=== PATIENT | female | born 1945 | race Caucasian/White ===

== ENCOUNTER → 2016-04-26 | Outpatient (CLI) | payer OTHER, BC ==
[~2016-04-26] MED LIST: ASCA500 PO; ASCO500T16 PO; ATOR-22 PO; ATOR10TA88 PO; CALC-354 PO; CHOL100010 PO; CLTP PO; EVER10TA PO; EVER5TAB PO; EXM/25 PO; FRCT/ PO; LEVO150T9 PO; LEVO1TAB PO; METO-217 PO; MULT-506 PO; NYSS5 PO; OPTIRAY 320 IV PRN; PANT40TA PO; POTA10CA28 PO; PRT/40 PO; QSTP PO; ULT50X PO; VALA500T60 PO; VLT500 PO; ZOLP10TA PO
--- NOTE | 2016-04-26 15:44 | DIAGNOSTIC IMAGING REPORT ---
CT ABD/PELVIS IV AND ORAL CONT CLINICAL HISTORY: Breast carcinoma COMPARISON STUDY: 02/01/2016 TECHNIQUE: Following the IV administration of 120 mL of Optiray-320, CT scan of the abdomen and pelvis was performed from the lung bases to the proximal femurs. Images are reviewed in the axial, sagittal, and coronal planes. IV contrast was administered without complication. CT DOSE: 431.38 mGy.cm FINDINGS: Lower chest: There is hyperdense lobular right-sided pleural thickening. There are right basilar atelectatic changes. The findings may be secondary to a prior pleurodesis. Liver: There is mild hepatic steatosis. There is a stable 5 mm right lobe hepatic cyst. Gallbladder: Unremarkable. Spleen: Normal in size and attenuation. Pancreas: Unremarkable. Adrenal glands: There is a stable 12 mm right adrenal gland nodule Kidneys: There is symmetric renal cortical enhancement. The kidneys are normal in size without hydronephrosis. Bowel: There are no transition zones to indicate bowel obstruction. No acute inflammatory changes are visualized. Peritoneum: There is no intraperitoneal free air or abdominal ascites. Vasculature: The abdominal aorta is normal in course and caliber. Adenopathy: None. Pelvic viscera: The bladder, and pelvic viscera are unremarkable. Skeletal structures: There are postsurgical changes are prior right hip pinning. There is a stable T10 sclerotic lesion, suspicious for a blastic metastasis. IMPRESSION: 1. Stable hyperdense lobular right-sided pleural thickening and right basilar atelectasis/consolidation 2. Stable 5 mm right lobe hepatic cyst 3. No evidence of pathologic adenopathy 4. Stable 12 mm right adrenal gland nodule 5. No evidence of bowel obstruction. No evidence of free air 6. Stable T10 blastic lesion Electronically signed by: David Brizuela M.D. 04/26/2016 3:42 PM Dictated Date/Time: 04/26/2016 3:35 PM
--- NOTE | 2016-04-26 15:53 | DIAGNOSTIC IMAGING REPORT ---
CT SCAN OF THE CHEST WITH IV CONTRAST CLINICAL HISTORY: Breast cancer. COMPARISON STUDY: Chest CT dated 02/01/2016 and PET/CT dated 10/02/2015 and 07/11/2014. TECHNIQUE: Following the IV administration of 120 cc of Optiray 320, CT scan of the thorax was performed from the thoracic inlet to the upper abdomen. Images are reviewed in the axial, sagittal, and coronal planes. IV contrast was administered without complication. FINDINGS: Thyroid: Atrophic versus surgically absent. Thoracic aorta: There is atherosclerotic calcification of the thoracic aorta. There is mild ectasia of the ascending thoracic aorta which measures up to 3.5 cm in diameter. The remainder of the thoracic aorta is normal in caliber. The arch demonstrates standard 3-vessel anatomy. No dissection is seen. Pulmonary vasculature: The pulmonary trunk is dilated suggesting pulmonary artery hypertension. There are no filling defects identified in the central pulmonary vessels to indicate pulmonary embolus. Note that this examination was not protocoled for evaluation of the pulmonary arteries. Heart: The heart is mildly enlarged and without pericardial effusion. Lungs and pleural spaces: There is a small loculated pleural collection seen at the right lung base. There is significant pleural thickening and nodularity with hyperdense material the right lung base suggesting previous pleurodesis. Nodular thickening is seen along the right major fissure. This may also be related to previous pleurodesis. Consolidative change at the right lung base is unchanged. There is right apical scarring. A 4 mm right upper lobe pulmonary nodule on image #110 is unchanged. A 3 mm pleural-based nodule at the left lung base seen on image #221 was not seen previously. No additional pulmonary nodules are identified. The trachea and central airways are patent. Mediastinum: A mildly enlarged AP window lymph node on image #100 is unchanged, measuring 1.5 x 1.1 cm. No additional pathologically enlarged mediastinum lymph nodes are identified. Saivta: Clear. Axillae: There is no axillary lymphadenopathy. Upper abdomen: A 1.5 cm right at adrenal adenoma is unchanged. Partially visualized upper abdominal viscera is otherwise within normal limits. Skeletal structures: The skeletal structures are osteopenic. A large sclerotic metastasis in the body of T9 is similar appearance to prior examinations. A lesion within the body of the sternum is also unchanged. There is no evidence of progressive osseous metastatic disease. Soft tissues: Both breasts are surgically absent. IMPRESSION: 1. There is a small residual pleural collection again seen at the right lung base with evidence of previous pleurodesis and right basilar consolidation. This has not significantly changed from 02/01/2016. 2. No significant change in osteoblastic lesions within the bodies of T9 and the body of the sternum as compared to 02/01/2016. There is no evidence of progressive osseous metastatic disease. 3. A 4 mm right upper lobe pulmonary nodule is unchanged an indeterminant. There is a new 3 mm pleural-based nodule at the left lung base. This is of indeterminant significance and continued attention at follow-up is recommended. 4. There is no airspace consolidation typical for pneumonia. 5. An enlarged AP window lymph node is unchanged from 02/01/2016. 6. Additional findings as above. Electronically signed by: Rickie King M.D. 04/26/2016 3:52 PM Dictated Date/Time: 04/26/2016 3:37 PM
--- NOTE | 2016-04-26 16:14 | DIAGNOSTIC IMAGING REPORT ---
BONE SCAN WHOLE BODY CLINICAL HISTORY: Breast cancer. COMPARISON STUDY: CT of the chest abdomen and pelvis April 26, 2016 and bone scan February 01, 2016. TECHNIQUE: 26.2 mCi of technetium 99m MDP was injected IV at 12:30 PM on April 26, 2016. 3 hours following injection, imaging of the body was performed in the anterior and posterior projections. FINDINGS: Expected soft tissue and renal uptake is present. Moderate to marked radiotracer uptake within the T10 vertebral body is unchanged. Moderate uptake within the sternum and mild to moderate uptake within the posterior right 10th rib is unchanged since exam of February 01, 2016. Mild uptake within the greater trochanter of the right femur is unchanged and likely postsurgical. Uptake within the feet, ankles and knees is degenerative. Uptake within the left aspect of the mid cervical spine is unchanged and likely degenerative. No new sites of metastatic disease are identified. IMPRESSION: No significant change in radiotracer uptake within the T10 vertebral body, posterior right 10th rib and sternum consistent with skeletal metastases. Electronically signed by: Xu Andrade M.D. 04/26/2016 4:12 PM Dictated Date/Time: 04/26/2016 4:07 PM
== END | disposition home or self-care (01) ==
LOC: C.CTS 12:09
PROVIDERS: ATTEND Internal Medicine Hematology & Oncology
DX: C50.911 Malignant neoplasm of unspecified site of right female breast (principal); K76.89 Other specified diseases of liver; R91.1 Solitary pulmonary nodule

== ENCOUNTER → 2016-07-29 | Outpatient (CLI) | payer OTHER, BC ==
[~2016-07-29] MED LIST changes: +ATOR10TA82 PO; -ATOR10TA88 PO; -OPTIRAY 320 IV PRN; +PANT40TA2 PO; -PRT/40 PO
[2016-07-29 13:59] LABS: THYROID STIMULATING HORMONE 4.2 uIu/ml (0.300-4.500)
== END | disposition home or self-care (01) ==
LOC: C.LAB 13:06
PROVIDERS: ATTEND Internal Medicine Endocrinology, Diabetes & Metabolism
DX: C73 Malignant neoplasm of thyroid gland (principal); E89.0 Postprocedural hypothyroidism; E78.5 Hyperlipidemia, unspecified; C50.919 Malignant neoplasm of unspecified site of unspecified female breast; R53.81 Other malaise; R59.9 Enlarged lymph nodes, unspecified; R53.83 Other fatigue

== ENCOUNTER 2016-08-16 12:43 | Inpatient (IN) | payer OTHER, BC ==
[~2016-08-16] VITALS: Ht 152.4 cm; Wt 44.2 kg
[~2016-08-16 12:43] MED LIST changes: -ASCO500T16 PO; -ATOR-22 PO; -CALC-354 PO; -EVER5TAB PO; -LEVO150T9 PO; -METO-217 PO; -NYSS5 PO; -PANT40TA2 PO; -POTA10CA28 PO; -QSTP PO; -ULT50X PO; -VLT500 PO
[2016-08-16] MEDS ORDERED: HYDROmorphone INJ 0.5 MG/0.5 ML SYR IV STA (13:07)
[2016-08-16] MEDS ORDERED: SODIUM CHLORIDE 0.9% 500ML 500 ML IV STA (13:07)
[2016-08-16] MEDS ORDERED: ONDANSETRON INJ 2 MG/ML 2 ML VIAL IV STA (13:07)
[2016-08-16] MEDS ORDERED: OPTIRAY 320 IV PRN (13:15)
[2016-08-16 13:30] LABS: COMPLETE YES; EOS % 0.1 %; HEMATOCRIT 37.7 % (37-47); IG% 0.3 %; LYMPH % 2.9 %; LYMPH ABS # 0.23 K/uL (1.2-3.4); MEAN CELL VOLUME 78.7 fL (80-100); MEAN CORPUSCULAR HEMOGLOBIN 26.3 pg (25-34); MEAN CORPUSCULAR HGB CONC 33.4 g/dl (32-36); MEAN PLATELET VOLUME 8.7 fL (7.4-10.4); MONO % 3.3 %; NEUT % 93.4 %; PLATELET COUNT 226 K/uL (130-400); RED BLOOD COUNT 4.79 M/uL (4.2-5.4); WHITE BLOOD COUNT 7.95 K/uL (4.8-10.8)
[2016-08-16] MEDS ORDERED: PIPERACILLIN/TAZOBACTAM 4.5 GM/100ML D5W IV STA (13:31)
[2016-08-16 13:40] LABS: INR 1.1 (0.9-1.1)
[2016-08-16 13:44] LABS: ISTAT CREATININE 0.4 mg/dl (0.6-1.3); ISTAT HEMOGLOBIN 14.3 g/dl (12.0-16.0); ISTAT IONIZED CALCIUM 1.1 mmol/l (1.12-1.32)
[2016-08-16 13:56] LABS: ALT/SGPT 787 U/L (12-78); AST/SGOT 563 U/L (15-37); BLOOD UREA NITROGEN 8 mg/dl (7-18); BUN/CREATININE RATIO 17.3 (10-20); CALCIUM 8.8 mg/dl (8.5-10.1); CARBON DIOXIDE 24 mmol/L (21-32); CHLORIDE 96 mmol/L (98-107); CREATININE 0.47 mg/dl (0.60-1.20); GLUCOSE 108 mg/dl (70-99); MAGNESIUM 2.1 mg/dl (1.8-2.4); POTASSIUM 3.3 mmol/L (3.5-5.1); SODIUM 130 mmol/L (136-145)
[2016-08-16 14:01] LABS: ALKALINE PHOSPHATASE 188 U/L (45-117)
[2016-08-16] MEDS ORDERED: ACETAMINOPHEN 500 MG TAB PO STA (14:09)
--- NOTE | 2016-08-16 14:19 | DIAGNOSTIC IMAGING REPORT ---
CHEST ONE VIEW PORTABLE CLINICAL HISTORY: fever ABDOMINAL PAIN COMPARISON STUDY: 11/14/2015 FINDINGS: The heart is mildly enlarged. There is no evidence of overt failure.. There is chronic right pleural fluid/thickening unchanged the prior study. Minor right basilar airspace opacities are likely atelectatic. No free air is visualized. IMPRESSION: 1. Chronic right pleural thickening/effusion 2. Mild cardiomegaly, no evidence of overt failure. Electronically signed by: David Brizuela M.D. 08/16/2016 2:17 PM Dictated Date/Time: 08/16/2016 2:16 PM
[2016-08-16 14:24] LABS: URINE APPEARANCE CLEAR (CLEAR); URINE BILIRUBIN NEG (NEG); URINE COLOR YELLOW; URINE EPITHELIAL CELL AUTO 0-5 /lpf (0-5); URINE NITRITE NEG (NEG); URINE PH 7.5 (4.5-7.5); URINE SPECIFIC GRAVITY 1.006 (1.000-1.030); UROBILINOGEN NEG (NEG); ZZUR CULT IF INDIC CLEAN CATCH NO
[2016-08-16 14:26] LABS: MANUAL MICROSCOPIC REQUIRED? NO; REVIEW REQ? NO
[2016-08-16] MEDS ORDERED: LEVO150T9 PO (14:33)
[2016-08-16] MEDS ORDERED: FRCT/ PO (14:33)
[2016-08-16] MEDS ORDERED: ASCO500T16 PO (14:33)
[2016-08-16] MEDS ORDERED: VLT500 PO (14:33)
[2016-08-16] MEDS ORDERED: ATOR-22 PO (14:33)
[2016-08-16] MEDS ORDERED: CALC-354 PO (14:33)
[2016-08-16] MEDS ORDERED: METO-217 PO (14:33)
[2016-08-16] MEDS ORDERED: CHOL100010 PO (14:33)
[2016-08-16] MEDS ORDERED: MULT-506 PO (14:33)
[2016-08-16] MEDS ORDERED: EVER5TAB PO (14:33)
[2016-08-16] MEDS ORDERED: EXM/25 PO (14:33)
[2016-08-16] MEDS ORDERED: ZOLP10TA PO (14:33)
[2016-08-16] MEDS ORDERED: PANT40TA2 PO (14:33)
--- NOTE | 2016-08-16 14:49 | DIAGNOSTIC IMAGING REPORT ---
CT ABD/PELVIS IV CONTRAST ONLY CLINICAL HISTORY: diffuse epigastric abd pain COMPARISON STUDY: 04/26/2016 TECHNIQUE: Following the IV administration of 92 mL of Optiray-320, CT scan of the abdomen and pelvis was performed from the lung bases to the proximal femurs. Images are reviewed in the axial, sagittal, and coronal planes. IV contrast was administered without complication. CT DOSE: 243.17 mGycm FINDINGS: Lower chest: There is persistent enhancing/hyperdense right lower lobe pleural thickening, possibly secondary to a prior pleurodesis. There is a small chronic right pleural fluid collection. Liver: There is a stable 6 mm hypodensity within the right lobe of the liver inferiorly likely representing a cyst. Portal vein is patent. Gallbladder: There is mild gallbladder distention. There is trace pericholecystic fluid. No gallstones are visualized. Spleen: Normal in size and attenuation. Pancreas: Unremarkable. Adrenal glands: Unremarkable. Kidneys: There is symmetric renal cortical enhancement. The kidneys are normal in size without hydronephrosis. Bowel: There are no transition zones to indicate bowel obstruction. There is no evidence of acute diverticulitis. The appendix appears normal as visualized. Peritoneum: There is no intraperitoneal free air or abdominal ascites. Vasculature: The abdominal aorta is normal in course and caliber. Adenopathy: None. Pelvic viscera: The bladder, and pelvic viscera are unremarkable. Skeletal structures: There are postsurgical changes of prior right hip pinning. No destructive lesions are visualized. There is a persistent sclerotic T9 lesion. IMPRESSION: 1. No evidence of bowel obstruction. No evidence of free air 2. No evidence of acute appendicitis. No evidence of acute diverticulitis. 3. Stable T9 sclerotic lesion suspicious for a blastic metastasis 4. Stable right-sided lobular pleural thickening. There is associated small chronic pleural fluid collection. There is a suggestion of prior pleurodesis. 5. Mild gallbladder distention. No calculi are visualized on CT scanning. Electronically signed by: David Brizuela M.D. 08/16/2016 2:47 PM Dictated Date/Time: 08/16/2016 2:41 PM
--- NOTE | 2016-08-16 15:34 | EMERGENCY ROOM VISIT NOTE ---
History Report prepared by Monica: Marcelino Mackenzie Under the Supervision of: Dr. Thor Kramer D.O. First contact with patient: 12:54 Stated Complaint: ABD PAIN History of Present Illness The patient is a 71 year old female who presents to the Emergency Room with complaints of intermittent epigastric abdominal pain beginning yesterday. She is currently on Afinitor and Exemestane for metastatic, hormone positive breast cancer. She has a history of a double mastectomy. The patient states that her pain began following eating breakfast. Her pain radiates into her back. The patient also complains of nausea and vomiting. She notes that she has a history of stomach ulcers. She states that bending over makes her pain worse. The patient noticed that she was having fevers yesterday. Pt denies headache, change in vision, chest pain, shortness of breath, diarrhea, pain with urination , and melena. Her last normal bowel movement was two days ago. Source of History: patient Onset: Yesterday Position: abdomen (epigastric) Timing: intermittent Modifying Factors (Worsening): other (bending over) Associated Symptoms: + fevers, + nausea, + vomiting, + back pain, No headache, No chest pain, No SOB, No diarrhea, No urinary symptoms Review of Systems See HPI for pertinent positives & negatives. A total of 10 systems reviewed and were otherwise negative. Past Medical & Surgical Medical Problems: (1) Allergic rhinitis (2) Cancer of thyroid (3) GERD (gastroesophageal reflux disease) (4) Peptic ulcer disease with hemorrhage Family History Cancer Diabetes mellitus FH: heart disease Hypertension Social History Smoking Status: Former Smoker Alcohol Use: occasionally Housing Status: lives alone Occupation Status: retired Current/Historical Medications Scheduled Ascorbic Acid (Ascorbic Acid), 1 TAB PO BID Atorvastatin (Lipitor), 1 TAB PO DAILY Calcium Carbonate-Cholecalcife (Caltrate 600+D), 2 TAB PO AMPM Cholecalciferol (Vitamin D), 1 TAB PO DAILY Everolimus (Afinitor), 5 MG PO DAILY Exemestane (Aromasin), 1 TAB PO DAILY Levothyroxine Sodium (Levothyroxine Sodium), 150 MCG PO DAILY Metoprolol Succinate (Toprol Xl), 50 MG PO DAILY Multivitamin (Multivitamin), 1 TAB PO DAILY Pantoprazole (Pantoprazole Sodium), 40 MG PO DAILY Valacyclovir HCl (Valacyclovir HCl), 500 MG PO DAILY Zolpidem Tartrate (Ambien), 10 MG PO HS Scheduled PRN Acetamin/Butalbital/Caffeine (Fioricet), 1 TAB PO UD PRN for Pain Allergies Coded Allergies: Oxycodone (Verified Adverse Reaction, Severe, HALLUCINATIONS, 06/01/15) HALLUCINATIONS Isosorbide Nitrate (Unverified Adverse Reaction, Intermediate, IMDUR/ MIGRAINE, 08/16/16) Aspirin (Verified Adverse Reaction, Mild, HISTORY OF BLEEDING ULCERS, 05/31) Buprenorphine (Verified Adverse Reaction, Mild, GI SYMPTOMS, 06/01/15) Diphenhydramine (Verified Adverse Reaction, Mild, RESTLESS LEGS, 06/01/15) RESTLESS LEGS Morphine (Verified Adverse Reaction, Mild, SEVERE VOMITING, 06/01/15) NSAIDs (Verified Adverse Reaction, Mild, BLEEDING ULCER DISEASE-CAN NOT HAVE NSAIDS, 06/01/15) Tapentadol (Verified Adverse Reaction, Mild, headache, 06/01/15) Physical Exam Vital Signs Date Time Temp Pulse Resp B/P (MAP) Pulse Ox O2 Delivery O2 Flow Rate FiO2 08/16/16 14:51 105 20 164/91 96 Room Air 08/16/16 13:41 104 08/16/16 13:15 38.2 104 22 179/109 97 Room Air Physical Exam GENERAL: Sitting up in bed, chronically ill appearing EYE EXAM: normal conjunctiva OROPHARYNX: no exudate, no erythema, lips, buccal mucosa, and tongue normal and mucous membranes are moist NECK: supple, no nuchal rigidity, no adenopathy, non-tender LUNGS: Clear to auscultation. Normal chest wall mechanics HEART: no murmurs, S1 normal and S2 normal ABDOMEN: abdomen firm, tenderness to palpation in the RUQ. normo-active bowel sounds, no masses, no rebound or guarding. BACK: Back is symmetrical on inspection and there is no deformity, no midline tenderness, no CVA tenderness. SKIN: no rashes and no bruising UPPER EXTREMITIES: upper extremities are grossly normal. LOWER EXTREMITIES: No pitting edema. NEURO EXAM: Normal sensorium, cranial nerves II-XII grossly intact, normal speech, no gross weakness of arms, no gross weakness of legs. Medical Decision & Procedures ER Provider Diagnostic Interpretation: Radiology results as stated below per my review and the radiologist's interpretation: CT ABD/PELVIS IV CONTRAST ONLY FINDINGS: Lower chest: There is persistent enhancing/hyperdense right lower lobe pleural thickening, possibly secondary to a prior pleurodesis. There is a small chronic right pleural fluid collection. Liver: There is a stable 6 mm hypodensity within the right lobe of the liver inferiorly likely representing a cyst. Portal vein is patent. Gallbladder: There is mild gallbladder distention. There is trace pericholecystic fluid. No gallstones are visualized. Spleen: Normal in size and attenuation. Pancreas: Unremarkable. Adrenal glands: Unremarkable. Kidneys: There is symmetric renal cortical enhancement. The kidneys are normal in size without hydronephrosis. Bowel: There are no transition zones to indicate bowel obstruction. There is no evidence of acute diverticulitis. The appendix appears normal as visualized. Peritoneum: There is no intraperitoneal free air or abdominal ascites. Vasculature: The abdominal aorta is normal in course and caliber. Adenopathy: None. Pelvic viscera: The bladder, and pelvic viscera are unremarkable. Skeletal structures: There are postsurgical changes of prior right hip pinning. No destructive lesions are visualized. There is a persistent sclerotic T9 lesion. IMPRESSION: 1. No evidence of bowel obstruction. No evidence of free air 2. No evidence of acute appendicitis. No evidence of acute diverticulitis. 3. Stable T9 sclerotic lesion suspicious for a blastic metastasis 4. Stable right-sided lobular pleural thickening. There is associated small chronic pleural fluid collection. There is a suggestion of prior pleurodesis. 5. Mild gallbladder distention. No calculi are visualized on CT scanning. Electronically signed by: David Brizuela M.D. CHEST ONE VIEW PORTABLE FINDINGS: The heart is mildly enlarged. There is no evidence of overt failure.. There is chronic right pleural fluid/thickening unchanged the prior study. Minor right basilar airspace opacities are likely atelectatic. No free air is visualized. IMPRESSION: 1. Chronic right pleural thickening/effusion 2. Mild cardiomegaly, no evidence of overt failure. Electronically signed by: David Brizuela M.D. Laboratory Results 08/16/16 12:30 Red Blood Count 4.79, Mean Corpuscular Volume 78.7, Mean Corpuscular Hemoglobin 26.3, Mean Corpuscular Hemoglobin Concent 33.4, Mean Platelet Volume 8.7, Neutrophils (%) (Auto) 93.4, Lymphocytes (%) (Auto) 2.9, Monocytes (%) (Auto) 3.3, Eosinophils (%) (Auto) 0.1, Basophils (%) (Auto) 0.0, Neutrophils # (Auto) 7.43, Lymphocytes # (Auto) 0.23, Monocytes # (Auto) 0.26, Eosinophils # (Auto) 0.01, Basophils # (Auto) 0.00 08/16/16 12:30 Test 08/16/16 12:30 08/16/16 13:00 08/16/16 13:15 08/16/16 13:33 White Blood Count 7.95 K/uL (4.8-10.8) Red Blood Count 4.79 M/uL (4.2-5.4) Hemoglobin 12.6 g/dL (12.0-16.0) Hematocrit 37.7 % (37-47) Mean Corpuscular Volume 78.7 fL (80-100) Mean Corpuscular Hemoglobin 26.3 pg (25-34) Mean Corpuscular Hemoglobin Concent 33.4 g/dl (32-36) Platelet Count 226 K/uL (130-400) Mean Platelet Volume 8.7 fL (7.4-10.4) Neutrophils (%) (Auto) 93.4 % Lymphocytes (%) (Auto) 2.9 % Monocytes (%) (Auto) 3.3 % Eosinophils (%) (Auto) 0.1 % Basophils (%) (Auto) 0.0 % Neutrophils # (Auto) 7.43 K/uL (1.4-6.5) Lymphocytes # (Auto) 0.23 K/uL (1.2-3.4) Monocytes # (Auto) 0.26 K/uL (0.11-0.59) Eosinophils # (Auto) 0.01 K/uL (0-0.5) Basophils # (Auto) 0.00 K/uL (0-0.2) RDW Standard Deviation 40.4 fL (36.4-46.3) RDW Coefficient of Variation 14.2 % (11.5-14.5) Immature Granulocyte % (Auto) 0.3 % Immature Granulocyte # (Auto) 0.02 K/uL (0.00-0.02) Prothrombin Time 12.0 SECONDS (9.0-12.0) Prothromb Time International Ratio 1.1 (0.9-1.1) Est Creatinine Clear Calc Drug Dose 70.9 ml/min Estimated GFR () 115.2 Estimated GFR (Non- 99.4 BUN/Creatinine Ratio 17.3 (10-20) Calcium Level 8.8 mg/dl (8.5-10.1) Magnesium Level 2.1 mg/dl (1.8-2.4) Total Bilirubin 2.1 mg/dl (0.2-1) Direct Bilirubin 1.4 mg/dl (0-0.2) Aspartate Amino Transf (AST/SGOT) 563 U/L (15-37) Alanine Aminotransferase (ALT/SGPT) 787 U/L (12-78) Alkaline Phosphatase 188 U/L (45-117) Total Creatine Kinase 83 U/L (26-192) Creatine Kinase MB < 0.5 ng/ml (0.5-3.6) Creatine Kinase MB Ratio (0-3.0) Troponin I < 0.015 ng/ml (0-0.045) Total Protein 7.6 gm/dl (6.4-8.2) Albumin 3.7 gm/dl (3.4-5.0) Urine Color YELLOW Urine Appearance CLEAR (CLEAR) Urine pH 7.5 (4.5-7.5) Urine Specific [place] 1.006 (1.000-1.030) Urine Protein NEG (NEG) Urine Glucose (UA) NEG (NEG) Urine Ketones TRACE (NEG) Urine Occult Blood 2+ (NEG) Urine Nitrite NEG (NEG) Urine Bilirubin NEG (NEG) Urine Urobilinogen NEG (NEG) Urine Leukocyte Esterase NEG (NEG) Urine WBC (Auto) 0 /hpf (0-5) Urine RBC (Auto) 5-10 /hpf (0-4) Urine Hyaline Casts (Auto) 0 /lpf (0-5) Urine Epithelial Cells (Auto) 0-5 /lpf (0-5) Urine Bacteria (Auto) NEG (NEG) Bedside Hemoglobin 14.3 g/dl (12.0-16.0) Bedside Hematocrit 42 % (37-47) Bedside Sodium 129 mEq/L (135-144) Bedside Potassium 3.2 mEq/L (3.3-5.0) Bedside Chloride 94 mEq/L (101-112) Bedside Total CO2 23 mEq/l (24-31) Anion Gap 17.0 mmol/L (16-25) Bedside Blood Urea Nitrogen 7 mg/dl (7-18) Bedside Creatinine 0.4 mg/dl (0.6-1.3) Bedside Glucose (other) 118 mg/dl (70-99) Bedside Ionized Calcium (Teresita) 1.10 mmol/l (1.12-1.32) Bedside Lactic Acid Venous 1.63 mmol/L (0.90-1.70) Laboratory results per my review. Medications Administered Medications (Trade) Dose Ordered Sig/[place] Route Start Time Stop Time Status Last Admin Dose Admin Sodium Chloride 500 ml @ 999 mls/hr Q31M STAT IV 08/16/16 13:07 08/16/16 13:37 DC 08/16/16 13:25 999 MLS/HR Ondansetron HCl (Zofran Inj) 4 mg NOW STAT IV 08/16/16 13:07 08/16/16 13:09 DC 08/16/16 13:25 4 MG Hydromorphone HCl (Dilaudid Inj) 0.5 mg NOW STAT IV 08/16/16 13:07 08/16/16 13:09 DC 08/16/16 13:25 0.5 MG Piperacillin Sod/ Tazobactam Sod (Zosyn Iv) 4.5 gm NOW STAT IV 08/16/16 13:31 08/16/16 13:33 DC 08/16/16 14:50 4.5 GM Acetaminophen (Tylenol Tab) 1,000 mg NOW STAT PO 08/16/16 14:09 08/16/16 14:11 DC 08/16/16 14:50 1,000 MG ECG Indication: abdominal pain Rate (beats per minute): 100 Rhythm: sinus tachycardia Findings: Q waves (Septal), left axis deviation Comparison ECG Date: June 01, 2015 Change: no significant change ED Course ED COURSE: Vital signs were reviewed and showed tachycardia and hypertension The patients medical record was reviewed The above diagnostic studies were performed and reviewed. ED treatments and interventions as stated above. 1256: The patient was evaluated in room C5. A complete history and physical examination was performed. 1307: Ordered Dilaudid Inj 0.5 mg IV, Zofran Inj 4 mg IV, Sodium Chloride 500 ml @ 999 mls/hr IV. 1331: Ordered Zosyn 4.5 gm IV. 1409: Ordered Tylenol Tab 1000 mg PO. 1510: Upon reevaluation, the patient is resting comfortably. I discussed my findings with the patient and she understands and agrees with the treatment plan. Based on the patients age, coexisting illnesses, exam and lab findings the decision to treat as an inpatient was made. The patient remained stable while under my care. The patient will be evaluated for further management. Medical Decision Differential diagnoses includes but is not limited to gastritis, peptic ulcer disease, GERD, gallbladder disease, pancreatitis, small bowel obstruction, acute coronary syndrome, pericarditis, ischemic bowel, irritable bowel disease, irritable bowel syndrome, appendicitis, diverticulitis, malignancy, hernia, urinary tract infection, torsion, perforation, trauma, infectious. Patient is a 71-year-old female who is immune compromised presents the ER with epigastric/right upper quadrant abdominal pain. She was referred in by primary care doctor as she was febrile and tachycardic. On exam she is acutely tender to palpation right upper quadrant. She has a large transaminitis along with an elevation in her bilirubin. CT shows a distended gallbladder. I do favor she likely has acute cholecystitis I question whether she has a retained stone that we missed on CT causing the transaminitis and elevated bilirubin. I did consult GI and internal medicine. Attempted to contact surgery but was unsuccessful. Patient was given IV antibiotics and IV fluids. She was admitted to internal medicine for a further workup of her likely cholecystitis. Consults Time Called: 1505 Consulting Physician: Dr. Hansen -[facility] [place] Returned Call: [id number] I reviewed the patient's case with Dr. Hansen. The patient will be evaluated for further management. Additional Consults: Time Called: 1500 Consulted Physician: Sonja Additional Comments: She will eval in the ER Impression Primary Impression: Sepsis Additional Impressions: Cholecystitis Transaminitis Scribe Attestation The scribe's documentation has been prepared under my direction and personally reviewed by me in its entirety. I confirm that the note above accurately reflects all work, treatment, procedures, and medical decision making performed by me. Departure Information Dispostion Being Evaluated By Hospitalist Referrals Isaac Way M.D. (PCP) Problem Qualifiers Primary Impression: Sepsis Sepsis type: sepsis due to unspecified organism Qualified Codes: A41.9 - Sepsis, unspecified organism
[2016-08-16 15:39] VITALS: O2SAT 96; Ht 152.4 cm; Wt 44.2 kg
[2016-08-16] MEDS ORDERED: POTASSIUM CHLR 20 MEQ / WTR 40 MEQ in PREMIXED WATER 100 ML IV STA (15:39)
[2016-08-16] MEDS ORDERED: MAGNESIUM HYDROXIDE SUSP 30 ML UDC PO PRN (15:45)
--- NOTE | 2016-08-16 16:03 | History and Physical ---
History & Physical Date & Time of Service: Aug 16, 2016 at 15:45 Chief Complaint: Abd Pain Primary Care Physician: Isaac Way M.D. History of Present Illness Source: patient Pt is a pleasant 71 yo female who presents to the ER with complaints of intermittent epigastric abdominal pain beginning yesterday. Pt reports pain started after eating breakfast yesterday which consisted of bread and cheese. States pain was centrally located and radiated into the back. Pt also reports nausea, vomiting x 1 episode in the evening, as well as fevers which she states was 100.8 Pt does reports a hx of stomach ulcers stating this pain was similar to when she was diagnosed with stomach ulcer many yrs ago. Pt also has hx of breast cancer in which she was treated for 12 yrs ago, but then relapsed several yrs ago and is currently taking PO chemo meds under the care of Dr Charles Butler. Pt denies any headache, change in vision, chest pain, shortness of breath, diarrhea, pain with urination, and melena. Her last normal bowel movement was two days ago. Past Medical/Surgical History Medical Problems: (1) Allergic rhinitis Status: Chronic (2) Cancer of thyroid Status: Resolved (3) GERD (gastroesophageal reflux disease) Status: Chronic (4) Peptic ulcer disease with hemorrhage Status: Resolved Family History Cancer Diabetes mellitus FH: heart disease Hypertension Social History Smoking Status: Former Smoker (quit 40 yrs ago but smoked 1/2 ppd for 10 yrs) Smokeless Tobacco Use: No Alcohol Use: socially (1 glass wine daily) Drug Use: none Occupational Status: retired Immunizations History of Influenza Vaccine: Unknown History of Tetanus Vaccine?: Unknown History of Pneumococcal: Unknown History of Hepatitis B Vaccine: Unknown Multi-Drug Resistant Organisms History of MDRO: No Allergies Coded Allergies: Oxycodone (Verified Adverse Reaction, Severe, HALLUCINATIONS, 06/01/15) HALLUCINATIONS Isosorbide Nitrate (Unverified Adverse Reaction, Intermediate, IMDUR/ MIGRAINE, 08/16/16) Aspirin (Verified Adverse Reaction, Mild, HISTORY OF BLEEDING ULCERS, 05/31) Buprenorphine (Verified Adverse Reaction, Mild, GI SYMPTOMS, 06/01/15) Diphenhydramine (Verified Adverse Reaction, Mild, RESTLESS LEGS, 06/01/15) RESTLESS LEGS Morphine (Verified Adverse Reaction, Mild, SEVERE VOMITING, 06/01/15) NSAIDs (Verified Adverse Reaction, Mild, BLEEDING ULCER DISEASE-CAN NOT HAVE NSAIDS, 06/01/15) Tapentadol (Verified Adverse Reaction, Mild, headache, 06/01/15) Home Medications Scheduled Ascorbic Acid (Ascorbic Acid), 1 TAB PO BID Atorvastatin (Lipitor), 1 TAB PO DAILY Calcium Carbonate-Cholecalcife (Caltrate 600+D), 2 TAB PO AMPM Cholecalciferol (Vitamin D), 1 TAB PO DAILY Everolimus (Afinitor), 5 MG PO DAILY Exemestane (Aromasin), 1 TAB PO DAILY Levothyroxine Sodium (Levothyroxine Sodium), 150 MCG PO DAILY Metoprolol Succinate (Toprol Xl), 50 MG PO DAILY Multivitamin (Multivitamin), 1 TAB PO DAILY Pantoprazole (Pantoprazole Sodium), 40 MG PO DAILY Valacyclovir HCl (Valacyclovir HCl), 500 MG PO DAILY Zolpidem Tartrate (Ambien), 10 MG PO HS Scheduled PRN Acetamin/Butalbital/Caffeine (Fioricet), 1 TAB PO UD PRN for Pain Review of Systems Constitutional: + fever, + chills, No weakness, No fatigue Eyes: No worsening of vision, No eye pain, No redness, No discharge ENT: No hearing loss, No unusual epistaxis, No nasal symptoms, No sore throat Respiratory: No cough, No sputum, No wheezing, No shortness of breath Cardiovascular: No chest pain, No orthopnea, No PND, No edema Abdomen: + pain, + nausea, + vomiting, + constipation, No diarrhea Musculoskeletal: + joint pain, + muscle pain, No swelling, No calf pain Genitourinary - Female: No dysuria, No urinary frequency, No urinary urgency, No urinary incontinence Neurologic: No paralysis, No weakness, No numbness/tingling, No vertigo Psychiatric: No depression symptoms, No anhedonism, No anxiety Endocrine: No fatigue, No excessive thirst Integumentary: No rash, No itch Physical Exam Vital Signs Date Time Temp Pulse Resp B/P (MAP) Pulse Ox O2 Delivery O2 Flow Rate FiO2 08/16/16 14:51 105 20 164/91 96 Room Air 08/16/16 13:41 104 08/16/16 13:15 38.2 104 22 179/109 97 Room Air General Appearance: WD/WN, no apparent distress Head: normocephalic, atraumatic Eyes: normal inspection, PERRL, EOMI, sclerae normal Neck: supple, no adenopathy, thyroid normal, no JVD Respiratory/Chest: chest non-tender, lungs clear, normal breath sounds, no respiratory distress Cardiovascular: regular rate, rhythm, no edema, no gallop, no JVD Abdomen/GI: normal bowel sounds, soft, no organomegaly, + tenderness ( epigastric ) Extremities/Musculoskelatal: normal inspection, no calf tenderness, normal capillary refill, no pedal edema Neurologic/Psych: alert, normal mood/affect, normal reflexes, oriented x 3 Diagnostics Laboratory Results Results Past 24 Hours Test 08/16/16 12:20 08/16/16 12:30 08/16/16 13:00 08/16/16 13:15 Range/Units White Blood Count 7.95 4.8-10.8 K/uL Red Blood Count 4.79 4.2-5.4 M/uL Hemoglobin 12.6 12.0-16.0 g/dL Hematocrit 37.7 37-47 % Mean Corpuscular Volume 78.7 80-100 fL Mean Corpuscular Hemoglobin 26.3 25-34 pg Mean Corpuscular Hemoglobin Concent 33.4 32-36 g/dl Platelet Count 226 130-400 K/uL Mean Platelet Volume 8.7 7.4-10.4 fL Neutrophils (%) (Auto) 93.4 % Lymphocytes (%) (Auto) 2.9 % Monocytes (%) (Auto) 3.3 % Eosinophils (%) (Auto) 0.1 % Basophils (%) (Auto) 0.0 % Neutrophils # (Auto) 7.43 1.4-6.5 K/uL Lymphocytes # (Auto) 0.23 1.2-3.4 K/uL Monocytes # (Auto) 0.26 0.11-0.59 K/uL Eosinophils # (Auto) 0.01 0-0.5 K/uL Basophils # (Auto) 0.00 0-0.2 K/uL RDW Standard Deviation 40.4 36.4-46.3 fL RDW Coefficient of Variation 14.2 11.5-14.5 % Immature Granulocyte % (Auto) 0.3 % Immature Granulocyte # (Auto) 0.02 0.00-0.02 K/uL Prothrombin Time 12.0 9.0-12.0 SECONDS Prothromb Time International Ratio 1.1 0.9-1.1 Sodium Level 130 136-145 mmol/L Potassium Level 3.3 3.5-5.1 mmol/L Chloride Level 96 98-107 mmol/L Carbon Dioxide Level 24 21-32 mmol/L Anion Gap 10.0 17.0 16-25 mmol/L Blood Urea Nitrogen 8 7-18 mg/dl Creatinine 0.47 0.60-1.20 mg/dl Est Creatinine Clear Calc Drug Dose 70.9 ml/min Estimated GFR () 115.2 Estimated GFR (Non- 99.4 BUN/Creatinine Ratio 17.3 10-20 Random Glucose 108 70-99 mg/dl Calcium Level 8.8 8.5-10.1 mg/dl Magnesium Level 2.1 1.8-2.4 mg/dl Total Bilirubin 2.1 0.2-1 mg/dl Direct Bilirubin 1.4 0-0.2 mg/dl Aspartate Amino Transf (AST/SGOT) 563 15-37 U/L Alanine Aminotransferase (ALT/SGPT) 787 12-78 U/L Alkaline Phosphatase 188 45-117 U/L Total Creatine Kinase 83 26-192 U/L Creatine Kinase MB < 0.5 0.5-3.6 ng/ml Creatine Kinase MB Ratio 0-3.0 Troponin I < 0.015 0-0.045 ng/ml Total Protein 7.6 6.4-8.2 gm/dl Albumin 3.7 3.4-5.0 gm/dl Lipase 508 73-393 U/L Urine Color YELLOW Urine Appearance CLEAR CLEAR Urine pH 7.5 4.5-7.5 Urine Specific [place] 1.006 1.000-1.030 Urine Protein NEG NEG Urine Glucose (UA) NEG NEG Urine Ketones TRACE NEG Urine Occult Blood 2+ NEG Urine Nitrite NEG NEG Urine Bilirubin NEG NEG Urine Urobilinogen NEG NEG Urine Leukocyte Esterase NEG NEG Urine WBC (Auto) 0 0-5 /hpf Urine RBC (Auto) 5-10 0-4 /hpf Urine Hyaline Casts (Auto) 0 0-5 /lpf Urine Epithelial Cells (Auto) 0-5 0-5 /lpf Urine Bacteria (Auto) NEG NEG Bedside Hemoglobin 14.3 12.0-16.0 g/dl Bedside Hematocrit 42 37-47 % Bedside Sodium 129 135-144 mEq/L Bedside Potassium 3.2 3.3-5.0 mEq/L Bedside Chloride 94 101-112 mEq/L Bedside Total CO2 23 24-31 mEq/l Bedside Blood Urea Nitrogen 7 7-18 mg/dl Bedside Creatinine 0.4 0.6-1.3 mg/dl Bedside Glucose (other) 118 70-99 mg/dl Bedside Ionized Calcium (Teresita) 1.10 1.12-1.32 mmol/l Test 08/16/16 13:33 Range/Units Bedside Lactic Acid Venous 1.63 0.90-1.70 mmol/L Microbiology Results 08/16/16 Blood Culture, Received Pending 08/16/16 Blood Culture, Received Pending Impression Assessment and Plan Pt is a pleasant 71 yo female with hx of breast CA (currently undergoing PO chemo), PUD, HTN, dyslipidemia, thyroid CA who presents with epigastric pain x 1 day with associated N/V Epigastric pain/nausea and vomiting likely secondary to biliary colic vs peptic ulcer disease. Pt reports pain with after eating breakfast yesterday AM. Noted transaminitis with AST 563 and ALT 787 Tbili 2.1 and Dbili [address] abd/pelvis noted gallbladder wall thickening and trace fluid. Will get HIDA as well. lipase pending at this time. Will admit to tele, keep pt NPO and utilize IVF and broad spectrum antibx of levaquin and flagyl for potential GB source. Will consult Dr Watkins due to pt preference. Pt will likely need MRCP/ERCP. Sepsis as evidenced by tachycardia, fever with likely source being the gallbladder. See above. Will utilize levaquin and flagyl and obtain blood cultures Breast cancer, will hold PO chemo regimen of afinitor and aromasin while NPO Hx of PUD, start on IV protonix Hx of thyroid cancer, with removal of gland, converted PO synthroid to IV synthroid HTN stable, DC PO meds DVT ppx with heparin Pt is FULL CODE VTE Prophylaxis VTE Risk Assessment Done? Y/N: Yes Risk Level: Moderate
--- NOTE | 2016-08-16 16:20 | Gastrointestinal Consultation ---
Gastrointestinal Consultation Date of Consultation: Aug 16, 2016 Attending Physician: Avi Hansen Consulting Physician: Yasmine Michele Reason for Consultation: Elevated LFTs, increased Tbili History of Present Illness Patient is a 71 year old female w PMHx of GERD, PUD w hemorrhage, thyroid, breast ca w mets, allergic rhinitis who presented to ED w c/o abd pain, n/v x 1 day. She had breakfast yesterday and started to have epigastric, sharp pain radiating to her back. She has associated n/v. Denies any hematemesis. She also has low grade fevers over 100 degrees. No jaundice, changes in BM habits though this weekend had diarrhea which resolved w Imodium. She went to her PCP's office (Dr. Way) and sent to ED via ambulance. She could only have a spoonful of Jello and some surinamese ice this AM around 11 o'clock. Upon evaluation, she was noted to be febrile, CBC and coags unremarkable. CMP showed low K 3.4, Na 129, notably elevated LFTs: Tbili 2.1, AST/ALT 500s/700s, AP 188. Her LFTs were normal last month. Lipase pending. She had CT abd/pelvis w IV contrast only which showed cyst in liver, mild gallbladder wall thickening but no gallstones noted. Biliary duct not visualized well. Of note, pt had hx of bilateral mastectomy, finished chemo & radiation, but now on oral chemo Afinitor and Everlimus for 7 yrs w/o recent dose changes. Past Medical/Surgical History Medical Problems: (1) Cholecystitis Status: Acute (2) Sepsis Status: Acute (3) Transaminitis Status: Acute Past Medical History: See HPI Past Surgical History: See HPI, also R femor fracture repair secondary to bone mets. Family History Cancer Diabetes mellitus FH: heart disease Hypertension Unrelated to current admission Social History Smoking Status: Former Smoker (quit 40 yrs ago but smoked 1/2 ppd for 10 yrs) Alcohol Use: occasionally Drug Use: none Housing Status: lives alone Occupation Status: retired Allergies Coded Allergies: Oxycodone (Verified Adverse Reaction, Severe, HALLUCINATIONS, 06/01/15) HALLUCINATIONS Isosorbide Nitrate (Unverified Adverse Reaction, Intermediate, IMDUR/ MIGRAINE, 08/16/16) Aspirin (Verified Adverse Reaction, Mild, HISTORY OF BLEEDING ULCERS, 05/31) Buprenorphine (Verified Adverse Reaction, Mild, GI SYMPTOMS, 06/01/15) Diphenhydramine (Verified Adverse Reaction, Mild, RESTLESS LEGS, 06/01/15) RESTLESS LEGS Morphine (Verified Adverse Reaction, Mild, SEVERE VOMITING, 06/01/15) NSAIDs (Verified Adverse Reaction, Mild, BLEEDING ULCER DISEASE-CAN NOT HAVE NSAIDS, 06/01/15) Tapentadol (Verified Adverse Reaction, Mild, headache, 06/01/15) Current Medications Home Meds and Scripts Medications Dose Route/Sig Max Daily Dose Days Date Category Valacyclovir HCl 500 Mg Tab 500 Mg PO DAILY 08/16/16 Reported Levothyroxine Sodium 150 Mcg Tab 150 Mcg PO DAILY 08/16/16 Reported Pantoprazole Sodium (Pantoprazole) 40 Mg Tab 40 Mg PO DAILY 08/16/16 Reported Multivitamin (Multivitamins) Tab 1 Tab PO DAILY 08/16/16 Reported Toprol Xl (Metoprolol Succinate) 50 Mg Tabcr 50 Mg PO DAILY 08/16/16 Reported Lipitor (Atorvastatin Calcium) 20 Mg Tab 1 Tab PO DAILY 08/16/16 Reported Fioricet (Acetaminophen/Butalbital/Caffeine) 1 Ea Tab 1 Tab PO UD PRN 08/16/16 Reported Vitamin D (Cholecalciferol) Unknown Strength Tab 1 Tab PO DAILY 08/16/16 Reported Caltrate 600+D (Calcium Carbonate-Cholecalcife) 1 Tab Tab 2 Tab PO AMPM 08/16/16 Reported Ascorbic Acid Unknown Strength Tab 1 Tab PO BID 08/16/16 Reported Ambien (Zolpidem Tartrate) 10 Mg Tab 10 Mg PO HS 08/16/16 Reported Aromasin (Exemestane) Unknown Strength Tab 1 Tab PO DAILY 08/16/16 Reported Afinitor (Everolimus) 5 Mg Tab 5 Mg PO DAILY 08/16/16 Reported Review of Systems Constitutional: + fever, No chills Respiratory: No cough, No shortness of breath Cardiac: No chest pain Abdomen: + pain, + nausea, + vomiting, No diarrhea, No constipation, No GI bleeding Skin: No rash, No itch, No jaundice Physical Exam Date Time Temp Pulse Resp B/P (MAP) Pulse Ox O2 Delivery O2 Flow Rate FiO2 08/16/16 15:39 96 Room Air 08/16/16 14:51 105 20 164/91 96 Room Air 08/16/16 13:41 104 08/16/16 13:15 38.2 104 22 179/109 97 Room Air General Appearance: WD/WN, no apparent distress Eyes: normal inspection, PERRL, EOMI Neck: supple, no JVD, trachea midline Respiratory/Chest: normal breath sounds, no respiratory distress, no accessory muscle use Cardiovascular: regular rate, rhythm, no gallop, no murmur Abdomen: soft, + abnormal bowel sounds (hypoactive ), + tenderness (epigastric ) Neurologic/Psych: alert, normal mood/affect, oriented x 3 Skin: normal color, no jaundice, no rash Laboratory Results Last 24 Hours Test 08/16/16 12:20 08/16/16 12:30 08/16/16 13:00 08/16/16 13:15 White Blood Count 7.95 K/uL Red Blood Count 4.79 M/uL Hemoglobin 12.6 g/dL Hematocrit 37.7 % Mean Corpuscular Volume 78.7 fL Mean Corpuscular Hemoglobin 26.3 pg Mean Corpuscular Hemoglobin Concent 33.4 g/dl Platelet Count 226 K/uL Mean Platelet Volume 8.7 fL Neutrophils (%) (Auto) 93.4 % Lymphocytes (%) (Auto) 2.9 % Monocytes (%) (Auto) 3.3 % Eosinophils (%) (Auto) 0.1 % Basophils (%) (Auto) 0.0 % Neutrophils # (Auto) 7.43 K/uL Lymphocytes # (Auto) 0.23 K/uL Monocytes # (Auto) 0.26 K/uL Eosinophils # (Auto) 0.01 K/uL Basophils # (Auto) 0.00 K/uL RDW Standard Deviation 40.4 fL RDW Coefficient of Variation 14.2 % Immature Granulocyte % (Auto) 0.3 % Immature Granulocyte # (Auto) 0.02 K/uL Prothrombin Time 12.0 SECONDS Prothromb Time International Ratio 1.1 Sodium Level 130 mmol/L Potassium Level 3.3 mmol/L Chloride Level 96 mmol/L Carbon Dioxide Level 24 mmol/L Anion Gap 10.0 mmol/L 17.0 mmol/L Blood Urea Nitrogen 8 mg/dl Creatinine 0.47 mg/dl Est Creatinine Clear Calc Drug Dose 70.9 ml/min Estimated GFR () 115.2 Estimated GFR (Non- 99.4 BUN/Creatinine Ratio 17.3 Random Glucose 108 mg/dl Calcium Level 8.8 mg/dl Magnesium Level 2.1 mg/dl Total Bilirubin 2.1 mg/dl Direct Bilirubin 1.4 mg/dl Aspartate Amino Transf (AST/SGOT) 563 U/L Alanine Aminotransferase (ALT/SGPT) 787 U/L Alkaline Phosphatase 188 U/L Total Creatine Kinase 83 U/L Creatine Kinase MB < 0.5 ng/ml Creatine Kinase MB Ratio Troponin I < 0.015 ng/ml Total Protein 7.6 gm/dl Albumin 3.7 gm/dl Lipase 508 U/L Urine Color YELLOW Urine Appearance CLEAR Urine pH 7.5 Urine Specific [place] 1.006 Urine Protein NEG Urine Glucose (UA) NEG Urine Ketones TRACE Urine Occult Blood 2+ Urine Nitrite NEG Urine Bilirubin NEG Urine Urobilinogen NEG Urine Leukocyte Esterase NEG Urine WBC (Auto) 0 /hpf Urine RBC (Auto) 5-10 /hpf Urine Hyaline Casts (Auto) 0 /lpf Urine Epithelial Cells (Auto) 0-5 /lpf Urine Bacteria (Auto) NEG Bedside Hemoglobin 14.3 g/dl Bedside Hematocrit 42 % Bedside Sodium 129 mEq/L Bedside Potassium 3.2 mEq/L Bedside Chloride 94 mEq/L Bedside Total CO2 23 mEq/l Bedside Blood Urea Nitrogen 7 mg/dl Bedside Creatinine 0.4 mg/dl Bedside Glucose (other) 118 mg/dl Bedside Ionized Calcium (Teresita) 1.10 mmol/l Test 08/16/16 13:33 Bedside Lactic Acid Venous 1.63 mmol/L Impression Patient is a 71 year old female w epigastric abd pain radiating to back, n/v, fever x 1 day. Her LFTs are elevated, CT showed mildly thickening gallbladder w/ o signs of gallstones, biliary duct not well seen on CT. Plan - Keep NPO - Obtain stat RUQ u/s to r/o biliary duct dilation, choledocholithiasis. Depending on results if CBD dilation, stone seen will need ERCP. If none likely has cholecystitis causing her symptoms and lab abnormality - Surgery consulted. - F/U blood cx; She had received a dose of Zosyn Addendum: RUQ u/s showed gallbladder wall thickening w sludge equivocal for cholecystitis, no gallstones, CBD 5mm. No indication for ERCP at this time. Surgery consult placed to eval for possible cholecystectomy
--- NOTE | 2016-08-16 16:40 | DIAGNOSTIC IMAGING REPORT ---
ULTRASOUND RIGHT UPPER QUADRANT ABDOMEN CLINICAL HISTORY: Right upper quadrant abdominal pain. COMPARISON STUDY: Abdominal CT dated 08/16/2016. TECHNIQUE: Real-time, grayscale, and color flow sonography of the right upper quadrant of the abdomen was performed. Images are reviewed in the transverse and longitudinal planes. FINDINGS: Liver: The liver is normal in size and echotexture. There is no intrahepatic biliary ductal dilatation. The main portal vein is patent. Gallbladder: The gallbladder is distended and there is intraluminal sludge. No shadowing gallstones are identified. The gallbladder wall is top normal in thickness measuring up to 3 mm. Trace prior cholecystectomy is seen. A sonographic Starkey's sign is reportedly absent. The common bile duct measures up to 0.5 cm in diameter. Pancreas: Visualized portions of the pancreatic head and body are normal in appearance. The distal pancreas is not well visualized. Right kidney: Survey images of the right kidney demonstrate mild cortical atrophy. There is no hydronephrosis. Ascites: None. IMPRESSION: The gallbladder is distended and there is biliary sludge. The gallbladder wall is top normal in thickness and trace pericholecystic fluid is seen. A sonographic Starkey's sign is reportedly absent. Findings are equivocal for acute cholecystitis which is not excluded. If there is strong clinical concern for acute cholecystitis consider nuclear hepatobiliary scan for further assessment. Electronically signed by: Rickie King M.D. 08/16/2016 4:38 PM Dictated Date/Time: 08/16/2016 4:34 PM
[2016-08-16 17:00] VITALS: BP 113/68; PULSE 84; TEMP 37.1; O2SAT 93
[2016-08-16] MEDS ORDERED: LEVOFLOXACIN / D5W 750 MG in PREMIXED IN D5W 150 ML IV SCH (18:00)
[2016-08-16] MEDS ORDERED: NURSING VERBAL MED ORDER ONE ×2 (18:30→20:30)
[2016-08-16] MEDS ORDERED: HYDROmorphone INJ 1 MG/ML SYR IV PRN (18:30)
[2016-08-16 20:00] VITALS: O2SAT 93
--- NOTE | 2016-08-16 20:06 | DIAGNOSTIC IMAGING REPORT ---
NUCLEAR HEPATOBILIARY SCAN CLINICAL HISTORY: Right upper quadrant abdominal pain. COMPARISON STUDY: Abdominal ultrasound dated 08/16/2016. TECHNIQUE: Dynamic images of the liver and anterior abdomen were obtained every 5 minutes for a total of 60 minutes following the IV administration of 5mCi of technetium 99m Choletec. 0.5 mg of Dilaudid was then administered with additional imaging performed every 5 minutes from 85 minutes to 110 minutes. FINDINGS: The hepatobiliary scan shows prompt and homogeneous hepatic uptake. There is visualized activity within the intra and extrahepatic biliary tree at 10 minutes. There is normal biliary to bowel transit, with small bowel visualized by 35 minutes. The gallbladder was not visualized by 60 minutes and Dilaudid was administered. The gallbladder was still not visualized at 110 minutes post Dilaudid. IMPRESSION: Scintigraphic findings are consistent with acute cholecystitis. Surgical consultation is advised. Electronically signed by: Rickie King M.D. 08/16/2016 8:04 PM Dictated Date/Time: 08/16/2016 8:00 PM
[2016-08-16] MEDS: POTASSIUM CHLR 10MEQ / WTR IV SCH ×3 (20:15→23:21)
[2016-08-16] MEDS: SODIUM CHLORIDE 0.9% 1000ML 1,000 ML IV SCH (20:16)
[2016-08-16 20:20] VITALS: BP 153/82; PULSE 110; TEMP 39.3; O2SAT 91
[2016-08-16] MEDS ORDERED: ACETAMINOPHEN IV PRN (20:45)
[2016-08-16] MEDS: METRONIDAZOLE / NSS 500 MG in PREMIXED NSS 100 ML IV SCH (21:01)
--- NOTE | 2016-08-16 21:53 | Surgery Consultation ---
Consultation Date of Consultation: Aug 16, 2016. Attending Physician: Carlos Hansen D.O. History of Present Illness The patient is a 71 year old female who presents to the Emergency Room with complaints of intermittent epigastric abdominal pain beginning yesterday. She is currently on Afinitor and Exemestane for metastatic, hormone positive breast cancer. She has a history of a double mastectomy. The patient states that her pain began following eating breakfast. Her pain radiates into her back. The patient also complains of nausea and vomiting. She notes that she has a history of stomach ulcers. She states that bending over makes her pain worse. The patient noticed that she was having fevers yesterday. Pt denies headache, change in vision, chest pain, shortness of breath, diarrhea, pain with urination , and melena. Her last normal bowel movement was two days ago. I saw the pt, and did H/P on this pt, pt feels better, the pain located at epigastric area, with nausea, and vomiting, pt had T 39.3. Past Medical/Surgical History Medical Problems: (1) Cholecystitis Status: Acute (2) Sepsis Status: Acute (3) Transaminitis Status: Acute Family History Cancer Diabetes mellitus FH: heart disease Hypertension Social History Smoking Status: Former Smoker (quit 40 yrs ago but smoked 1/2 ppd for 10 yrs) Smokeless Tobacco Use: No Alcohol Use: socially (1 glass wine daily) Drug Use: none Housing Status: lives alone Occupation Status: retired Allergies Coded Allergies: Oxycodone (Verified Adverse Reaction, Severe, HALLUCINATIONS, 06/01/15) HALLUCINATIONS Isosorbide Nitrate (Unverified Adverse Reaction, Intermediate, IMDUR/ MIGRAINE, 08/16/16) Aspirin (Verified Adverse Reaction, Mild, HISTORY OF BLEEDING ULCERS, 05/31) Buprenorphine (Verified Adverse Reaction, Mild, GI SYMPTOMS, 06/01/15) Diphenhydramine (Verified Adverse Reaction, Mild, RESTLESS LEGS, 06/01/15) RESTLESS LEGS Morphine (Verified Adverse Reaction, Mild, SEVERE VOMITING, 06/01/15) NSAIDs (Verified Adverse Reaction, Mild, BLEEDING ULCER DISEASE-CAN NOT HAVE NSAIDS, 06/01/15) Tapentadol (Verified Adverse Reaction, Mild, headache, 06/01/15) Home Medications Scheduled Ascorbic Acid (Ascorbic Acid), 1 TAB PO BID Atorvastatin (Lipitor), 1 TAB PO DAILY Calcium Carbonate-Cholecalcife (Caltrate 600+D), 2 TAB PO AMPM Cholecalciferol (Vitamin D), 1 TAB PO DAILY Everolimus (Afinitor), 5 MG PO DAILY Exemestane (Aromasin), 1 TAB PO DAILY Levothyroxine Sodium (Levothyroxine Sodium), 150 MCG PO DAILY Metoprolol Succinate (Toprol Xl), 50 MG PO DAILY Multivitamin (Multivitamin), 1 TAB PO DAILY Pantoprazole (Pantoprazole Sodium), 40 MG PO DAILY Valacyclovir HCl (Valacyclovir HCl), 500 MG PO DAILY Zolpidem Tartrate (Ambien), 10 MG PO HS Scheduled PRN Acetamin/Butalbital/Caffeine (Fioricet), 1 TAB PO UD PRN for Pain Current Inpatient Medications Current Inpatient Medications Medications (Trade) Dose Ordered Sig/[place] Route Start Time Stop Time Status Last Admin Dose Admin Ioversol (Optiray 320) 125 ml UD PRN IV 08/16/16 13:15 08/20/16 13:14 Heparin Sodium (Porcine) (Heparin Sq 5000 Unit/0.5ml) 5,000 unit Q8 SQ 08/16/16 22:00 09/15/16 21:59 Sodium Chloride 1,000 ml @ 100 mls/hr Q10H IV 08/16/16 15:36 09/15/16 15:35 08/16/16 20:16 100 MLS/HR Magnesium Hydroxide (Milk Of Magnesia Susp) 30 ml Q12H PRN PO 08/16/16 15:45 09/15/16 15:44 Ondansetron HCl (Zofran Inj) 4 mg Q6H PRN IV 08/16/16 15:45 09/15/16 15:44 Pantoprazole Sodium 40 mg/ Syringe 10 ml @ 5 mls/min DAILY@11 IV 08/17/16 11:00 09/16/16 10:59 Levothyroxine Sodium 75 mcg/ Syringe 3.75 ml @ 2 mls/min DAILY@09 IV 08/17/16 09:00 09/16/16 08:59 Levofloxacin 750 mg/Prmx 150 ml @ 100 mls/hr Q24H IV 08/16/16 18:00 08/26/16 17:59 08/16/16 20:49 100 MLS/HR Metronidazole 500 mg/Prmx 100 ml @ 100 mls/hr Q8H IV 08/16/16 18:00 08/26/16 15:44 08/16/16 21:01 100 MLS/HR Potassium Chloride 10 meq/ Prmx 100 ml @ 100 mls/hr 1700,1800,1900,2000 IV 08/16/16 17:00 08/16/16 23:00 08/16/16 20:15 100 MLS/HR Hydromorphone HCl (Dilaudid Inj) 0.5 mg TODAY@1830 PRN IV 08/16/16 18:30 08/16/16 23:59 08/16/16 18:56 0.5 MG Acetaminophen 615 mg/Empty Bag 61.5 ml @ 246 mls/hr Q6H PRN IV 08/16/16 20:45 09/15/16 20:44 08/16/16 21:18 246 MLS/HR Review of Systems Constitutional: + fever, + chills Eyes: No worsening of vision, No eye pain, No redness, No discharge, No diplopia, No problem reported ENT: No hearing loss, No unusual epistaxis, No nasal symptoms, No sore throat, No tinnitus, No dental problems, No trouble swallowing, No problem reported Respiratory: No cough, No sputum, No wheezing, No shortness of breath, No dyspnea on exertion, No dyspnea at rest, No hemoptysis, No problem reported Cardiovascular: No chest pain, No orthopnea, No PND, No edema, No claudication , No palpitations, No problem reported Abdomen: + pain, + nausea, + vomiting Genitourinary - Female: No dysuria, No urinary frequency, No urinary urgency, No urinary incontinence, No urinary retention, No hematuria, No dysmenorrhea, No menorrhagia, No metrorrhagia, No rash, No vaginal bleeding, No vaginal discharge, No vaginal itching, No vulvodynia, No , No problem reported Neurologic: No memory loss, No paralysis, No weakness, No numbness/tingling, No vertigo, No balance problems, No problem reported Psychiatric: No depression symptoms, No anhedonism, No anxiety, No insomnia, No substance abuse, No problem reported Endocrine: No fatigue, No excessive thirst, No excessive urination, No problem reported Hematologic / Lymphatic: No abnormal bleeding/bruising, No clotting problems, No swollen lymph nodes, No night sweats, No problem reported Physical Exam Date Time Temp Pulse Resp B/P (MAP) Pulse Ox O2 Delivery O2 Flow Rate FiO2 08/16/16 20:20 39.3 110 18 153/82 (105) 91 Room Air 08/16/16 20:00 93 Room Air 08/16/16 17:00 37.1 84 18 113/68 (83) 93 Room Air 08/16/16 15:39 96 Room Air 08/16/16 14:51 105 20 164/91 96 Room Air 08/16/16 13:41 104 08/16/16 13:15 38.2 104 22 179/109 97 Room Air General Appearance: WD/WN Head: normocephalic Eyes: EOMI ENT: normal ENT inspection Neck: supple, no JVD Respiratory/Chest: chest non-tender, lungs clear Cardiovascular: regular rate, rhythm, no edema, no gallop, no JVD Abdomen/GI: normal bowel sounds, soft, no organomegaly, + tenderness Extremities/Musculoskelatal: normal inspection, no calf tenderness, normal capillary refill Neurologic/Psych: no motor/sensory deficits, alert, normal mood/affect Skin: normal color, warm/dry, no rash Laboratory Results Last 24 Hours Test 08/16/16 12:20 08/16/16 12:30 08/16/16 13:00 08/16/16 13:15 Hepatitis C Antibody Screen NEG White Blood Count 7.95 K/uL Red Blood Count 4.79 M/uL Hemoglobin 12.6 g/dL Hematocrit 37.7 % Mean Corpuscular Volume 78.7 fL Mean Corpuscular Hemoglobin 26.3 pg Mean Corpuscular Hemoglobin Concent 33.4 g/dl Platelet Count 226 K/uL Mean Platelet Volume 8.7 fL Neutrophils (%) (Auto) 93.4 % Lymphocytes (%) (Auto) 2.9 % Monocytes (%) (Auto) 3.3 % Eosinophils (%) (Auto) 0.1 % Basophils (%) (Auto) 0.0 % Neutrophils # (Auto) 7.43 K/uL Lymphocytes # (Auto) 0.23 K/uL Monocytes # (Auto) 0.26 K/uL Eosinophils # (Auto) 0.01 K/uL Basophils # (Auto) 0.00 K/uL RDW Standard Deviation 40.4 fL RDW Coefficient of Variation 14.2 % Immature Granulocyte % (Auto) 0.3 % Immature Granulocyte # (Auto) 0.02 K/uL Prothrombin Time 12.0 SECONDS Prothromb Time International Ratio 1.1 Sodium Level 130 mmol/L Potassium Level 3.3 mmol/L Chloride Level 96 mmol/L Carbon Dioxide Level 24 mmol/L Anion Gap 10.0 mmol/L 17.0 mmol/L Blood Urea Nitrogen 8 mg/dl Creatinine 0.47 mg/dl Est Creatinine Clear Calc Drug Dose 70.9 ml/min Estimated GFR () 115.2 Estimated GFR (Non- 99.4 BUN/Creatinine Ratio 17.3 Random Glucose 108 mg/dl Calcium Level 8.8 mg/dl Magnesium Level 2.1 mg/dl Total Bilirubin 2.1 mg/dl Direct Bilirubin 1.4 mg/dl Aspartate Amino Transf (AST/SGOT) 563 U/L Alanine Aminotransferase (ALT/SGPT) 787 U/L Alkaline Phosphatase 188 U/L Total Creatine Kinase 83 U/L Creatine Kinase MB < 0.5 ng/ml Creatine Kinase MB Ratio Troponin I < 0.015 ng/ml Total Protein 7.6 gm/dl Albumin 3.7 gm/dl Lipase 508 U/L Urine Color YELLOW Urine Appearance CLEAR Urine pH 7.5 Urine Specific Neal 1.006 Urine Protein NEG Urine Glucose (UA) NEG Urine Ketones TRACE Urine Occult Blood 2+ Urine Nitrite NEG Urine Bilirubin NEG Urine Urobilinogen NEG Urine Leukocyte Esterase NEG Urine WBC (Auto) 0 /hpf Urine RBC (Auto) 5-10 /hpf Urine Hyaline Casts (Auto) 0 /lpf Urine Epithelial Cells (Auto) 0-5 /lpf Urine Bacteria (Auto) NEG Bedside Hemoglobin 14.3 g/dl Bedside Hematocrit 42 % Bedside Sodium 129 mEq/L Bedside Potassium 3.2 mEq/L Bedside Chloride 94 mEq/L Bedside Total CO2 23 mEq/l Bedside Blood Urea Nitrogen 7 mg/dl Bedside Creatinine 0.4 mg/dl Bedside Glucose (other) 118 mg/dl Bedside Ionized Calcium (Teresita) 1.10 mmol/l Test 08/16/16 13:33 Bedside Lactic Acid Venous 1.63 mmol/L ULTRASOUND RIGHT UPPER QUADRANT ABDOMEN CLINICAL HISTORY: Right upper quadrant abdominal pain. COMPARISON STUDY: Abdominal CT dated 08/16/2016. TECHNIQUE: Real-time, grayscale, and color flow sonography of the right upper quadrant of the abdomen was performed. Images are reviewed in the transverse and longitudinal planes. FINDINGS: Liver: The liver is normal in size and echotexture. There is no intrahepatic biliary ductal dilatation. The main portal vein is patent. Gallbladder: The gallbladder is distended and there is intraluminal sludge. No shadowing gallstones are identified. The gallbladder wall is top normal in thickness measuring up to 3 mm. Trace prior cholecystectomy is seen. A sonographic Starkey's sign is reportedly absent. The common bile duct measures up to 0.5 cm in diameter. Pancreas: Visualized portions of the pancreatic head and body are normal in appearance. The distal pancreas is not well visualized. Right kidney: Survey images of the right kidney demonstrate mild cortical atrophy. There is no hydronephrosis. Ascites: None. IMPRESSION: The gallbladder is distended and there is biliary sludge. The gallbladder wall is top normal in thickness and trace pericholecystic fluid is seen. A sonographic Starkey's sign is reportedly absent. Findings are equivocal for acute cholecystitis which is not excluded. If there is strong clinical concern for acute cholecystitis consider nuclear hepatobiliary scan for further assessment. HIDA scan-IMPRESSION: Scintigraphic findings are consistent with acute cholecystitis. Surgical consultation is advised. Assessment & Plan IMP, acute abdominal pain, possible cholecystitis Iv antibiotic, repeat LFT in am possible do cholecystectomy in Friday I will D/W pt about the plan, Will F/U
[2016-08-16] MEDS: HEPARIN SOD 5000 UNIT/0.5 ML CARP SQ SCH (22:07)
[2016-08-17] VITALS (26 sets, daily range): BP systolic 96–175; BP diastolic 68–108; PULSE 76–107; TEMP 36.6–37.7; O2SAT 91–97
[2016-08-17] MEDS: POTASSIUM CHLR 10MEQ / WTR IV SCH (00:48)
[2016-08-17] MEDS: SODIUM CHLORIDE 0.9% 1000ML 1,000 ML IV SCH (00:49)
[2016-08-17] MEDS: METRONIDAZOLE / NSS 500 MG in PREMIXED NSS 100 ML IV SCH ×2 (01:53→10:12)
[2016-08-17] MEDS ORDERED: NURSING VERBAL MED ORDER ONE ×2 (02:30→05:15)
[2016-08-17] MEDS ORDERED: ZOLPIDEM TARTRATE 10 MG TAB ONE (02:40)
[2016-08-17] MEDS ORDERED: KETOROLAC TROMETHAMINE 15 MG/ML VIAL ONE (02:41)
[2016-08-17] MEDS: ONDANSETRON INJ 2 MG/ML 2 ML VIAL IV PRN ×2 (02:50→23:43)
[2016-08-17] MEDS ORDERED: KETOROLAC TROMETHAMINE 15 MG/ML VIAL IV. PRN (03:00)
[2016-08-17] MEDS ORDERED: ZOLPIDEM TARTRATE 10 MG TAB PO PRN (03:00)
[2016-08-17] MEDS ORDERED: METOPROLOL TARTRATE 1 MG/ML VIAL ONE (05:00)
[2016-08-17] MEDS ORDERED: METOPROLOL TARTRATE 1 MG/ML VIAL IV STA (05:14)
--- NOTE | 2016-08-17 05:21 | Progress Note ---
Progress Note Date of Service Aug 17, 2016. Progress Note DOC NOTE: Called to see the patient regarding a rapid heart rate. Monitor showed SVT at sustained rate in the 190's, with SBP in the mid 80's. Patient denied chest pain, sob, palpitations, lightheadedness, dizzyness, focal weakness, numbness or tingling in arms or legs. HEENT - MM and oropharynx dry, Neck - no JVD or bruits Heart- tachy and regular Lungs - clear bilaterally but diminished Abdomen - normal bowel sounds and soft, NT and ND Extremities - no edema Neuro - nonfocal SVT - no response to direct carotid massage. - started 500cc bolus of NS - given lopressor 5mg IV. - patient broke to NSR at a rate in the mid 90's., and SBP increase to 114 - transfer to the ICU. - ordered, CBCD, CMP ,Mag, Trop 2D ECHO - change IVF to NSS with KCl 20 MQ at 150 ml's/ hour. total critical care time: 40 minutes
[2016-08-17] MEDS: HEPARIN SOD 5000 UNIT/0.5 ML CARP SQ SCH (05:42)
[2016-08-17 06:08] LABS: BASO % 0.1 %; BASO ABS # 0.01 K/uL (0-0.2); EOS % 0.5 %; HEMATOCRIT 34.7 % (37-47); IG% 0.3 %; LYMPH % 3.3 %; LYMPH ABS # 0.24 K/uL (1.2-3.4); MEAN CELL VOLUME 80.9 fL (80-100); MEAN CORPUSCULAR HEMOGLOBIN 26.1 pg (25-34); MEAN PLATELET VOLUME 8.7 fL (7.4-10.4); MONO % 4.1 %; NEUT % 91.7 %; PLATELET COUNT 167 K/uL (130-400); RED BLOOD COUNT 4.29 M/uL (4.2-5.4); WHITE BLOOD COUNT 7.28 K/uL (4.8-10.8)
[2016-08-17 06:14] LABS: COMPLETE YES; MEAN CORPUSCULAR HGB CONC 32.3 g/dl (32-36)
[2016-08-17] MEDS: NSS + 20MEQ KCL 1000ML 1,000 ML IV SCH ×3 (06:28→18:30)
[2016-08-17 06:35] LABS: ALB/GLOB RATIO 0.8 (0.9-2); BUN/CREATININE RATIO 15.8 (10-20); CALCIUM 7.4 mg/dl (8.5-10.1); CREATININE 0.41 mg/dl (0.60-1.20); MAGNESIUM 2.1 mg/dl (1.8-2.4); POTASSIUM 3.5 mmol/L (3.5-5.1)
[2016-08-17] MEDS ORDERED: LEVOTHYROXINE SODIUM INJ 75 MCG in SYRINGE 0 ML IV SCH (09:00)
[2016-08-17] MEDS ORDERED: PANTOprazole INJ 40 MG in SYRINGE 0 ML IV SCH (11:00)
[2016-08-17] MEDS ORDERED: CALCIUM GLUCONATE 10% 1,000 MG in SODIUM CHLORIDE 0.9% 50ML 50 ML IV ONE (11:00)
[2016-08-17] MEDS: POTASSIUM CHLR 10 MEQ / WTR 10 MEQ in PREMIXED WATER 100 ML IV SCH ×4 (11:07→16:03)
--- NOTE | 2016-08-17 11:28 | Surgery Progress Note ---
Surgery Progress Note Date of Service Aug 17, 2016. Subjective + feeling well F/U acute cholecystitis, pt was transfered to ICU becaused SVT, now pt is doing better, good control HR, some RUQ pain, pt denies nausea, no vomiting, Objective Vital Signs: Date Time Temp Pulse Resp B/P (MAP) Pulse Ox O2 Delivery O2 Flow Rate FiO2 08/17/16 10:00 89 24 137/85 (102) 97 Room Air 08/17/16 08:01 37.6 89 24 137/85 (102) 97 Room Air 08/17/16 08:00 Room Air 08/17/16 07:01 94 20 135/84 (101) 96 08/17/16 05:26 182 93/68 08/17/16 05:25 182 93/68 08/17/16 04:59 92 108/69 (82) 08/17/16 04:57 96/68 (77) 08/17/16 04:11 36.6 107 19 133/82 (99) 93 Room Air 08/17/16 04:00 Room Air 08/17/16 02:15 37.7 08/17/16 00:41 37.6 90 18 107/68 (81) 93 Room Air 08/17/16 00:00 Room Air 08/16/16 20:20 39.3 110 18 153/82 (105) 91 Room Air 08/16/16 20:00 93 Room Air 08/16/16 17:00 37.1 84 18 113/68 (83) 93 Room Air 08/16/16 15:39 96 Room Air 08/16/16 14:51 105 20 164/91 96 Room Air 08/16/16 13:41 104 08/16/16 13:15 38.2 104 22 179/109 97 Room Air General Appearance: WD/WN, no apparent distress Head: normocephalic Neck: supple, no JVD Respiratory/Chest: chest non-tender, lungs clear, normal breath sounds Cardiovascular: regular rate, rhythm, no edema, no gallop, no JVD Abdomen: normal bowel sounds (some tenderness at RUQ , no rebound pain, ), non distended, soft Extremities: normal range of motion, non-tender, normal inspection Laboratory Results: Results Past 24 Hours Test 08/16/16 12:20 08/16/16 12:30 08/16/16 13:00 08/16/16 13:15 Range/Units Hepatitis C Antibody Screen NEG NEG White Blood Count 7.95 4.8-10.8 K/uL Red Blood Count 4.79 4.2-5.4 M/uL Hemoglobin 12.6 12.0-16.0 g/dL Hematocrit 37.7 37-47 % Mean Corpuscular Volume 78.7 80-100 fL Mean Corpuscular Hemoglobin 26.3 25-34 pg Mean Corpuscular Hemoglobin Concent 33.4 32-36 g/dl Platelet Count 226 130-400 K/uL Mean Platelet Volume 8.7 7.4-10.4 fL Neutrophils (%) (Auto) 93.4 % Lymphocytes (%) (Auto) 2.9 % Monocytes (%) (Auto) 3.3 % Eosinophils (%) (Auto) 0.1 % Basophils (%) (Auto) 0.0 % Neutrophils # (Auto) 7.43 1.4-6.5 K/uL Lymphocytes # (Auto) 0.23 1.2-3.4 K/uL Monocytes # (Auto) 0.26 0.11-0.59 K/uL Eosinophils # (Auto) 0.01 0-0.5 K/uL Basophils # (Auto) 0.00 0-0.2 K/uL RDW Standard Deviation 40.4 36.4-46.3 fL RDW Coefficient of Variation 14.2 11.5-14.5 % Immature Granulocyte % (Auto) 0.3 % Immature Granulocyte # (Auto) 0.02 0.00-0.02 K/uL Prothrombin Time 12.0 9.0-12.0 SECONDS Prothromb Time International Ratio 1.1 0.9-1.1 Sodium Level 130 136-145 mmol/L Potassium Level 3.3 3.5-5.1 mmol/L Chloride Level 96 98-107 mmol/L Carbon Dioxide Level 24 21-32 mmol/L Anion Gap 10.0 17.0 16-25 mmol/L Blood Urea Nitrogen 8 7-18 mg/dl Creatinine 0.47 0.60-1.20 mg/dl Est Creatinine Clear Calc Drug Dose 70.9 ml/min Estimated GFR () 115.2 Estimated GFR (Non- 99.4 BUN/Creatinine Ratio 17.3 10-20 Random Glucose 108 70-99 mg/dl Calcium Level 8.8 8.5-10.1 mg/dl Magnesium Level 2.1 1.8-2.4 mg/dl Total Bilirubin 2.1 0.2-1 mg/dl Direct Bilirubin 1.4 0-0.2 mg/dl Aspartate Amino Transf (AST/SGOT) 563 15-37 U/L Alanine Aminotransferase (ALT/SGPT) 787 12-78 U/L Alkaline Phosphatase 188 45-117 U/L Total Creatine Kinase 83 26-192 U/L Creatine Kinase MB < 0.5 0.5-3.6 ng/ml Creatine Kinase MB Ratio 0-3.0 Troponin I < 0.015 0-0.045 ng/ml Total Protein 7.6 6.4-8.2 gm/dl Albumin 3.7 3.4-5.0 gm/dl Lipase 508 73-393 U/L Urine Color YELLOW Urine Appearance CLEAR CLEAR Urine pH 7.5 4.5-7.5 Urine Specific Alvarado 1.006 1.000-1.030 Urine Protein NEG NEG Urine Glucose (UA) NEG NEG Urine Ketones TRACE NEG Urine Occult Blood 2+ NEG Urine Nitrite NEG NEG Urine Bilirubin NEG NEG Urine Urobilinogen NEG NEG Urine Leukocyte Esterase NEG NEG Urine WBC (Auto) 0 0-5 /hpf Urine RBC (Auto) 5-10 0-4 /hpf Urine Hyaline Casts (Auto) 0 0-5 /lpf Urine Epithelial Cells (Auto) 0-5 0-5 /lpf Urine Bacteria (Auto) NEG NEG Bedside Hemoglobin 14.3 12.0-16.0 g/dl Bedside Hematocrit 42 37-47 % Bedside Sodium 129 135-144 mEq/L Bedside Potassium 3.2 3.3-5.0 mEq/L Bedside Chloride 94 101-112 mEq/L Bedside Total CO2 23 24-31 mEq/l Bedside Blood Urea Nitrogen 7 7-18 mg/dl Bedside Creatinine 0.4 0.6-1.3 mg/dl Bedside Glucose (other) 118 70-99 mg/dl Bedside Ionized Calcium (Teresita) 1.10 1.12-1.32 mmol/l Test 08/16/16 13:33 08/16/16 22:00 08/17/16 06:01 08/17/16 10:41 Range/Units Bedside Lactic Acid Venous 1.63 0.90-1.70 mmol/L Troponin I 0.028 0.023 0-0.045 ng/ml White Blood Count 7.28 4.8-10.8 K/uL Red Blood Count 4.29 4.2-5.4 M/uL Hemoglobin 11.2 12.0-16.0 g/dL Hematocrit 34.7 37-47 % Mean Corpuscular Volume 80.9 80-100 fL Mean Corpuscular Hemoglobin 26.1 25-34 pg Mean Corpuscular Hemoglobin Concent 32.3 32-36 g/dl Platelet Count 167 130-400 K/uL Mean Platelet Volume 8.7 7.4-10.4 fL Neutrophils (%) (Auto) 91.7 % Lymphocytes (%) (Auto) 3.3 % Monocytes (%) (Auto) 4.1 % Eosinophils (%) (Auto) 0.5 % Basophils (%) (Auto) 0.1 % Neutrophils # (Auto) 6.67 1.4-6.5 K/uL Lymphocytes # (Auto) 0.24 1.2-3.4 K/uL Monocytes # (Auto) 0.30 0.11-0.59 K/uL Eosinophils # (Auto) 0.04 0-0.5 K/uL Basophils # (Auto) 0.01 0-0.2 K/uL RDW Standard Deviation 44.1 36.4-46.3 fL RDW Coefficient of Variation 15.0 11.5-14.5 % Immature Granulocyte % (Auto) 0.3 % Immature Granulocyte # (Auto) 0.02 0.00-0.02 K/uL Sodium Level 141 136-145 mmol/L Potassium Level 3.5 3.5-5.1 mmol/L Chloride Level 110 98-107 mmol/L Carbon Dioxide Level 16 21-32 mmol/L Anion Gap 15.0 3-11 mmol/L Blood Urea Nitrogen 6 7-18 mg/dl Creatinine 0.41 0.60-1.20 mg/dl Est Creatinine Clear Calc Drug Dose 81.3 ml/min Estimated GFR () 120.5 Estimated GFR (Non- 103.9 BUN/Creatinine Ratio 15.8 10-20 Random Glucose 73 70-99 mg/dl Calcium Level 7.4 8.5-10.1 mg/dl Magnesium Level 2.1 1.8-2.4 mg/dl Total Bilirubin 1.1 0.2-1 mg/dl Aspartate Amino Transf (AST/SGOT) 313 15-37 U/L Alanine Aminotransferase (ALT/SGPT) 518 12-78 U/L Alkaline Phosphatase 169 45-117 U/L Total Protein 6.3 6.4-8.2 gm/dl Albumin 2.7 3.4-5.0 gm/dl Globulin 3.6 2.5-4.0 gm/dl Albumin/Globulin Ratio 0.8 0.9-2 Microbiology Results 08/16/16 Blood Culture, Received Pending 08/16/16 Blood Culture, Received Pending Diagnostic Interpretation: NUCLEAR HEPATOBILIARY SCAN CLINICAL HISTORY: Right upper quadrant abdominal pain. COMPARISON STUDY: Abdominal ultrasound dated 08/16/2016. TECHNIQUE: Dynamic images of the liver and anterior abdomen were obtained every 5 minutes for a total of 60 minutes following the IV administration of 5mCi of technetium 99m Choletec. 0.5 mg of Dilaudid was then administered with additional imaging performed every 5 minutes from 85 minutes to 110 minutes. FINDINGS: The hepatobiliary scan shows prompt and homogeneous hepatic uptake. There is visualized activity within the intra and extrahepatic biliary tree at 10 minutes. There is normal biliary to bowel transit, with small bowel visualized by 35 minutes. The gallbladder was not visualized by 60 minutes and Dilaudid was administered. The gallbladder was still not visualized at 110 minutes post Dilaudid. IMPRESSION: Scintigraphic findings are consistent with acute cholecystitis. Surgical consultation is advised. Assessment & Plan IMP: acute cholecystitis Plan, pt requests to do laparoscopic cholecystectomy, possible open or cholangiogram, D/W benefits, risks and alternatives of kenny procedure, the risks - infection, bleeding, injury CBD, Bowel, CO, DVT, stroke, may need ERCP, , pt understood, she agrees with the plan, I answered all questions,
--- NOTE | 2016-08-17 12:15 | Critical Care Consultation ---
Critical Care Consultation Date of Consultation: Aug 17, 2016. Attending Physician: Thor Denson D.O. 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 She was in her usual state of health when yesterday morning after breakfast she had sharp epigastric pain radiatin to the back and felt sick all day long. Her breakfast was pineapple and cheese. In the evening she had potatoes with margerin and the pain recurred this time with 4 episodes of nasuea vomiting of clear fluid. She presented to ED and was found to be febrile with abdominal pain. CT abdomen suggested cholecystitis with thickened wall but no CBD dilatation noted. Subsequently she was evaluated by GI and surgery. She had an ultrasound showing sludge and no dilataion of the CBD (0.5 cm) but thickened wall with some fluid around the gall bladder. Since the test was equivocal she underwent HIDA scan which showed normal contrast in the liver and ducts but no uptake in the gall bladder x 110 min. SHe was then given zosyn and changed to levaquin and flagyl and admitted for observation. The patient is NPO. She missed her metoprolol and apparently developed SVT to the 190s which responded to metoprolol. The patient was transferred to MICU subsequently. This am the pain is 1-2/10 and she describes it as soreness. There is tenderness in the epigastric area to my touch. GI reported that ERCP is of no clinical benefit given absence of stones on imaging. Surgery would perform cholecystectomy tomorrow am. Patient was allowed PO intake. Past Medical/Surgical History (1) Allergic rhinitis (2) Cancer of thyroid s/p resection 11 years ago (3) GERD (gastroesophageal reflux disease) (4) Peptic ulcer disease with hemorrhage (5) right breast cancer with s/p mastectomy, about 2 months after the thyroid cancer (11 years ago). The patient elected to have left mastectomy due to the histology of the tumor. She was maintained on tamoxifen x 5 years. 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.) Allergies Coded Allergies: Oxycodone (Verified Adverse Reaction, Severe, HALLUCINATIONS, 06/01/15) HALLUCINATIONS Isosorbide Nitrate (Unverified Adverse Reaction, Intermediate, IMDUR/ MIGRAINE, 08/16/16) Aspirin (Verified Adverse Reaction, Mild, HISTORY OF BLEEDING ULCERS, 05/31) Buprenorphine (Verified Adverse Reaction, Mild, GI SYMPTOMS, 06/01/15) Diphenhydramine (Verified Adverse Reaction, Mild, RESTLESS LEGS, 06/01/15) RESTLESS LEGS Morphine (Verified Adverse Reaction, Mild, SEVERE VOMITING, 06/01/15) NSAIDs (Verified Adverse Reaction, Mild, BLEEDING ULCER DISEASE-CAN NOT HAVE NSAIDS, 06/01/15) Tapentadol (Verified Adverse Reaction, Mild, headache, 06/01/15) Home Medications Scheduled Ascorbic Acid (Ascorbic Acid), 1 TAB PO BID Atorvastatin (Lipitor), 1 TAB PO DAILY Calcium Carbonate-Cholecalcife (Caltrate 600+D), 2 TAB PO AMPM Cholecalciferol (Vitamin D), 1 TAB PO DAILY Everolimus (Afinitor), 5 MG PO DAILY Exemestane (Aromasin), 1 TAB PO DAILY Levothyroxine Sodium (Levothyroxine Sodium), 150 MCG PO DAILY Metoprolol Succinate (Toprol Xl), 50 MG PO DAILY Multivitamin (Multivitamin), 1 TAB PO DAILY Pantoprazole (Pantoprazole Sodium), 40 MG PO DAILY Valacyclovir HCl (Valacyclovir HCl), 500 MG PO DAILY Zolpidem Tartrate (Ambien), 10 MG PO HS Scheduled PRN Acetamin/Butalbital/Caffeine (Fioricet), 1 TAB PO UD PRN for Pain Current Inpatient Medications Current Inpatient Medications Medications (Trade) Dose Ordered Sig/[place] Route Start Time Stop Time Status Last Admin Dose Admin Ioversol (Optiray 320) 125 ml UD PRN IV 08/16/16 13:15 08/20/16 13:14 Heparin Sodium (Porcine) (Heparin Sq 5000 Unit/0.5ml) 5,000 unit Q8 SQ 08/16/16 22:00 09/15/16 21:59 08/16/16 22:07 5,000 UNIT Magnesium Hydroxide (Milk Of Magnesia Susp) 30 ml Q12H PRN PO 08/16/16 15:45 09/15/16 15:44 Ondansetron HCl (Zofran Inj) 4 mg Q6H PRN IV 08/16/16 15:45 09/15/16 15:44 08/17/16 02:50 4 MG Pantoprazole Sodium 40 mg/ Syringe 10 ml @ 5 mls/min DAILY@11 IV 08/17/16 11:00 09/16/16 10:59 08/17/16 10:12 5 MLS/MIN Levothyroxine Sodium 75 mcg/ Syringe 3.75 ml @ 2 mls/min DAILY@09 IV 08/17/16 09:00 09/16/16 08:59 08/17/16 10:11 2 MLS/MIN Levofloxacin 750 mg/Prmx 150 ml @ 100 mls/hr Q24H IV 08/16/16 18:00 08/26/16 17:59 08/16/16 20:49 100 MLS/HR Metronidazole 500 mg/Prmx 100 ml @ 100 mls/hr Q8H IV 08/16/16 18:00 08/26/16 15:44 08/17/16 10:12 100 MLS/HR Acetaminophen 615 mg/Empty Bag 61.5 ml @ 246 mls/hr Q6H PRN IV 08/16/16 20:45 09/15/16 20:44 08/16/16 21:18 246 MLS/HR Zolpidem Tartrate (Ambien Tab) 10 mg HSZ PO 08/17/16 22:00 09/16/16 21:59 Potassium Chloride/Sodium Chloride 1,000 ml @ 150 mls/hr Q6H40M IV 08/17/16 05:08 09/16/16 05:07 08/17/16 06:28 150 MLS/HR Potassium Chloride 10 meq/ Prmx 100 ml @ 100 mls/hr Q1H IV 08/17/16 10:45 08/17/16 14:00 08/17/16 11:07 100 MLS/HR Review of Systems She has the abdomina pain. is hungry denies headaches or neurologic symptoms denies dysuria denies polydipsia denies diarrhea constipation tremors cold or heat intolerance denies dry skin or eczema she has sniffling around this season due to allergy no bone pain no CP no SOB Otherwise 10 point ROS is negative Physical Exam Date Time Temp Pulse Resp B/P (MAP) Pulse Ox O2 Delivery O2 Flow Rate FiO2 08/17/16 10:00 89 24 137/85 (102) 97 Room Air 08/17/16 08:01 37.6 89 24 137/85 (102) 97 Room Air 08/17/16 08:00 Room Air 08/17/16 07:01 94 20 135/84 (101) 96 08/17/16 05:26 182 93/68 08/17/16 05:25 182 93/68 08/17/16 04:59 92 108/69 (82) 08/17/16 04:57 96/68 (77) 08/17/16 04:11 36.6 107 19 133/82 (99) 93 Room Air 08/17/16 04:00 Room Air 08/17/16 02:15 37.7 08/17/16 00:41 37.6 90 18 107/68 (81) 93 Room Air 08/17/16 00:00 Room Air 08/16/16 20:20 39.3 110 18 153/82 (105) 91 Room Air 08/16/16 20:00 93 Room Air 08/16/16 17:00 37.1 84 18 113/68 (83) 93 Room Air 08/16/16 15:39 96 Room Air 08/16/16 14:51 105 20 164/91 96 Room Air 08/16/16 13:41 104 08/16/16 13:15 38.2 104 22 179/109 97 Room Air General Appearance: mild distress Head: normocephalic, atraumatic Eyes: PERRLA, sclerae normal ENT: other (no jvd NO LN in the cervical or supraclavicular area) Neck: normal range of motion, supple Respiratory: breath sounds normal, clear to auscultation Cardiovasular: regular rate/rhythm, normal S1S2 (but tachycardiac to the 90s/ min) Abdomen: normal bowel sounds, no masses, other (direct tenderness in the epigastric and RUQ areas.) Genitourinary - Female: external genitalia normal Back: normal inspection Upper Extremities: no edema, no deformity Lower Extremities: no edema, no deformity, other (scar of R hip surgery) Pulses: radial (R) (2+), radial (L), dorsalis pedis (R) (2+), dorsalis pedis (L ) (2+) Neuro: alert, oriented x 3, normal motor exam Psychiatric: normal affect Laboratory Results Last 24 Hours Test 08/16/16 12:20 08/16/16 12:30 08/16/16 13:00 08/16/16 13:15 Hepatitis C Antibody Screen NEG White Blood Count 7.95 K/uL Red Blood Count 4.79 M/uL Hemoglobin 12.6 g/dL Hematocrit 37.7 % Mean Corpuscular Volume 78.7 fL Mean Corpuscular Hemoglobin 26.3 pg Mean Corpuscular Hemoglobin Concent 33.4 g/dl Platelet Count 226 K/uL Mean Platelet Volume 8.7 fL Neutrophils (%) (Auto) 93.4 % Lymphocytes (%) (Auto) 2.9 % Monocytes (%) (Auto) 3.3 % Eosinophils (%) (Auto) 0.1 % Basophils (%) (Auto) 0.0 % Neutrophils # (Auto) 7.43 K/uL Lymphocytes # (Auto) 0.23 K/uL Monocytes # (Auto) 0.26 K/uL Eosinophils # (Auto) 0.01 K/uL Basophils # (Auto) 0.00 K/uL RDW Standard Deviation 40.4 fL RDW Coefficient of Variation 14.2 % Immature Granulocyte % (Auto) 0.3 % Immature Granulocyte # (Auto) 0.02 K/uL Prothrombin Time 12.0 SECONDS Prothromb Time International Ratio 1.1 Sodium Level 130 mmol/L Potassium Level 3.3 mmol/L Chloride Level 96 mmol/L Carbon Dioxide Level 24 mmol/L Anion Gap 10.0 mmol/L 17.0 mmol/L Blood Urea Nitrogen 8 mg/dl Creatinine 0.47 mg/dl Est Creatinine Clear Calc Drug Dose 70.9 ml/min Estimated GFR () 115.2 Estimated GFR (Non- 99.4 BUN/Creatinine Ratio 17.3 Random Glucose 108 mg/dl Calcium Level 8.8 mg/dl Magnesium Level 2.1 mg/dl Total Bilirubin 2.1 mg/dl Direct Bilirubin 1.4 mg/dl Aspartate Amino Transf (AST/SGOT) 563 U/L Alanine Aminotransferase (ALT/SGPT) 787 U/L Alkaline Phosphatase 188 U/L Total Creatine Kinase 83 U/L Creatine Kinase MB < 0.5 ng/ml Creatine Kinase MB Ratio Troponin I < 0.015 ng/ml Total Protein 7.6 gm/dl Albumin 3.7 gm/dl Lipase 508 U/L Urine Color YELLOW Urine Appearance CLEAR Urine pH 7.5 Urine Specific [place] 1.006 Urine Protein NEG Urine Glucose (UA) NEG Urine Ketones TRACE Urine Occult Blood 2+ Urine Nitrite NEG Urine Bilirubin NEG Urine Urobilinogen NEG Urine Leukocyte Esterase NEG Urine WBC (Auto) 0 /hpf Urine RBC (Auto) 5-10 /hpf Urine Hyaline Casts (Auto) 0 /lpf Urine Epithelial Cells (Auto) 0-5 /lpf Urine Bacteria (Auto) NEG Bedside Hemoglobin 14.3 g/dl Bedside Hematocrit 42 % Bedside Sodium 129 mEq/L Bedside Potassium 3.2 mEq/L Bedside Chloride 94 mEq/L Bedside Total CO2 23 mEq/l Bedside Blood Urea Nitrogen 7 mg/dl Bedside Creatinine 0.4 mg/dl Bedside Glucose (other) 118 mg/dl Bedside Ionized Calcium (Teresita) 1.10 mmol/l Test 08/16/16 13:33 08/16/16 22:00 08/17/16 06:01 08/17/16 10:41 Bedside Lactic Acid Venous 1.63 mmol/L Troponin I 0.028 ng/ml 0.023 ng/ml White Blood Count 7.28 K/uL Red Blood Count 4.29 M/uL Hemoglobin 11.2 g/dL Hematocrit 34.7 % Mean Corpuscular Volume 80.9 fL Mean Corpuscular Hemoglobin 26.1 pg Mean Corpuscular Hemoglobin Concent 32.3 g/dl Platelet Count 167 K/uL Mean Platelet Volume 8.7 fL Neutrophils (%) (Auto) 91.7 % Lymphocytes (%) (Auto) 3.3 % Monocytes (%) (Auto) 4.1 % Eosinophils (%) (Auto) 0.5 % Basophils (%) (Auto) 0.1 % Neutrophils # (Auto) 6.67 K/uL Lymphocytes # (Auto) 0.24 K/uL Monocytes # (Auto) 0.30 K/uL Eosinophils # (Auto) 0.04 K/uL Basophils # (Auto) 0.01 K/uL RDW Standard Deviation 44.1 fL RDW Coefficient of Variation 15.0 % Immature Granulocyte % (Auto) 0.3 % Immature Granulocyte # (Auto) 0.02 K/uL Sodium Level 141 mmol/L Potassium Level 3.5 mmol/L Chloride Level 110 mmol/L Carbon Dioxide Level 16 mmol/L Anion Gap 15.0 mmol/L Blood Urea Nitrogen 6 mg/dl Creatinine 0.41 mg/dl Est Creatinine Clear Calc Drug Dose 81.3 ml/min Estimated GFR () 120.5 Estimated GFR (Non- 103.9 BUN/Creatinine Ratio 15.8 Random Glucose 73 mg/dl Calcium Level 7.4 mg/dl Magnesium Level 2.1 mg/dl Total Bilirubin 1.1 mg/dl Aspartate Amino Transf (AST/SGOT) 313 U/L Alanine Aminotransferase (ALT/SGPT) 518 U/L Alkaline Phosphatase 169 U/L Total Protein 6.3 gm/dl Albumin 2.7 gm/dl Globulin 3.6 gm/dl Albumin/Globulin Ratio 0.[address] abdomen US RUQ HIDA scan as above SCG normal sinus rhythm with tachycardia CXR and abdominal CT show thickening of the pleura on the right Assessment & Plan 71 yo female with notable history of thyroid cancer s/p thyroidectomy with hypothyroidism on levothyroxin, breast cancer sp/ bilaterla mastectomy with mets to bone and a history of malignant pleural effusion s/p r pleurodesis on everlimus and aromasin admitted with (1) cholecystits acute without stones identified (2) mild chemical pancreatitis likely due to passing cholelithiasis (3) sepsis due to problem #1 (4) SVT likely multifactorial, sepsis pain and withdrawal from her B blockers. 1- neurologic no complaints except te pain. Will use fentanyl 50 mcg Q3 PRN to control pain. 2- respiratory no complaints, incentive spirometry perioperatively 3- cardiovascular resume her metoprolol 25 mg PO BID (short acting) serial troponin to ascertain no ischemia atorvastatin 20 mg PO daily 4- GI clear liquid diet. pantoprazole on board NPO post midnight FU lipase again today 5- renal FU and replete lytes repleted both K and Ca today UO 0,59 ml/Kg BW-hr + balalnce of 900 ml 6- ID will resume zosyn coverage. She is not allergic to PCN levaquin is more a respiratory than abdominal med. alternative would be cipro and flagyl 7- DVT prophylaxis with SC heparin it is shorter acting than lovnox and we will hold morning dose. then post op resume lovenox as she has mets breast CA and is high risk US LE the left leg seems a little larger than the right 8- line she has peripheral lines 9- endocrine sugar is within normal will continue levothyroxin 75 mcg PO daily post op will restart everlimus and aromasin as well as acyclovir CCT 65 min. she is critically ill and needs observation/management in MICU
[2016-08-17] MEDS ORDERED: PIPERACILL/TAZOBAC IV 3.375 GM in DEXTROSE 5% 100ML 100 ML IV ONE (13:00)
[2016-08-17] MEDS ORDERED: PIPERACILL/TAZOBAC CONSULT ACTIVE PRN (13:00)
[2016-08-17] MEDS ORDERED: HEPARIN SOD 5000 UNIT/0.5 ML CARP SQ SCH ×2 (14:00→21:00)
--- NOTE | 2016-08-17 14:21 | Progress Note ---
Subjective Date of Service: Aug 17, 2016. Subjective Pt evaluation today including: conversation w/ patient, physical exam, chart review, lab review, review of studies, conversation w/ clinical consultant (critical care and surgery), review of inpatient medication list feeling better heart rate better just felt a fluttering when it was racing belly feeling better really wants to eat d/w critical care and can use clear liquids for now d/w surgery and for choley tomorrow relates has had palpitations a few times in the past, maybe 3-4 times in the last year - all spontaneous onset and resolution Problem List Medical Problems: (1) Cholecystitis Status: Acute (2) Sepsis Status: Acute (3) Transaminitis Status: Acute Review of Systems ROS otherwise negative except for as above Objective Vital Signs Date Time Temp Pulse Resp B/P (MAP) Pulse Ox O2 Delivery O2 Flow Rate FiO2 08/17/16 12:01 36.8 93 22 142/90 (107) 95 Room Air 08/17/16 12:00 Room Air 08/17/16 10:00 89 24 137/85 (102) 97 Room Air 08/17/16 08:01 37.6 89 24 137/85 (102) 97 Room Air 08/17/16 08:00 Room Air 08/17/16 07:01 94 20 135/84 (101) 96 08/17/16 05:26 182 93/68 08/17/16 05:25 182 93/68 08/17/16 04:59 92 108/69 (82) 08/17/16 04:57 96/68 (77) 08/17/16 04:11 36.6 107 19 133/82 (99) 93 Room Air 08/17/16 04:00 Room Air 08/17/16 02:15 37.7 08/17/16 00:41 37.6 90 18 107/68 (81) 93 Room Air 08/17/16 00:00 Room Air 08/16/16 20:20 39.3 110 18 153/82 (105) 91 Room Air 08/16/16 20:00 93 Room Air 08/16/16 17:00 37.1 84 18 113/68 (83) 93 Room Air 08/16/16 15:39 96 Room Air 08/16/16 14:51 105 20 164/91 96 Room Air Physical Exam General Appearance: no apparent distress Eyes: EOMI ENT: hearing grossly normal Neck: trachea midline Respiratory/Chest: no respiratory distress, no accessory muscle use Extremities: normal range of motion Neurologic/Psychiatric: salvager II-XII nml as tested, alert, normal mood/affect Skin: normal color, warm/dry Laboratory Results Last 24 Hours Test 08/16/16 22:00 08/17/16 06:01 08/17/16 11:35 08/17/16 12:08 Troponin I 0.028 ng/ml 0.023 ng/ml White Blood Count 7.28 K/uL Red Blood Count 4.29 M/uL Hemoglobin 11.2 g/dL Hematocrit 34.7 % Mean Corpuscular Volume 80.9 fL Mean Corpuscular Hemoglobin 26.1 pg Mean Corpuscular Hemoglobin Concent 32.3 g/dl Platelet Count 167 K/uL Mean Platelet Volume 8.7 fL Neutrophils (%) (Auto) 91.7 % Lymphocytes (%) (Auto) 3.3 % Monocytes (%) (Auto) 4.1 % Eosinophils (%) (Auto) 0.5 % Basophils (%) (Auto) 0.1 % Neutrophils # (Auto) 6.67 K/uL Lymphocytes # (Auto) 0.24 K/uL Monocytes # (Auto) 0.30 K/uL Eosinophils # (Auto) 0.04 K/uL Basophils # (Auto) 0.01 K/uL RDW Standard Deviation 44.1 fL RDW Coefficient of Variation 15.0 % Immature Granulocyte % (Auto) 0.3 % Immature Granulocyte # (Auto) 0.02 K/uL Sodium Level 141 mmol/L Potassium Level 3.5 mmol/L Chloride Level 110 mmol/L Carbon Dioxide Level 16 mmol/L Anion Gap 15.0 mmol/L Blood Urea Nitrogen 6 mg/dl Creatinine 0.41 mg/dl Est Creatinine Clear Calc Drug Dose 81.3 ml/min Estimated GFR () 120.5 Estimated GFR (Non- 103.9 BUN/Creatinine Ratio 15.8 Random Glucose 73 mg/dl Calcium Level 7.4 mg/dl Magnesium Level 2.1 mg/dl Total Bilirubin 1.1 mg/dl Aspartate Amino Transf (AST/SGOT) 313 U/L Alanine Aminotransferase (ALT/SGPT) 518 U/L Alkaline Phosphatase 169 U/L Total Protein 6.3 gm/dl Albumin 2.7 gm/dl Globulin 3.6 gm/dl Albumin/Globulin Ratio 0.8 Bedside Glucose 62 mg/dl Lipase 123 U/L Test 08/17/16 14:00 Assessment and Plan biliary sepsis from cholecystitis (SIRS being temp, HR, and RR) -fortunately well stabilized w abx and supportive care. for cholecystectomy tomorrow (unless she were to show any worsening) -zosyn -supportive care -doing well SVT -now NSR again. is on metoprolol as outpt. has episodes of palpitations at times as outpt - suspect has SVT episodes periodically at home. continue beta winnie. taught vagal maneuvers for if it happens again, and discussed pathophys of SVTs. ongoing f/u at this time, outpt f/u after discharge Breast cancer - resume home meds Hx of PUD - home med regimen Hx of thyroid cancer, with removal of gland and subsequent hypothyroidism - home meds HTN - follow BPs on metoprolol DVT ppx with heparin Pt is FULL CODE
--- NOTE | 2016-08-17 14:36 | Progress Note ---
Progress Note Date of Service Aug 17, 2016. Progress Note Events o/n noted. Pt without new complaints - she still has same abd pain, tolerating clears. Denies dark urine, pruritus. Looks comfortable, sitting upright. Abd is tender in upper abdomen. Labs show transaminitis, lipase WNL. A/P: Cholecystitis transaminitis - I am not sure the etiology of her transaminitis - ischemic hepatitis may be possible, given tachycardia last night, although her creat did not rise. Would recheck LFT's in am, and plan to f/u cholangiogram done during hank tomorrow.
--- NOTE | 2016-08-17 14:37 | DIAGNOSTIC IMAGING REPORT ---
BILATERAL LOWER EXTREMITY VENOUS DOPPLER HISTORY: Leg swelling. LEft > right leg has breast CA COMPARISON STUDY: None. FINDINGS: There is normal compressibility, flow, and augmentation within the bilateral lower extremity deep venous systems. IMPRESSION: No DVT within the right or left lower extremity. Electronically signed by: Wesley Castillo M.D. 08/17/2016 2:35 PM Dictated Date/Time: 08/17/2016 2:35 PM
[2016-08-17] MEDS: FENTANYL CITRATE INJ 50 MCG/1 ML 2 ML VIAL IV PRN (16:03)
[2016-08-17] MEDS: PIPERACILL/TAZOBAC IV 4.5 GM in DEXTROSE 5% 100ML IV SCH (17:49)
[2016-08-17] MEDS ORDERED: PIPERACILL/TAZOBAC IV 3.375 GM in DEXTROSE 5% 100ML 100 ML IV SCH (18:00)
[2016-08-17] MEDS ORDERED: LABETALOL HCL IV 5 MG/ML 20ML IV ONE (18:15)
[2016-08-17] MEDS: CALCIUM 600MG + VIT D 400 IU TAB PO SCH (19:27)
[2016-08-17] MEDS: METOPROLOL TARTRATE 25 MG TAB PO SCH (19:29)
[2016-08-17] MEDS: ZOLPIDEM TARTRATE 10 MG TAB PO SCH (21:04)
[2016-08-18] VITALS (31 sets, daily range): BP systolic 119–170; BP diastolic 74–116; PULSE 71–92; TEMP 36.8–37.4; O2SAT 90–98
[2016-08-18] MEDS: PIPERACILL/TAZOBAC IV 4.5 GM in DEXTROSE 5% 100ML IV SCH ×3 (02:01→18:17)
[2016-08-18] MEDS: LEVOTHYROXINE 150 MCG TAB PO SCH (05:34)
[2016-08-18 05:38] LABS: BASO % 0.2 %; BASO ABS # 0.01 K/uL (0-0.2); COMPLETE YES; EOS % 4.1 %; HEMATOCRIT 34.4 % (37-47); LYMPH % 4.7 %; LYMPH ABS # 0.31 K/uL (1.2-3.4); MEAN CELL VOLUME 80.6 fL (80-100); MEAN CORPUSCULAR HEMOGLOBIN 26.7 pg (25-34); MEAN CORPUSCULAR HGB CONC 33.1 g/dl (32-36); MEAN PLATELET VOLUME 8.7 fL (7.4-10.4); MONO % 4.7 %; NEUT % 86.3 %; PLATELET COUNT 177 K/uL (130-400); RED BLOOD COUNT 4.27 M/uL (4.2-5.4); WHITE BLOOD COUNT 6.65 K/uL (4.8-10.8)
[2016-08-18 05:57] LABS: BUN/CREATININE RATIO 7.8 (10-20); CALCIUM 7.8 mg/dl (8.5-10.1); CREATININE 0.4 mg/dl (0.60-1.20); POTASSIUM 3.5 mmol/L (3.5-5.1)
[2016-08-18 06:02] LABS: ALB/GLOB RATIO 0.7 (0.9-2)
[2016-08-18] MEDS ORDERED: ACETAMINOPHEN 1000 MG/100 ML IV IV ONE (06:57)
[2016-08-18] MEDS: CALCIUM 600MG + VIT D 400 IU TAB PO SCH ×2 (07:42→19:44)
[2016-08-18] MEDS: ATORVASTATIN 20 MG TAB PO SCH (07:42)
[2016-08-18] MEDS: MULTIVITAMIN TAB PO SCH (07:43)
[2016-08-18] MEDS: PANTOprazole SOD 40 MG TAB PO SCH (07:43)
[2016-08-18] MEDS: CHOLECALCIFEROL 1000 INTER.UNIT TAB PO SCH (07:44)
[2016-08-18] MEDS: NSS + 20MEQ KCL 1000ML 1,000 ML IV SCH ×3 (08:00→21:23)
[2016-08-18] MEDS: METOPROLOL TARTRATE 25 MG TAB PO SCH ×2 (08:00→19:47)
[2016-08-18] MEDS: FENTANYL CITRATE INJ 50 MCG/1 ML 2 ML VIAL IV PRN ×7 (08:21→21:53)
[2016-08-18] MEDS ORDERED: FENTANYL CITRATE INJ 50 MCG/1 ML 2 ML VIAL ONE ×4 (08:52→12:07)
[2016-08-18] MEDS ORDERED: ATORVASTATIN 20 MG TAB PO SCH (09:00)
[2016-08-18] MEDS ORDERED: METOPROLOL SUCC 50MG EXT REL TAB PO SCH (09:00)
[2016-08-18] MEDS ORDERED: EpHEDrine SULFATE INJ 50 MG/ML AMP IV PRN (09:30)
[2016-08-18] MEDS ORDERED: ATROPINE SULFATE 0.1 MG/ML 5ML SYR IV PRN (09:30)
[2016-08-18] MEDS ORDERED: ONDANSETRON INJ 2 MG/ML 2 ML VIAL IV PRN (09:30)
[2016-08-18] MEDS ORDERED: CEFAZOLIN SOD 1000MG/55 ML D5W IV STA (10:13)
--- NOTE | 2016-08-18 10:13 | History & Physical Bridge Note ---
H&P Re-Evaluation Bridge Note: I have examined the patient, reviewed the History & Physical and in the interval since the performance of the History & Physical I have noted the following changes of clinical significance: No changes noted
[2016-08-18] MEDS ORDERED: LIDOCAINE HCL 1% 20 ML VIAL ONE (10:30)
[2016-08-18] MEDS ORDERED: BUPIVACAINE 0.5 % 5 MG/1 ML MPF 30ML VIAL ONE (10:30)
[2016-08-18] MEDS ORDERED: CEFAZOLIN IV 1,000 MG in DEXTROSE 5% 50ML 50 ML IV SCH (10:30)
[2016-08-18] MEDS ORDERED: BACITRACIN OINT 15 GM TUBE ONE (10:30)
[2016-08-18] MEDS ORDERED: CONRAY 60% 50 ML VIAL ONE (10:46)
[2016-08-18] MEDS ORDERED: METOPROLOL TARTRATE 1 MG/ML VIAL ONE (11:24)
[2016-08-18] MEDS ORDERED: ROCURONIUM BROMIDE 10 MG/ML 5 ML VIAL ONE (11:24)
[2016-08-18] MEDS ORDERED: NEOSTIGMINE METHYLSULFATE 5 MG/5 ML SYR ONE (11:24)
[2016-08-18] MEDS ORDERED: PROPOFOL IV EMULSION 10 MG/ML 20 ML VIAL IV ONE (11:24)
[2016-08-18] MEDS ORDERED: ONDANSETRON INJ 2 MG/ML 2 ML VIAL ONE (11:24)
[2016-08-18] MEDS ORDERED: LIDOCAINE HCL 2% 2 ML VIAL (20MG/ML) ONE (11:24)
[2016-08-18] MEDS ORDERED: DEXAMETHASONE SOD INJ 4 MG/ML VIAL ONE (11:24)
[2016-08-18] MEDS ORDERED: GLYCOPYRROLATE INJ 0.2 MG/ML VIAL ONE (11:24)
[2016-08-18] MEDS ORDERED: PHENYLEPHRINE 100MCG/ML 5ML SYR ONE (11:59)
[2016-08-18] MEDS ORDERED: SURGICEL ABSORB HEMOSTAT 2IN X 14IN TOP ONE (12:12)
[2016-08-18] MEDS ORDERED: ESMOLOL HCL 10 MG/ML 10 ML VIAL ONE (12:24)
--- NOTE | 2016-08-18 12:40 | [facility] Post Operative Brief Note ---
Immediate Operative Summary Operative Date Aug 18, 2016. Pre-Operative Diagnosis Acute cholecystitis Post-Operative Diagnosis Acute cholecystitis Procedure(s) Performed Laparoscopic Cholecystectomy with cholangiogram Surgeon Dr. Dillard Frame Nailer Surgeon(s) surgical aide Estimated Blood Loss 30cc Findings acute cholecystitis, intra-op cholangiogram, patent CBD Fluids (cc crystalloids) 700ml Specimens A. Gallbladder Drains none Anesthesia general Complication(s) None Disposition Surgical ICU
--- NOTE | 2016-08-18 13:40 | Anesthesiology Progress Note ---
Anesthesia Post Op Note Date & Time Aug 18, 2016 at 13:38 Vital Signs Vital Signs Past 12 Hours Date Time Temp Pulse Resp B/P (MAP) Pulse Ox O2 Delivery O2 Flow Rate FiO2 08/18/16 13:15 36.8 74 20 150/87 97 Mask 6 08/18/16 13:05 36.8 73 20 154/85 99 Mask 6 08/18/16 12:55 37.0 77 20 172/90 100 Mask 6 08/18/16 12:45 37.0 92 20 173/108 100 Mask 6 08/18/16 10:00 89 19 166/100 (122) 91 Room Air 08/18/16 08:00 37.3 85 14 165/92 (116) 96 Room Air 08/18/16 08:00 Room Air 08/18/16 05:37 37.4 08/18/16 04:12 95 Room Air 08/18/16 04:04 92 22 167/97 (120) 08/18/16 03:00 85 19 96 08/18/16 02:01 85 19 154/88 (110) 96 08/18/16 02:00 80 19 96 Notes Mental Status: alert / awake / arousable, participated in evaluation Pt Amnestic to Procedure: Yes Nausea / Vomiting: adequately controlled Pain: adequately controlled Airway Patency, RR, SpO2: stable & adequate BP & HR: stable & adequate Hydration State: stable & adequate Anesthetic Complications: no major complications apparent Pt was transported back to ICU with O2 and monitors. VSS stable throughout transport. Report was given to deposit refund clerk. He was made aware of the pt's 3 second bout of SVT intra-operatively. Cardiac consultation was recommended. Care was returned to the ICU team.
--- NOTE | 2016-08-18 13:41 | ECHOCARDIOGRAM REPORT ---
*NOTICE TO RECEIVING CONSTITUTION PARTY AGENCY This information is strictly Confidential and protected under [place] law. [place] law prohibits you from making any further disclosure of this information unless further disclosure is expressly permitted by the written consent of the person to whom it pertains or is authorized by law. A general authorization for the release of medical or other information is not sufficient for this purpose. Hospital accepts no responsibility if the information is made available to any other person, INCLUDING THE PATIENT. Interpretation Summary * Conclusions -- * Left ventricular systolic function is normal. * No regional wall motion abnormalities noted. * Ejection Fraction = 55-60%. * There is mild tricuspid regurgitation. Procedure Details * A complete two-dimensional transthoracic echocardiogram was performed (2D, M-mode, Doppler and color flow Doppler). * The study was technically adequate. Left Ventricle * The left ventricle is normal in size. * There is normal left ventricular wall thickness. * Left ventricular systolic function is normal. * Ejection Fraction = 55-60%. * No regional wall motion abnormalities noted. Right Ventricle * The right ventricle is normal size. * The right ventricular systolic function is normal as assessed by tricuspid annular plane systolic excursion (TAPSE) (normal >1.5 cm). Atria * The left atrial size is normal. * Right atrial size is normal. * There is no evidence of atrial septal defect, but resolution does not allow assessment for a patent foramen ovale. Mitral Valve * The mitral valve is grossly normal. * There is no mitral valve stenosis. * There is trace mitral regurgitation. Tricuspid Valve * The tricuspid valve is not well visualized, but is grossly normal. * There is mild tricuspid regurgitation. Aortic Valve * The aortic valve is normal in structure and function. * No hemodynamically significant valvular aortic stenosis. * No aortic regurgitation is present. Pulmonic Valve * The pulmonary valve is not well seen, but the Doppler examination is normal without significant regurgitation or stenosis. Great Vessels * The aortic root is normal size. * The pulmonary is not well visualized. Pericardium/Pleural * There is no pericardial effusion. Great Vessels * The inferior vena cava is mildly dilated. Left Ventricular Diastolic Function * Grade I diastolic dysfunction, (abnormal relaxation pattern). MMode 2D Measurements and Calculations IVSd 0.81 cm IVSs 1.4 cm LVIDd 4.0 cm LVIDs 2.4 cm LVPWd 0.81 cm LVPWs 1.4 cm IVS/LVPW 1.0 FS 41.1 % EDV(Teich) 72.0 ml ESV(Teich) 19.9 ml EF(Teich) 72.4 % EDV(cubed) 66.4 ml ESV(cubed) 13.6 ml EF(cubed) 79.5 % % IVS thick 68.7 % % LVPW thick 78.4 % LV mass(C)d 96.9 grams LV mass(C)dI 72.9 grams/m\S\2 LV mass(C)s 106.0 grams LV mass(C)sI 79.7 grams/m\S\2 SV(Teich) 52.2 ml SI(Teich) 39.3 ml/m\S\2 SV(cubed) 52.8 ml SI(cubed) 39.7 ml/m\S\2 Ao root diam 3.1 cm Ao root area 7.7 cm\S\2 ACS 1.8 cm LA dimension 2.7 cm asc Aorta Diam 2.8 cm LA/Ao 0.85 LVOT diam 1.9 cm LVOT area 3.0 cm\S\2 LVAd ap4 17.9 cm\S\2 LVLd ap4 7.2 cm EDV(MOD-sp4) 37.0 ml LVAs ap4 10.3 cm\S\2 LVLs ap4 6.1 cm ESV(MOD-sp4) 15.0 ml EF(MOD-sp4) 59.5 % LVAd ap2 18.9 cm\S\2 LVLd ap2 7.4 cm EDV(MOD-sp2) 42.0 ml LVAs ap2 11.3 cm\S\2 LVLs ap2 6.1 cm ESV(MOD-sp2) 17.0 ml EF(MOD-sp2) 59.5 % SV(MOD-sp4) 22.0 ml SI(MOD-sp4) 16.5 ml/m\S\2 SV(MOD-sp2) 25.0 ml SI(MOD-sp2) 18.8 ml/m\S\2 Doppler Measurements and Calculations MV E max dominic 110.4 cm/sec MV A max dominic 124.8 cm/sec MV E/A 0.88 MV dec time 0.16 sec Ao V2 max 155.3 cm/sec Ao max PG 9.6 mmHg Ao max PG (full) 5.1 mmHg NANCI(V,A) 2.0 cm\S\2 NANCI(V,D) 2.0 cm\S\2 LV V1 max PG 4.6 mmHg LV V1 max 107.0 cm/sec PA V2 max 93.0 cm/sec PA max PG 3.5 mmHg TR max dominic 234.6 cm/sec
--- NOTE | 2016-08-18 13:44 | DIAGNOSTIC IMAGING REPORT ---
INTRAOPERATIVE RADIOGRAPH CLINICAL HISTORY: Intraoperative cholangiogram. Fluoroscopy time: 2 seconds. FINDINGS: A single spot fluoroscopic view of the right upper quadrant from an intraoperative cholangiogram is correlated with right upper quadrant ultrasound dated 08/16/2016. There is opacification of the common bile duct which appears mild dilated. No filling defects are clearly seen to suggest choledocholithiasis. Contrast passes into the duodenum. IMPRESSION: Single image from an intraoperative cholangiogram as above. See operative report for detailed findings. Electronically signed by: Rickie King M.D. 08/18/2016 1:43 PM Dictated Date/Time: 08/18/2016 1:41 PM
[2016-08-18] MEDS ORDERED: POTASSIUM ACETATE INJ 10 MEQ in SODIUM CHLORIDE 0.9% 100ML 100 ML IV SCH ×2 (14:15→16:15)
--- NOTE | 2016-08-18 14:40 | Surgery Progress Note ---
Surgery Progress Note Date of Service Aug 18, 2016. Subjective F/U S/P lap hank, intra-op cholangiogram, pt is doing fine, good control incision pain, no nausea, no vomiting, Objective Vital Signs: Date Time Temp Pulse Resp B/P (MAP) Pulse Ox O2 Delivery O2 Flow Rate FiO2 08/18/16 13:30 36.8 78 20 149/85 97 Nasal Cannula 4 08/18/16 13:25 36.7 68 20 137/78 96 Nasal Cannula 4 08/18/16 13:15 36.8 74 20 150/87 97 Mask 6 08/18/16 13:05 36.8 73 20 154/85 99 Mask 6 08/18/16 12:55 37.0 77 20 172/90 100 Mask 6 08/18/16 12:45 37.0 92 20 173/108 100 Mask 6 08/18/16 10:00 89 19 166/100 (122) 91 Room Air 08/18/16 08:00 37.3 85 14 165/92 (116) 96 Room Air 08/18/16 08:00 Room Air 08/18/16 05:37 37.4 08/18/16 04:12 95 Room Air 08/18/16 04:04 92 22 167/97 (120) 08/18/16 03:00 85 19 96 08/18/16 02:01 85 19 154/88 (110) 96 08/18/16 02:00 80 19 96 08/18/16 01:02 82 23 157/88 (111) 97 08/18/16 01:02 82 23 157/88 (111) 97 08/18/16 01:00 80 17 98 08/18/16 01:00 80 17 98 08/18/16 00:54 95 Room Air 08/18/16 00:43 36.8 88 14 170/98 (122) 95 08/18/16 00:43 88 14 170/98 (122) 95 08/18/16 00:43 88 14 170/98 (122) 95 08/18/16 00:02 87 23 169/116 (133) 97 08/18/16 00:02 87 23 () 97 08/18/16 00:02 87 23 () 97 08/18/16 00:00 79 20 97 08/18/16 00:00 79 20 97 08/18/16 00:00 79 20 97 08/17/16 23:02 83 18 146/91 (109) 93 08/17/16 23:00 82 17 92 08/17/16 22:02 80 25 163/91 (115) 94 08/17/16 22:00 80 19 94 08/17/16 21:02 84 21 163/91 (115) 94 08/17/16 21:00 76 19 94 08/17/16 20:02 36.6 83 21 164/92 (116) 95 08/17/16 20:00 82 20 91 08/17/16 20:00 95 Room Air 08/17/16 19:23 84 20 168/87 (114) 92 08/17/16 19:01 84 25 169/94 (119) 08/17/16 19:00 85 26 08/17/16 18:07 88 30 175/101 (125) 95 Room Air 08/17/16 17:02 89 12 162/95 (117) 96 08/17/16 16:11 37.3 84 17 163/92 (115) 92 Room Air 08/17/16 16:02 97 20 173/108 (129) 95 08/17/16 16:00 Room Air General Appearance: WD/WN Head: normocephalic Neck: supple, no JVD Respiratory/Chest: chest non-tender, lungs clear Cardiovascular: regular rate, rhythm, no edema, no gallop Abdomen: normal bowel sounds, non distended, soft, + tenderness Incision(s): clean, dry, intact Extremities: normal range of motion, non-tender, normal inspection Laboratory Results: Results Past 24 Hours Test 08/17/16 14:50 08/18/16 05:12 Range/Units Troponin I 0.047 0.028 0-0.045 ng/ml White Blood Count 6.65 4.8-10.8 K/uL Red Blood Count 4.27 4.2-5.4 M/uL Hemoglobin 11.4 12.0-16.0 g/dL Hematocrit 34.4 37-47 % Mean Corpuscular Volume 80.6 80-100 fL Mean Corpuscular Hemoglobin 26.7 25-34 pg Mean Corpuscular Hemoglobin Concent 33.1 32-36 g/dl Platelet Count 177 130-400 K/uL Mean Platelet Volume 8.7 7.4-10.4 fL Neutrophils (%) (Auto) 86.3 % Lymphocytes (%) (Auto) 4.7 % Monocytes (%) (Auto) 4.7 % Eosinophils (%) (Auto) 4.1 % Basophils (%) (Auto) 0.2 % Neutrophils # (Auto) 5.75 1.4-6.5 K/uL Lymphocytes # (Auto) 0.31 1.2-3.4 K/uL Monocytes # (Auto) 0.31 0.11-0.59 K/uL Eosinophils # (Auto) 0.27 0-0.5 K/uL Basophils # (Auto) 0.01 0-0.2 K/uL RDW Standard Deviation 44.5 36.4-46.3 fL RDW Coefficient of Variation 15.1 11.5-14.5 % Immature Granulocyte % (Auto) 0.0 % Immature Granulocyte # (Auto) 0.00 0.00-0.02 K/uL Sodium Level 140 136-145 mmol/L Potassium Level 3.5 3.5-5.1 mmol/L Chloride Level 108 98-107 mmol/L Carbon Dioxide Level 20 21-32 mmol/L Anion Gap 12.0 3-11 mmol/L Blood Urea Nitrogen 3 7-18 mg/dl Creatinine 0.40 0.60-1.20 mg/dl Est Creatinine Clear Calc Drug Dose 83.3 ml/min Estimated GFR () 121.5 Estimated GFR (Non- 104.8 BUN/Creatinine Ratio 7.8 10-20 Random Glucose 97 70-99 mg/dl Calcium Level 7.8 8.5-10.1 mg/dl Total Bilirubin 0.9 0.2-1 mg/dl Aspartate Amino Transf (AST/SGOT) 371 15-37 U/L Alanine Aminotransferase (ALT/SGPT) 539 12-78 U/L Alkaline Phosphatase 216 45-117 U/L Total Protein 6.2 6.4-8.2 gm/dl Albumin 2.6 3.4-5.0 gm/dl Globulin 3.6 2.5-4.0 gm/dl Albumin/Globulin Ratio 0.7 0.9-2 Assessment & Plan IMP: acute cholecystitis Plan, pt requests to do laparoscopic cholecystectomy, possible open or cholangiogram, D/W benefits, risks and alternatives of kenny procedure, the risks - infection, bleeding, injury CBD, Bowel, NV, DVT, stroke, may need ERCP, , pt understood, she agrees with the plan, I answered all questions, 08/18/2016 I update pt and her family members about OR finding and the procedure she had, they understood, I answered all questions, will F/U full liquid diet repeat labs in am IMP: acute cholecystitis Plan, pt requests to do laparoscopic cholecystectomy, possible open or cholangiogram, D/W benefits, risks and alternatives of kenny procedure, the risks - infection, bleeding, injury CBD, Bowel, NV, DVT, stroke, may need ERCP, , pt understood, she agrees with the plan, I answered all questions,
--- NOTE | 2016-08-18 15:22 | Progress Note ---
Progress Note Date of Service Aug 18, 2016. Progress Note Events noted. Pt without change in pain this morning, s/p hank with neg cholangiogram this morning. Her LFT's remain elevated, but stable. Unclear etiology of abnl LFT's- sympathetic inflammation, related to GB infection? Mirizzi's syndrome? Follow for now, further w/u if do not improve post hank.
[2016-08-18] MEDS ORDERED: NURSING VERBAL MED ORDER ONE ×2 (17:00)
[2016-08-18] MEDS: TRAMADOL HCL 50 MG TAB PO PRN (17:10)
--- NOTE | 2016-08-18 17:30 | Progress Note ---
Subjective Date of Service: Aug 18, 2016. Subjective Pt evaluation today including: conversation w/ patient, physical exam, chart review, lab review, review of inpatient medication list seen post op - upper abdominal pain gas bloating, otherwise feeling OK. notes that she was told gallbladder was pretty bad. had run of SVT during surgery - hence back to ICU after, then had about a 30 second run spontaneous onset spontaneous resolution essentially asymptomatic witnessed by nursing earlier extensive discussions Problem List Medical Problems: (1) Cholecystitis Status: Acute (2) Sepsis Status: Acute (3) Transaminitis Status: Acute Review of Systems ROS otherwise negative except for as above Objective Vital Signs Date Time Temp Pulse Resp B/P (MAP) Pulse Ox O2 Delivery O2 Flow Rate FiO2 08/18/16 16:00 Room Air 08/18/16 14:30 Nasal Cannula 4.0 08/18/16 13:30 36.8 78 20 149/85 97 Nasal Cannula 4 08/18/16 13:25 36.7 68 20 137/78 96 Nasal Cannula 4 08/18/16 13:15 36.8 74 20 150/87 97 Mask 6 08/18/16 13:05 36.8 73 20 154/85 99 Mask 6 08/18/16 12:55 37.0 77 20 172/90 100 Mask 6 08/18/16 12:45 37.0 92 20 173/108 100 Mask 6 08/18/16 10:00 89 19 166/100 (122) 91 Room Air 08/18/16 08:00 37.3 85 14 165/92 (116) 96 Room Air 08/18/16 08:00 Room Air 08/18/16 05:37 37.4 08/18/16 04:12 95 Room Air 08/18/16 04:04 92 22 167/97 (120) 08/18/16 03:00 85 19 96 08/18/16 02:01 85 19 154/88 (110) 96 08/18/16 02:00 80 19 96 08/18/16 01:02 82 23 157/88 (111) 97 08/18/16 01:02 82 23 157/88 (111) 97 08/18/16 01:00 80 17 98 08/18/16 01:00 80 17 98 08/18/16 00:54 95 Room Air 08/18/16 00:43 36.8 88 14 170/98 (122) 95 08/18/16 00:43 88 14 170/98 (122) 95 08/18/16 00:43 88 14 170/98 (122) 95 08/18/16 00:02 87 23 169/116 (133) 97 08/18/16 00:02 87 23 () 97 08/18/16 00:02 87 23 () 97 08/18/16 00:00 79 20 97 08/18/16 00:00 79 20 97 08/18/16 00:00 79 20 97 08/17/16 23:02 83 18 146/91 (109) 93 08/17/16 23:00 82 17 92 08/17/16 22:02 80 25 163/91 (115) 94 08/17/16 22:00 80 19 94 08/17/16 21:02 84 21 163/91 (115) 94 08/17/16 21:00 76 19 94 08/17/16 20:02 36.6 83 21 164/92 (116) 95 08/17/16 20:00 82 20 91 08/17/16 20:00 95 Room Air 08/17/16 19:23 84 20 168/87 (114) 92 08/17/16 19:01 84 25 169/94 (119) 08/17/16 19:00 85 26 08/17/16 18:07 88 30 175/101 (125) 95 Room Air Physical Exam General Appearance: no apparent distress Eyes: EOMI ENT: hearing grossly normal Neck: trachea midline Respiratory/Chest: no respiratory distress, no accessory muscle use Extremities: normal range of motion Neurologic/Psychiatric: videogame tester II-XII nml as tested, alert, normal mood/affect Skin: normal color, warm/dry Laboratory Results Last 24 Hours Test 08/18/16 05:12 White Blood Count 6.65 K/uL Red Blood Count 4.27 M/uL Hemoglobin 11.4 g/dL Hematocrit 34.4 % Mean Corpuscular Volume 80.6 fL Mean Corpuscular Hemoglobin 26.7 pg Mean Corpuscular Hemoglobin Concent 33.1 g/dl Platelet Count 177 K/uL Mean Platelet Volume 8.7 fL Neutrophils (%) (Auto) 86.3 % Lymphocytes (%) (Auto) 4.7 % Monocytes (%) (Auto) 4.7 % Eosinophils (%) (Auto) 4.1 % Basophils (%) (Auto) 0.2 % Neutrophils # (Auto) 5.75 K/uL Lymphocytes # (Auto) 0.31 K/uL Monocytes # (Auto) 0.31 K/uL Eosinophils # (Auto) 0.27 K/uL Basophils # (Auto) 0.01 K/uL RDW Standard Deviation 44.5 fL RDW Coefficient of Variation 15.1 % Immature Granulocyte % (Auto) 0.0 % Immature Granulocyte # (Auto) 0.00 K/uL Sodium Level 140 mmol/L Potassium Level 3.5 mmol/L Chloride Level 108 mmol/L Carbon Dioxide Level 20 mmol/L Anion Gap 12.0 mmol/L Blood Urea Nitrogen 3 mg/dl Creatinine 0.40 mg/dl Est Creatinine Clear Calc Drug Dose 83.3 ml/min Estimated GFR () 121.5 Estimated GFR (Non- 104.8 BUN/Creatinine Ratio 7.8 Random Glucose 97 mg/dl Calcium Level 7.8 mg/dl Total Bilirubin 0.9 mg/dl Aspartate Amino Transf (AST/SGOT) 371 U/L Alanine Aminotransferase (ALT/SGPT) 539 U/L Alkaline Phosphatase 216 U/L Troponin I 0.028 ng/ml Total Protein 6.2 gm/dl Albumin 2.6 gm/dl Globulin 3.6 gm/dl Albumin/Globulin Ratio 0.7 Assessment and Plan biliary sepsis from cholecystitis (SIRS being temp, HR, and RR) -fortunately well stabilized w abx and supportive care. now s/p cholecystectomy - and anticipate improvement -zosyn -supportive care -trial of tramadol prn pain - risks/benefits outlined SVT -occassional short runs. is on metoprolol as outpt. has episodes of palpitations at times as outpt - suspect has SVT episodes periodically at home. continue beta winnie. taught vagal maneuvers for if it happens again, and discussed pathophys of SVTs. ongoing f/u at this time, outpt f/u after discharge. for now have ongoing monitoring. transaminitis - almost certainly relates to cholecystitis - anticipate improvement. if doesn't start to improve, then will need secondary w/u Breast cancer - resume home meds (appear to have been ordered but not on current med rec likely due to being in than out of OR - will want to double check 6/5 med list to ensure things have been resumed) Hx of PUD - home med regimen Hx of thyroid cancer, with removal of gland and subsequent hypothyroidism - home meds HTN - follow BPs on metoprolol DVT ppx with heparin Pt is FULL CODE
[2016-08-18] MEDS: POTASSIUM CHLR 10 MEQ / WTR 10 MEQ in PREMIXED WATER 100 ML IV SCH ×2 (18:17→19:43)
--- NOTE | 2016-08-18 18:23 | Critical Care Progress Note ---
Critical Care Progress Note Date of Service Aug 18, 2016. ICU Day ICU Day Number: [address] Juan Subjective 71 yo female with notable history of thyroid cancer s/p thyroidectomy with hypothyroidism on levothyroxin, breast cancer sp/ bilateral mastectomy with mets to bone and a history of malignant pleural effusion s/p r pleurodesis on everlimus and aromasin admitted with acute cholecystitis but then transferred to the unit because of SVT. She was stable and underwent laparoscopic cholecystectomy today. The procedure was uneventful except for a "3 second SVT" she was brought back to the ICU and received KCL supplementation. She was in pain and required 50 mcg of fentanyl Q2 hours Otherwise she had no complaints. Cardiology consulted Dr Schaefer Her troponins which peaked at 0.047 after the SVT are 0.028. Echo shows no regional wall motion abnormality and ECG unchanged Current SOFA Score SOFA Score Response (Comments) Value Platelets (x10) > 150 0 Bilirubin (mg/dL) < 1.2 0 Carola Coma Score 15 0 Level of Hypotension No Hypotension 0 Creatinine (mg/dL) < 1.2 0 Total 0 Previous SOFA Scores 0 Assessment & Plan 71 yo female with notable history of thyroid cancer s/p thyroidectomy with hypothyroidism on levothyroxin, breast cancer sp/ bilaterla mastectomy with mets to bone and a history of malignant pleural effusion s/p r pleurodesis on everlimus and aromasin admitted with (1) cholecystits acute without stones identified (2) mild chemical pancreatitis likely due to passing cholelithiasis (3) sepsis due to problem #1 (4) SVT likely multifactorial, sepsis pain and withdrawal from her B blockers. 1- neurologic no complaints except to pain. Will use fentanyl 50 mcg Q2 PRN to control pain. 2- respiratory no complaints, incentive spirometry 3- cardiovascular resume her metoprolol 25 mg PO BID (short acting) serial troponin do not speak for ongoing ischemia atorvastatin 20 mg PO daily once allowed meds by cardiology consulted cardiology Echo normal 4- GI NPO until surgery comfortable with clear liquids. pantoprazole on board lipase normalized. She has elevated LFT likely related to cholecystitis. Will repeat labs in am 5- renal FU and replete lytes repleted both K UO 0,91 ml/Kg BW-hr today 6- ID will continue zosyn coverage. She is not allergic to PCN 7- DVT prophylaxis with SC heparin it is shorter acting than lovnox and we will hold morning dose. then post op resume lovenox as she has mets breast CA and is high risk US LE the left leg seems a little larger than the right 8- line she has peripheral lines 9- endocrine sugar is within normal will continue levothyroxin 75 mcg PO daily In am will restart everlimus and aromasin as well as acyclovir CCT 40 min. she is critically ill and needs observation/management in MICU Consults & Procedures Consultants: surgery Procedures: laparoscopic cholecystectomy Data Medications: Current Inpatient Medications Medications (Trade) Dose Ordered Sig/[place] Route Start Time Stop Time Status Last Admin Dose Admin Ioversol (Optiray 320) 125 ml UD PRN IV 08/16/16 13:15 08/20/16 13:14 Magnesium Hydroxide (Milk Of Magnesia Susp) 30 ml Q12H PRN PO 08/16/16 15:45 09/15/16 15:44 Ondansetron HCl (Zofran Inj) 4 mg Q6H PRN IV 08/16/16 15:45 09/15/16 15:44 08/17/16 23:43 4 MG Zolpidem Tartrate (Ambien Tab) 10 mg HSZ PO 08/17/16 22:00 09/16/16 21:59 08/17/16 21:04 10 MG Potassium Chloride/Sodium Chloride 1,000 ml @ 75 mls/hr [id number] IV 08/17/16 05:08 09/16/16 05:07 08/18/16 08:21 75 MLS/HR Atorvastatin Calcium (Lipitor Tab) 20 mg QAM PO 08/18/16 09:00 09/17/16 08:59 Metoprolol Tartrate (Lopressor Tab) 25 mg BID PO 08/17/16 21:00 09/16/16 20:59 08/17/16 19:29 25 MG Heparin Sodium (Porcine) (Heparin Sq 5000 Unit/0.5ml) 5,000 unit Q12 SQ 08/17/16 21:00 09/16/16 20:59 Future Hold 08/17/16 19:30 5,000 UNIT Piperacillin Sod/ Tazobactam Sod (Consult) 1 ea UD PRN N/A 08/17/16 13:00 09/16/16 12:59 Levothyroxine Sodium (Synthroid Tab) 150 mcg DAILYBB PO 08/18/16 06:00 09/17/16 05:59 08/18/16 05:34 150 MCG Multivitamins (Multivitamin Tab) 1 tab DAILY PO 08/18/16 09:00 09/17/16 08:59 Pantoprazole Sodium (Protonix Tab) 40 mg DAILY PO 08/18/16 09:00 09/17/16 08:59 Valacyclovir HCl (Valtrex Tab) 500 mg DAILY PO 08/18/16 09:00 09/17/16 08:59 Calcium/Vitamin D (Caltrate Plus Tab) 2 tab BID PO 08/17/16 21:00 09/16/16 20:59 08/17/16 19:27 2 TAB Cholecalciferol (Vitamin D Tab) 1,000 inter.unit DAILY PO 08/18/16 09:00 09/17/16 08:59 Miscellaneous Information (Order Awaiting Action) 1 ea QS N/A 08/17/16 16:00 09/16/16 15:59 Miscellaneous Information (Order Awaiting Action) 1 ea QS N/A 08/17/16 16:00 09/16/16 15:59 Piperacillin Sod/ Tazobactam Sod 4.5 gm/Dextrose 120 ml @ 30 mls/hr Q8H IV 08/17/16 18:00 08/27/16 17:59 08/18/16 14:27 30 MLS/HR Fentanyl Citrate (Fentanyl Inj) 50 mcg Q2H PRN IV 08/18/16 16:15 08/31/16 12:14 Tramadol HCl (Ultram Tab) 50 mg Q4H PRN PO 08/18/16 16:30 09/17/16 16:29 08/18/16 17:10 50 MG Potassium Chloride 10 meq/ Prmx 100 ml @ 100 mls/hr Q1H IV 08/18/16 17:30 08/18/16 19:29 I & O: 24-Hour Column 08/19/16 08:00 Intake Total 705 ml Output Total 400 ml Balance 305 ml Vital Signs: Date Time Temp Pulse Resp B/P (MAP) Pulse Ox O2 Delivery O2 Flow Rate FiO2 08/18/16 16:00 37.4 91 20 145/85 (105) 91 Room Air 08/18/16 16:00 Room Air 08/18/16 14:37 81 21 149/87 (107) 94 08/18/16 14:30 Nasal Cannula 4.0 08/18/16 14:30 75 22 157/90 (112) 96 08/18/16 13:30 36.8 78 20 149/85 97 Nasal Cannula 4 08/18/16 13:25 36.7 68 20 137/78 96 Nasal Cannula 4 08/18/16 13:15 36.8 74 20 150/87 97 Mask 6 08/18/16 13:05 36.8 73 20 154/85 99 Mask 6 08/18/16 12:55 37.0 77 20 172/90 100 Mask 6 08/18/16 12:45 37.0 92 20 173/108 100 Mask 6 08/18/16 10:00 89 19 166/100 (122) 91 Room Air 08/18/16 08:00 37.3 85 14 165/92 (116) 96 Room Air 08/18/16 08:00 Room Air 08/18/16 05:37 37.4 08/18/16 04:12 95 Room Air 08/18/16 04:04 92 22 167/97 (120) 08/18/16 03:00 85 19 96 08/18/16 02:01 85 19 154/88 (110) 96 08/18/16 02:00 80 19 96 08/18/16 01:02 82 23 157/88 (111) 97 08/18/16 01:02 82 23 157/88 (111) 97 08/18/16 01:00 80 17 98 08/18/16 01:00 80 17 98 08/18/16 00:54 95 Room Air 08/18/16 00:43 36.8 88 14 170/98 (122) 95 08/18/16 00:43 88 14 170/98 (122) 95 08/18/16 00:43 88 14 170/98 (122) 95 08/18/16 00:02 87 23 169/116 (133) 97 08/18/16 00:02 87 23 () 97 08/18/16 00:02 87 23 () 97 08/18/16 00:00 79 20 97 08/18/16 00:00 79 20 97 08/18/16 00:00 79 20 97 08/17/16 23:02 83 18 146/91 (109) 93 08/17/16 23:00 82 17 92 08/17/16 22:02 80 25 163/91 (115) 94 08/17/16 22:00 80 19 94 08/17/16 21:02 84 21 163/91 (115) 94 08/17/16 21:00 76 19 94 08/17/16 20:02 36.6 83 21 164/92 (116) 95 08/17/16 20:00 82 20 91 08/17/16 20:00 95 Room Air 08/17/16 19:23 84 20 168/87 (114) 92 08/17/16 19:01 84 25 169/94 (119) 08/17/16 19:00 85 26 Laboratory Results: Last 24 Hours Test 08/18/16 05:12 White Blood Count 6.65 K/uL Red Blood Count 4.27 M/uL Hemoglobin 11.4 g/dL Hematocrit 34.4 % Mean Corpuscular Volume 80.6 fL Mean Corpuscular Hemoglobin 26.7 pg Mean Corpuscular Hemoglobin Concent 33.1 g/dl Platelet Count 177 K/uL Mean Platelet Volume 8.7 fL Neutrophils (%) (Auto) 86.3 % Lymphocytes (%) (Auto) 4.7 % Monocytes (%) (Auto) 4.7 % Eosinophils (%) (Auto) 4.1 % Basophils (%) (Auto) 0.2 % Neutrophils # (Auto) 5.75 K/uL Lymphocytes # (Auto) 0.31 K/uL Monocytes # (Auto) 0.31 K/uL Eosinophils # (Auto) 0.27 K/uL Basophils # (Auto) 0.01 K/uL RDW Standard Deviation 44.5 fL RDW Coefficient of Variation 15.1 % Immature Granulocyte % (Auto) 0.0 % Immature Granulocyte # (Auto) 0.00 K/uL Sodium Level 140 mmol/L Potassium Level 3.5 mmol/L Chloride Level 108 mmol/L Carbon Dioxide Level 20 mmol/L Anion Gap 12.0 mmol/L Blood Urea Nitrogen 3 mg/dl Creatinine 0.40 mg/dl Est Creatinine Clear Calc Drug Dose 83.3 ml/min Estimated GFR () 121.5 Estimated GFR (Non- 104.8 BUN/Creatinine Ratio 7.8 Random Glucose 97 mg/dl Calcium Level 7.8 mg/dl Total Bilirubin 0.9 mg/dl Aspartate Amino Transf (AST/SGOT) 371 U/L Alanine Aminotransferase (ALT/SGPT) 539 U/L Alkaline Phosphatase 216 U/L Troponin I 0.028 ng/ml Total Protein 6.2 gm/dl Albumin 2.6 gm/dl Globulin 3.6 gm/dl Albumin/Globulin Ratio 0.7
--- NOTE | 2016-08-18 19:43 | OPERATIVE REPORT ---
DATE OF OPERATION: 08/18/2016 PREOPERATIVE DIAGNOSIS: Acute cholecystitis. POSTOPERATIVE DIAGNOSIS: Same. OPERATION: Laparoscopic cholecystectomy, intraoperative cholangiogram. SURGEON: Dr. Ina Dillard MD. 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 ANESTHESIA: General. ESTIMATED BLOOD LOSS: About 30 mL. INTRAVENOUS FLUIDS: 700 mL. FINDINGS: Significant inflammation of gallbladder wall with the gallbladder wall thickening, edema, so it is acute cholecystitis. COMPLICATIONS: None. INDICATIONS FOR THE PROCEDURE: This is a [id number] lady, who was admitted to hospital for acute cholecystitis with SVT in the ICU and the patient required to do laparoscopic cholecystectomy, possible cholangiogram, possible open. I did talk to the patient about the benefit and risk, alternate procedure. I indicated the risks may include but not limited such as bleeding, infection, injury to common bile duct, bile leak, myocardial infarction, stroke, DVT, may need ERCP, even . The patient understands. She signed informed consent and I answered all questions. DETAILS OF PROCEDURE: We brought the patient to the OR, put the patient in the supine position. The patient received SCD on bilateral legs to prevent DVT. Also, the patient received 1 gram Ancef IV for prophylactic antibiotic. The patient received general anesthesia without difficulty. The abdomen was prepped and draped in routine sterile fashion. After a timeout, I injected the local anesthesia by using 1% lidocaine mixed with 0.25% Marcaine just above umbilical and made a small incision just above umbilicus, opened fascia and opened peritoneum under direct vision. I put a Nirmal trocar in, connected to CO2 to create pneumoperitoneum. Flow rate at 6 liters per minute, pressure not more than 14 mmHg. Once we get a nice pneumoperitoneum, we put a 10 mm camera in to look around the abdomen to make sure there is no more findings on the stomach, small bowel, large bowel and liver. However, the gallbladder showed significant acute cholecystitis with gallbladder wall thickening and inflammation, edema. Then, we put another 3 5 mm trocar on the right upper quadrant. Once all the trocars were in, I put a grasper in to hold the base of the gallbladder, put direction to the diaphragm and put another grasper to hold the pouch of the gallbladder, put latter to expose the triangle of Calot and at this moment, we decided to do the cholangiogram. I used Arevalo technique and put the needle connected to the gallbladder cavity and easily applied ortiz back injection, the contrast study through the gallbladder. Then we used the C-arm and showed a patent common bile duct and once the cholangiogram down, the cystic duct was identified and mobilized. I put two 5 mm metal clips on the proximal cystic duct, one on the distal cystic duct. Then I used scissor to transection the cystic duct. Then the cystic artery was identified and mobilized. I put two 5 mm metal clips on the proximal cystic artery, one on the distal cystic artery. Then, I used the scissor to transection the cystic artery. Then I used a Bovie to take down the gallbladder from the liver bed without difficulty; however, after we removed the gallbladder through the catch bag, we reinserted Nirmal trocar, connected to CO2 to create pneumoperitoneum again and the liver bed was elevated, oozing and no active bleeding, so we decided to use the surgical field, put one surgical cell on liver bed and rechecked, no active bleeding, no bile leak. Then we removed all trocars under direct vision. No active bleeding from trocar sites. Pneumoperitoneum was released. Closed umbilical incision and fascial layer by using #1 Vicryl [id number] x2, closed subcutaneous layer by using 2-0 Vicryl, closed skin by using 4-0 Vicryl, closed another 3.5 mm trocar site skin only by using 4-0 Vicryl. All the instrument, needle and sponge count correct x2 at the end of the case. Specimen sent to pathology and the patient was transferred back to the ICU in stable condition. Per anesthesiology, during the procedure, the patient had a very short time developed SVT and only 1 or 2 minute, now the patient back to normal sinus. I attest to the content of the Intraoperative Record and any orders documented therein. Any exceptions are noted below. JARRODD
[2016-08-18] MEDS: ZOLPIDEM TARTRATE 10 MG TAB PO SCH (20:58)
[2016-08-19] VITALS (20 sets, daily range): BP systolic 139–166; BP diastolic 82–99; PULSE 71–93; TEMP 36.9–37.2; O2SAT 85–99
[2016-08-19] MEDS: FENTANYL CITRATE INJ 50 MCG/1 ML 2 ML VIAL IV PRN (00:37)
[2016-08-19] MEDS: PIPERACILL/TAZOBAC IV 4.5 GM in DEXTROSE 5% 100ML IV SCH ×3 (01:30→17:22)
[2016-08-19] MEDS: TRAMADOL HCL 50 MG TAB PO PRN ×3 (04:31→16:12)
[2016-08-19] MEDS: LEVOTHYROXINE 150 MCG TAB PO SCH (04:32)
[2016-08-19] MEDS: ONDANSETRON INJ 2 MG/ML 2 ML VIAL IV PRN ×2 (04:32→16:11)
[2016-08-19 05:12] LABS: BASO % 0.4 %; BASO ABS # 0.02 K/uL (0-0.2); COMPLETE YES; EOS % 4.6 %; HEMATOCRIT 35.7 % (37-47); IG% 0.4 %; LYMPH % 8.6 %; LYMPH ABS # 0.45 K/uL (1.2-3.4); MEAN CORPUSCULAR HEMOGLOBIN 25.2 pg (25-34); MEAN CORPUSCULAR HGB CONC 31.9 g/dl (32-36); MEAN PLATELET VOLUME 8.6 fL (7.4-10.4); MONO % 6.5 %; NEUT % 79.5 %; PLATELET COUNT 210 K/uL (130-400); RED BLOOD COUNT 4.52 M/uL (4.2-5.4); WHITE BLOOD COUNT 5.26 K/uL (4.8-10.8)
[2016-08-19 05:38] LABS: BUN/CREATININE RATIO 8.9 (10-20); CALCIUM 7.8 mg/dl (8.5-10.1); CREATININE 0.4 mg/dl (0.60-1.20); POTASSIUM 3.4 mmol/L (3.5-5.1)
[2016-08-19 05:41] LABS: ALB/GLOB RATIO 0.6 (0.9-2)
[2016-08-19] MEDS ORDERED: POTASSIUM CHLORIDE 20 MEQ/15 ML UDC PO ONE (07:00)
[2016-08-19] MEDS: MULTIVITAMIN TAB PO SCH (09:02)
[2016-08-19] MEDS: ATORVASTATIN 20 MG TAB PO SCH (09:02)
[2016-08-19] MEDS: PANTOprazole SOD 40 MG TAB PO SCH (09:02)
[2016-08-19] MEDS: CALCIUM 600MG + VIT D 400 IU TAB PO SCH ×2 (09:02→20:44)
[2016-08-19] MEDS: METOPROLOL TARTRATE 25 MG TAB PO SCH ×2 (09:02→20:45)
[2016-08-19] MEDS: CHOLECALCIFEROL 1000 INTER.UNIT TAB PO SCH (09:02)
--- NOTE | 2016-08-19 09:48 | Gastroenterology Progress Note ---
Progress Note Date of Service: Aug 19, 2016 Subjective Pt evaluation today including: conversation w/ patient, physical exam, chart review Pt was seen and evaluated this AM. She is to be transferred to the floor. Tells me her nausea and abdominal pain are improved since cholecystectomy. Tolerating current diet. Moving bowels - bout of loose stool. NO abdominal cramping. No BRB or melena. LFTs mildly improved but still significantly elevated. Bilirubin is normal. Review of Systems Constitutional: No fever, No chills Respiratory: No cough, No shortness of breath Cardiac: No chest pain, No edema Abdomen: + pain, + diarrhea, No nausea, No vomiting, No constipation, No GI bleeding Medications Current Inpatient Medications Medications (Trade) Dose Ordered Sig/[place] Route Start Time Stop Time Status Last Admin Dose Admin Ioversol (Optiray 320) 125 ml UD PRN IV 08/16/16 13:15 08/20/16 13:14 Magnesium Hydroxide (Milk Of Magnesia Susp) 30 ml Q12H PRN PO 08/16/16 15:45 09/15/16 15:44 Ondansetron HCl (Zofran Inj) 4 mg Q6H PRN IV 08/16/16 15:45 09/15/16 15:44 08/19/16 04:32 4 MG Zolpidem Tartrate (Ambien Tab) 10 mg HSZ PO 08/17/16 22:00 09/16/16 21:59 08/18/16 20:58 10 MG Potassium Chloride/Sodium Chloride 1,000 ml @ 75 mls/hr [id number] IV 08/17/16 05:08 09/16/16 05:07 08/18/16 08:21 75 MLS/HR Atorvastatin Calcium (Lipitor Tab) 20 mg QAM PO 08/18/16 09:00 09/17/16 08:59 08/19/16 09:02 20 MG Metoprolol Tartrate (Lopressor Tab) 25 mg BID PO 08/17/16 21:00 09/16/16 20:59 08/19/16 09:02 25 MG Piperacillin Sod/ Tazobactam Sod (Consult) 1 ea UD PRN N/A 08/17/16 13:00 09/16/16 12:59 Levothyroxine Sodium (Synthroid Tab) 150 mcg DAILYBB PO 08/18/16 06:00 09/17/16 05:59 08/19/16 04:32 150 MCG Multivitamins (Multivitamin Tab) 1 tab DAILY PO 08/18/16 09:00 09/17/16 08:59 08/19/16 09:02 1 TAB Pantoprazole Sodium (Protonix Tab) 40 mg DAILY PO 08/18/16 09:00 09/17/16 08:59 08/19/16 09:02 40 MG Valacyclovir HCl (Valtrex Tab) 500 mg DAILY PO 08/18/16 09:00 09/17/16 08:59 08/19/16 09:02 500 MG Calcium/Vitamin D (Caltrate Plus Tab) 2 tab BID PO 08/17/16 21:00 09/16/16 20:59 08/19/16 09:02 2 TAB Cholecalciferol (Vitamin D Tab) 1,000 inter.unit DAILY PO 08/18/16 09:00 09/17/16 08:59 08/19/16 09:02 1,000 INTER.UNIT Miscellaneous Information (Order Awaiting Action) 1 ea QS N/A 08/17/16 16:00 09/16/16 15:59 Miscellaneous Information (Order Awaiting Action) 1 ea QS N/A 08/17/16 16:00 09/16/16 15:59 Piperacillin Sod/ Tazobactam Sod 4.5 gm/Dextrose 120 ml @ 30 mls/hr Q8H IV 08/17/16 18:00 08/27/16 17:59 08/19/16 01:30 30 MLS/HR Fentanyl Citrate (Fentanyl Inj) 50 mcg Q2H PRN IV 08/18/16 16:15 08/31/16 12:14 08/19/16 00:37 50 MCG Tramadol HCl (Ultram Tab) 50 mg Q4H PRN PO 08/18/16 16:30 09/17/16 16:29 08/19/16 04:31 50 MG Enoxaparin Sodium (Lovenox Inj) 30 mg QAM SQ 08/19/16 09:00 09/18/16 08:59 Objective Vital Signs Date Time Temp Pulse Resp B/P (MAP) Pulse Ox O2 Delivery O2 Flow Rate FiO2 08/19/16 08:00 Room Air 08/19/16 08:00 37.0 84 21 166/92 (116) 94 Room Air 08/19/16 06:01 91 14 164/99 (120) 94 08/19/16 06:00 81 28 94 08/19/16 05:02 86 14 163/97 (119) 99 08/19/16 05:00 77 16 98 08/19/16 04:25 37.0 160/89 (112) 08/19/16 04:06 95 Room Air 08/19/16 03:01 86 19 139/99 (112) 95 08/19/16 03:00 93 22 95 08/19/16 02:01 75 20 140/84 (102) 97 08/19/16 02:00 80 24 97 08/19/16 01:02 76 22 146/86 (106) 96 08/19/16 01:00 71 23 96 08/19/16 00:10 95 Room Air 08/19/16 00:02 74 20 157/90 (112) 99 08/19/16 00:00 36.9 73 13 97 08/18/16 23:31 71 14 135/78 (97) 97 08/18/16 23:01 76 14 120/74 (89) 97 08/18/16 23:00 78 14 97 08/18/16 22:32 80 14 119/76 (90) 96 08/18/16 22:02 77 18 149/83 (105) 96 08/18/16 22:00 79 27 95 08/18/16 21:01 85 23 160/92 (114) 94 08/18/16 21:00 37.0 86 24 96 08/18/16 20:01 81 27 159/95 (116) 97 08/18/16 20:00 37.0 83 30 96 08/18/16 20:00 95 Room Air 08/18/16 19:32 81 21 149/87 (107) 97 08/18/16 19:02 87 22 168/99 (122) 90 08/18/16 19:00 84 33 90 08/18/16 18:00 84 26 164/87 (112) 94 Room Air 08/18/16 16:00 37.4 91 20 145/85 (105) 91 Room Air 08/18/16 16:00 Room Air 08/18/16 14:37 81 21 149/87 (107) 94 08/18/16 14:30 Nasal Cannula 4.0 08/18/16 14:30 75 22 157/90 (112) 96 08/18/16 13:30 36.8 78 20 149/85 97 Nasal Cannula 4 08/18/16 13:25 36.7 68 20 137/78 96 Nasal Cannula 4 08/18/16 13:15 36.8 74 20 150/87 97 Mask 6 08/18/16 13:05 36.8 73 20 154/85 99 Mask 6 08/18/16 12:55 37.0 77 20 172/90 100 Mask 6 08/18/16 12:45 37.0 92 20 173/108 100 Mask 6 08/18/16 10:00 89 19 166/100 (122) 91 Room Air Physical Exam General Appearance: no apparent distress Eyes: PERRL ENT: hearing grossly normal Neck: supple Respiratory/Chest: lungs clear, normal breath sounds Cardiovascular: regular rate, rhythm, no JVD Abdomen: normal bowel sounds, soft, no organomegaly Neurologic/Psych: alert, normal mood/affect, oriented x 3 Skin: normal color Laboratory Results Last 24 Hours Test 08/19/16 04:55 White Blood Count 5.26 K/uL Red Blood Count 4.52 M/uL Hemoglobin 11.4 g/dL Hematocrit 35.7 % Mean Corpuscular Volume 79.0 fL Mean Corpuscular Hemoglobin 25.2 pg Mean Corpuscular Hemoglobin Concent 31.9 g/dl Platelet Count 210 K/uL Mean Platelet Volume 8.6 fL Neutrophils (%) (Auto) 79.5 % Lymphocytes (%) (Auto) 8.6 % Monocytes (%) (Auto) 6.5 % Eosinophils (%) (Auto) 4.6 % Basophils (%) (Auto) 0.4 % Neutrophils # (Auto) 4.19 K/uL Lymphocytes # (Auto) 0.45 K/uL Monocytes # (Auto) 0.34 K/uL Eosinophils # (Auto) 0.24 K/uL Basophils # (Auto) 0.02 K/uL RDW Standard Deviation 43.3 fL RDW Coefficient of Variation 15.0 % Immature Granulocyte % (Auto) 0.4 % Immature Granulocyte # (Auto) 0.02 K/uL Sodium Level 139 mmol/L Potassium Level 3.4 mmol/L Chloride Level 104 mmol/L Carbon Dioxide Level 26 mmol/L Anion Gap 9.0 mmol/L Blood Urea Nitrogen 4 mg/dl Creatinine 0.40 mg/dl Est Creatinine Clear Calc Drug Dose 83.7 ml/min Estimated GFR () 121.5 Estimated GFR (Non- 104.8 BUN/Creatinine Ratio 8.9 Random Glucose 110 mg/dl Calcium Level 7.8 mg/dl Total Bilirubin 0.7 mg/dl Aspartate Amino Transf (AST/SGOT) 249 U/L Alanine Aminotransferase (ALT/SGPT) 458 U/L Alkaline Phosphatase 211 U/L Total Protein 6.2 gm/dl Albumin 2.4 gm/dl Globulin 3.8 gm/dl Albumin/Globulin Ratio 0.6 Assessment and Plan Ms. Rangel is a 71 year old female with cholecystis s/p hank with neg cholangiogram on 08/18/16. Minimal change in LFT's, unclear etiology of elevated LFT's- sympathetic inflammation vs Mirizzi's syndrome vs ischemia vs viral\ Monitor LFTs daily Hepatic Doppler Viral serologies GI will follow. Call with questions. I performed a history and physical examination of the patient. I have discussed the patient's case, impression and plan with ANEESH Gary on 08/19/16. Her note reflects my findings and plan. Follow liver enzymes but most likely from inflammation not stone/biliary disease. Brandon Krishnamurthy MD
--- NOTE | 2016-08-19 10:28 | Hospitalist Progress Note ---
Hospitalist Progress Note Date of Service Aug 19, 2016. Subjective Pt evaluation today including: conversation w/ patient, conversation w/ workday consultant (Surgery, Systems Software Specialist) Had a 30 sec run of SVT overnight into the 180s, felt a little "funny" at the time. No CP or SOB. Has abd bloating but is passing gas and having some loose stools. Pain controlled. Lip is swollen from traumatic intubation. Constitutional: No fever Eyes: No problem reported ENT: + problem reported (lip pain and swelling) Respiratory: No shortness of breath, No problem reported Cardiovascular: No chest pain Breast: No problem reported Abdomen: + pain, + problem reported (bloating), No nausea, No vomiting Musculoskeletal: No problem reported Female : No problem reported Neurologic: No problem reported Skin: No rash All Other Systems: Reviewed and Negative Objective Vital Signs Date Time Temp Pulse Resp B/P (MAP) Pulse Ox O2 Delivery O2 Flow Rate FiO2 08/19/16 08:00 Room Air 08/19/16 08:00 37.0 84 21 166/92 (116) 94 Room Air 08/19/16 06:01 91 14 164/99 (120) 94 08/19/16 06:00 81 28 94 08/19/16 05:02 86 14 163/97 (119) 99 08/19/16 05:00 77 16 98 08/19/16 04:25 37.0 160/89 (112) 08/19/16 04:06 95 Room Air 08/19/16 03:01 86 19 139/99 (112) 95 08/19/16 03:00 93 22 95 08/19/16 02:01 75 20 140/84 (102) 97 08/19/16 02:00 80 24 97 08/19/16 01:02 76 22 146/86 (106) 96 08/19/16 01:00 71 23 96 08/19/16 00:10 95 Room Air 08/19/16 00:02 74 20 157/90 (112) 99 08/19/16 00:00 36.9 73 13 97 08/18/16 23:31 71 14 135/78 (97) 97 08/18/16 23:01 76 14 120/74 (89) 97 08/18/16 23:00 78 14 97 08/18/16 22:32 80 14 119/76 (90) 96 08/18/16 22:02 77 18 149/83 (105) 96 08/18/16 22:00 79 27 95 08/18/16 21:01 85 23 160/92 (114) 94 08/18/16 21:00 37.0 86 24 96 08/18/16 20:01 81 27 159/95 (116) 97 08/18/16 20:00 37.0 83 30 96 08/18/16 20:00 95 Room Air 08/18/16 19:32 81 21 149/87 (107) 97 08/18/16 19:02 87 22 168/99 (122) 90 08/18/16 19:00 84 33 90 08/18/16 18:00 84 26 164/87 (112) 94 Room Air 08/18/16 16:00 37.4 91 20 145/85 (105) 91 Room Air 08/18/16 16:00 Room Air 08/18/16 14:37 81 21 149/87 (107) 94 08/18/16 14:30 Nasal Cannula 4.0 08/18/16 14:30 75 22 157/90 (112) 96 08/18/16 13:30 36.8 78 20 149/85 97 Nasal Cannula 4 08/18/16 13:25 36.7 68 20 137/78 96 Nasal Cannula 4 08/18/16 13:15 36.8 74 20 150/87 97 Mask 6 08/18/16 13:05 36.8 73 20 154/85 99 Mask 6 08/18/16 12:55 37.0 77 20 172/90 100 Mask 6 08/18/16 12:45 37.0 92 20 173/108 100 Mask 6 Physical Exam General Appearance: no apparent distress, + thin ENT: hearing grossly normal, pharynx normal, + pertinent finding (left upper lip with edema and small superficial laceration, also with healing lac underneath upper lip of mucosa, not bleeding) Neck: supple, trachea midline Respiratory/Chest: lungs clear, normal breath sounds, no respiratory distress, no accessory muscle use Cardiovascular: regular rate, rhythm, no edema, no gallop, no murmur Abdomen: normal bowel sounds, soft, + tenderness (minimal at sugical sites without guarding) Extremities: normal inspection, no pedal edema, no calf tenderness Neurologic/Psychiatric: alert, normal mood/affect, oriented x 3 Skin: normal color, warm/dry, no rash Laboratory Results Last 24 Hours Test 08/19/16 04:55 08/19/16 10:12 White Blood Count 5.26 K/uL Red Blood Count 4.52 M/uL Hemoglobin 11.4 g/dL Hematocrit 35.7 % Mean Corpuscular Volume 79.0 fL Mean Corpuscular Hemoglobin 25.2 pg Mean Corpuscular Hemoglobin Concent 31.9 g/dl Platelet Count 210 K/uL Mean Platelet Volume 8.6 fL Neutrophils (%) (Auto) 79.5 % Lymphocytes (%) (Auto) 8.6 % Monocytes (%) (Auto) 6.5 % Eosinophils (%) (Auto) 4.6 % Basophils (%) (Auto) 0.4 % Neutrophils # (Auto) 4.19 K/uL Lymphocytes # (Auto) 0.45 K/uL Monocytes # (Auto) 0.34 K/uL Eosinophils # (Auto) 0.24 K/uL Basophils # (Auto) 0.02 K/uL RDW Standard Deviation 43.3 fL RDW Coefficient of Variation 15.0 % Immature Granulocyte % (Auto) 0.4 % Immature Granulocyte # (Auto) 0.02 K/uL Sodium Level 139 mmol/L Potassium Level 3.4 mmol/L Chloride Level 104 mmol/L Carbon Dioxide Level 26 mmol/L Anion Gap 9.0 mmol/L Blood Urea Nitrogen 4 mg/dl Creatinine 0.40 mg/dl Est Creatinine Clear Calc Drug Dose 83.7 ml/min Estimated GFR () 121.5 Estimated GFR (Non- 104.8 BUN/Creatinine Ratio 8.9 Random Glucose 110 mg/dl Calcium Level 7.8 mg/dl Total Bilirubin 0.7 mg/dl Aspartate Amino Transf (AST/SGOT) 249 U/L Alanine Aminotransferase (ALT/SGPT) 458 U/L Alkaline Phosphatase 211 U/L Total Protein 6.2 gm/dl Albumin 2.4 gm/dl Globulin 3.8 gm/dl Albumin/Globulin Ratio 0.6 Assessment and Plan Pt is a 71 yo female with a h/o metastatic breast CA currently on chemo, talc pleuredesis on right lung for recurrent malignant effusion, HTN, PUD, thyroid CA , here with acute cholecystitis. Acute cholecystitis-biliary sepsis (SIRS being temp, HR, and RR) now s/p lap hank on 08/18/16,transaminitis - almost certainly relates to cholecystitis - LFTs trending downward, afebrile -post-op management as per SUrgery--> no showering till 4 days post-op -adv diet to low fat today -douglass control -f/u Surgery 1 week post-op -zosyn x 1 more day then stop abx as per d/w Surgery -IS and mobilization -GI recommending US of hepatic veins/portal vein to ensure no thrombosis as cause of elevated LFTs PSVT-occasional short runs. is on metoprolol as outpt. has episodes of palpitations at times as outpt - suspect has SVT episodes periodically at home. Missed AM dose of metoprolol the AM of surgery. ECHO 1 yr ago with normal LV function -continue metoprolol and consider increasing dose -Pt requests Cardiology consultation-appreciate recommendations -taught vagal maneuvers for if it happens again, and discussed pathophys of SVTs Metastatic Breast cancer - with mets to lungs and bone-->resume home meds -she will need to bring in from home Hx of PUD - home med regimen, PPI Hx of thyroid cancer, with removal of gland and subsequent hypothyroidism -TSH 4.2 in Jul, 2015- home meds HTN - follow BPs on metoprolol Lip lac-ice packs for edema and pain DVT ppx with heparin Pt is FULL CODE Dispo-to home hopefully tomorrow
--- NOTE | 2016-08-19 10:38 | Surgery Progress Note ---
Surgery Progress Note Date of Service Aug 19, 2016. Subjective Post OP Day: 1 + feeling well F/U S/P lap hank, pt is doing fine, no nausea, no vomiting, she tolerated clear diet, Objective Vital Signs: Date Time Temp Pulse Resp B/P (MAP) Pulse Ox O2 Delivery O2 Flow Rate FiO2 08/19/16 08:00 Room Air 08/19/16 08:00 37.0 84 21 166/92 (116) 94 Room Air 08/19/16 06:01 91 14 164/99 (120) 94 08/19/16 06:00 81 28 94 08/19/16 05:02 86 14 163/97 (119) 99 08/19/16 05:00 77 16 98 08/19/16 04:25 37.0 160/89 (112) 08/19/16 04:06 95 Room Air 08/19/16 03:01 86 19 139/99 (112) 95 08/19/16 03:00 93 22 95 08/19/16 02:01 75 20 140/84 (102) 97 08/19/16 02:00 80 24 97 08/19/16 01:02 76 22 146/86 (106) 96 08/19/16 01:00 71 23 96 08/19/16 00:10 95 Room Air 08/19/16 00:02 74 20 157/90 (112) 99 08/19/16 00:00 36.9 73 13 97 08/18/16 23:31 71 14 135/78 (97) 97 08/18/16 23:01 76 14 120/74 (89) 97 08/18/16 23:00 78 14 97 08/18/16 22:32 80 14 119/76 (90) 96 08/18/16 22:02 77 18 149/83 (105) 96 08/18/16 22:00 79 27 95 08/18/16 21:01 85 23 160/92 (114) 94 08/18/16 21:00 37.0 86 24 96 08/18/16 20:01 81 27 159/95 (116) 97 08/18/16 20:00 37.0 83 30 96 08/18/16 20:00 95 Room Air 08/18/16 19:32 81 21 149/87 (107) 97 08/18/16 19:02 87 22 168/99 (122) 90 08/18/16 19:00 84 33 90 08/18/16 18:00 84 26 164/87 (112) 94 Room Air 08/18/16 16:00 37.4 91 20 145/85 (105) 91 Room Air 08/18/16 16:00 Room Air 08/18/16 14:37 81 21 149/87 (107) 94 08/18/16 14:30 Nasal Cannula 4.0 08/18/16 14:30 75 22 157/90 (112) 96 08/18/16 13:30 36.8 78 20 149/85 97 Nasal Cannula 4 08/18/16 13:25 36.7 68 20 137/78 96 Nasal Cannula 4 08/18/16 13:15 36.8 74 20 150/87 97 Mask 6 08/18/16 13:05 36.8 73 20 154/85 99 Mask 6 08/18/16 12:55 37.0 77 20 172/90 100 Mask 6 08/18/16 12:45 37.0 92 20 173/108 100 Mask 6 General Appearance: WD/WN, no apparent distress Head: normocephalic Neck: supple, no JVD Respiratory/Chest: chest non-tender, lungs clear, normal breath sounds Cardiovascular: regular rate, rhythm, no edema, no gallop, no JVD Abdomen: normal bowel sounds, non tender, non distended, soft Incision(s): clean, dry, intact Extremities: normal range of motion, non-tender, normal inspection Laboratory Results: Results Past 24 Hours Test 08/19/16 04:55 08/19/16 10:23 Range/Units White Blood Count 5.26 4.8-10.8 K/uL Red Blood Count 4.52 4.2-5.4 M/uL Hemoglobin 11.4 12.0-16.0 g/dL Hematocrit 35.7 37-47 % Mean Corpuscular Volume 79.0 80-100 fL Mean Corpuscular Hemoglobin 25.2 25-34 pg Mean Corpuscular Hemoglobin Concent 31.9 32-36 g/dl Platelet Count 210 130-400 K/uL Mean Platelet Volume 8.6 7.4-10.4 fL Neutrophils (%) (Auto) 79.5 % Lymphocytes (%) (Auto) 8.6 % Monocytes (%) (Auto) 6.5 % Eosinophils (%) (Auto) 4.6 % Basophils (%) (Auto) 0.4 % Neutrophils # (Auto) 4.19 1.4-6.5 K/uL Lymphocytes # (Auto) 0.45 1.2-3.4 K/uL Monocytes # (Auto) 0.34 0.11-0.59 K/uL Eosinophils # (Auto) 0.24 0-0.5 K/uL Basophils # (Auto) 0.02 0-0.2 K/uL RDW Standard Deviation 43.3 36.4-46.3 fL RDW Coefficient of Variation 15.0 11.5-14.5 % Immature Granulocyte % (Auto) 0.4 % Immature Granulocyte # (Auto) 0.02 0.00-0.02 K/uL Sodium Level 139 136-145 mmol/L Potassium Level 3.4 3.5-5.1 mmol/L Chloride Level 104 98-107 mmol/L Carbon Dioxide Level 26 21-32 mmol/L Anion Gap 9.0 3-11 mmol/L Blood Urea Nitrogen 4 7-18 mg/dl Creatinine 0.40 0.60-1.20 mg/dl Est Creatinine Clear Calc Drug Dose 83.7 ml/min Estimated GFR () 121.5 Estimated GFR (Non- 104.8 BUN/Creatinine Ratio 8.9 10-20 Random Glucose 110 70-99 mg/dl Calcium Level 7.8 8.5-10.1 mg/dl Total Bilirubin 0.7 0.2-1 mg/dl Aspartate Amino Transf (AST/SGOT) 249 15-37 U/L Alanine Aminotransferase (ALT/SGPT) 458 12-78 U/L Alkaline Phosphatase 211 45-117 U/L Total Protein 6.2 6.4-8.2 gm/dl Albumin 2.4 3.4-5.0 gm/dl Globulin 3.8 2.5-4.0 gm/dl Albumin/Globulin Ratio 0.6 0.9-2 Assessment & Plan IMP: acute cholecystitis Plan, pt requests to do laparoscopic cholecystectomy, possible open or cholangiogram, D/W benefits, risks and alternatives of kenny procedure, the risks - infection, bleeding, injury CBD, Bowel, NH, DVT, stroke, may need ERCP, , pt understood, she agrees with the plan, I answered all questions, 08/18/2016 I update pt and her family members about OR finding and the procedure she had, they understood, I answered all questions, will F/U full liquid diet repeat labs in am 08/19/2016 S/P lap hank, pt is doing fine, wbc normal, LFT is better keep the dressing on for 4 days, she can take a shower on 08/23/2016, F/U me 1 week, sign off , please call me if anything change Thanks, regular diet IMP: acute cholecystitis Plan, pt requests to do laparoscopic cholecystectomy, possible open or cholangiogram, D/W benefits, risks and alternatives of kenny procedure, the risks - infection, bleeding, injury CBD, Bowel, NH, DVT, stroke, may need ERCP, , pt understood, she agrees with the plan, I answered all questions, 08/18/2016 I update pt and her family members about OR finding and the procedure she had, they understood, I answered all questions, will F/U full liquid diet repeat labs in am
--- NOTE | 2016-08-19 10:46 | Critical Care Progress Note ---
Critical Care Progress Note Date of Service Aug 19, 2016. Attending Dr. Batres Subjective She is feeling better. No abdominal pain. No cardiopulmonary concerns. She is anxious to progress and move to next level of care. Reviewed case and labs. No ICU targets identified. Objective General--calm and comfortable HEENT--no new targets Cardio--exchange is fine Cardio--rate and volume good. GI--functional --neg Musculo--no effusion or erythema Neuro--walking about the room-- Psych--calm and appropriate Derm--wound dressed Current SOFA Score SOFA Score Response (Comments) Value Platelets (x10) > 150 0 Bilirubin (mg/dL) < 1.2 0 [place] Coma Score 15 0 Level of Hypotension No Hypotension 0 Creatinine (mg/dL) < 1.2 0 Total 0 Previous SOFA Scores 0 Assessment & Plan She is s/p hank--no ICU targets of concern. 1. Cardio--stable--replacements 2. Pulmonary--toilette 3. GI--advance diet 4. Neuro--ambulate 5. F/E/N--no new concerns/targets 6. Dispo--she is ok for med/surg floor Consults & Procedures Consultants: surgery Procedures: laparoscopic cholecystectomy Data Medications: Current Inpatient Medications Medications (Trade) Dose Ordered Sig/[place] Route Start Time Stop Time Status Last Admin Dose Admin Ioversol (Optiray 320) 125 ml UD PRN IV 08/16/16 13:15 08/20/16 13:14 Magnesium Hydroxide (Milk Of Magnesia Susp) 30 ml Q12H PRN PO 08/16/16 15:45 09/15/16 15:44 Ondansetron HCl (Zofran Inj) 4 mg Q6H PRN IV 08/16/16 15:45 09/15/16 15:44 08/19/16 04:32 4 MG Zolpidem Tartrate (Ambien Tab) 10 mg HSZ PO 08/17/16 22:00 09/16/16 21:59 08/18/16 20:58 10 MG Atorvastatin Calcium (Lipitor Tab) 20 mg QAM PO 08/18/16 09:00 09/17/16 08:59 08/19/16 09:02 20 MG Metoprolol Tartrate (Lopressor Tab) 25 mg BID PO 08/17/16 21:00 09/16/16 20:59 08/19/16 09:02 25 MG Piperacillin Sod/ Tazobactam Sod (Consult) 1 ea UD PRN N/A 08/17/16 13:00 09/16/16 12:59 Levothyroxine Sodium (Synthroid Tab) 150 mcg DAILYBB PO 08/18/16 06:00 09/17/16 05:59 08/19/16 04:32 150 MCG Multivitamins (Multivitamin Tab) 1 tab DAILY PO 08/18/16 09:00 09/17/16 08:59 08/19/16 09:02 1 TAB Pantoprazole Sodium (Protonix Tab) 40 mg DAILY PO 08/18/16 09:00 09/17/16 08:59 08/19/16 09:02 40 MG Valacyclovir HCl (Valtrex Tab) 500 mg DAILY PO 08/18/16 09:00 09/17/16 08:59 08/19/16 09:02 500 MG Calcium/Vitamin D (Caltrate Plus Tab) 2 tab BID PO 08/17/16 21:00 09/16/16 20:59 08/19/16 09:02 2 TAB Cholecalciferol (Vitamin D Tab) 1,000 inter.unit DAILY PO 08/18/16 09:00 09/17/16 08:59 08/19/16 09:02 1,000 INTER.UNIT Miscellaneous Information (Order Awaiting Action) 1 ea QS N/A 08/17/16 16:00 09/16/16 15:59 Miscellaneous Information (Order Awaiting Action) 1 ea QS N/A 08/17/16 16:00 09/16/16 15:59 Piperacillin Sod/ Tazobactam Sod 4.5 gm/Dextrose 120 ml @ 30 mls/hr Q8H IV 08/17/16 18:00 08/27/16 17:59 08/19/16 01:30 30 MLS/HR Fentanyl Citrate (Fentanyl Inj) 50 mcg Q2H PRN IV 08/18/16 16:15 08/31/16 12:14 08/19/16 00:37 50 MCG Tramadol HCl (Ultram Tab) 50 mg Q4H PRN PO 08/18/16 16:30 09/17/16 16:29 08/19/16 04:31 50 MG Enoxaparin Sodium (Lovenox Inj) 30 mg QAM SQ 08/19/16 09:00 09/18/16 08:59 Potassium Chloride (Klor-Con M10) 10 meq BID PO 08/19/16 21:00 09/18/16 20:59 Vital Signs: Date Time Temp Pulse Resp B/P (MAP) Pulse Ox O2 Delivery O2 Flow Rate FiO2 08/19/16 08:00 Room Air 08/19/16 08:00 37.0 84 21 166/92 (116) 94 Room Air 08/19/16 06:01 91 14 164/99 (120) 94 08/19/16 06:00 81 28 94 08/19/16 05:02 86 14 163/97 (119) 99 08/19/16 05:00 77 16 98 08/19/16 04:25 37.0 160/89 (112) 08/19/16 04:06 95 Room Air 08/19/16 03:01 86 19 139/99 (112) 95 08/19/16 03:00 93 22 95 08/19/16 02:01 75 20 140/84 (102) 97 08/19/16 02:00 80 24 97 08/19/16 01:02 76 22 146/86 (106) 96 08/19/16 01:00 71 23 96 08/19/16 00:10 95 Room Air 08/19/16 00:02 74 20 157/90 (112) 99 08/19/16 00:00 36.9 73 13 97 08/18/16 23:31 71 14 135/78 (97) 97 08/18/16 23:01 76 14 120/74 (89) 97 08/18/16 23:00 78 14 97 08/18/16 22:32 80 14 119/76 (90) 96 08/18/16 22:02 77 18 149/83 (105) 96 08/18/16 22:00 79 27 95 08/18/16 21:01 85 23 160/92 (114) 94 08/18/16 21:00 37.0 86 24 96 08/18/16 20:01 81 27 159/95 (116) 97 08/18/16 20:00 37.0 83 30 96 08/18/16 20:00 95 Room Air 08/18/16 19:32 81 21 149/87 (107) 97 08/18/16 19:02 87 22 168/99 (122) 90 08/18/16 19:00 84 33 90 08/18/16 18:00 84 26 164/87 (112) 94 Room Air 08/18/16 16:00 37.4 91 20 145/85 (105) 91 Room Air 08/18/16 16:00 Room Air 08/18/16 14:37 81 21 149/87 (107) 94 08/18/16 14:30 Nasal Cannula 4.0 08/18/16 14:30 75 22 157/90 (112) 96 08/18/16 13:30 36.8 78 20 149/85 97 Nasal Cannula 4 08/18/16 13:25 36.7 68 20 137/78 96 Nasal Cannula 4 08/18/16 13:15 36.8 74 20 150/87 97 Mask 6 08/18/16 13:05 36.8 73 20 154/85 99 Mask 6 08/18/16 12:55 37.0 77 20 172/90 100 Mask 6 08/18/16 12:45 37.0 92 20 173/108 100 Mask 6 Laboratory Results: Last 24 Hours Test 08/19/16 04:55 08/19/16 10:23 White Blood Count 5.26 K/uL Red Blood Count 4.52 M/uL Hemoglobin 11.4 g/dL Hematocrit 35.7 % Mean Corpuscular Volume 79.0 fL Mean Corpuscular Hemoglobin 25.2 pg Mean Corpuscular Hemoglobin Concent 31.9 g/dl Platelet Count 210 K/uL Mean Platelet Volume 8.6 fL Neutrophils (%) (Auto) 79.5 % Lymphocytes (%) (Auto) 8.6 % Monocytes (%) (Auto) 6.5 % Eosinophils (%) (Auto) 4.6 % Basophils (%) (Auto) 0.4 % Neutrophils # (Auto) 4.19 K/uL Lymphocytes # (Auto) 0.45 K/uL Monocytes # (Auto) 0.34 K/uL Eosinophils # (Auto) 0.24 K/uL Basophils # (Auto) 0.02 K/uL RDW Standard Deviation 43.3 fL RDW Coefficient of Variation 15.0 % Immature Granulocyte % (Auto) 0.4 % Immature Granulocyte # (Auto) 0.02 K/uL Sodium Level 139 mmol/L Potassium Level 3.4 mmol/L Chloride Level 104 mmol/L Carbon Dioxide Level 26 mmol/L Anion Gap 9.0 mmol/L Blood Urea Nitrogen 4 mg/dl Creatinine 0.40 mg/dl Est Creatinine Clear Calc Drug Dose 83.7 ml/min Estimated GFR () 121.5 Estimated GFR (Non- 104.8 BUN/Creatinine Ratio 8.9 Random Glucose 110 mg/dl Calcium Level 7.8 mg/dl Total Bilirubin 0.7 mg/dl Aspartate Amino Transf (AST/SGOT) 249 U/L Alanine Aminotransferase (ALT/SGPT) 458 U/L Alkaline Phosphatase 211 U/L Total Protein 6.2 gm/dl Albumin 2.4 gm/dl Globulin 3.8 gm/dl Albumin/Globulin Ratio 0.6
[2016-08-19] MEDS: ENOXAPARIN 30 MG/0.3 ML SYR SQ SCH (10:47)
[2016-08-19] MEDS ORDERED: METOPROLOL TARTRATE 25 MG TAB PO ONE (11:19)
--- NOTE | 2016-08-19 13:34 | CARDIOLOGY CONSULTATION REPORT ---
DATE OF CONSULTATION: 08/19/2016 REASON FOR CONSULTATION: PSVT. HISTORY OF PRESENT ILLNESS: Mrs. Rangel is a very pleasant 71-year-old white female with a history of long standing hypertension, dyslipidemia, presumed CAD (abnormal stress echo 11/16/2015 showing possible RCA ischemia at a 102% MPHR, with a resting inferior wall motion abnormality), palpitations attributed to PACs in the past, thyroid cancer status post thyroidectomy, and is currently being treated for metastatic breast cancer with chronic malignant bilateral pleural effusions -- who was admitted acutely on 08/16/2016 complaining of midepigastric pain which radiated to her back, nausea, and a fever. Her workup revealed an acute cholecystitis with elevated transaminase levels. She subsequently underwent a laparoscopic cholecystectomy with intraoperative cholangiogram on 08/18/2016. Please note that the patient's beta-winnie was held coming in to the hospital, she became mildly hypokalemic and was acutely ill with her gallbladder, all of which may have contributed to triggering these episodes of PSVT. The patient did have a minimal elevation of her troponin I level on 08/17/2016 at 0.047 ng/mL, but subsequently the value on 08/18/2016 is 0.028 ng/mL. The patient denies having any chest discomfort with these episodes, but did note a sensation of light headedness. She could also feel tachy-palpitations. The patient denies any chest pain at the present time. Denies any chest heaviness, tightness, no pressure, or discomfort. No shortness of breath, orthopnea, or PND. She has not had any syncopal episodes. MEDICATIONS: 1. KCl 10 mEq b.i.d. 2. Lovenox 30 mg subcutaneous injection q.a.m. 3. Tramadol 50 mg p.o. q. 4 hours p.r.n. for pain. 4. Fentanyl 50 mcg IV q. 2 hours p.r.n. for pain. 5. Lopressor 25 mg b.i.d. 6. Lipitor 20 mg q.a.m. 7. Multivitamin daily. 8. Protonix 40 mg daily. 9. Valtrex 500 mg daily. 10. Vitamin D 1000 IUs daily. 11. Levothyroxine 150 mcg daily. 12. Ambien 10 mg at bed time. 13. Calcium with vitamin D two tablets b.i.d. 14. Zosyn 4.5 grams IV q. 8 hours. 15. Milk of Magnesia p.r.n. 16. Zofran p.r.n. ALLERGIES: 1. ASPIRIN. 2. BUPRENORPHINE. 3. DIPHENHYDRAMINE. 4. IMDUR. 5. MORPHINE. 6. NSAIDS. 7. OXYCODONE. 8. TAPENTADOL. PAST MEDICAL HISTORY: 1. Acute cholecystitis, now postoperative day# 2 from laparoscopic cholecystectomy. 2. Concern for sepsis, negative blood cultures x2. 3. Presumed CAD based on prior abnormal stress echo 11/16/2015 showing possible RCA territory infarct at baseline, and probably lance-infarct ischemia at a 102% MPHR. 4. Normal LV systolic function. 5. Hypertension. 6. Dyslipidemia. 7. History of palpitations, this is her first time experiencing sustained palpitations. 8. Thyroid cancer status post thyroidectomy. 9. Breast cancer which is metastatic, chronic malignant pleural effusions with a history of pleurodesis. 10. History of GERD. 11. History of peptic ulcer disease with prior GI bleeding. SOCIAL HISTORY: The patient is , retired from work. She is a former smoker. She previously smoked one-half pack a day for 10 years, quit in 1975. Drinks one glass of red wine daily. FAMILY HISTORY: Significant for CAD with CABG in her father in his 50s. Mother had diabetes mellitus. PHYSICAL EXAMINATION: VITAL SIGNS: Temperature is 37 degrees Celsius, pulse 84, regular, respiratory rate is 18 and unlabored, blood pressure is 166/92. SpO2 is 94% on room air. GENERAL: The patient is in no actue distress. HEENT: Head is atraumatic, normocephalic. EOMs intact. Sclerae are anicteric. Facies symmetric. Upper lip is swollen secondary to traumatic intubation. NECK: Without JVD. Jugular venous pressure is to the level of clavicle sitting upright. Carotid upstrokes +2 bilateral bruits. CHEST AND LUNGS: With diminished breath sounds at bilateral bases, otherwise clear. No wheezes, rales or rhonchi. CARDIOVASCULAR: S1 and S2 are regular, with no obvious murmur, gallop or rub. PMI is nondisplaced. No lifts, heaves or thrills. No abdominal, aortic or renal bruits. ABDOMEN: Bowel sounds are present. No masses, organomegaly, or tenderness. EXTREMITIES: Without edema. Calves are soft, nontender. Intact posterior tibial and radial pulses bilaterally. NEUROLOGIC: The patient is awake, alert and interactive. Answers questions appropriately. Speech is clear. Normal movement in all four extremities. Gait pattern not assessed. Echocardiogram 08/18/2016 shows normal LV size and systolic function, LVEF is 55% to 60%, no regional wall motion abnormalities. Mild TR. Normal left ventricular wall thickness. LABORATORY DATA: Total CK 83 units/L with a CK-MB of less than 0.5 ng/mL. Troponin I levels are 0.028, 0.047, 0.023, 0.028 and < 0.015 ng/mL. Sodium is 139 mmol/L, potassium 3.4 mmol/L, BUN is 4 mg/dL, creatinine 0.40 mg/dL. Random glucose 110 mg/dL. Total bilirubin 0.7, AST is 249 units/L, ALT is 458 units/L, and alkaline phosphatase is 211 units/L. White blood cell count is 5.26. Hemoglobin 11.4 g/dL, hematocrit 34.7%, platelet count is 210,000. Telemetry monitoring reveals predominantly sinus tachycardia with occasional atrial and ventricular ectopy. She also had periods of PSVT with heart rate as high as 190 beats per minute. ASSESSMENT: 1. Paroxysmal Supraventricular Tachycardia, possibly precipitated by beta-winnie withdrawal, acute illness, possible systemic inflammatory response syndrome, hypokalemia, and a congenital accessory pathway. 2. Acute cholecystitis with possible systemic inflammatory response syndrome. 3. Postoperative day#2, laparoscopic cholecystectomy. 4. Presumed coronary artery disease based on prior abnormal stress echocardiogram. 5. Hypertension, blood pressures remain elevated. 6. Dyslipidemia, on chronic statin therapy. 7. Metastatic breast cancer with chronic malignant pleural effusions. 8. No angina pectoris or anginal equivalent symptoms. 9. No overt signs or symptoms of heart failure. PLAN: 1. I had a long discussion with the patient today regarding her abnormal heart rhythm, and discussed the typical mechanism for PSVT. She was given illustrations as well. 2. We discussed the extenuating circumstances in which her SVT occurred. She is likely very hyperadrenergic from her acute illness, her hypokalemia can decrease the electrical stability of the myocardium, and she likely had beta-winnie withdrawal. 3. Discussed management of this condition with medications. 4. Increase Lopressor to 50 mg b.i.d., and we will likely send her home on Toprol-XL 100 mg a day and give her some Lopressor to be available on an "as needed" basis for breakthrough tachy-arrhythmias. 5. Continue supplemental potassium. 6. Discussed non-pharmacologic ways of dealing with this including Valsalva/vagal maneuvers. The patient verbalizes understanding of this discussion. 7. We will continue to follow. JARRODD
[2016-08-19] MEDS: POTASSIUM CHLORIDE 10 MEQ TABCR PO SCH (20:45)
--- NOTE | 2016-08-19 21:42 | DIAGNOSTIC IMAGING REPORT ---
DUPLEX PORTAL HEPATIC VEINS CLINICAL HISTORY: transaminitis abnormal liver function tests TECHNIQUE: Doppler abdominal ultrasound COMPARISON STUDY: None FINDINGS: All major venous structures are patent. Flow is antegrade and unremarkable. This includes the portal and hepatic venous vasculature, as well as the hepatic arterial vasculature. IMPRESSION: Normal study Electronically signed by: Jaren Brennan M.D. 08/19/2016 9:40 PM Dictated Date/Time: 08/19/2016 9:39 PM
[2016-08-20] MEDS: TRAMADOL HCL 50 MG TAB PO PRN ×2 (00:01→21:15)
[2016-08-20] MEDS: ZOLPIDEM TARTRATE 10 MG TAB PO SCH ×2 (00:02→22:03)
[2016-08-20 00:07] VITALS: BP_SYST 171; BP_SYST 176; BP_DIAS 89; BP_DIAS 95; PULSE 86; TEMP 37.2; O2SAT 94
[2016-08-20] MEDS: PIPERACILL/TAZOBAC IV 4.5 GM in DEXTROSE 5% 100ML IV SCH ×3 (03:02→18:25)
[2016-08-20 03:05] VITALS: BP 152/91; PULSE 90; TEMP 37.2; O2SAT 96
[2016-08-20] MEDS: LEVOTHYROXINE 150 MCG TAB PO SCH (06:27)
[2016-08-20 06:43] LABS: BASO % 0.5 %; BASO ABS # 0.03 K/uL (0-0.2); COMPLETE YES; EOS % 4.5 %; HEMATOCRIT 32.1 % (37-47); IG% 0.9 %; LYMPH % 7.5 %; LYMPH ABS # 0.41 K/uL (1.2-3.4); MEAN CELL VOLUME 79.5 fL (80-100); MEAN CORPUSCULAR HEMOGLOBIN 26.2 pg (25-34); MEAN PLATELET VOLUME 9.2 fL (7.4-10.4); MONO % 14.5 %; NEUT % 72.1 %; PLATELET COUNT 223 K/uL (130-400); RED BLOOD COUNT 4.04 M/uL (4.2-5.4)
[2016-08-20 07:16] LABS: BUN/CREATININE RATIO 17.8 (10-20); CALCIUM 8.1 mg/dl (8.5-10.1); CREATININE 0.28 mg/dl (0.60-1.20); POTASSIUM 3.3 mmol/L (3.5-5.1)
[2016-08-20 07:19] LABS: ALB/GLOB RATIO 0.6 (0.9-2)
[2016-08-20 07:34] VITALS: BP 138/88; PULSE 92; TEMP 37.2; O2SAT 91
[2016-08-20] MEDS: METOPROLOL TARTRATE 25 MG TAB PO SCH ×2 (07:42→20:32)
[2016-08-20] MEDS: ATORVASTATIN 20 MG TAB PO SCH (07:43)
[2016-08-20] MEDS: PANTOprazole SOD 40 MG TAB PO SCH ×2 (07:44→20:31)
[2016-08-20] MEDS: CHOLECALCIFEROL 1000 INTER.UNIT TAB PO SCH (07:44)
[2016-08-20] MEDS: CALCIUM 600MG + VIT D 400 IU TAB PO SCH ×2 (07:44→20:30)
[2016-08-20] MEDS: POTASSIUM CHLORIDE 10 MEQ TABCR PO SCH ×2 (07:44→20:30)
[2016-08-20] MEDS: MULTIVITAMIN TAB PO SCH (07:44)
[2016-08-20] MEDS: AFINITOR PO SCH (07:47)
[2016-08-20] MEDS: ENOXAPARIN 30 MG/0.3 ML SYR SQ SCH (07:48)
--- NOTE | 2016-08-20 07:55 | Gastroenterology Progress Note ---
Progress Note Date of Service: Aug 20, 2016 Subjective Pt evaluation today including: conversation w/ patient, physical exam, chart review, lab review Pt was seen and examined this AM. Overall she feels well. She has had three episodes of loose stools since she was last evaluated and one episode of rectal bleeding this AM. Blood was bright red without any clots. Blood was mixed with stool. Denies any abdominal pain, but there is mild cramping with urgency before a BM. She caries a history of PUD with bleeding ulcers a few years ago. She denies any history of melena. HGB 11.4 --> 10.6 over night. 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 Denies any upper GI symptoms. No fever, chills, chest pain, abdominal pain, nausea or vomiting. TB 0.6, AST 131, ALT 337, ALKP 196 Venous Duplex 08/19/16: All major venous structures are patent. Flow is antegrade and unremarkable. This includes the portal and hepatic venous vasculature, as well as the hepatic arterial vasculature. Normal study Review of Systems Constitutional: No fever, No chills Respiratory: No cough, No shortness of breath Cardiac: No chest pain, No edema Abdomen: + diarrhea, + GI bleeding, No pain, No nausea, No vomiting Medications Current Inpatient Medications Medications (Trade) Dose Ordered Sig/[place] Route Start Time Stop Time Status Last Admin Dose Admin Ioversol (Optiray 320) 125 ml UD PRN IV 08/16/16 13:15 08/20/16 13:14 Magnesium Hydroxide (Milk Of Magnesia Susp) 30 ml Q12H PRN PO 08/16/16 15:45 09/15/16 15:44 Ondansetron HCl (Zofran Inj) 4 mg Q6H PRN IV 08/16/16 15:45 09/15/16 15:44 08/19/16 16:11 4 MG Zolpidem Tartrate (Ambien Tab) 10 mg HSZ PO 08/17/16 22:00 09/16/16 21:59 08/20/16 00:02 10 MG Atorvastatin Calcium (Lipitor Tab) 20 mg QAM PO 08/18/16 09:00 09/17/16 08:59 08/20/16 07:43 20 MG Piperacillin Sod/ Tazobactam Sod (Consult) 1 ea UD PRN N/A 08/17/16 13:00 09/16/16 12:59 Levothyroxine Sodium (Synthroid Tab) 150 mcg DAILYBB PO 08/18/16 06:00 09/17/16 05:59 08/20/16 06:27 150 MCG Multivitamins (Multivitamin Tab) 1 tab DAILY PO 08/18/16 09:00 09/17/16 08:59 08/20/16 07:44 1 TAB Pantoprazole Sodium (Protonix Tab) 40 mg DAILY PO 08/18/16 09:00 09/17/16 08:59 08/20/16 07:44 40 MG Valacyclovir HCl (Valtrex Tab) 500 mg DAILY PO 08/18/16 09:00 09/17/16 08:59 08/20/16 07:44 500 MG Calcium/Vitamin D (Caltrate Plus Tab) 2 tab BID PO 08/17/16 21:00 09/16/16 20:59 08/20/16 07:44 2 TAB Cholecalciferol (Vitamin D Tab) 1,000 inter.unit DAILY PO 08/18/16 09:00 09/17/16 08:59 08/20/16 07:44 1,000 INTER.UNIT Miscellaneous Information (Order Awaiting Action) 1 ea QS N/A 08/17/16 16:00 09/16/16 15:59 Piperacillin Sod/ Tazobactam Sod 4.5 gm/Dextrose 120 ml @ 30 mls/hr Q8H IV 08/17/16 18:00 08/27/16 17:59 08/20/16 03:02 30 MLS/HR Fentanyl Citrate (Fentanyl Inj) 50 mcg Q2H PRN IV 08/18/16 16:15 08/31/16 12:14 08/19/16 00:37 50 MCG Tramadol HCl (Ultram Tab) 50 mg Q4H PRN PO 08/18/16 16:30 09/17/16 16:29 08/20/16 00:01 50 MG Enoxaparin Sodium (Lovenox Inj) 30 mg QAM SQ 08/19/16 09:00 09/18/16 08:59 08/20/16 07:48 30 MG Potassium Chloride (Klor-Con M10) 10 meq BID PO 08/19/16 21:00 09/18/16 20:59 08/20/16 07:44 10 MEQ Metoprolol Tartrate (Lopressor Tab) 50 mg BID PO 08/19/16 21:00 09/16/16 20:59 08/20/16 07:42 50 MG Everolimus (Afinitor) 5 mg DAILY PO 08/20/16 09:00 09/19/16 08:59 08/20/16 07:47 5 MG Objective Vital Signs Date Time Temp Pulse Resp B/P (MAP) Pulse Ox O2 Delivery O2 Flow Rate FiO2 08/20/16 04:00 Nasal Cannula 2.0 08/20/16 03:05 37.2 90 16 152/91 (111) 96 Nasal Cannula 2.0 08/20/16 00:07 37.2 86 18 171/89 (116) 94 2.0 176/95 (122) 08/19/16 23:59 Nasal Cannula 2.0 08/19/16 20:00 Nasal Cannula 2.0 08/19/16 19:11 92 Nasal Cannula 2.0 08/19/16 19:10 37.2 88 20 156/92 (113) 85 Room Air 08/19/16 16:00 Room Air 08/19/16 14:00 80 20 143/86 (105) 88 Room Air 08/19/16 12:00 37.0 89 25 139/82 (101) 92 Room Air 08/19/16 12:00 Room Air 08/19/16 08:00 Room Air 08/19/16 08:00 37.0 84 21 166/92 (116) 94 Room Air Physical Exam General Appearance: no apparent distress Eyes: PERRL ENT: hearing grossly normal Neck: supple Respiratory/Chest: lungs clear Cardiovascular: regular rate, rhythm Abdomen: normal bowel sounds, soft, no organomegaly Neurologic/Psych: alert, normal mood/affect, oriented x 3 Skin: normal color Laboratory Results Last 24 Hours Test 08/19/16 10:23 08/20/16 05:35 Hepatitis B Surface Antigen NEG Hepatitis C Antibody NEG White Blood Count 5.50 K/uL Red Blood Count 4.04 M/uL Hemoglobin 10.6 g/dL Hematocrit 32.1 % Mean Corpuscular Volume 79.5 fL Mean Corpuscular Hemoglobin 26.2 pg Mean Corpuscular Hemoglobin Concent 33.0 g/dl Platelet Count 223 K/uL Mean Platelet Volume 9.2 fL Neutrophils (%) (Auto) 72.1 % Lymphocytes (%) (Auto) 7.5 % Monocytes (%) (Auto) 14.5 % Eosinophils (%) (Auto) 4.5 % Basophils (%) (Auto) 0.5 % Neutrophils # (Auto) 3.96 K/uL Lymphocytes # (Auto) 0.41 K/uL Monocytes # (Auto) 0.80 K/uL Eosinophils # (Auto) 0.25 K/uL Basophils # (Auto) 0.03 K/uL RDW Standard Deviation 44.4 fL RDW Coefficient of Variation 15.1 % Immature Granulocyte % (Auto) 0.9 % Immature Granulocyte # (Auto) 0.05 K/uL Sodium Level 137 mmol/L Potassium Level 3.3 mmol/L Chloride Level 100 mmol/L Carbon Dioxide Level 29 mmol/L Anion Gap 8.0 mmol/L Blood Urea Nitrogen 5 mg/dl Creatinine 0.28 mg/dl Est Creatinine Clear Calc Drug Dose 132.4 ml/min Estimated GFR () 136.6 Estimated GFR (Non- 117.8 BUN/Creatinine Ratio 17.8 Random Glucose 79 mg/dl Calcium Level 8.1 mg/dl Total Bilirubin 0.6 mg/dl Aspartate Amino Transf (AST/SGOT) 131 U/L Alanine Aminotransferase (ALT/SGPT) 337 U/L Alkaline Phosphatase 196 U/L Total Protein 6.0 gm/dl Albumin 2.3 gm/dl Globulin 3.7 gm/dl Albumin/Globulin Ratio 0.6 Assessment and Plan Ms. Rangel is a 71 year old female with cholecystis s/p hank with neg cholangiogram on 08/18/16. Minimal change in LFT's, unclear etiology of elevated LFT's- sympathetic inflammation vs Mirizzi's syndrome vs ischemia vs viral. Loose stools x 1 day with new rectal bleeding this morning at 0845 without any rectal pain, rectal itching or abdominal pain. Will obtain stool cultures. Additional recommendations to follow. Monitor LFTs daily - trending down Hepatic Doppler - unremarkable Viral serologies - pending, negative so far Trend H&H Transfuse as needed PPI BID Stool culture and stool for c.diff Monitor stool for GI blood loss GI will follow. Call with questions. I performed a history and physical examination of the patient. I have discussed the patient's case, impression and plan with ANEESH Gary . Her note reflects my findings and plan. Liver enzymes slowly improving. Bout of red rectal bleeding most c/w outlet/hemorrhoid bleeding. Recent stool at bedside with out any blood and brown. Brandon Krishnamurthy MD
[2016-08-20] MEDS ORDERED: POTASSIUM CHLORIDE 20 MEQ TABCR PO ONE (09:00)
[2016-08-20 12:11] VITALS: BP 139/89; PULSE 86; TEMP 37.1; O2SAT 99
--- NOTE | 2016-08-20 13:18 | CARDIOLOGY PROGRESS NOTE ---
DATE: 08/20/2016 TIME: 12:04 p.m. SUBJECTIVE: She was seen earlier today at approximately 8:15 a.m. She denies palpitations. She did have one episode of dizziness or wooziness which apparently occurred with a short run of SVT, lasting only a few seconds. Otherwise, she was asymptomatic for her other SVT episodes. She denies chest pain, shortness of breath, syncope or edema. She denies hematuria. She states that she thought there was some blood in her stool. Nursing staff was made aware and they will monitor. OBJECTIVE: VITAL SIGNS: Temperature is 37.2 degrees, heart rate 92 beats per minute, respiration rate 20, blood pressure 138/88 mmHg, oxygen saturation 91% on room air, weight 49 kilograms yesterday. GENERAL: No acute distress. She was alert and oriented. HEENT: Anicteric sclerae. NECK: No appreciable JVD. CARDIAC: No ventricular heave. Regular, normal S1, S2. 1/6 holosystolic murmur best heard at the apex. No rubs or gallops. LUNGS: Clear to auscultation bilaterally without wheezes, rales or rhonchi. ABDOMEN: Soft. Surgical dressing in place. EXTREMITIES: No cyanosis or edema. PSYCHIATRIC: Affect appears appropriate. MEDICATIONS: Include Lovenox 30 mg subQ q.a.m., metoprolol tartrate 50 mg p.o. b.i.d., Protonix 40 mg p.o. b.i.d., Zosyn, potassium chloride 10 mEq p.o. b.i.d. and an additional 60 mEq x1, Valtrex 500 mg daily. Please see full list. Telemetry personally reviewed. She has had episodes of SVT. She continues to have episodes what appeared to be atrial tachycardia lasting only a few seconds. No ventricular arrhythmia. ECG personally reviewed from 08/17/2016 at 4:41 a.m. It appears to be SVT with intermittent aberrant conduction. Heart rate was 182 beats per minute. LABORATORY DATA: White blood cell count 5.5, hemoglobin 10.6, platelets 223. Sodium 137, potassium 3.3, BUN 5, creatinine 0.28. Peak troponin 0.047, albumin 2.3. Echocardiogram 08/18/2016 report reviewed. This was reported as normal LV systolic function. Normal wall motion. EF 55%-60%. Mild tricuspid regurgitation. ASSESSMENT AND PLAN: 1. Paroxysmal supraventricular tachycardia: She appeared to have paroxysmal supraventricular tachycardia and also in some cases atrial tachycardia. She appears to be overall rather asymptomatic with potentially one episode of symptoms but no palpitations. She described a dizziness feeling which apparently correlated with telemetry findings. Metoprolol was increased to a total of 100 mg daily yesterday. Today is her first full day with increased beta-winnie. Would recommend continuation of current dose for now. This can be further titrated if necessary. We also discussed antiarrhythmic therapy if she has more prolonged episodes in the future or significant symptoms. Overall, it appears the burden has decreased over time; however, as she recovers from her acute illness and surgery as well as with potassium supplementation. 2. Hypokalemia: Replacement as per primary service. Would try to keep potassium in the normal range, given her arrhythmia. 3. Elevated troponins: There were minimally elevated and not diagnostic of myocardial infarction. She did not present with acute coronary syndrome and has not had any angina. Elevated troponins could be due to demand ischemia given supraventricular tachycardia and acute illness. 4. Hypertension: Blood pressure has been mostly hypertensive. Can adjust antihypertensive regimen as appropriate. May also further titrate beta-winnie if necessary given atrial tachycardia and supraventricular tachycardia. 5. Presumed coronary artery disease based on abnormal stress echo in 2016: No angina. Continue medical therapy. 6. Disposition: Cardiology will continue to follow along.
[2016-08-20 19:10] VITALS: BP 162/93; PULSE 92; TEMP 37.1; O2SAT 93
--- NOTE | 2016-08-20 19:24 | Hospitalist Progress Note ---
Hospitalist Progress Note Date of Service Aug 20, 2016. Subjective Pt evaluation today including: conversation w/ patient Pt had a small amount of red blood in stool this AM-I looked at it in the toilt. Painless bleeding. Otherwise doing well, a few short runs of SVT on tele overnight. Afebrile Constitutional: No fever Respiratory: No shortness of breath Cardiovascular: No chest pain Abdomen: + GI bleeding, No pain All Other Systems: Reviewed and Negative Objective Vital Signs Date Time Temp Pulse Resp B/P (MAP) Pulse Ox O2 Delivery O2 Flow Rate FiO2 08/20/16 16:00 Room Air 08/20/16 12:11 37.1 86 20 139/89 (106) 99 Nasal Cannula 2.0 08/20/16 12:00 Room Air 08/20/16 08:00 Room Air 08/20/16 07:34 37.2 92 20 138/88 (105) 91 Room Air 08/20/16 04:00 Nasal Cannula 2.0 08/20/16 03:05 37.2 90 16 152/91 (111) 96 Nasal Cannula 2.0 08/20/16 00:07 37.2 86 18 171/89 (116) 94 2.0 176/95 (122) 08/19/16 23:59 Nasal Cannula 2.0 08/19/16 20:00 Nasal Cannula 2.0 Physical Exam General Appearance: no apparent distress, + thin Eyes: normal inspection, sclerae normal ENT: + pertinent finding (left upper lip much less edema today) Neck: trachea midline Respiratory/Chest: lungs clear, normal breath sounds, no respiratory distress, no accessory muscle use Cardiovascular: regular rate, rhythm, no edema, no gallop, no murmur Abdomen: normal bowel sounds, non tender, soft, no organomegaly, + pertinent finding (dressing c/d/i) Extremities: non-tender, normal inspection, no pedal edema, no calf tenderness Neurologic/Psychiatric: alert, normal mood/affect, oriented x 3 Skin: normal color, warm/dry, no rash Laboratory Results Last 24 Hours Test 08/20/16 05:35 White Blood Count 5.50 K/uL Red Blood Count 4.04 M/uL Hemoglobin 10.6 g/dL Hematocrit 32.1 % Mean Corpuscular Volume 79.5 fL Mean Corpuscular Hemoglobin 26.2 pg Mean Corpuscular Hemoglobin Concent 33.0 g/dl Platelet Count 223 K/uL Mean Platelet Volume 9.2 fL Neutrophils (%) (Auto) 72.1 % Lymphocytes (%) (Auto) 7.5 % Monocytes (%) (Auto) 14.5 % Eosinophils (%) (Auto) 4.5 % Basophils (%) (Auto) 0.5 % Neutrophils # (Auto) 3.96 K/uL Lymphocytes # (Auto) 0.41 K/uL Monocytes # (Auto) 0.80 K/uL Eosinophils # (Auto) 0.25 K/uL Basophils # (Auto) 0.03 K/uL RDW Standard Deviation 44.4 fL RDW Coefficient of Variation 15.1 % Immature Granulocyte % (Auto) 0.9 % Immature Granulocyte # (Auto) 0.05 K/uL Sodium Level 137 mmol/L Potassium Level 3.3 mmol/L Chloride Level 100 mmol/L Carbon Dioxide Level 29 mmol/L Anion Gap 8.0 mmol/L Blood Urea Nitrogen 5 mg/dl Creatinine 0.28 mg/dl Est Creatinine Clear Calc Drug Dose 132.4 ml/min Estimated GFR () 136.6 Estimated GFR (Non- 117.8 BUN/Creatinine Ratio 17.8 Random Glucose 79 mg/dl Calcium Level 8.1 mg/dl Total Bilirubin 0.6 mg/dl Aspartate Amino Transf (AST/SGOT) 131 U/L Alanine Aminotransferase (ALT/SGPT) 337 U/L Alkaline Phosphatase 196 U/L Total Protein 6.0 gm/dl Albumin 2.3 gm/dl Globulin 3.7 gm/dl Albumin/Globulin Ratio 0.6 Assessment and Plan Pt is a 71 yo female with a h/o metastatic breast CA currently on chemo, talc pleuredesis on right lung for recurrent malignant effusion, HTN, PUD, thyroid CA , here with acute cholecystitis. Acute cholecystitis-biliary sepsis (SIRS being temp, HR, and RR) now s/p lap hank on 08/18/16,transaminitis - almost certainly relates to cholecystitis - LFTs continue to trend downward, afebrile. Hepatic vein Doppler neg for clot, tolerating diet -post-op management as per SUrgery--> no showering till 4 days post-op -continue low fat diet -pain control -f/u Surgery 1 week post-op -continue zosyn x 1 more day then stop abx as per d/w Surgery on discharge -IS and mobilization -small amount rectal bleeding today likely related to internal hemorrhoids as per GI--> check stool cultures and C> diff, follow CBC tomorrow -dc to home tomorrow if rectal bleeding not worse PSVT-continues with occasional short runs. Cardiology saw and increased metoprolol to 50mg po bid. ECHO 1 yr ago with normal LV function -continue metoprolol and consider increasing dose tomorrow if SVT persists -Pt requests Cardiology consultation-appreciate recommendations Metastatic Breast cancer - with mets to lungs and bone-->resume home meds -she brought in from home but still needs her aromasin Hx of PUD - home med regimen, PPI Hx of thyroid cancer, with removal of gland and subsequent hypothyroidism -TSH 4.2 in Jul, 2015- home meds HTN - follow BPs on metoprolol and increase if BPs still elevated tomorrow Lip lac-ice packs for edema and pain--Improved DVT ppx with heparin Pt is FULL CODE Dispo-to home hopefully tomorrow
[2016-08-20 23:30] VITALS: BP 153/92; PULSE 84; TEMP 37; O2SAT 93
[2016-08-21] MEDS: PIPERACILL/TAZOBAC IV 4.5 GM in DEXTROSE 5% 100ML IV SCH ×2 (02:01→09:56)
[2016-08-21 03:20] VITALS: BP 167/104; PULSE 86; TEMP 37.1; O2SAT 93
[2016-08-21] MEDS: TRAMADOL HCL 50 MG TAB PO PRN ×2 (03:21→19:15)
[2016-08-21 04:41] VITALS: BP 155/98; PULSE 80; O2SAT 92
[2016-08-21] MEDS: LEVOTHYROXINE 150 MCG TAB PO SCH (05:35)
[2016-08-21 06:18] LABS: BASO % 0.4 %; BASO ABS # 0.03 K/uL (0-0.2); COMPLETE YES; HEMATOCRIT 32.3 % (37-47); IG% 1.6 %; LYMPH % 13.1 %; LYMPH ABS # 0.89 K/uL (1.2-3.4); MEAN CORPUSCULAR HEMOGLOBIN 26.4 pg (25-34); MEAN CORPUSCULAR HGB CONC 33.4 g/dl (32-36); MEAN PLATELET VOLUME 9.1 fL (7.4-10.4); MONO % 9.9 %; PLATELET COUNT 249 K/uL (130-400); RED BLOOD COUNT 4.09 M/uL (4.2-5.4); WHITE BLOOD COUNT 6.77 K/uL (4.8-10.8)
[2016-08-21 07:01] LABS: BUN/CREATININE RATIO 17.1 (10-20); CALCIUM 8.2 mg/dl (8.5-10.1); CREATININE 0.36 mg/dl (0.60-1.20); POTASSIUM 3.5 mmol/L (3.5-5.1)
[2016-08-21 07:04] LABS: ALB/GLOB RATIO 0.6 (0.9-2)
[2016-08-21 07:15] VITALS: BP 154/95; PULSE 83; TEMP 37; O2SAT 94
[2016-08-21] MEDS: ATORVASTATIN 20 MG TAB PO SCH (07:17)
[2016-08-21] MEDS: CALCIUM 600MG + VIT D 400 IU TAB PO SCH ×2 (07:18→20:31)
[2016-08-21] MEDS: MULTIVITAMIN TAB PO SCH (07:18)
[2016-08-21] MEDS: PANTOprazole SOD 40 MG TAB PO SCH ×2 (07:19→20:31)
[2016-08-21] MEDS: ENOXAPARIN 30 MG/0.3 ML SYR SQ SCH (07:19)
[2016-08-21] MEDS: CHOLECALCIFEROL 1000 INTER.UNIT TAB PO SCH (07:19)
[2016-08-21] MEDS: POTASSIUM CHLORIDE 10 MEQ TABCR PO SCH ×2 (07:19→20:31)
[2016-08-21] MEDS ORDERED: POTASSIUM CHLORIDE 10 MEQ TABCR PO STA (07:36)
[2016-08-21] MEDS: METOPROLOL TARTRATE 25 MG TAB PO SCH ×2 (07:40→20:31)
[2016-08-21] MEDS: AFINITOR PO SCH (07:49)
--- NOTE | 2016-08-21 08:04 | Gastroenterology Progress Note ---
Progress Note Date of Service: Aug 21, 2016 Subjective Pt evaluation today including: conversation w/ patient, physical exam, chart review Pt seen and examined this morning. Overall feels well but had a run of tachycardia this AM. She denies any GI complaints. Still having some loose stools. Stools are brown. C.diff negative. Culture pending. Transaminases continuing to slowly improve, AST 86, ALT 270, ALKP 208. Denies fever, chills, chest pain, SOB, abdominal pain, black/bloody stools. Review of Systems Constitutional: No fever, No chills Respiratory: No cough, No shortness of breath Cardiac: No chest pain Abdomen: + diarrhea, No pain, No nausea, No vomiting Medications Current Inpatient Medications Medications (Trade) Dose Ordered Sig/[place] Route Start Time Stop Time Status Last Admin Dose Admin Magnesium Hydroxide (Milk Of Magnharry Susp) 30 ml Q12H PRN PO 08/16/16 15:45 09/15/16 15:44 Ondansetron HCl (Zofran Inj) 4 mg Q6H PRN IV 08/16/16 15:45 09/15/16 15:44 08/19/16 16:11 4 MG Zolpidem Tartrate (Ambien Tab) 10 mg HSZ PO 08/17/16 22:00 09/16/16 21:59 08/20/16 22:03 10 MG Atorvastatin Calcium (Lipitor Tab) 20 mg QAM PO 08/18/16 09:00 09/17/16 08:59 08/21/16 07:17 20 MG Piperacillin Sod/ Tazobactam Sod (Consult) 1 ea UD PRN N/A 08/17/16 13:00 09/16/16 12:59 Levothyroxine Sodium (Synthroid Tab) 150 mcg DAILYBB PO 08/18/16 06:00 09/17/16 05:59 08/21/16 05:35 150 MCG Multivitamins (Multivitamin Tab) 1 tab DAILY PO 08/18/16 09:00 09/17/16 08:59 08/21/16 07:18 1 TAB Valacyclovir HCl (Valtrex Tab) 500 mg DAILY PO 08/18/16 09:00 09/17/16 08:59 08/21/16 07:17 500 MG Calcium/Vitamin D (Caltrate Plus Tab) 2 tab BID PO 08/17/16 21:00 09/16/16 20:59 08/21/16 07:18 2 TAB Cholecalciferol (Vitamin D Tab) 1,000 inter.unit DAILY PO 08/18/16 09:00 09/17/16 08:59 08/21/16 07:19 1,000 INTER.UNIT Miscellaneous Information (Order Awaiting Action) 1 ea QS N/A 08/17/16 16:00 09/16/16 15:59 Piperacillin Sod/ Tazobactam Sod 4.5 gm/Dextrose 120 ml @ 30 mls/hr Q8H IV 08/17/16 18:00 08/27/16 17:59 08/21/16 02:01 30 MLS/HR Fentanyl Citrate (Fentanyl Inj) 50 mcg Q2H PRN IV 08/18/16 16:15 08/31/16 12:14 08/19/16 00:37 50 MCG Tramadol HCl (Ultram Tab) 50 mg Q4H PRN PO 08/18/16 16:30 09/17/16 16:29 08/21/16 03:21 50 MG Enoxaparin Sodium (Lovenox Inj) 30 mg QAM SQ 08/19/16 09:00 09/18/16 08:59 08/21/16 07:19 30 MG Potassium Chloride (Klor-Con M10) 10 meq BID PO 08/19/16 21:00 09/18/16 20:59 08/21/16 07:19 10 MEQ Metoprolol Tartrate (Lopressor Tab) 50 mg BID PO 08/19/16 21:00 09/16/16 20:59 08/21/16 07:40 50 MG Everolimus (Afinitor) 5 mg DAILY PO 08/20/16 09:00 09/19/16 08:59 08/21/16 07:49 5 MG Pantoprazole Sodium (Protonix Tab) 40 mg BID PO 08/20/16 21:00 09/17/16 08:59 08/21/16 07:19 40 MG Objective Vital Signs Date Time Temp Pulse Resp B/P (MAP) Pulse Ox O2 Delivery O2 Flow Rate FiO2 08/21/16 04:41 80 155/98 (117) 92 Nasal Cannula 08/21/16 04:00 Room Air 08/21/16 03:20 37.1 86 16 167/104 (125) 93 Room Air 08/21/16 00:01 Room Air 08/20/16 23:30 37.0 84 18 153/92 (112) 93 Room Air 08/20/16 20:00 Room Air 08/20/16 19:10 37.1 92 18 162/93 (116) 93 Room Air 08/20/16 16:00 Room Air 08/20/16 12:11 37.1 86 20 139/89 (106) 99 Nasal Cannula 2.0 08/20/16 12:00 Room Air Physical Exam General Appearance: no apparent distress Eyes: PERRL ENT: hearing grossly normal Neck: supple Respiratory/Chest: lungs clear, normal breath sounds Cardiovascular: regular rate, rhythm, no edema Abdomen: normal bowel sounds, non tender, soft, no organomegaly Neurologic/Psych: alert, normal mood/affect Skin: normal color, no jaundice Laboratory Results Last 24 Hours Test 08/21/16 05:45 White Blood Count 6.77 K/uL Red Blood Count 4.09 M/uL Hemoglobin 10.8 g/dL Hematocrit 32.3 % Mean Corpuscular Volume 79.0 fL Mean Corpuscular Hemoglobin 26.4 pg Mean Corpuscular Hemoglobin Concent 33.4 g/dl Platelet Count 249 K/uL Mean Platelet Volume 9.1 fL Neutrophils (%) (Auto) 70.0 % Lymphocytes (%) (Auto) 13.1 % Monocytes (%) (Auto) 9.9 % Eosinophils (%) (Auto) 5.0 % Basophils (%) (Auto) 0.4 % Neutrophils # (Auto) 4.73 K/uL Lymphocytes # (Auto) 0.89 K/uL Monocytes # (Auto) 0.67 K/uL Eosinophils # (Auto) 0.34 K/uL Basophils # (Auto) 0.03 K/uL RDW Standard Deviation 42.5 fL RDW Coefficient of Variation 14.7 % Immature Granulocyte % (Auto) 1.6 % Immature Granulocyte # (Auto) 0.11 K/uL Sodium Level 137 mmol/L Potassium Level 3.5 mmol/L Chloride Level 101 mmol/L Carbon Dioxide Level 28 mmol/L Anion Gap 8.0 mmol/L Blood Urea Nitrogen 6 mg/dl Creatinine 0.36 mg/dl Est Creatinine Clear Calc Drug Dose 103.0 ml/min Estimated GFR () 125.7 Estimated GFR (Non- 108.5 BUN/Creatinine Ratio 17.1 Random Glucose 97 mg/dl Calcium Level 8.2 mg/dl Total Bilirubin 0.7 mg/dl Aspartate Amino Transf (AST/SGOT) 86 U/L Alanine Aminotransferase (ALT/SGPT) 270 U/L Alkaline Phosphatase 208 U/L Total Protein 6.4 gm/dl Albumin 2.4 gm/dl Globulin 4.0 gm/dl Albumin/Globulin Ratio 0.6 Assessment and Plan Ms. Rangel is a 71 year old female with cholecystis s/p hank with neg cholangiogram on 08/18/16. Minimal change in LFT's, unclear etiology of elevated LFT's- sympathetic inflammation vs Mirizzi's syndrome vs ischemia vs viral. Loose stools x 1 day with new rectal bleeding this morning at 0845 without any rectal pain, rectal itching or abdominal pain. Will obtain stool cultures. Additional recommendations to follow. Monitor LFTs daily - trending down Hepatic Doppler - unremarkable Viral serologies - pending, negative so far Trend H&H Transfuse as needed PPI BID Stool culture and stool for c.diff Monitor stool for GI blood loss GI to sign off. Please arrange for recheck LFTs in 1 week time, and a again in 3 weeks time through her primary care provider.
[2016-08-21 10:56] VITALS: BP 146/83; PULSE 78; TEMP 37; O2SAT 96
--- NOTE | 2016-08-21 12:04 | Cardiology Follow-Up ---
Subjective Date of Service: Aug 21, 2016. Pt evaluation today including: conversation w/ patient, physical exam, lab review, review of studies, review of inpatient medication list History of Present Illness This is a very pleasant 71-year-old woman with a history of probable coronary artery disease and long-standing palpitations. Her palpitations go back many years and have been diagnosed as premature atrial beats. She was admitted on this occasion with acute cholecystitis for which she has had a cholecystectomy. While here she has had difficulty with paroxysmal supraventricular tachycardia. She is not always aware of her arrhythmia, sometimes she has asymptomatic rapid heart rates and sometimes she feels her heart beating rapidly. She has been maintained on metoprolol succinate 50 mg daily as an outpatient. That was held for several days with her GI illness, however she is now on metoprolol tartrate 50 mg twice a day and continuing to have episodes. There is options have been discussed with her including increasing her medical regimen or considering electrophysiologic study with possible ablation and she is interested in possible cure. Social History Smoking Status: Former Smoker (quit 40 yrs ago but smoked 1/2 ppd for 10 yrs) History of Alcohol Use: Yes (wine evenings) Review of Systems Respiratory: No cough, No shortness of breath Cardiac: No chest pain Medications Cardiovascular: Item Value Date Time Metoprolol 50 mg 08/19/16 2100 Tartrate BID/PO 08/21/16 0740 (Lopressor Tab) Enoxaparin Sodium 30 mg 08/19/16 0900 (Lovenox Inj) QAM/SQ 08/21/16 0719 Atorvastatin 20 mg 08/18/16 0900 Calcium QAM/PO 08/21/16 0717 (Lipitor Tab) Objective Vital Signs Past 12 Hours Date Time Temp Pulse Resp B/P (MAP) Pulse Ox O2 Delivery O2 Flow Rate FiO2 08/21/16 08:00 Room Air 08/21/16 07:15 37.0 83 20 154/95 (114) 94 Room Air 08/21/16 04:41 80 155/98 (117) 92 Nasal Cannula 08/21/16 04:00 Room Air 08/21/16 03:20 37.1 86 16 167/104 (125) 93 Room Air 08/21/16 00:01 Room Air Last Recorded Weight-Kilograms: 42.000 Physical Exam Constitutional: Level of Distress: NAD Lungs: Auscultation: breath sounds normal Cardiovascular: Heart Auscultation: RRR, no murmurs Extremities: no edema Data Laboratory Results: Last 24 Hours Test 08/21/16 05:45 White Blood Count 6.77 K/uL Red Blood Count 4.09 M/uL Hemoglobin 10.8 g/dL Hematocrit 32.3 % Mean Corpuscular Volume 79.0 fL Mean Corpuscular Hemoglobin 26.4 pg Mean Corpuscular Hemoglobin Concent 33.4 g/dl Platelet Count 249 K/uL Mean Platelet Volume 9.1 fL Neutrophils (%) (Auto) 70.0 % Lymphocytes (%) (Auto) 13.1 % Monocytes (%) (Auto) 9.9 % Eosinophils (%) (Auto) 5.0 % Basophils (%) (Auto) 0.4 % Neutrophils # (Auto) 4.73 K/uL Lymphocytes # (Auto) 0.89 K/uL Monocytes # (Auto) 0.67 K/uL Eosinophils # (Auto) 0.34 K/uL Basophils # (Auto) 0.03 K/uL RDW Standard Deviation 42.5 fL RDW Coefficient of Variation 14.7 % Immature Granulocyte % (Auto) 1.6 % Immature Granulocyte # (Auto) 0.11 K/uL Sodium Level 137 mmol/L Potassium Level 3.5 mmol/L Chloride Level 101 mmol/L Carbon Dioxide Level 28 mmol/L Anion Gap 8.0 mmol/L Blood Urea Nitrogen 6 mg/dl Creatinine 0.36 mg/dl Est Creatinine Clear Calc Drug Dose 103.0 ml/min Estimated GFR () 125.7 Estimated GFR (Non- 108.5 BUN/Creatinine Ratio 17.1 Random Glucose 97 mg/dl Calcium Level 8.2 mg/dl Total Bilirubin 0.7 mg/dl Aspartate Amino Transf (AST/SGOT) 86 U/L Alanine Aminotransferase (ALT/SGPT) 270 U/L Alkaline Phosphatase 208 U/L Total Protein 6.4 gm/dl Albumin 2.4 gm/dl Globulin 4.0 gm/dl Albumin/Globulin Ratio 0.6 Imaging: Echo shows normal left ventricular size and function EKG: Sinus rhythm with an essentially normal ventricular complex. Telemetry reviewed: Predominantly sinus rhythm with episodes of atrial arrhythmia, some appear to be paroxysmal supraventricular tachycardia, others may be PAT. Assessment and Plan #1. Long-standing palpitations: These have been identified in the past as being PACs, she understands that these will not be eliminated by ablation and is satisfied with that. They do not bother her, although she is sometimes aware of them. #2. Paroxysmal supraventricular tachycardia: The mechanism is unclear from the recordings, some appear to be some type of atrial tachycardia, but some appear to be a reentrant arrhythmia. We'll await to tell for sure is at electrophysiologic study, and is possible that these could be eliminated with an ablation procedure. She is interested in that approach. We may be able to do this tomorrow pending repair of the electrophysiology laboratory. We should know by the end of today. Thank you for allowing me to participate in her care.
--- NOTE | 2016-08-21 14:21 | CARDIOLOGY PROGRESS NOTE ---
DATE: 08/21/2016 TIME: 13:41 p.m. SUBJECTIVE: Ms. Rangel was evaluated today at approximately 09:00 a.m. She did have an episode of palpitations this morning and it correlated with SVT noted on the monitor, lasting nearly 3 minutes. She had another episode yesterday morning, approximately 50 seconds, but was asymptomatic. Yesterday was her first full day of metoprolol of total 100 mg in divided dosing. She denies chest pain, shortness of breath, syncope or edema. OBJECTIVE: VITAL SIGNS: Temperature 37 degrees, heart rate was 83 beats per minute, respiratory rate 20, and blood pressure 154/95 mmHg. Oxygen saturation 94% on room air. I's and O's negative 1.9 liters yesterday. Weight 42 kg. GENERAL: No acute distress. She is alert and oriented. NECK: No appreciable JVD. CARDIAC EXAM: No ventricular heave. Regular, normal S1 and S2. 1/6 holosystolic murmur best heard at the apex. There were no rubs or gallops noted. LUNGS: Clear to auscultation bilaterally without wheezes, rales or rhonchi. ABDOMEN: Soft, nontender, and nondistended. EXTREMITIES: No cyanosis or edema. PSYCHIATRIC: Affect appears appropriate. MEDICATIONS: Include metoprolol 50 mg p.o. b.i.d., Protonix 40 mg p.o. b.i.d., potassium chloride 10 mEq p.o. b.i.d. and she received an extra 40 mEq of potassium today as well. Atorvastatin 20 mg daily and Zosyn IV. Telemetry personally reviewed as noted above. LABORATORY DATA: White blood cell count is 6.77, hemoglobin 10.8, and platelets 249. Sodium 137, potassium 3.5, BUN 6, and creatinine 0.36. AST 86 and ALT 270 and trending downward. Albumin 2.4. ASSESSMENT AND PLAN: 1. Paroxysmal supraventricular tachycardia: She shared today that she does have palpitations from time to time at home and palpitations did correlate with supraventricular tachycardia this morning. She is clearly not symptomatic with all episodes of supraventricular tachycardia; however, she has had supraventricular tachycardia intermittently throughout this hospitalization. On review of the tracings, some episodes appear to be atrial tachycardia, but not necessarily all of the episodes. We discussed possible treatment strategies such as antiarrhythmic therapy or ablation. Because she has sustained episodes, would recommend more aggressive treatment. She is interested in learning more about ablation. To see if she is a candidate, electrophysiology consultation is recommended. Case was discussed with Dr. Munroe of electrophysiology and telemetry tracings were reviewed with him. Electrophysiology consultation placed. In the meantime, continue beta winnie. 2. Hypokalemia: Supplementation as per primary service. 3. Elevated troponins: She had minimally elevated troponins, which were not diagnostic of myocardial infarction and did not present with acute coronary syndrome. Elevation of troponins could be secondary to demand ischemia with intermittent supraventricular tachycardia and presenting with acute illness. No further evaluation at this time barring ischemic symptoms. 4. Hypertension: Blood pressure continues to be mildly elevated. Consider adjusting antihypertensive regimen. 5. Presumed coronary artery disease based on abnormal stress echo in 2016: No angina. Continue medical therapy. 6. Disposition: Electrophysiology consultation requested and case was discussed with Dr. Munroe to determine further treatment of supraventricular tachycardia, specifically ablation versus antiarrhythmic therapy.
[2016-08-21 14:55] VITALS: BP 148/98; PULSE 89; TEMP 37.1; O2SAT 97
--- NOTE | 2016-08-21 15:56 | Hospitalist Progress Note ---
Hospitalist Progress Note Date of Service Aug 21, 2016. Subjective Pt evaluation today including: conversation w/ patient, conversation w/ commercial sales consultant (Cardiology EP) No more rectal bleeding. Having some right sided abd pain near incision site, still having some loose stools. No CP or SOB. Continues to ahve SVT and possibly atrial tach on tele. EP evaluated her and will be performing EP study and possible ablation tomorrow All Other Systems: Reviewed and Negative Objective Vital Signs Date Time Temp Pulse Resp B/P (MAP) Pulse Ox O2 Delivery O2 Flow Rate FiO2 08/21/16 12:00 Room Air 08/21/16 10:56 37.0 78 20 146/83 (104) 96 Room Air 08/21/16 08:00 Room Air 08/21/16 07:15 37.0 83 20 154/95 (114) 94 Room Air 08/21/16 04:41 80 155/98 (117) 92 Nasal Cannula 08/21/16 04:00 Room Air 08/21/16 03:20 37.1 86 16 167/104 (125) 93 Room Air 08/21/16 00:01 Room Air 08/20/16 23:30 37.0 84 18 153/92 (112) 93 Room Air 08/20/16 20:00 Room Air 08/20/16 19:10 37.1 92 18 162/93 (116) 93 Room Air 08/20/16 16:00 Room Air Physical Exam General Appearance: WD/WN, no apparent distress Eyes: normal inspection, sclerae normal ENT: hearing grossly normal Neck: trachea midline Respiratory/Chest: no respiratory distress, no accessory muscle use, + crackles (at bases that clear with deep inspiration) Cardiovascular: regular rate, rhythm, no edema, no gallop, + systolic murmur (1 /6 at RUSB) Abdomen: normal bowel sounds (and some hyperactive sounds), soft, + tenderness (at right trochar site without guarding or rebound) Extremities: non-tender, normal inspection, no pedal edema, no calf tenderness Neurologic/Psychiatric: alert, normal mood/affect, oriented x 3 Skin: normal color, warm/dry, no rash (dressings on abd c/d/i) Laboratory Results Last 24 Hours Test 08/21/16 05:45 White Blood Count 6.77 K/uL Red Blood Count 4.09 M/uL Hemoglobin 10.8 g/dL Hematocrit 32.3 % Mean Corpuscular Volume 79.0 fL Mean Corpuscular Hemoglobin 26.4 pg Mean Corpuscular Hemoglobin Concent 33.4 g/dl Platelet Count 249 K/uL Mean Platelet Volume 9.1 fL Neutrophils (%) (Auto) 70.0 % Lymphocytes (%) (Auto) 13.1 % Monocytes (%) (Auto) 9.9 % Eosinophils (%) (Auto) 5.0 % Basophils (%) (Auto) 0.4 % Neutrophils # (Auto) 4.73 K/uL Lymphocytes # (Auto) 0.89 K/uL Monocytes # (Auto) 0.67 K/uL Eosinophils # (Auto) 0.34 K/uL Basophils # (Auto) 0.03 K/uL RDW Standard Deviation 42.5 fL RDW Coefficient of Variation 14.7 % Immature Granulocyte % (Auto) 1.6 % Immature Granulocyte # (Auto) 0.11 K/uL Sodium Level 137 mmol/L Potassium Level 3.5 mmol/L Chloride Level 101 mmol/L Carbon Dioxide Level 28 mmol/L Anion Gap 8.0 mmol/L Blood Urea Nitrogen 6 mg/dl Creatinine 0.36 mg/dl Est Creatinine Clear Calc Drug Dose 103.0 ml/min Estimated GFR () 125.7 Estimated GFR (Non- 108.5 BUN/Creatinine Ratio 17.1 Random Glucose 97 mg/dl Calcium Level 8.2 mg/dl Total Bilirubin 0.7 mg/dl Aspartate Amino Transf (AST/SGOT) 86 U/L Alanine Aminotransferase (ALT/SGPT) 270 U/L Alkaline Phosphatase 208 U/L Total Protein 6.4 gm/dl Albumin 2.4 gm/dl Globulin 4.0 gm/dl Albumin/Globulin Ratio 0.6 Assessment and Plan Pt is a 71 yo female with a h/o metastatic breast CA to bones and lungs currently on chemo, talc pleurodesis of right lung for recurrent malignant effusion, HTN, PUD, thyroid CA, here with acute cholecystitis. Acute cholecystitis-biliary sepsis (SIRS being temp, HR, and RR) now s/p lap hank on 08/18/16,transaminitis - almost certainly relates to cholecystitis - LFTs continue to trend downward, afebrile. Hepatic vein Doppler neg for clot, tolerating diet. DOing very well post-op -post-op management as per Surgery--> no showering till 4 days post-op and then can remove bandages -continue low fat diet -pain control -f/u Surgery 1 week post-op -can dc Zosyn today -IS and mobilization Possible rectal bleeding x 1 day with diarrhea- likely related to internal hemorrhoids as per GI-->stool cultures and C. diff both negative, hgb stable at 10 PSVT-continues with runs of this. Cardiology saw and increased metoprolol to 50mg po bid. ECHO 1 yr ago with normal LV function. EP evaluated and will perform EP study and possible ablation tomorrow -continue metoprolol -Pt requests Cardiology consultation -if requires ablation, will keep one more night after that, if no ablation, then can dc to home tomorrow Metastatic Breast cancer - with mets to lungs and bone-->resume home meds -she brought in from home but still needs her aromasin Hx of PUD - home med regimen, PPI Hx of thyroid cancer, with removal of gland and subsequent hypothyroidism -TSH 4.2 in Jul, 2015- home meds HTN - controlled -continue metoprolol Lip lac from traumatic intubation--Improved DVT ppx with heparin Pt is FULL CODE Dispo-to home in 1-2 days
[2016-08-21 19:00] VITALS: BP 160/96; PULSE 100; TEMP 37; O2SAT 97
[2016-08-21] MEDS: ZOLPIDEM TARTRATE 10 MG TAB PO SCH (22:46)
[2016-08-22] VITALS (13 sets, daily range): BP systolic 122–175; BP diastolic 64–108; PULSE 82–117; TEMP 36.4–37.1; O2SAT 93–97
[2016-08-22] MEDS: TRAMADOL HCL 50 MG TAB PO PRN ×2 (02:45→20:05)
[2016-08-22] MEDS ORDERED: SODIUM CHLORIDE 0.9% 1000ML 1,000 ML IV ONE (06:00)
[2016-08-22] MEDS: LEVOTHYROXINE 150 MCG TAB PO SCH (06:14)
[2016-08-22 07:04] LABS: BASO % 0.1 %; BASO ABS # 0.01 K/uL (0-0.2); COMPLETE YES; EOS % 3.6 %; HEMATOCRIT 34.4 % (37-47); IG% 1.8 %; LYMPH ABS # 1.17 K/uL (1.2-3.4); MEAN CELL VOLUME 77.5 fL (80-100); MEAN CORPUSCULAR HEMOGLOBIN 25.9 pg (25-34); MEAN CORPUSCULAR HGB CONC 33.4 g/dl (32-36); MONO % 9.1 %; NEUT % 70.4 %; PLATELET COUNT 351 K/uL (130-400); RED BLOOD COUNT 4.44 M/uL (4.2-5.4); WHITE BLOOD COUNT 7.81 K/uL (4.8-10.8)
[2016-08-22] MEDS: CALCIUM 600MG + VIT D 400 IU TAB PO SCH ×2 (07:15→21:53)
[2016-08-22] MEDS: MULTIVITAMIN TAB PO SCH (07:15)
[2016-08-22] MEDS: ATORVASTATIN 20 MG TAB PO SCH (07:15)
[2016-08-22] MEDS: PANTOprazole SOD 40 MG TAB PO SCH ×2 (07:15→21:53)
[2016-08-22] MEDS: CHOLECALCIFEROL 1000 INTER.UNIT TAB PO SCH (07:15)
[2016-08-22] MEDS: POTASSIUM CHLORIDE 10 MEQ TABCR PO SCH ×2 (07:16→21:52)
[2016-08-22] MEDS: AFINITOR PO SCH (07:18)
[2016-08-22] MEDS ORDERED: MIDAZOLAM HCL 5 MG/ML 1 ML VIAL ONE ×3 (07:26→09:57)
[2016-08-22] MEDS ORDERED: FENTANYL CITRATE INJ 50 MCG/1 ML 2 ML VIAL ONE ×3 (07:26→09:37)
[2016-08-22 07:31] LABS: BUN/CREATININE RATIO 23.1 (10-20); CALCIUM 8.6 mg/dl (8.5-10.1); CREATININE 0.4 mg/dl (0.60-1.20); POTASSIUM 3.7 mmol/L (3.5-5.1)
[2016-08-22 07:33] LABS: ALB/GLOB RATIO 0.6 (0.9-2)
--- NOTE | 2016-08-22 08:29 | Procedure Note ---
Pre-Mod Sedation Assessment General Date of Moderate Sedation: Aug 22, 2016. Vital Signs: Vital Signs Past 12 Hours Date Time Temp Pulse Resp B/P (MAP) Pulse Ox O2 Delivery O2 Flow Rate FiO2 08/22/16 08:00 Room Air 08/22/16 04:08 36.7 85 18 150/90 (110) 93 Room Air 08/22/16 04:00 93 Room Air 08/22/16 00:04 37.1 83 22 150/64 (92) 96 Room Air 08/22/16 00:01 97 Room Air Review Cardiovascular: regular rate, rhythm Abdomen: normal bowel sounds Lungs: lungs clear Pre-Sedation Airway Assessment Smoking Status: Former Smoker (quit 40 yrs ago but smoked 1/2 ppd for 10 yrs) Procedure Planning Contraindications-for Mod Sed: None Yes Notes The planned sedation has been discussed with the patient and consent obtained. I have identified the patient, determined the appropriateness of sedation and have assessed the patient immediately prior to the procedure. All medicine(s) and interventions are by my order.
--- NOTE | 2016-08-22 11:27 | Procedure Note ---
Post-Mod Sedation Assessment General Date of Moderate Sedation Aug 22, 2016. Vital Signs: Vital Signs Past 12 Hours Date Time Temp Pulse Resp B/P (MAP) Pulse Ox O2 Delivery O2 Flow Rate FiO2 08/22/16 11:20 120 16 139/100 (113) 95 Room Air 08/22/16 11:05 119 14 133/98 (110) 95 Room Air 08/22/16 08:00 Room Air 08/22/16 07:30 36.4 84 20 155/94 (114) 95 Room Air 08/22/16 04:08 36.7 85 18 150/90 (110) 93 Room Air 08/22/16 04:00 93 Room Air 08/22/16 00:04 37.1 83 22 150/64 (92) 96 Room Air 08/22/16 00:01 97 Room Air Review - Discharge Criteria Vital Signs Stable: Yes Alert/Oriented/Conversant: Yes Returned to Baseline Mental St: Yes Nausea Absent/Minimal: Yes Pain/Discomfort/Absent/Minimal: Yes Normal/Baseline Respirations: Yes Active Bleeding?: No
--- NOTE | 2016-08-22 11:30 | Cardiology Procedure Brief Nt ---
Preliminary Cardiology Note Procedure Date Aug 22, 2016. Pre-Procedure Diagnosis SVT Post-Procedure Diagnosis typical AV sal reentry and posterior lateral atrial tachycardia Procedure(s) Performed Baseline 4 catheter electrophysiologic study Ablation of slow pathway Mapping of atrial tachycardia and partial ablation Coin Purse Assembler Dr. Munroe Head Of Sales(s) none Estimated Blood Loss 30 cc Preliminary Findings Easily inducible typical AV sal reentry. Anatomically unusual AV junction with the coronary sinus above the his location, however slow pathway ablation appeared to be successful with only single echo beats inducible post ablation. The atrial tachycardia was more difficult to induce, was nonsustained but localized somewhere in the posterior lateral right atrium where there appeared to be some type of anatomic abnormality suggestive of a pouch. Several ablations were performed in this location during the waiting period of the AV sal reentrant ablation, however extensive mapping and ablation was not performed. Recommendations Monitor overnight Specimens None Anesthesia local with sedation Complication(s) None Disposition PCU
[2016-08-22] MEDS ORDERED: KETOROLAC TROMETHAMINE 10 MG TAB PO PRN (11:45)
[2016-08-22] MEDS ORDERED: METOPROLOL TARTRATE 25 MG TAB PO ONE (11:45)
[2016-08-22] MEDS ORDERED: ACETAMINOPHEN 325 MG TAB PO PRN (11:45)
[2016-08-22] MEDS ORDERED: CHOLESTYRAMINE LIGHT 4 GM PKT PO ONE (16:17)
--- NOTE | 2016-08-22 16:28 | Hospitalist Progress Note ---
Hospitalist Progress Note Date of Service Aug 22, 2016. Subjective Pt evaluation today including: conversation w/ patient, conversation w/ business system consultant (Cardiology) Still ahving l oose stools,nonbloody, opal po. 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 Minimal abd pain. All Other Systems: Reviewed and Negative Objective Vital Signs Date Time Temp Pulse Resp B/P (MAP) Pulse Ox O2 Delivery O2 Flow Rate FiO2 08/22/16 15:22 36.5 97 18 160/93 (115) 97 Room Air 08/22/16 14:07 82 128/80 (96) 08/22/16 13:37 82 18 122/79 (93) 97 08/22/16 13:07 104 18 139/94 (109) 96 08/22/16 12:37 36.7 113 20 140/94 (109) 97 08/22/16 12:07 36.7 84 18 128/90 (103) 96 08/22/16 12:00 Room Air 08/22/16 11:52 117 16 146/108 (121) 08/22/16 11:30 121 16 141/99 (113) 95 Room Air 08/22/16 11:20 120 16 139/100 (113) 95 Room Air 08/22/16 11:05 119 14 133/98 (110) 95 Room Air 08/22/16 08:00 Room Air 08/22/16 07:30 36.4 84 20 155/94 (114) 95 Room Air 08/22/16 04:08 36.7 85 18 150/90 (110) 93 Room Air 08/22/16 04:00 93 Room Air 08/22/16 00:04 37.1 83 22 150/64 (92) 96 Room Air 08/22/16 00:01 97 Room Air 08/21/16 20:00 Room Air 08/21/16 19:00 37.0 100 18 160/96 (117) 97 Room Air Physical Exam General Appearance: no apparent distress, + thin Eyes: normal inspection, sclerae normal ENT: hearing grossly normal Neck: trachea midline Respiratory/Chest: lungs clear, normal breath sounds, no respiratory distress, no accessory muscle use Cardiovascular: regular rate, rhythm, no edema, no murmur Abdomen: normal bowel sounds, non tender, soft, no organomegaly, + pertinent finding (incisions with steri strips, bandages removed, healing well) Extremities: non-tender, normal inspection, no pedal edema, no calf tenderness Neurologic/Psychiatric: alert, normal mood/affect, oriented x 3 Skin: normal color, warm/dry, no rash Laboratory Results Last 24 Hours Test 08/22/16 06:40 White Blood Count 7.81 K/uL Red Blood Count 4.44 M/uL Hemoglobin 11.5 g/dL Hematocrit 34.4 % Mean Corpuscular Volume 77.5 fL Mean Corpuscular Hemoglobin 25.9 pg Mean Corpuscular Hemoglobin Concent 33.4 g/dl Platelet Count 351 K/uL Mean Platelet Volume 9.0 fL Neutrophils (%) (Auto) 70.4 % Lymphocytes (%) (Auto) 15.0 % Monocytes (%) (Auto) 9.1 % Eosinophils (%) (Auto) 3.6 % Basophils (%) (Auto) 0.1 % Neutrophils # (Auto) 5.50 K/uL Lymphocytes # (Auto) 1.17 K/uL Monocytes # (Auto) 0.71 K/uL Eosinophils # (Auto) 0.28 K/uL Basophils # (Auto) 0.01 K/uL RDW Standard Deviation 41.0 fL RDW Coefficient of Variation 14.4 % Immature Granulocyte % (Auto) 1.8 % Immature Granulocyte # (Auto) 0.14 K/uL Sodium Level 136 mmol/L Potassium Level 3.7 mmol/L Chloride Level 100 mmol/L Carbon Dioxide Level 26 mmol/L Anion Gap 10.0 mmol/L Blood Urea Nitrogen 9 mg/dl Creatinine 0.40 mg/dl Est Creatinine Clear Calc Drug Dose 87.2 ml/min Estimated GFR () 121.5 Estimated GFR (Non- 104.8 BUN/Creatinine Ratio 23.1 Random Glucose 95 mg/dl Calcium Level 8.6 mg/dl Total Bilirubin 0.6 mg/dl Aspartate Amino Transf (AST/SGOT) 60 U/L Alanine Aminotransferase (ALT/SGPT) 239 U/L Alkaline Phosphatase 224 U/L Total Protein 7.3 gm/dl Albumin 2.7 gm/dl Globulin 4.6 gm/dl Albumin/Globulin Ratio 0.6 Assessment and Plan Pt is a 71 yo female with a h/o metastatic breast CA to bones and lungs currently on chemo, talc pleurodesis of right lung for recurrent malignant effusion, HTN, PUD, thyroid CA, here with acute cholecystitis. Acute cholecystitis-biliary sepsis (SIRS being temp, HR, and RR) now s/p lap hank on 08/18/16,transaminitis - almost certainly relates to cholecystitis - LFTs continue to trend downward but very slowly, afebrile. Was on Zosyn but discontinued after 5 day course Hepatic vein Doppler neg for clot, tolerating diet. Doing well -post-op management as per Surgery-->bandages removed and leave steri strips in place -continue low fat diet -pain control -f/u Surgery 1 week post-op -IS and mobilization -continue to follow LFTs while inpatient and then in 1 week as outpatient Possible rectal bleeding x 1 day with diarrhea- likely related to internal hemorrhoids as per GI-->rectal bleeding resolved; stool culture growing out Yeast not Lindsey, C. 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 Underwent EP study with ablation of the AVNRT today. ECHO normal. -continue metoprolol at 25mg po bid. -f/u with Cardio/EP in 1 month Metastatic Breast cancer - with mets to lungs and bone-->resume home meds -she brought in from home but still needs her aromasin (she has not brought this in from home but doesn't want to) Hx of PUD - home med regimen, PPI Hx of thyroid cancer, with removal of gland and subsequent hypothyroidism -TSH 4.2 in Jul, 2015- home meds HTN - controlled -continue metoprolol Lip lac from traumatic intubation--Improved DVT ppx with heparin Pt is FULL CODE Dispo-to home in 1-2 days
[2016-08-22] MEDS: NYSTATIN SUSP 500,000 U/5 ML UDC PO SCH ×2 (18:30→21:53)
[2016-08-22] MEDS: METOPROLOL TARTRATE 25 MG TAB PO SCH (21:53)
[2016-08-22] MEDS: ZOLPIDEM TARTRATE 10 MG TAB PO SCH (23:20)
[2016-08-22] MEDS: CHOLESTYRAMINE LIGHT 4 GM PKT PO SCH (23:21)
[2016-08-23 00:02] VITALS: BP 145/88; PULSE 84; TEMP 36.9; O2SAT 95
[2016-08-23] MEDS: TRAMADOL HCL 50 MG TAB PO PRN ×2 (00:08→05:47)
[2016-08-23 03:22] VITALS: BP 150/95; PULSE 96; TEMP 37.1; O2SAT 93
[2016-08-23] MEDS: LEVOTHYROXINE 150 MCG TAB PO SCH (05:47)
[2016-08-23 06:04] LABS: BASO % 0.1 %; BASO ABS # 0.01 K/uL (0-0.2); COMPLETE YES; HEMATOCRIT 34.6 % (37-47); IG% 2.2 %; LYMPH % 15.1 %; LYMPH ABS # 1.01 K/uL (1.2-3.4); MEAN CELL VOLUME 78.1 fL (80-100); MEAN CORPUSCULAR HEMOGLOBIN 25.1 pg (25-34); MEAN CORPUSCULAR HGB CONC 32.1 g/dl (32-36); MONO % 11.2 %; NEUT % 68.4 %; PLATELET COUNT 356 K/uL (130-400); RED BLOOD COUNT 4.43 M/uL (4.2-5.4); WHITE BLOOD COUNT 6.68 K/uL (4.8-10.8)
[2016-08-23 06:44] LABS: CALCIUM 8.7 mg/dl (8.5-10.1); CREATININE 0.34 mg/dl (0.60-1.20); POTASSIUM 3.8 mmol/L (3.5-5.1)
[2016-08-23 06:47] LABS: ALB/GLOB RATIO 0.6 (0.9-2)
[2016-08-23 07:10] VITALS: BP 141/88; PULSE 99; TEMP 36.8; O2SAT 96
[2016-08-23] MEDS: AFINITOR PO SCH (08:59)
[2016-08-23] MEDS: POTASSIUM CHLORIDE 10 MEQ TABCR PO SCH (09:00)
[2016-08-23] MEDS: ATORVASTATIN 20 MG TAB PO SCH (09:00)
[2016-08-23] MEDS: CALCIUM 600MG + VIT D 400 IU TAB PO SCH (09:00)
[2016-08-23] MEDS: PANTOprazole SOD 40 MG TAB PO SCH (09:01)
[2016-08-23] MEDS: MULTIVITAMIN TAB PO SCH (09:01)
[2016-08-23] MEDS: METOPROLOL TARTRATE 25 MG TAB PO SCH (09:01)
[2016-08-23] MEDS: NYSTATIN SUSP 500,000 U/5 ML UDC PO SCH (09:01)
[2016-08-23] MEDS: CHOLECALCIFEROL 1000 INTER.UNIT TAB PO SCH (09:02)
--- NOTE | 2016-08-23 09:39 | Cardiology Follow-Up ---
Subjective Date of Service: Aug 23, 2016. Pt evaluation today including: conversation w/ patient, physical exam, lab review, review of studies, review of inpatient medication list History of Present Illness This is a very pleasant 71-year-old woman with a history of probable coronary artery disease and long-standing palpitations. Her palpitations go back many years and have been diagnosed as premature atrial beats. She was admitted on this occasion with acute cholecystitis for which she has had a cholecystectomy. While here she has had difficulty with paroxysmal supraventricular tachycardia. She is not always aware of her arrhythmia, sometimes she has asymptomatic rapid heart rates and sometimes she feels her heart beating rapidly. She has been maintained on metoprolol succinate 50 mg daily as an outpatient, but this was not controlling it well. We therefore performed ablation yesterday. Today she feels well, she has no groin discomfort and no significant palpitations. Social History Smoking Status: Former Smoker (quit 40 yrs ago but smoked 1/2 ppd for 10 yrs) History of Alcohol Use: Yes (wine evenings) Review of Systems Respiratory: No cough, No shortness of breath Cardiac: No chest pain Objective Vital Signs Past 12 Hours Date Time Temp Pulse Resp B/P (MAP) Pulse Ox O2 Delivery O2 Flow Rate FiO2 08/23/16 07:10 36.8 99 18 141/88 (105) 96 Room Air 08/23/16 04:00 Room Air 08/23/16 03:22 37.1 96 15 150/95 (113) 93 Room Air 08/23/16 00:02 36.9 84 17 145/88 (107) 95 Room Air 08/23/16 00:00 Room Air Last Recorded Weight-Kilograms: 44.200 Physical Exam Constitutional: Level of Distress: NAD Lungs: Auscultation: breath sounds normal Cardiovascular: Heart Auscultation: RRR, no murmurs Extremities: no edema Data Laboratory Results: Last 24 Hours Test 08/23/16 05:18 White Blood Count 6.68 K/uL Red Blood Count 4.43 M/uL Hemoglobin 11.1 g/dL Hematocrit 34.6 % Mean Corpuscular Volume 78.1 fL Mean Corpuscular Hemoglobin 25.1 pg Mean Corpuscular Hemoglobin Concent 32.1 g/dl Platelet Count 356 K/uL Mean Platelet Volume 9.0 fL Neutrophils (%) (Auto) 68.4 % Lymphocytes (%) (Auto) 15.1 % Monocytes (%) (Auto) 11.2 % Eosinophils (%) (Auto) 3.0 % Basophils (%) (Auto) 0.1 % Neutrophils # (Auto) 4.56 K/uL Lymphocytes # (Auto) 1.01 K/uL Monocytes # (Auto) 0.75 K/uL Eosinophils # (Auto) 0.20 K/uL Basophils # (Auto) 0.01 K/uL RDW Standard Deviation 40.6 fL RDW Coefficient of Variation 14.3 % Immature Granulocyte % (Auto) 2.2 % Immature Granulocyte # (Auto) 0.15 K/uL Sodium Level 135 mmol/L Potassium Level 3.8 mmol/L Chloride Level 99 mmol/L Carbon Dioxide Level 25 mmol/L Anion Gap 11.0 mmol/L Blood Urea Nitrogen 8 mg/dl Creatinine 0.34 mg/dl Est Creatinine Clear Calc Drug Dose 105.9 ml/min Estimated GFR () 128.1 Estimated GFR (Non- 110.5 BUN/Creatinine Ratio 25.0 Random Glucose 90 mg/dl Calcium Level 8.7 mg/dl Total Bilirubin 0.6 mg/dl Aspartate Amino Transf (AST/SGOT) 50 U/L Alanine Aminotransferase (ALT/SGPT) 173 U/L Alkaline Phosphatase 184 U/L Total Protein 6.9 gm/dl Albumin 2.5 gm/dl Globulin 4.4 gm/dl Albumin/Globulin Ratio 0.6 EKG: Post electrophysiologic study, sinus tachycardia with normal [place] interval. Telemetry reviewed: Sinus rhythm and sinus tachycardia, no SVT Assessment and Plan #1. Long-standing palpitations: These have been identified in the past as being PACs, she understands that these will not be eliminated by ablation and is satisfied with that. She also has PAT but I'm not sure whether that is contributing to her symptoms or not. If they become problematic we can consider ablation of her PAT. #2. Paroxysmal supraventricular tachycardia: We did perform ablation yesterday, at electrophysiologic study she had typical AV sal reentry has what I believe is her primary arrhythmia, it was very fast and she was hypotensive with it. I believe we were successful in ablating that without any complications. She also had an atrial tachycardia which appears to originate from the right posterior lateral right atrium, that we mapped and did several ablations but I did not want to prolong the procedure and that may be a long-standing and relatively innocuous arrhythmia. We will need to see going forward whether that is an issue , if it is we can consider ablation of that as a primary procedure. Meanwhile I would continue metoprolol at her current dose. I will schedule him to come back in for follow-up in one month.. Thank you for allowing me to participate in her care.
[2016-08-23] MEDS: CHOLESTYRAMINE LIGHT 4 GM PKT PO SCH (09:52)
[2016-08-23] MEDS ORDERED: NYSS5 PO (10:14)
[2016-08-23] MEDS ORDERED: QSTP PO (10:15)
[2016-08-23] MEDS ORDERED: ULT50X PO (10:15)
[2016-08-23] MEDS ORDERED: POTA10CA28 PO (10:15)
--- NOTE | 2016-08-23 10:29 | Discharge Instructions ---
Discharge Instructions Date of Service Aug 23, 2016. Admission Reason for Admission: Sepsis, Transaminitis Discharge Discharge Diagnosis / Problem: Sepsis, Acute cholecustitis, SVT Discharge Goals Goal(s): Improve disease control, Diagnostic testing, Therapeutic intervention Activity Recommendations Activity Limitations: as noted below Lifting Limitations: no more than 10 pounds Exercise/Sports Limitations: gradually increase as tolerated Shower/Bathe: no limitations Driving or Machine Use: no driving until after seen by Surgeon . Instructions / Follow-Up Instructions / Follow-Up You were admitted for acute cholecystitis (infection of your gallbladder) and had your gallbladder removed. Your liver enzymes continue to improve but you should have a repeat blood test in 1 week to make sure they have returned completely back to normal. Please keep your appointment with Dr. Dillard, the Surgeon, on Friday. You have pain medicine you can take as needed. You also had a cardiac ablation of your rapid heartbeat called SVT. You will need to follow up with the Machine Sander, Dr. Munroe, in 1 month. His office will arrange that and should be contacting you. Please follow up with your PCP next week as scheduled. Continue your routinely scheduled follow up with your Oncologist as well. Current Hospital Diet Patient's current hospital diet: AHA Diet (Heart Healthy), Low Fat Diet Discharge Diet Recommended Diet: AHA Diet (Heart Healthy), Low Fat Diet Procedures Procedures Performed: -Laparoscopic Cholecystectomy with cholangiogram -Baseline 4 catheter electrophysiologic study Ablation of slow pathway Mapping of atrial tachycardia and partial ablation CT abdomen/pelvis HIDA scan Doppler lower extremities bilateral Liver US Chest xray Pending Studies Studies pending at discharge: no Laboratory Results Last 24 Hours Test 08/23/16 05:18 White Blood Count 6.68 K/uL Red Blood Count 4.43 M/uL Hemoglobin 11.1 g/dL Hematocrit 34.6 % Mean Corpuscular Volume 78.1 fL Mean Corpuscular Hemoglobin 25.1 pg Mean Corpuscular Hemoglobin Concent 32.1 g/dl Platelet Count 356 K/uL Mean Platelet Volume 9.0 fL Neutrophils (%) (Auto) 68.4 % Lymphocytes (%) (Auto) 15.1 % Monocytes (%) (Auto) 11.2 % Eosinophils (%) (Auto) 3.0 % Basophils (%) (Auto) 0.1 % Neutrophils # (Auto) 4.56 K/uL Lymphocytes # (Auto) 1.01 K/uL Monocytes # (Auto) 0.75 K/uL Eosinophils # (Auto) 0.20 K/uL Basophils # (Auto) 0.01 K/uL RDW Standard Deviation 40.6 fL RDW Coefficient of Variation 14.3 % Immature Granulocyte % (Auto) 2.2 % Immature Granulocyte # (Auto) 0.15 K/uL Sodium Level 135 mmol/L Potassium Level 3.8 mmol/L Chloride Level 99 mmol/L Carbon Dioxide Level 25 mmol/L Anion Gap 11.0 mmol/L Blood Urea Nitrogen 8 mg/dl Creatinine 0.34 mg/dl Est Creatinine Clear Calc Drug Dose 105.9 ml/min Estimated GFR () 128.1 Estimated GFR (Non- 110.5 BUN/Creatinine Ratio 25.0 Random Glucose 90 mg/dl Calcium Level 8.7 mg/dl Total Bilirubin 0.6 mg/dl Aspartate Amino Transf (AST/SGOT) 50 U/L Alanine Aminotransferase (ALT/SGPT) 173 U/L Alkaline Phosphatase 184 U/L Total Protein 6.9 gm/dl Albumin 2.5 gm/dl Globulin 4.4 gm/dl Albumin/Globulin Ratio 0.6 Medical Emergencies . Who to Call and When: Medical Emergencies: If at any time you feel your situation is an emergency, please call 911 immediately. . Non-Emergent Contact Non-Emergency issues call your: Primary Care Provider, Machine Sander, Surgeon Call Non-Emergent contact if: you have a fever, your pain is not controlled, your pain is worsening, your pain is unusual for you, your pain is concerning you, wound has increased drainage, wound has increased redness, wound has increased pain, you have any medication questions . . "Provider Documentation" section prepared by Kathi Forrester. . VTE Core Measure Inpt VTE Proph given/why not?: Enoxaparin (Lovenox)SQ, Unfractionated heparin SQ, SCD's [place] Drug Monitoring Program Search Results: patient reviewed within database, no issues identified
[2016-08-23 10:49] VITALS: BP 141/88; PULSE 99; TEMP 36.8; O2SAT 96
[2016-08-23 11:15] VITALS: BP 145/82; PULSE 93; TEMP 36.9; O2SAT 95
--- NOTE | 2016-09-09 23:18 | Discharge Summary ---
Discharge Summary Date of Service Aug 23, 2016. Discharge Summary Admission Date: Aug 16, 2016 at 15:38 Discharge Date: Aug 23, 2016 Discharge Disposition: Home Principal Diagnosis: Acute cholecystitis Problems/Secondary Diagnoses: Sepsis Metastatic breast CA to bones and lungs History of talc pleurodesis of right lung for recurrent malignant effusion HTN PUD History of thyroid CA Transaminitis Rectal bleeding Diarrhea-Yeast not Lindsey albicans PSVT-AVNRT and atrial tachycardia History of PUD Hypothyroidism Lip laceration from traumatic intubation Immunizations: Have You Had Influenza Vaccine: Unknown History of Tetanus Vaccine?: Unknown History of Pneumococcal: Unknown History of Hepatitis B Vaccine: Unknown Procedures: Laparoscopic cholecystectomy, intraoperative cholangiogram Baseline 4 catheter electrophysiologic study, Ablation of slow pathway, Mapping of atrial tachycardia and partial ablation Chest xray: 1. Chronic right pleural thickening/effusion 2. Mild cardiomegaly, no evidence of overt failure CT Abd/pel: 1. No evidence of bowel obstruction. No evidence of free air 2. No evidence of acute appendicitis. No evidence of acute diverticulitis. 3. Stable T9 sclerotic lesion suspicious for a blastic metastasis 4. Stable right-sided lobular pleural thickening. There is associated small chronic pleural fluid collection. There is a suggestion of prior pleurodesis. 5. Mild gallbladder distention. No calculi are visualized on CT scanning HIDA scan: Scintigraphic findings are consistent with acute cholecystitis RUQ US: : The gallbladder is distended and there is biliary sludge. The gallbladder wall is top normal in thickness and trace pericholecystic fluid is seen. A sonographic Starkey's sign is reportedly absent. Findings are equivocal for acute cholecystitis which is not excluded. If there is strong clinical concern for acute cholecystitis consider nuclear hepatobiliary scan for further assessment. Bilateral Lower Ext Doppler-negative for DVT DUPLEX PORTAL HEPATIC VEINS CLINICAL HISTORY: transaminitis abnormal liver function tests TECHNIQUE: Doppler abdominal ultrasound COMPARISON STUDY: None FINDINGS: All major venous structures are patent. Flow is antegrade and unremarkable. This includes the portal and hepatic venous vasculature, as well as the hepatic arterial vasculature. IMPRESSION: Normal study Consultations: General Surgery Cardiology Critical Care Medicine Gastroenterology Medication Reconciliation New Medications: Cholestyramine (Cholestyramine Light) 4 Gm Pack 4 GM PO BID@10,22 for 30 Days, #60 EA Nystatin (Nystatin) 5 Ml Susp 5 ML PO QID for 14 Days, #280 ML Swish and swallow Potassium Chloride (Micro-K Ext Rel) 10 Meq Capcr 10 MEQ PO BID for 30 Days, #60 CAP Tramadol HCl (Tramadol HCl) 50 Mg Tab 50 MG PO Q4H PRN for Pain, #15 TAB Continued Medications: Acetamin/Butalbital/Caffeine (Fioricet) 1 Ea Tab 1 TAB PO UD PRN for Pain, TAB Ascorbic Acid (Ascorbic Acid) Unknown Strength Tab 1 TAB PO BID Atorvastatin (Lipitor) 20 Mg Tab 1 TAB PO DAILY Calcium Carbonate-Cholecalcife (Caltrate 600+D) 1 Tab Tab 2 TAB PO AMPM Cholecalciferol (Vitamin D) Unknown Strength Tab 1 TAB PO DAILY Everolimus (Afinitor) 5 Mg Tab 5 MG PO DAILY Exemestane (Aromasin) Unknown Strength Tab 25 MG PO DAILY Levothyroxine Sodium (Levothyroxine Sodium) 150 Mcg Tab 150 MCG PO DAILY Metoprolol Succinate (Toprol Xl) 50 Mg Tabcr 50 MG PO DAILY Multivitamin (Multivitamin) Tab 1 TAB PO DAILY, TAB Pantoprazole (Pantoprazole Sodium) 40 Mg Tab 40 MG PO DAILY Valacyclovir HCl (Valacyclovir HCl) 500 Mg Tab 500 MG PO DAILY Zolpidem Tartrate (Ambien) 10 Mg Tab 10 MG PO HS, TAB Referrals At Discharge Follow up Referrals: [facility] Referral - Within a Month with Marcial Munroe M.D. Physician Referral - Within 1 Week with Rod León M.D. Surgery Referral - Within 1 Week with Ina Dillard .MD Discharge Exam Physical Exam General Appearance: no apparent distress, + thin Eyes: normal inspection, sclerae normal ENT: hearing grossly normal Neck: trachea midline Respiratory/Chest: lungs clear, normal breath sounds, no respiratory distress, no accessory muscle use Cardiovascular: regular rate, rhythm, no edema, no murmur Abdomen: normal bowel sounds, non tender, soft, no organomegaly, + pertinent finding (incisions with steri strips, bandages removed, healing well) Extremities: non-tender, normal inspection, no pedal edema, no calf tenderness Neurologic/Psychiatric: alert, normal mood/affect, oriented x 3 Skin: normal color, warm/dry, no rash Review of Systems: Constitutional: No fever Eyes: No problem reported ENT: No problem reported Respiratory: No problem reported Cardiovascular: No problem reported Abdomen: No problem reported Musculoskeletal: No problem reported Genitourinary - Female: No problem reported Neurologic: No problem reported Psychiatric: No problem reported Endocrine: No problem reported Hematologic / Lymphatic: No problem reported Integumentary: No problem reported Hospital Course Pt is a 71 yo female with a h/o metastatic breast CA to bones and lungs currently on chemo, talc pleurodesis of right lung for recurrent malignant effusion, HTN, PUD, thyroid CA, here with acute cholecystitis. Acute cholecystitis-biliary sepsis (SIRS being temp, HR, and RR) now s/p lap hank on 08/18/16,transaminitis - almost certainly relates to cholecystitis - LFTs continue to trend downward but very slowly, afebrile. Was on Zosyn but discontinued after 5 day course Hepatic vein Doppler neg for clot, tolerating diet. Doing well -post-op management as per Surgery-->bandages removed and leave steri strips in place -continue low fat diet -pain control -f/u Surgery 1 week post-op -IS and mobilization -continue to follow LFTs in 1 week as outpatient Possible rectal bleeding x 1 day with diarrhea- likely related to internal hemorrhoids as per GI-->rectal bleeding resolved; stool culture growing out Yeast not Lindsey, C. 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 Underwent EP study with ablation of the AVNRT. ECHO normal. -continue metoprolol at 25mg po bid. -f/u with Cardio/EP in 1 month Metastatic Breast cancer - with mets to lungs and bone-->continue home meds Hx of PUD - home med regimen, PPI Hx of thyroid cancer, with removal of gland and subsequent hypothyroidism -TSH 4.2 in Jul, 2015- home meds HTN - controlled -continue metoprolol Lip lac from traumatic intubation--Improved DVT ppx with heparin Pt is FULL CODE Dispo-to home Total Time Spent: Greater than 30 minutes This includes examination of the patient, discharge planning, medication reconciliation, and communication with other providers. Discharge Instructions Please refer to the electronic Patient Visit Report (Discharge Instructions) for additional information. Follow-Up PCP within 1 week Surgery in 1 week Cardiology in 1 month Additional Copies To Isaac Way M.D.
== END 2016-08-23 13:17 | disposition home or self-care (01) | DRG 853 ==
LOC: EDBD 12:43 → C.EDC 12:45 → C.MED 15:38 → ENRESERV 16:08 → C.MSICU 08-17 05:36 → CMPBEDREQ 08-18 12:33 → ENRESERV 08-19 14:10 → C.2E 08-19 15:13
PROVIDERS: ADMIT Hospitalist; ATTEND Family Medicine
PROC: 0FT44ZZ Resection of Gallbladder, Percutaneous Endoscopic Approach (ICD-10-PCS; principal; 2016-08-18 09:30)
PROC: 02583ZZ Destruction of Conduction Mechanism, Percutaneous Approach (ICD-10-PCS; 2016-08-22)
DX: A41.9 Sepsis, unspecified organism (principal); K85.80 Other acute pancreatitis without necrosis or infection; K81.0 Acute cholecystitis; I47.1 Supraventricular tachycardia; L76.12 Accidental puncture and laceration of skin and subcutaneous tissue during other procedure; J91.0 Malignant pleural effusion; K62.5 Hemorrhage of anus and rectum; C78.00 Secondary malignant neoplasm of unspecified lung; C79.51 Secondary malignant neoplasm of bone; K21.9 Gastro-esophageal reflux disease without esophagitis; C50.919 Malignant neoplasm of unspecified site of unspecified female breast; I10 Essential (primary) hypertension; E78.5 Hyperlipidemia, unspecified; Z79.818 Long term (current) use of other agents affecting estrogen receptors and estrogen levels; Z79.899 Other long term (current) drug therapy; Z90.13 Acquired absence of bilateral breasts and nipples; Z85.850 Personal history of malignant neoplasm of thyroid; Z92.3 Personal history of irradiation; Z87.891 Personal history of nicotine dependence; S01.511A Laceration without foreign body of lip, initial encounter; Y92.234 Operating room of hospital as the place of occurrence of the external cause; Y84.8 Other medical procedures as the cause of abnormal reaction of the patient, or of later complication, without mention of misadventure at the time of the procedure; K64.8 Other hemorrhoids

== ENCOUNTER → 2016-08-29 | Outpatient (CLI) | payer OTHER, BC ==
[~2016-08-29] MED LIST changes: -ASCA500 PO; +ASCO500T16 PO; +ATOR-22 PO; -ATOR10TA82 PO; +CALC-354 PO; -CLTP PO; -EVER10TA PO; +EVER5TAB PO; +LEVO150T9 PO; -LEVO1TAB PO; +METO-217 PO; +NYSS5 PO; -PANT40TA PO; +PANT40TA2 PO; +POTA10CA28 PO; +QSTP PO; +ULT50X PO; -VALA500T60 PO; +VLT500 PO
[2016-08-29 09:37] LABS: BASO % 0.5 %; BASO ABS # 0.02 K/uL (0-0.2); COMPLETE YES; EOS % 5.7 %; HEMATOCRIT 35.2 % (37-47); LYMPH % 15.9 %; LYMPH ABS # 0.62 K/uL (1.2-3.4); MEAN CELL VOLUME 80.2 fL (80-100); MEAN CORPUSCULAR HEMOGLOBIN 24.6 pg (25-34); MEAN CORPUSCULAR HGB CONC 30.7 g/dl (32-36); MEAN PLATELET VOLUME 8.9 fL (7.4-10.4); MONO % 8.7 %; NEUT % 69.2 %; PLATELET COUNT 382 K/uL (130-400); RED BLOOD COUNT 4.39 M/uL (4.2-5.4); WHITE BLOOD COUNT 3.89 K/uL (4.8-10.8)
[2016-08-29 09:44] LABS: ESTIMATED AVERAGE GLUCOSE 131 mg/dl; HA1C FLAG Normal (Normal)
[2016-08-29 09:54] LABS: CALCIUM 9.2 mg/dl (8.5-10.1)
[2016-08-29 10:01] LABS: ALT/SGPT 67 U/L (12-78); AST/SGOT 23 U/L (15-37); BLOOD UREA NITROGEN 9 mg/dl (7-18); BUN/CREATININE RATIO 18.2 (10-20); CARBON DIOXIDE 26 mmol/L (21-32); CHLORIDE 98 mmol/L (98-107); CHOLESTEROL 163 mg/dl (0-200); GLUCOSE 96 mg/dl (70-99); POTASSIUM 3.9 mmol/L (3.5-5.1); SODIUM 134 mmol/L (136-145); TRIGLYCERIDES 89 mg/dl (0-150); URIC ACID 2.2 mg/dl (2.6-7.2); VERY LOW DENSITY LIPOPROT CALC 18 mg/dl
[2016-08-29 10:10] LABS: ALB/GLOB RATIO 0.6 (0.9-2); ALKALINE PHOSPHATASE 110 U/L (45-117); CHOLESTEROL/HDL RATIO 3.1; HDL CHOLESTEROL 53 mg/dl; LDL CHOLESTEROL CALCULATED 92 mg/dl; TOTAL IRON BINDING CAPACITY 271 mcg/dl (250-450)
== END | disposition home or self-care (01) ==
LOC: C.LAB 07:08
PROVIDERS: ATTEND Family Medicine
DX: R73.09 Other abnormal glucose (principal); E55.9 Vitamin D deficiency, unspecified; D51.9 Vitamin B12 deficiency anemia, unspecified; E78.9 Disorder of lipoprotein metabolism, unspecified; R53.83 Other fatigue

== ENCOUNTER → 2016-10-24 | Outpatient (CLI) | payer OTHER, BC ==
[~2016-10-24] MED LIST changes: +OPTIRAY 320 IV PRN; -PANT40TA2 PO; +PRT/40 PO
--- NOTE | 2016-10-24 13:10 | DIAGNOSTIC IMAGING REPORT ---
CT ABD/PELVIS IV AND ORAL CONT CLINICAL HISTORY: METASTATIC BREAST CA COMPARISON STUDY: August 16, 2016 TECHNIQUE: Following the IV administration of 92 mL of Optiray-320, CT scan of the abdomen and pelvis was performed from the lung bases to the proximal femurs. Images are reviewed in the axial, sagittal, and coronal planes. IV contrast was administered without complication. A dose lowering technique was utilized adhering to the principles of ALARA. CT DOSE: 411.59 mGy.cm FINDINGS: Lower chest: There is persistent globular enhancing/hyperdense right lower pleural thickening with a small chronic right pleural effusion. This may relate to prior pleurodesis. Pleural metastatic disease not excluded. Liver: Portal veins and hepatic veins appear patent. The stable 5 mm right lobe hypodensity, likely representing a cyst. Gallbladder: There are postsurgical changes of a prior cholecystectomy. There is a 25 mm fluid collection within the gallbladder fossa containing a few small air locules. A small bile leak with a biloma cannot be excluded given the patient's surgery was 2 months previous. Spleen: Normal in size and attenuation. Pancreas: Unremarkable. Adrenal glands: There is mild adrenal gland thickening similar to the prior study Kidneys: There is symmetric renal cortical enhancement. The kidneys are normal in size without hydronephrosis. Bowel: There are no transition zones indicate bowel obstruction. The appendix appears normal. There is no acute diverticulitis. Peritoneum: There is no intraperitoneal free air or abdominal ascites. Vasculature: The abdominal aorta is normal in course and caliber. Adenopathy: None. Pelvic viscera: The bladder, and pelvic viscera are unremarkable. Skeletal structures: Sclerotic changes involve the T10 vertebra. There are several sclerotic ribs. The findings may indicate blastic metastasis. IMPRESSION: 1. No evidence of bowel obstruction. No evidence of free air 2. No evidence of acute appendicitis. No evidence of acute diverticulitis 3. Persistent T10 sclerotic lesion suspicious for blastic metastasis 4. Stable right-sided lobular pleural thickening. The findings are suggestive a prior portable basis. Pleural metastatic disease not excluded 5. Interval cholecystectomy. 25 mm fluid collection within the gallbladder fossa containing a few small air locules. A small bile leak with a biloma cannot be excluded. Electronically signed by: David Brizuela M.D. 10/24/2016 1:09 PM Dictated Date/Time: 10/24/2016 1:00 PM
--- NOTE | 2016-10-24 13:15 | DIAGNOSTIC IMAGING REPORT ---
(CHEST) THORAX WITH HISTORY: 71 years-old Female METASTATIC BREAST CA. This is a follow-up exam. COMPARISON: CT abdomen and pelvis of same day, chest CT 04/26/2016 and 02/01/2016. PET CT 04/17/2015 and 07/11/2014. TECHNIQUE: Multiple axial CT images of the chest were obtained following the intravenous administration of 92 mL Optiray 320. A dose lowering technique was used consistent with the principals of APOLLO. FINDINGS: No dominant thyroid nodule seen. Enlarged AP window lymph node is again seen, 2.1 x 1.4 cm, stable from comparison 1 measures a similar fashion. Mildly prominent precarinal lymph node measures 1.4 x 1.0 cm, also unchanged. There is mild multichamber cardiac enlargement with coronary arterial calcifications. Thoracic aorta demonstrates no dissection or aneurysm. Mild atherosclerotic plaquing is noted. There is dilation of the main pulmonary artery, 3.1 cm suggesting pulmonary arterial hypertension. Unchanged collection of the right lung base with peripheral increased attenuation is seen, 4.0 x 1.4 cm, previously 4.2 x 1.4 cm. There is evidence of prior right-sided pleurodesis. Pleural thickening of the pleura at the anterior lung base also appears unchanged. Moderate pleural parenchymal scarring of the right lung apex is unchanged. There is no pneumothorax or new large pleural effusion. The previously noted noncalcified pulmonary nodule at the lateral left lung base, 3 mm no longer identified. 4 mm noncalcified pulmonary nodule right upper lobe is stable dating back to PET/CT 04/17/2015. There is unchanged mild interlobular septal thickening of the right lung base with patchy unchanged consolidation. No new suspicious pulmonary nodules are identified. Central airways are patent. Prior cholecystectomy. 1.5 x 1.0 cm soft tissue attenuating lesion of the right adrenal gland is stable dating back to at least 2014 suggesting benign etiology. Metastatic osseous lesion of the mid sternum and T10 vertebral bodies appears unchanged. No new bony metastasis are identified. No pathologic fractures. IMPRESSION: 1. Stable appearance of the chest without evidence of new metastatic disease. 2. Evidence of prior right-sided pleurodesis with persistent small collection at the right lung base. There is unchanged pleural thickening with right basilar consolidation and intralobular septal thickening. 3. A few prominent and mildly enlarged lymph nodes of the mediastinum as above are also unchanged. 4. 4 mm noncalcified pulmonary nodule of the right upper lobe is stable in size dating back to PET CT 04/17/2015. There is resolution of the 3 mm noncalcified pulmonary nodule of the left lower lobe. 5. Sclerotic metastases involving the midsternum and T10 vertebral body are unchanged without new metastatic bony lesions identified. The above report was generated using voice recognition software. It may contain grammatical, syntax or spelling errors. Electronically signed by: Johnathan Kwong M.D. 10/24/2016 1:13 PM Dictated Date/Time: 10/24/2016 1:00 PM
--- NOTE | 2016-10-24 13:42 | DIAGNOSTIC IMAGING REPORT ---
WHOLE BODY BONE SCAN HISTORY: METASTATIC BREAST CA RADIOTRACER: 26.7 mCi Tc-99m MDP STUDY/IMAGES: Planar anterior and posterior whole body imaging was performed 3 hours following the intravenous administration of radiotracer. COMPARISON: Bone scan 04/26/2016. FINDINGS: No change in the focal areas of radiotracer uptake seen within the mid sternum, T10 vertebral body, and right posterior 10th rib. These are consistent with metastatic foci. Small focal area of radiotracer uptake within the left mid cervical spine facet and bilateral L5-S1 facets likely represent degenerative change. Evidence for a right total hip arthroplasty. Mild radiotracer uptake within the right greater trochanter favors postoperative change. This is also unchanged. IMPRESSION: No change in the radiotracer uptake within the T10 vertebral body, right posterior 10th rib, and sternum consistent with skeletal metastases. No new areas of metastatic disease identified. Electronically signed by: Wesley Castillo M.D. 10/24/2016 1:41 PM Dictated Date/Time: 10/24/2016 1:27 PM
== END | disposition home or self-care (01) ==
LOC: C.NUCL 09:59
PROVIDERS: ATTEND Internal Medicine Hematology & Oncology
DX: C50.911 Malignant neoplasm of unspecified site of right female breast (principal); G54.3 Thoracic root disorders, not elsewhere classified; R91.8 Other nonspecific abnormal finding of lung field

== ENCOUNTER → 2016-12-23 | Outpatient (CLI) | payer OTHER, BC ==
[~2016-12-23] MED LIST changes: -OPTIRAY 320 IV PRN
--- NOTE | 2016-12-23 13:07 | DIAGNOSTIC IMAGING REPORT ---
ULTRASOUND LEFT LOWER EXTREMITY VENOUS CLINICAL HISTORY: Left leg pain. COMPARISON STUDY: Bilateral lower extremity venous ultrasound dated 08/17/2016. TECHNIQUE: Real-time, grayscale, and color Doppler sonography of the deep veins of the left lower extremity was performed from the inguinal crease to the calf. Compression and augmentation were utilized. FINDINGS: There is no sonographic evidence of deep venous thrombosis identified in the left lower extremity. The common femoral, superficial femoral, and popliteal veins are patent and normally compressible. The greater saphenous vein and the profunda femoris vein at the junction with the common femoral vein are clear. The visualized calf veins are patent. No sonographic abnormality is seen in the distal thigh at the indicated site of interest. IMPRESSION: There is no sonographic evidence of deep venous thrombosis identified in the left lower extremity. Electronically signed by: Rickie King M.D. 12/23/2016 1:05 PM Dictated Date/Time: 12/23/2016 1:04 PM
== END | disposition home or self-care (01) ==
LOC: C.ULTRBC 12:38
PROVIDERS: ATTEND Family Medicine
DX: M79.605 Pain in left leg (principal)

== ENCOUNTER → 2017-01-01 | Outpatient (CLI) | payer OTHER, BC ==
[~2017-01-01] MED LIST changes: +GADAVIST IV PRN
--- NOTE | 2017-01-01 11:06 | DIAGNOSTIC IMAGING REPORT ---
MRI OF THE PELVIS AND HIPS WITH AND WITHOUT CONTRAST CLINICAL HISTORY: Breast cancer with history of pathologic fracture and right hip status post fixation. Increasing right hip pain. COMPARISON STUDY: MR of the pelvis and hips July 21, [address] of the chest, abdomen and pelvis and the body bone scan October 24, 2016 TECHNIQUE: Lodging 1.5 Gretchen magnet, multiplanar, multiecho imaging of the pelvis and hips was performed pre and postcontrast ministration. Injection of 4.3 cc of Gadavist IV was uneventful. FINDINGS: Proximal right femoral internal fixation hardware is noted. Susceptibility artifact from this hardware make evaluation of the adjacent osseous and soft tissue structures difficult. However, the postoperative appearance is similar to MRI of July 21, 2014. No overtly suspicious marrow replacement is identified within the pelvis or hips. An 8 mm T1 hypointense, T2 hyperintense lesion within the posterior medial left iliac bone shown on axial image 9 of 40 is unchanged since prior MRI July 21, 2014. The sacroiliac joints and symphysis pubis are intact. There is no pelvic lymphadenopathy or mass. There is fluid within the right trochanteric bursa. There is mild osteoarthritis of the right hip. A small right hip joint effusion is present. There is mild edema within the right abductor musculature. No additional sites of muscular signal abnormality are present. IMPRESSION: 1. Status post right femoral internal fixation. Stable postoperative findings since exam of July 21, 2014. Evaluation of the adjacent osseous and soft tissue structures is difficult due to susceptibility artifact from the hardware. 2. Fluid within the right trochanteric bursa which suggests trochanteric bursitis. Small right hip joint effusion with mild osteoarthritis of the right hip. 3. No change in an 8 mm lesion within the posterior medial left iliac bone since exam of July 21, 2014. This remains indeterminate but is stable from prior MRI. Electronically signed by: Xu Andrade M.D. 01/01/2017 11:04 AM Dictated Date/Time: 01/01/2017 10:21 AM
== END | disposition home or self-care (01) ==
LOC: C.MRIBC 07:52
PROVIDERS: ATTEND Internal Medicine Hematology & Oncology
DX: C50.911 Malignant neoplasm of unspecified site of right female breast (principal); M25.551 Pain in right hip

== ENCOUNTER → 2017-04-08 | Outpatient (CLI) | payer OTHER, BC ==
[~2017-04-08] MED LIST changes: -GADAVIST IV PRN; +OPTIRAY 320 IV PRN; +PANT40TA2 PO; -PRT/40 PO
--- NOTE | 2017-04-08 13:28 | DIAGNOSTIC IMAGING REPORT ---
ABDOMEN AND PELVIS CT WITH IV CONTRAST CT DOSE: HISTORY: Breast cancer. Follow-up. TECHNIQUE: Multiaxial CT images of the abdomen and pelvis were performed following the use of intravenous contrast. A dose lowering technique was utilized adhering to the principles of ALARA. COMPARISON STUDY: Abdomen and pelvis CTA 1017. FINDINGS: No change in the trace right pleural effusion and nodular right pleural thickening with associated globular enhancement/hyperdensity posteriorly. This could related to prior pleurodesis. However, metastatic disease cannot be excluded. Stable 1.8 cm indeterminate right adrenal gland nodule. Cholecystectomy. Tiny fluid collection within the gallbladder fossa has decreased in size and now measures 1.4 cm. Stable 6 mm hypodense lesion within the right hepatic lobe inferiorly. This favors a cyst given the stability. No new hepatic masses. The spleen, left adrenal gland, pancreas, and kidneys are unremarkable. No retroperitoneal lymphadenopathy. The bladder and uterus are unremarkable. No pelvic free fluid. No bowel wall thickening or obstruction. Postoperative changes within the right femur. No change in the T10 sclerotic lesion. This is consistent with metastatic disease. Small sclerotic focus within the left side of the sacrum remains unchanged and may represent a bone. No bony lesions identified. IMPRESSION: 1. No change in the T10 sclerotic lesion consistent with metastatic disease. 2. Stable right-sided lobular pleural thickening and a trace right pleural effusion. This could be related to prior pleurodesis. Pleural metastatic disease is not excluded. 3. Decrease in size in the tiny fluid collection within the gallbladder fossa. Electronically signed by: Wesley Castillo M.D. 04/08/2017 1:26 PM Dictated Date/Time: 04/08/2017 1:15 PM
--- NOTE | 2017-04-08 13:42 | DIAGNOSTIC IMAGING REPORT ---
CHEST CT WITH CONTRAST CT DOSE: 424.64 mGy.cm HISTORY: Follow-up study in a patient with history of breast cancer. Prior right-sided pleurodesis. History of skeletal metastasis within the T10 vertebral body, right 10th rib and sternum BREAST CA - *IV CONTRAST ONLY* TECHNIQUE: Multiaxial CT images of the chest were performed following the intravenous administration of contrast. A dose lowering technique was utilized adhering to the principles of ALARA. COMPARISON: CT abdomen and pelvis of same day, CT chest 10/24/2016, bone scan 10/24/2016. FINDINGS: AP window adenopathy measures up to 1.8 x 1.7 cm, previously measuring 2.1 x 1.6 cm when measured in a similar fashion on comparison study 10/24/2016. Right paratracheal adenopathy measuring up to 1.1 x 1.1 cm is noted at the level of the amira which also appears stable. Mildly prominent subcarinal lymph node measures 1.2 x 0.6 cm, unchanged. No new pathologic appearing adenopathy about the chest identified. Heart is mildly enlarged without pericardial effusion. The thoracic aorta is normal in both course and caliber without aneurysm or dissection. The imaged proximal great vessels appear to be patent. Moderate atherosclerosis. The main pulmonary artery is again dilated suggesting pulmonary arterial hypertension. No filling defects identified to suggest bony embolus. Evidence of prior right-sided pleurodesis. There is a persistent small collection of the right lung base which is unchanged measuring approximately 3.6 x 0.8 cm. There is persistent pleural thickening of the right lung base, with an unchanged trace right pleural effusion. The left lung appears generally clear. Areas of intralobular septal thickening with patchy multifocal reticular and consolidative opacities are seen within the right lung base which have slightly progressed from comparison. No suspicious pulmonary nodules or masses identified. Central airways appear to be patent. Moderate bronchial wall thickening throughout the right lung. No acute abnormality of the imaged upper abdomen. Soft tissues are unremarkable. Sclerotic metastatic lesions within the T10 vertebral body and mid sternum are unchanged compatible with metastatic disease. No new lytic or sclerotic lesions identified to suggest progressive bony metastasis. Lesion at T10 extends into the left pedicle. IMPRESSION: 1. Unchanged sclerotic metastasis of the mid sternum and T10 vertebral body without new or progressive bony metastasis identified. 2. Stable mild mediastinal adenopathy as above. 3. Prior right-sided pleurodesis with stable right-sided pleural thickening and trace right pleural effusion. Mildly progressive intralobular septal thickening, bronchial wall thickening with patchy groundglass and consolidative opacities of the right lung base suggesting associated infectious or inflammatory pneumonitis with metastatic disease also in the differential. Attention at follow-up recommended. Electronically signed by: Johnathan Kwong M.D. 04/08/2017 1:41 PM Dictated Date/Time: 04/08/2017 1:27 PM
--- NOTE | 2017-04-08 15:20 | DIAGNOSTIC IMAGING REPORT ---
BONE SCAN WHOLE BODY HISTORY: Breast carcinoma BREAST CA - *IV CONTRAST ONLY* RADIOTRACER: 25.117 mCi Tc-99m MDP STUDY/IMAGES: Planar anterior and posterior whole body imaging was performed 3 hours following the intravenous administration of radiotracer. COMPARISON: 10/24/2016 FINDINGS: Bilateral renal activity is again noted. No change in activity noted involving the T10 vertebral body as well as posterior right 10th rib. Focus of increased activity involving the mid sternum also unchanged. Minimal scattered degenerative activity of the cervical spine. No abnormal soft tissue activity characteristics. IMPRESSION: Metastatic bone disease involving T10, right posterior 10th rib, and midsternum area. This is unchanged from the prior study. The above report was generated using voice recognition software. It may contain grammatical, syntax or spelling errors. Electronically signed by: Jaren Brennan M.D. 04/08/2017 3:19 PM Dictated Date/Time: 04/08/2017 3:17 PM
== END | disposition home or self-care (01) ==
LOC: C.NUCL 11:17
PROVIDERS: ATTEND Internal Medicine Hematology & Oncology
DX: C50.911 Malignant neoplasm of unspecified site of right female breast (principal); C79.51 Secondary malignant neoplasm of bone

== ENCOUNTER → 2017-05-28 | Outpatient (CLI) | payer OTHER, BC ==
[~2017-05-28] MED LIST changes: -OPTIRAY 320 IV PRN
--- NOTE | 2017-05-28 09:47 | DIAGNOSTIC IMAGING REPORT ---
ABDOMINAL WALL ULTRASOUND CLINICAL HISTORY: Right-sided ABDOMINAL WALL PAIN COMPARISON STUDY: Abdomen and pelvis CT 04/08/2017. Bone scan 04/08/2017. FINDINGS: Real-time sonographic imaging of the right abdominal wall/flank was performed. No masses or fluid collections seen within the right abdominal wall at the patient's area of pain. IMPRESSION: No sonographic abnormality within the right lateral abdominal wall at the patient's area of pain. Electronically signed by: Wesley Castillo M.D. 05/28/2017 9:46 AM Dictated Date/Time: 05/28/2017 9:44 AM
--- NOTE | 2017-05-28 10:12 | DIAGNOSTIC IMAGING REPORT ---
PELVIS 1 OR 2 VIEW ROUTINE HISTORY: 72 years-old Female BREAST CANCER follow-up study in a patient with history of metastatic breast cancer. COMPARISON: Rib and chest radiographs 05/28/2017, CT chest 04/08/2017, bone scan 04/08/2017, CT abdomen and pelvis 04/08/2017 TECHNIQUE: 2 views of the pelvis FINDINGS: Right hip intertrochanteric nail with intramedullary angela redemonstrated without evidence of hardware complication. The bones appear mildly demineralized. Moderate degenerative changes about the bilateral femoral acetabular joints with degenerative changes also seen within the pubic symphysis, pelvis and lower lumbar spine. No acute fracture or dislocation is identified. No suspicious lytic or blastic bony lesions. IMPRESSION: 1. No acute fracture or dislocation identified. 2. No suspicious lytic or blastic bony lesions are identified. The above report was generated using voice recognition software. It may contain grammatical, syntax or spelling errors. Electronically signed by: Johnathan Kwong M.D. 05/28/2017 10:11 AM Dictated Date/Time: 05/28/2017 10:07 AM
--- NOTE | 2017-05-28 10:13 | DIAGNOSTIC IMAGING REPORT ---
RIBS UNILATERAL WITH PA CHEST CLINICAL HISTORY: BREAST CANCER. Right rib pain. COMPARISON STUDY: Chest 08/16/2016. Bone scan 04/08/2017. FINDINGS: Small right pleural effusion and right basilar densities persist. The heart is normal in size. The left lung is clear. No pneumothorax. Linear lucency within the right anterior lateral 10th rib. This could represent a nondisplaced fracture. T10 vertebral body sclerosis consistent with patient's known metastatic lesion. No additional lytic or blastic osseous lesions identified by conventional radiographic technique. IMPRESSION: 1. Possible nondisplaced right anterolateral 10th rib fracture. No pneumothorax. 2. T10 metastatic lesion again noted. 3. Small right pleural effusion persists. Electronically signed by: Wesley Castillo M.D. 05/28/2017 10:12 AM Dictated Date/Time: 05/28/2017 10:08 AM
== END | disposition home or self-care (01) ==
LOC: C.ULTR 09:10
PROVIDERS: ATTEND Family Medicine
DX: R07.89 Other chest pain (principal); C50.919 Malignant neoplasm of unspecified site of unspecified female breast

== ENCOUNTER 2017-07-11 13:35 | Inpatient (IN) | payer OTHER, BC ==
[~2017-07-11] VITALS: Ht 149.9 cm; Wt 44.7 kg
[2017-07-11] MEDS ORDERED: SODIUM CHLORIDE 0.9% 1000ML 1,000 ML IV ONE (13:46)
[2017-07-11] MEDS ORDERED: ACETAMINOPHEN 325 MG TAB PO ONE (14:00)
[2017-07-11] MEDS ORDERED: TPRSR/100 PO (14:10)
[2017-07-11] MEDS ORDERED: LPT40 PO (14:10)
[2017-07-11] MEDS ORDERED: CYCL0.052 OPR (14:10)
[2017-07-11] MEDS ORDERED: ACETAMINOPHEN 500 MG TAB PO ONE (14:16)
--- NOTE | 2017-07-11 14:20 | DIAGNOSTIC IMAGING REPORT ---
CHEST ONE VIEW PORTABLE HISTORY: 72 years-old Female Sepsis acute sepsis with fever and chills. History of metastatic breast cancer. COMPARISON: Chest radiograph 05/28/2017, CT chest 04/08/2017 TECHNIQUE: Portable AP view of the chest FINDINGS: Cardiac silhouette is again mildly enlarged. Atherosclerosis of the aorta. Chronic right-sided pleural thickening with small right pleural effusion. No pneumothorax. The left lung appears clear. Patchy alveolar opacities are noted throughout the right perihilar lung and right lung base. Previously described sclerotic metastasis are better seen on comparison chest CT. IMPRESSION: 1. Patchy alveolar opacities throughout the right perihilar distribution and right lung base are suspicious for pneumonia. Follow-up imaging to document resolution is recommended. 2. Chronic right pleural thickening with small right pleural effusion. 3. Cardiomegaly. The above report was generated using voice recognition software. It may contain grammatical, syntax or spelling errors. Electronically signed by: Johnathan Kwong M.D. 07/11/2017 2:18 PM Dictated Date/Time: 07/11/2017 2:15 PM
[2017-07-11 14:21] LABS: HEMATOCRIT 37.1 % (37-47); HEMOGLOBIN 12.6 g/dL (12.0-16.0); IG# 0.02 K/uL (0.00-0.02); LYMPH % 6.1 %; LYMPH ABS # 0.43 K/uL (1.2-3.4); MEAN CELL VOLUME 77.3 fL (80-100); MEAN CORPUSCULAR HEMOGLOBIN 26.3 pg (25-34); MEAN PLATELET VOLUME 8.6 fL (7.4-10.4); MONO % 6.3 %; MONO ABS # 0.44 K/uL (0.11-0.59); NEUT % 87.3 %; NEUT ABS # 6.14 K/uL (1.4-6.5); PLATELET COUNT 258 K/uL (130-400); RED CELL DISTRIBUTION WIDTH CV 14.1 % (11.5-14.5); RED CELL DISTRIBUTION WIDTH SD 40.3 fL (36.4-46.3); WHITE BLOOD COUNT 7.03 K/uL (4.8-10.8)
[2017-07-11 14:30] LABS: PTT PATIENT 31.8 SECONDS (21.0-31.0)
[2017-07-11] MEDS ORDERED: LEVAQUIN 750MG / 150ML D5W IV STA (14:31)
[2017-07-11] MEDS ORDERED: SODIUM CHLORIDE 0.9% 1000ML 1,000 ML IV STA (14:46)
[2017-07-11 14:47] LABS: ALBUMIN 3.4 gm/dl (3.4-5.0); ALT/SGPT 33 U/L (12-78); AST/SGOT 31 U/L (15-37); BLOOD UREA NITROGEN 6 mg/dl (7-18); CALCIUM 8.8 mg/dl (8.5-10.1); CARBON DIOXIDE 24 mmol/L (21-32); CREATININE 0.76 mg/dl (0.60-1.20); GLUCOSE 98 mg/dl (70-99); POTASSIUM 2.7 mmol/L (3.5-5.1); SODIUM 129 mmol/L (136-145)
[2017-07-11] MEDS ORDERED: POTASSIUM CHLR 10 MEQ / WTR 100 ML IV STA (14:52)
[2017-07-11 14:54] LABS: ALKALINE PHOSPHATASE 55 U/L (45-117); CKMB < 0.5 ng/ml (0.5-3.6); LIPASE 60 U/L (73-393); TOTAL PROTEIN 8.7 gm/dl (6.4-8.2)
--- NOTE | 2017-07-11 15:06 | EMERGENCY ROOM VISIT NOTE ---
History Report prepared by Monica: Marcelino Mackenzie Under the Supervision of: Dr. Rod Gee D.O. First contact with patient: 13:43 Chief Complaint: FEVER Stated Complaint: PAINS,CHILLS,FEVER,NO APPETITE History of Present Illness The patient is a 72 year old female who presents to the Emergency Room with complaints of a constant generalized illness. Her symptoms include fevers, back pain, SOB, chills and runny nose. The patient states that her symptoms began after receiving a shingles vaccination four days ago. She has a history of breast cancer with metastases to the lung (on chemotherapy, two meds daily). The patient denies sore throat, or leg swelling/pain. She reports having decreased urinary output until she began drinking Gatorade. She was referred to the ED with concerns of possible dehydration. Source of History: patient Onset: Four days ago Position: other (generalized) Quality: other (illness) Timing: constant Associated Symptoms: + fevers, + chills, + SOB, + back pain, No sorethroat Note: The patient denies leg swelling/pain. Review of Systems See HPI for pertinent positives & negatives. A total of 10 systems reviewed and were otherwise negative. Past Medical & Surgical Medical Problems: (1) Allergic rhinitis (2) AVNRT (AV sal re-entry tachycardia) (3) Cancer of thyroid (4) GERD (gastroesophageal reflux disease) (5) Peptic ulcer disease with hemorrhage (6) right sided pneumonia Family History Cancer Diabetes mellitus FH: heart disease Hypertension Social History Smoking Status: Never Smoker Alcohol Use: occasionally Drug Use: none Housing Status: lives alone Occupation Status: retired, other Current/Historical Medications Scheduled Ascorbic Acid (Ascorbic Acid), 1 TAB PO BID Atorvastatin (Lipitor), 40 MG PO HS Calcium Carbonate-Cholecalcife (Caltrate 600+D), 2 TAB PO AMPM Cholecalciferol (Vitamin D), 1 TAB PO DAILY Cyclosporine (Ophth) (Restasis), 1 DROP OPR BID Everolimus (Afinitor), 5 MG PO DAILY Exemestane (Aromasin), 25 MG PO DAILY Levothyroxine Sodium (Levothyroxine Sodium), 150 MCG PO DAILY Metoprolol Succinate (Metoprolol Succinate ER), 100 MG PO DAILY Multivitamin (Multivitamin), 1 TAB PO DAILY Pantoprazole (Pantoprazole Sodium), 40 MG PO DAILY Potassium Chloride (Micro-K Ext Rel), 10 MEQ PO BID Valacyclovir HCl (Valacyclovir HCl), 500 MG PO DAILY Zolpidem Tartrate (Ambien), 10 MG PO HS Scheduled PRN Acetamin/Butalbital/Caffeine (Fioricet), 1 TAB PO UD PRN for Pain Allergies Coded Allergies: Isosorbide Nitrate (Verified Adverse Reaction, Intermediate, IMDUR/ MIGRAINE, 08/17/16) Oxycodone (Verified Adverse Reaction, Intermediate, HALLUCINATIONS, 08/17/16 ) HALLUCINATIONS Aspirin (Verified Adverse Reaction, Mild, HISTORY OF BLEEDING ULCERS, 05/31) Buprenorphine (Verified Adverse Reaction, Mild, GI SYMPTOMS, 06/01/15) Diphenhydramine (Verified Adverse Reaction, Mild, RESTLESS LEGS, 06/01/15) RESTLESS LEGS Morphine (Verified Adverse Reaction, Mild, SEVERE VOMITING, 06/01/15) NSAIDs (Verified Adverse Reaction, Mild, BLEEDING ULCER DISEASE-CAN NOT HAVE NSAIDS, 06/01/15) Tapentadol (Verified Adverse Reaction, Mild, headache, 06/01/15) Physical Exam Vital Signs Date Time Temp Pulse Resp B/P (MAP) Pulse Ox O2 Delivery O2 Flow Rate FiO2 07/11/17 18:27 100 20 126/76 93 Room Air 07/11/17 17:13 37.5 07/11/17 16:48 95 20 120/85 92 Room Air 07/11/17 16:25 Room Air 07/11/17 14:45 111 20 142/86 96 Room Air 07/11/17 14:04 118 07/11/17 13:37 39.3 136 20 144/88 92 Room Air Physical Exam GENERAL: Patient is awake, alert, and in no acute distress. Patient is resting comfortably and showing no signs of anxiety EYES: The conjunctivae are clear. The pupils are round and reactive. EARS, NOSE, MOUTH AND THROAT: The nose is without any evidence of any deformity. Mucous membranes are moist tongue is midline NECK: The neck is nontender and supple. RESPIRATORY: Lung sounds diminished throughout with rales at the right base. No conversational dyspnea noted. CARDIOVASCULAR: Tachycardic but regular. No definite murmur noted. GASTROINTESTINAL: The abdomen is soft. Bowel sounds are present in all quadrants. Abdomen is nontender PELVIS: The Pelvis is stable. No tenderness to palpation is noted. BACK: No midline tenderness or or step-off noted range of motion in flexion extension as well as rotation no signs of muscle spasm noted MUSCULOSKELETAL/EXTREMITIES: There is no evidence of gross deformity full range of motion is noted in the hips and shoulders SKIN: There is no obvious evidence of any rash. There are no petechiae, pallor or cyanosis noted. NEUROLOGIC: Patient is awake alert and oriented x3. Medical Decision & Procedures ER Provider Diagnostic Interpretation: Radiology results as stated below per my review and radiologist interpretation: CHEST ONE VIEW PORTABLE FINDINGS: Cardiac silhouette is again mildly enlarged. Atherosclerosis of the aorta. Chronic right-sided pleural thickening with small right pleural effusion. No pneumothorax. The left lung appears clear. Patchy alveolar opacities are noted throughout the right perihilar lung and right lung base. Previously described sclerotic metastasis are better seen on comparison chest CT. IMPRESSION: 1. Patchy alveolar opacities throughout the right perihilar distribution and right lung base are suspicious for pneumonia. Follow-up imaging to document resolution is recommended. 2. Chronic right pleural thickening with small right pleural effusion. 3. Cardiomegaly. The above report was generated using voice recognition software. It may contain grammatical, syntax or spelling errors. Electronically signed by: Johnathan Kwong M.D. 07/11/2017 2:18 PM Laboratory Results 07/11/17 14:03 Red Blood Count 4.80, Mean Corpuscular Volume 77.3, Mean Corpuscular Hemoglobin 26.3, Mean Corpuscular Hemoglobin Concent 34.0, Mean Platelet Volume 8.6, Neutrophils (%) (Auto) 87.3, Lymphocytes (%) (Auto) 6.1, Monocytes (%) (Auto) 6.3, Eosinophils (%) (Auto) 0.0, Basophils (%) (Auto) 0.0, Neutrophils # (Auto) 6.14, Lymphocytes # (Auto) 0.43, Monocytes # (Auto) 0.44, Eosinophils # (Auto) 0.00, Basophils # (Auto) 0.00 07/11/17 14:03 Test 07/11/17 14:03 07/11/17 14:06 07/11/17 14:30 07/11/17 14:45 White Blood Count 7.03 K/uL (4.8-10.8) Red Blood Count 4.80 M/uL (4.2-5.4) Hemoglobin 12.6 g/dL (12.0-16.0) Hematocrit 37.1 % (37-47) Mean Corpuscular Volume 77.3 fL (80-100) Mean Corpuscular Hemoglobin 26.3 pg (25-34) Mean Corpuscular Hemoglobin Concent 34.0 g/dl (32-36) Platelet Count 258 K/uL (130-400) Mean Platelet Volume 8.6 fL (7.4-10.4) Neutrophils (%) (Auto) 87.3 % Lymphocytes (%) (Auto) 6.1 % Monocytes (%) (Auto) 6.3 % Eosinophils (%) (Auto) 0.0 % Basophils (%) (Auto) 0.0 % Neutrophils # (Auto) 6.14 K/uL (1.4-6.5) Lymphocytes # (Auto) 0.43 K/uL (1.2-3.4) Monocytes # (Auto) 0.44 K/uL (0.11-0.59) Eosinophils # (Auto) 0.00 K/uL (0-0.5) Basophils # (Auto) 0.00 K/uL (0-0.2) RDW Standard Deviation 40.3 fL (36.4-46.3) RDW Coefficient of Variation 14.1 % (11.5-14.5) Immature Granulocyte % (Auto) 0.3 % Immature Granulocyte # (Auto) 0.02 K/uL (0.00-0.02) Erythrocyte Sedimentation Rate > 90 mm/hr (0-21) Prothrombin Time 10.7 SECONDS (9.0-12.0) Prothromb Time International Ratio 1.0 (0.9-1.1) Activated Partial Thromboplast Time 31.8 SECONDS (21.0-31.0) Partial Thromboplastin Ratio 1.2 Anion Gap 11.0 mmol/L (3-11) Est Creatinine Clear Calc Drug Dose 45.7 ml/min Estimated GFR () 90.8 Estimated GFR (Non- 78.4 BUN/Creatinine Ratio 7.5 (10-20) Calcium Level 8.8 mg/dl (8.5-10.1) Magnesium Level 2.0 mg/dl (1.8-2.4) Total Bilirubin 0.3 mg/dl (0.2-1) Aspartate Amino Transf (AST/SGOT) 31 U/L (15-37) Alanine Aminotransferase (ALT/SGPT) 33 U/L (12-78) Alkaline Phosphatase 55 U/L (45-117) Total Creatine Kinase 161 U/L (26-192) Creatine Kinase MB < 0.5 ng/ml (0.5-3.6) Creatine Kinase MB Ratio (0-3.0) Troponin I < 0.015 ng/ml (0-0.045) C-Reactive Protein 21.90 mg/dl (0-0.29) Total Protein 8.7 gm/dl (6.4-8.2) Albumin 3.4 gm/dl (3.4-5.0) Globulin 5.3 gm/dl (2.5-4.0) Albumin/Globulin Ratio 0.6 (0.9-2) Lipase 60 U/L (73-393) Bedside Lactic Acid Venous 1.65 mmol/L (0.90-1.70) Urine Color YELLOW Urine Appearance CLEAR (CLEAR) Urine pH 6.0 (4.5-7.5) Urine Specific [place] 1.014 (1.000-1.030) Urine Protein 2+ (NEG) Urine Glucose (UA) NEG (NEG) Urine Ketones 3+ (NEG) Urine Occult Blood 3+ (NEG) Urine Nitrite NEG (NEG) Urine Bilirubin NEG (NEG) Urine Urobilinogen NEG (NEG) Urine Leukocyte Esterase NEG (NEG) Urine WBC (Auto) 1-5 /hpf (0-5) Urine RBC (Auto) >30 /hpf (0-4) Urine Hyaline Casts (Auto) 1-5 /lpf (0-5) Urine Epithelial Cells (Auto) >30 /lpf (0-5) Urine Bacteria (Auto) NEG (NEG) Influenza Type A (RT-PCR) Neg for Influ A (NEG) Influenza Type B (RT-PCR) Neg for Influ B (NEG) Laboratory results per my review. Medications Administered Medications (Trade) Dose Ordered Sig/[place] Route Start Time Stop Time Status Last Admin Dose Admin Sodium Chloride 1,000 ml @ 999 mls/hr Q1H1M ONCE IV 07/11/17 13:46 07/11/17 14:46 DC 07/11/17 14:21 999 MLS/HR Acetaminophen (Tylenol Tab) 1,000 mg STK-MED ONCE PO 07/11/17 14:16 07/11/17 14:17 DC 07/11/17 14:18 1,000 MG Levofloxacin (Levaquin / D5W) 750 mg NOW STAT IV 07/11/17 14:31 07/11/17 14:32 DC 07/11/17 14:41 750 MG Sodium Chloride 1,000 ml @ 999 mls/hr Q1H1M STAT IV 07/11/17 14:46 07/11/17 15:46 DC 07/11/17 13:45 999 MLS/HR Potassium Chloride 100 ml @ 100 mls/hr NOW STAT IV 07/11/17 14:52 07/11/17 15:51 DC 07/11/17 16:45 100 MLS/HR ECG Per My Interpretation Indication: SOB/dyspnea Rate (beats per minute): 115 Rhythm: sinus tachycardia Findings: LBBB, no ectopy Comparison ECG Date: 09/21/2016 Change: no significant change ED Course 1345: The patient was evaluated in room A3. A complete history and physical examination were performed. 1346: Ordered NSS 1,000 ml @ 999 mls/hr IV. 1400: Ordered Tylenol Tab 1000 mg PO. 1500: Upon reevaluation, the patient is resting comfortably. I discussed results and treatment plan with her. She verbalizes agreement and understanding. I spoke with Dr. Whitten of the [facility] [place]. The patient will be evaluated for further management and care. Medical Decision Differential diagnosis: Etiologies such as viral syndrome, otitis, pharyngitis, pneumonia, influenza, meningitis, urinary tract infection, sepsis, bacteremia, as well as others were entertained. Nursing notes reviewed. Additional history is obtained from the patient's family member. The patient's previous electronic medical records reviewed. The patient is a 72-year-old female who presented to the emergency department for cough and fever. The patient has a history of metastatic breast cancer. She also is on immune modulating medications because of her breast cancer. She was found to have tachycardia and fever. She was treated with antipyretics and IV fluids. She was also started on IV antibiotics for presumed pneumonia it was noted on chest x-ray. She was also given IV potassium replacement. I discussed the patient's laboratory and radiographic studies with her. Urine was sent for culture as well as blood cultures were obtained. The patient was reevaluated multiple times. Her condition continued to improve. The [facility] hospitalist was notified about the patient. She is to be evaluated for further management and disposition. Medication Reconcilliation Current Medication List: was personally reviewed by me Blood Pressure Screening Patient's blood pressure: Elevated blood pressure Blood pressure disposition: Elevated BP felt to be situational Consults Time Called: 1502 Consulting Physician: Dr. Whitten - [facility] Returned Call: [phone] I discussed the patient's case with Dr. Whitten. The patient will be evaluated for further management. Impression Primary Impression: Pneumonia Additional Impression: Abnormal ECG Scribe Attestation The scribe's documentation has been prepared under my direction and personally reviewed by me in its entirety. I confirm that the note above accurately reflects all work, treatment, procedures, and medical decision making performed by me. Departure Information Dispostion Being Evaluated By Hospitalist Referrals Isaac Way M.D. (PCP) Patient Instructions My [facility] Problem Qualifiers Primary Impression: Pneumonia Pneumonia type: due to unspecified organism Laterality: right Lung location : unspecified part of lung Qualified Codes: J18.9 - Pneumonia, unspecified organism
[2017-07-11 15:40] LABS: INFLUENZA A PCR Neg for Influ A (NEG); INFLUENZA B PCR Neg for Influ B (NEG)
[2017-07-11 16:25] VITALS: Ht 149.9 cm; Wt 44.7 kg
[2017-07-11] MEDS ORDERED: BUTALBITAL/ACETAMIN/CAFFEINE TAB PO PRN (17:30)
[2017-07-11] MEDS ORDERED: ROCEPHIN CONSULT PHARMACY PRN (17:33)
[2017-07-11] MEDS ORDERED: POLYETHYLENE (MIRALAX) 17 GM PACK PO PRN (17:45)
[2017-07-11] MEDS ORDERED: MAGNESIUM HYDROXIDE SUSP 30 ML UDC PO PRN (17:45)
[2017-07-11] MEDS ORDERED: ZOLPIDEM TARTRATE 5 MG TAB PO PRN ×2 (17:45)
[2017-07-11] MEDS ORDERED: ALUMINUM/MAGNESIUM/SIMETH (MAALOX MAX) 30 ML UDC PO PRN (17:45)
[2017-07-11] MEDS ORDERED: ONDANSETRON INJ 2 MG/ML 2 ML VIAL IV PRN (17:45)
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
[2017-07-11] MEDS ORDERED: POTASSIUM CHLORIDE PWD 20 MEQ PACK PO STA (19:00)
[2017-07-11] MEDS: SODIUM CHLORIDE 0.9% 1000ML 1,000 ML IV SCH (19:24)
[2017-07-11] MEDS ORDERED: [UNRECOGNIZED DRUG - OTHER] PRN (19:30)
[2017-07-11] MEDS: AZITHROMYCIN IV 500 MG in DEXTROSE 5% 250ML 250 ML IV SCH (19:49)
[2017-07-11] MEDS: CEFTRIAXONE SOD INJ 1 GM in DEXTROSE 5% ADD-VANTAGE 50ML 50 ML IV SCH (19:50)
[2017-07-11] MEDS: ACETAMINOPHEN 325 MG TAB PO PRN (21:00)
[2017-07-11] MEDS: ZOLPIDEM TARTRATE 10 MG TAB PO SCH (21:55)
[2017-07-11] MEDS: LACTOBACILLUS ACIDOPHILUS (FLORANEX) TAB PO SCH (21:55)
[2017-07-11] MEDS: POTASSIUM CHLORIDE 10 MEQ TABCR PO SCH (21:56)
[2017-07-11] MEDS: ATORVASTATIN 40 MG TAB PO SCH (21:57)
[2017-07-11] MEDS: HEPARIN SOD 5000 UNIT/0.5 ML CARP SQ SCH (21:58)
[2017-07-11 22:02] VITALS: TEMP 38
[2017-07-11] MEDS: IPRATROPIUM BROMIDE NEB SOLN 0.02% 2.5 ML VIAL INH SCH (22:58)
[2017-07-11 23:00] VITALS: PULSE 109; O2SAT 90
[2017-07-11 23:05] VITALS: BP 130/82; PULSE 106; TEMP 37.9; O2SAT 90
[2017-07-11 23:32] VITALS: TEMP 38.1
[2017-07-12] VITALS (14 sets, daily range): BP systolic 112–154; BP diastolic 80–92; PULSE 80–155; TEMP 36.8–38.4; O2SAT 85–98
[2017-07-12] MEDS ORDERED: IBUPROFEN 200 MG TAB PO PRN (00:30)
[2017-07-12] MEDS: HEPARIN SOD 5000 UNIT/0.5 ML CARP SQ SCH ×3 (03:45→19:39)
[2017-07-12] MEDS: LEVOTHYROXINE 150 MCG TAB PO SCH (03:45)
[2017-07-12 06:29] LABS: EOS % 0.2 %; EOS ABS # 0.01 K/uL (0-0.5); HEMATOCRIT 30.9 % (37-47); HEMOGLOBIN 10.3 g/dL (12.0-16.0); IG# 0.01 K/uL (0.00-0.02); LYMPH % 5.6 %; LYMPH ABS # 0.29 K/uL (1.2-3.4); MEAN CELL VOLUME 76.9 fL (80-100); MEAN CORPUSCULAR HEMOGLOBIN 25.6 pg (25-34); MEAN CORPUSCULAR HGB CONC 33.3 g/dl (32-36); MEAN PLATELET VOLUME 8.2 fL (7.4-10.4); MONO % 7.4 %; MONO ABS # 0.38 K/uL (0.11-0.59); NEUT % 86.6 %; NEUT ABS # 4.46 K/uL (1.4-6.5); PLATELET COUNT 203 K/uL (130-400); RED CELL DISTRIBUTION WIDTH CV 14.4 % (11.5-14.5); RED CELL DISTRIBUTION WIDTH SD 40.8 fL (36.4-46.3); WHITE BLOOD COUNT 5.15 K/uL (4.8-10.8)
[2017-07-12] MEDS: IPRATROPIUM BROMIDE NEB SOLN 0.02% 2.5 ML VIAL INH SCH ×3 (06:46→23:09)
[2017-07-12 07:29] LABS: ALBUMIN 2.3 gm/dl (3.4-5.0); CALCIUM 7.2 mg/dl (8.5-10.1); CREATININE 0.46 mg/dl (0.60-1.20); PHOSPHORUS 0.9 mg/dl (2.5-4.9); POTASSIUM 3.3 mmol/L (3.5-5.1); TOTAL PROTEIN 6.5 gm/dl (6.4-8.2)
[2017-07-12] MEDS ORDERED: POTASSIUM PHOS 3 MMOL/1 ML INFUSION IV STA (07:51)
[2017-07-12] MEDS ORDERED: POTASSIUM PHOSPHATE INJ 30 MMOL in SODIUM CHLORIDE 0.9% 500ML 500 ML IV ONE (08:00)
[2017-07-12] MEDS: SODIUM CHLORIDE 0.9% 1000ML 1,000 ML IV SCH (08:15)
[2017-07-12] MEDS: METOPROLOL SUCC 50MG EXT REL TAB PO SCH (08:16)
[2017-07-12] MEDS: PANTOprazole SOD 40 MG TAB PO SCH (08:17)
[2017-07-12] MEDS: EXEMESTANE 25 MG PO SCH (08:18)
[2017-07-12] MEDS: AFINITOR PO SCH (08:19)
[2017-07-12] MEDS: DEXTROMETHORPHAN POLYMR COMPLX 30 MG/5 ML UDP PO PRN ×2 (08:20→18:15)
[2017-07-12] MEDS: POTASSIUM CHLORIDE 10 MEQ TABCR PO SCH ×2 (08:20→19:41)
[2017-07-12] MEDS: LACTOBACILLUS ACIDOPHILUS (FLORANEX) TAB PO SCH ×3 (08:20→16:43)
[2017-07-12] MEDS: POT PHOSPHATE MONOBASIC W/ SOD TAB PO SCH ×4 (08:21→19:41)
[2017-07-12] MEDS ORDERED: MAGNESIUM SULFATE 1GM / D5W 100 ML IV STA (08:46)
[2017-07-12] MEDS ORDERED: METOPROLOL SUCC 50MG EXT REL TAB PO STA (08:56)
[2017-07-12] MEDS ORDERED: POTASSIUM CHLORIDE 20 MEQ TABCR PO SCH (09:00)
--- NOTE | 2017-07-12 09:14 | Progress Note ---
Subjective Date of Service: Jul 12, 2017. Subjective Pt evaluation today including: conversation w/ patient, physical exam 72 yo female presents with cough. Patient today reports feeling beter today in regards to her respiratory symptoms. Her cough has improved. However, this am, prior to seeing patient, I was called by nursing staff due to her HR being elevated in the 160-180. This lasted for about 18 minutes and subsided. Patient reports she felt palpations and no chest pain. This event occurred when she was having pancakes and sitting upright in bed. As per nursing staff her BP was 150s systolic. Patient currently has no complaints. Patient states she was seen by Dr. Schaefer in the past and had an ablation by Dr. Munroe in late 2017. Currently states she still has bouts of SVT. But is being treated medically with Beta blockers. Problem List Medical Problems: (1) Abnormal ECG Status: Acute (2) Cholecystitis Status: Acute (3) Pneumonia Status: Acute (4) Sepsis Status: Acute (5) Transaminitis Status: Acute Review of Systems Constitutional: No fever, No chills Eyes: No worsening of vision ENT: No hearing loss Respiratory: + cough (on admission), No sputum, No shortness of breath, No dyspnea on exertion Cardiac: + palpitations, No chest pain Abdomen: No pain Neurologic: No memory loss Psychiatric: No depression symptoms Endo: No fatigue Skin: No rash All Other Systems: Reviewed and Negative Medications Current Inpatient Medications Medications (Trade) Dose Ordered Sig/[place] Route Start Time Stop Time Status Last Admin Dose Admin Acetaminophen/ Butalbital/ Caffeine (Fioricet Tab) 1 tab UD PRN PO 07/11/17 17:30 08/10/17 17:29 Atorvastatin Calcium (Lipitor Tab) 40 mg HS PO 07/11/17 21:00 08/10/17 20:59 07/11/17 21:57 40 MG Levothyroxine Sodium (Synthroid Tab) 150 mcg DAILYBB PO 07/12/17 06:30 08/11/17 06:29 07/12/17 03:45 150 MCG Pantoprazole Sodium (Protonix Tab) 40 mg DAILY PO 07/12/17 09:00 08/11/17 08:59 07/12/17 08:17 40 MG Potassium Chloride (Klor-Con M10) 20 meq BID PO 07/11/17 21:00 08/10/17 20:59 07/12/17 08:20 20 MEQ Zolpidem Tartrate (Ambien Tab) 10 mg HS PO 07/11/17 21:00 08/10/17 20:59 07/11/17 21:55 10 MG Miscellaneous Information (Order Awaiting Action) 1 ea QS N/A 07/12/17 00:00 08/11/17 00:00 Metoprolol Succinate (Toprol Xl Tab) 100 mg DAILY PO 07/12/17 09:00 08/11/17 08:59 07/12/17 08:16 100 MG Heparin Sodium (Porcine) (Heparin Sq 5000 Unit/0.5ml) 5,000 unit Q8 SQ 07/11/17 22:00 08/10/17 21:59 Sodium Chloride 1,000 ml @ 75 mls/hr [id number] IV 07/11/17 17:33 08/10/17 17:32 07/12/17 08:15 75 MLS/HR Acetaminophen (Tylenol Tab) 650 mg Q4H PRN PO 07/11/17 17:45 08/10/17 17:44 07/11/17 21:00 650 MG Al Hydrox/Mg Hydrox/Simethicone (Maalox Max Susp) 15 ml Q4H PRN PO 07/11/17 17:45 08/10/17 17:44 Magnesium Hydroxide (Milk Of Magnesia Susp) 30 ml Q12H PRN PO 07/11/17 17:45 08/10/17 17:44 Ondansetron HCl (Zofran Inj) 4 mg Q6H PRN IV 07/11/17 17:45 08/10/17 17:44 Polyethylene (Miralax Powder Packet) 17 gm DAILY PRN PO 07/11/17 17:45 08/10/17 17:44 Ceftriaxone Sodium 1 gm/ Dextrose 50 ml @ 100 mls/hr Q24H IV 07/11/17 19:00 07/18/17 18:59 07/11/17 19:50 100 MLS/HR Azithromycin 500 mg/Dextrose 255 ml @ 250 mls/hr Q24H IV 07/11/17 18:00 07/16/17 17:59 07/11/17 19:49 250 MLS/HR Miscellaneous Information (Pharmacy Consult) 1 ea UD PRN N/A 07/11/17 17:33 08/10/17 17:32 Lactobacillus Acidophilus (Floranex Tab) 4 tab TIDM PO 07/11/17 19:00 08/10/17 18:59 07/12/17 08:20 4 TAB Miscellaneous Information (Pharmacy Consult) 1 UD PRN N/A 07/11/17 19:30 08/10/17 19:29 Exemestane (Aromasin Tab) 25 mg DAILY PO 07/12/17 09:00 08/11/17 08:59 07/12/17 08:18 25 MG Everolimus (Afinitor) 5 mg DAILY PO 07/12/17 09:00 08/11/17 08:59 07/12/17 08:19 5 MG Ipratropium [place] (Atrovent 0.02% 0.5MG/2.5ML Neb) 0.5 mg Q8R INH 07/12/17 00:00 08/11/17 00:00 07/12/17 06:46 0.5 MG Dextromethorphan Polymer Complex (Delsym Susp) 30 mg Q8H PRN PO 07/12/17 00:15 08/11/17 00:14 07/12/17 08:20 30 MG Potassium/ Phosphorus/Sodium (Phospha 250 Neutral 155-852-130 Mg) 1 tab QID PO 07/12/17 09:00 07/13/17 08:59 07/12/17 08:21 1 TAB Potassium Phosphate 30 mmol/ Sodium Chloride 510 ml @ 102 mls/hr ONE ONCE IV 07/12/17 08:00 07/12/17 12:59 07/12/17 08:15 102 MLS/HR Magnesium Sulfate 100 ml @ 100 mls/hr NOW STAT IV 07/12/17 08:46 07/12/17 09:45 Potassium Chloride (Klor-Con Tab) 20 meq BID PO 07/12/17 09:00 08/11/17 08:59 Calcium Acetate (Phoslo Cap) 667 mg TIDM PO 07/12/17 12:00 07/14/17 11:59 Objective Vital Signs Date Time Temp Pulse Resp B/P (MAP) Pulse Ox O2 Delivery O2 Flow Rate FiO2 07/12/17 07:02 38.4 102 18 138/81 (100) 94 Nasal Cannula 2.0 07/12/17 06:46 101 16 94 Nasal Cannula 3.0 07/12/17 05:53 37.3 110 18 151/91 (111) 93 Nasal Cannula 2.0 07/12/17 04:00 Room Air 07/12/17 00:41 37.0 07/12/17 00:00 Room Air 07/11/17 23:32 38.1 07/11/17 23:05 37.9 106 18 130/82 (98) 90 Room Air 07/11/17 23:00 109 16 90 Room Air 07/11/17 22:02 38.0 07/11/17 20:00 Room Air 07/11/17 18:27 100 20 126/76 93 Room Air 07/11/17 17:13 37.5 07/11/17 16:48 95 20 120/85 92 Room Air 07/11/17 16:25 Room Air 07/11/17 14:45 111 20 142/86 96 Room Air 07/11/17 14:04 118 07/11/17 13:37 39.3 136 20 144/88 92 Room Air Physical Exam General Appearance: WD/WN, no apparent distress Eyes: normal inspection ENT: normal ENT inspection Neck: supple, no adenopathy Respiratory/Chest: chest non-tender, lungs clear Cardiovascular: regular rate, rhythm Abdomen: normal bowel sounds, non tender Extremities: normal range of motion Neurologic/Psychiatric: alert, oriented x 3 Skin: normal color Lymphatic: no adenopathy Laboratory Results Last 24 Hours Test 07/11/17 14:03 07/11/17 14:06 07/11/17 14:30 07/11/17 14:45 White Blood Count 7.03 K/uL Red Blood Count 4.80 M/uL Hemoglobin 12.6 g/dL Hematocrit 37.1 % Mean Corpuscular Volume 77.3 fL Mean Corpuscular Hemoglobin 26.3 pg Mean Corpuscular Hemoglobin Concent 34.0 g/dl Platelet Count 258 K/uL Mean Platelet Volume 8.6 fL Neutrophils (%) (Auto) 87.3 % Lymphocytes (%) (Auto) 6.1 % Monocytes (%) (Auto) 6.3 % Eosinophils (%) (Auto) 0.0 % Basophils (%) (Auto) 0.0 % Neutrophils # (Auto) 6.14 K/uL Lymphocytes # (Auto) 0.43 K/uL Monocytes # (Auto) 0.44 K/uL Eosinophils # (Auto) 0.00 K/uL Basophils # (Auto) 0.00 K/uL RDW Standard Deviation 40.3 fL RDW Coefficient of Variation 14.1 % Immature Granulocyte % (Auto) 0.3 % Immature Granulocyte # (Auto) 0.02 K/uL Erythrocyte Sedimentation Rate > 90 mm/hr Prothrombin Time 10.7 SECONDS Prothromb Time International Ratio 1.0 Activated Partial Thromboplast Time 31.8 SECONDS Partial Thromboplastin Ratio 1.2 Sodium Level 129 mmol/L Potassium Level 2.7 mmol/L Chloride Level 94 mmol/L Carbon Dioxide Level 24 mmol/L Anion Gap 11.0 mmol/L Blood Urea Nitrogen 6 mg/dl Creatinine 0.76 mg/dl Est Creatinine Clear Calc Drug Dose 45.7 ml/min Estimated GFR () 90.8 Estimated GFR (Non- 78.4 BUN/Creatinine Ratio 7.5 Random Glucose 98 mg/dl Calcium Level 8.8 mg/dl Magnesium Level 2.0 mg/dl Total Bilirubin 0.3 mg/dl Aspartate Amino Transf (AST/SGOT) 31 U/L Alanine Aminotransferase (ALT/SGPT) 33 U/L Alkaline Phosphatase 55 U/L Total Creatine Kinase 161 U/L Creatine Kinase MB < 0.5 ng/ml Creatine Kinase MB Ratio Troponin I < 0.015 ng/ml C-Reactive Protein 21.90 mg/dl Total Protein 8.7 gm/dl Albumin 3.4 gm/dl Globulin 5.3 gm/dl Albumin/Globulin Ratio 0.6 Lipase 60 U/L Bedside Lactic Acid Venous 1.65 mmol/L Urine Color YELLOW Urine Appearance CLEAR Urine pH 6.0 Urine Specific [place] 1.014 Urine Protein 2+ Urine Glucose (UA) NEG Urine Ketones 3+ Urine Occult Blood 3+ Urine Nitrite NEG Urine Bilirubin NEG Urine Urobilinogen NEG Urine Leukocyte Esterase NEG Urine WBC (Auto) 1-5 /hpf Urine RBC (Auto) >30 /hpf Urine Hyaline Casts (Auto) 1-5 /lpf Urine Epithelial Cells (Auto) >30 /lpf Urine Bacteria (Auto) NEG Influenza Type A (RT-PCR) Neg for Influ A Influenza Type B (RT-PCR) Neg for Influ B Test 07/11/17 23:20 07/12/17 00:25 07/12/17 06:18 Troponin I 0.030 ng/ml 0.025 ng/ml White Blood Count 5.15 K/uL Red Blood Count 4.02 M/uL Hemoglobin 10.3 g/dL Hematocrit 30.9 % Mean Corpuscular Volume 76.9 fL Mean Corpuscular Hemoglobin 25.6 pg Mean Corpuscular Hemoglobin Concent 33.3 g/dl Platelet Count 203 K/uL Mean Platelet Volume 8.2 fL Neutrophils (%) (Auto) 86.6 % Lymphocytes (%) (Auto) 5.6 % Monocytes (%) (Auto) 7.4 % Eosinophils (%) (Auto) 0.2 % Basophils (%) (Auto) 0.0 % Neutrophils # (Auto) 4.46 K/uL Lymphocytes # (Auto) 0.29 K/uL Monocytes # (Auto) 0.38 K/uL Eosinophils # (Auto) 0.01 K/uL Basophils # (Auto) 0.00 K/uL RDW Standard Deviation 40.8 fL RDW Coefficient of Variation 14.4 % Immature Granulocyte % (Auto) 0.2 % Immature Granulocyte # (Auto) 0.01 K/uL Sodium Level 136 mmol/L Potassium Level 3.3 mmol/L Chloride Level 106 mmol/L Carbon Dioxide Level 21 mmol/L Anion Gap 8.0 mmol/L Blood Urea Nitrogen 4 mg/dl Creatinine 0.46 mg/dl Est Creatinine Clear Calc Drug Dose 75.5 ml/min Estimated GFR () 115.2 Estimated GFR (Non- 99.4 BUN/Creatinine Ratio 9.7 Random Glucose 98 mg/dl Calcium Level 7.2 mg/dl Phosphorus Level 0.9 mg/dl Magnesium Level 1.7 mg/dl Total Bilirubin 0.2 mg/dl Aspartate Amino Transf (AST/SGOT) 28 U/L Alanine Aminotransferase (ALT/SGPT) 26 U/L Alkaline Phosphatase 40 U/L Total Protein 6.5 gm/dl Albumin 2.3 gm/dl Globulin 4.2 gm/dl Albumin/Globulin Ratio 0.6 Assessment and Plan 72-year-old female with past medical history of metastatic breast cancer status post bilateral mastectomy / talc pleurodesis of right lung due to recurrent malignant effusion, history of hypertension, peptic ulcer disease, thyroid cancer, PSVT-AVNRT and atrial tachycardia and hypothyroidism. Presented with fever/tachycardia and productive cough, found to have right hilar and lower lobe lung pneumonia, hypokalemia and new left bundle branch block Patient admitted with diagnosis of sepsis with right sided perihilar and lower lobe pneumonia. At this time, I am not sure of this diagnosis of sepsis. Patient has tachycardia, but it may be due to her underlying history of SVT. She has no leukocytosis. But did have a significant fever. At this point, though doesn't change much management. shahana continue with ceftriaxone and azithromycin Sustained SVT for about 18 minutes. S/P ablation in 2017 CUrrently back in sinus tachy on monitor. will increase metoprolol to 150 mg daily. will monitor. will consult cardio. Right Costovertral angle tenderness May be due to the pneumonia will monitor Urine wart has no infection, patient has right costovertebral angle tenderness, will repeat urine analysis if tenderness and pain and right costovertebral angle continued then maybe consider imaging studies. New left bundle branch block, happened between 08/2016 and today (denies any chest pain with negative troponin) will monitor for now. Hypokalemia, Hypophos, hypo mag, hypo calcium Will replace her electrolytes and recheck in AM history of metastatic breast cancer status post bilateral mastectomy history of talc pleurodesis of right lung due to recurrent malignant effusion will monitor hypertension BP slightly elevated. will continue home meds with icnrease of metoprolol dose peptic ulcer disease protonix History of thyroid cancer / hypothyroidism continue home meds DVT prophylaxis/heparin subcutaneous spent 65 minutes on the management of this case.
[2017-07-12] MEDS: ACETAMINOPHEN 325 MG TAB PO PRN (09:29)
[2017-07-12] MEDS ORDERED: METOPROLOL TARTRATE 1 MG/ML VIAL IV STA ×2 (10:50→21:27)
--- NOTE | 2017-07-12 12:54 | Cardiology Consultation ---
Cardiology Consultation Date of Consultation: Jul 12, 2017. Requesting Physician: Meera Reason for Consultation: SVT Pt evaluation today including: conversation w/ patient, physical exam, chart review, lab review, review of studies, review of inpatient medication list, conversation w/ attending History of Present Illness The patient is a 72-year-old woman with a history of metastatic breast cancer, SVT and suspected coronary artery disease who was admitted with symptoms of worsening dyspnea. Patient was felt to have a pneumonia and started on antibiotic therapy. Given her history she apparently was admitted to the telemetry floor where she has been noted to have episodes of SVT. Patient states that since her admission her breathing has improved. She has not been aware of any rapid heartbeats but was told by the nursing staff that her heart rate was high. She has been minimally ambulatory or active since her admission and is minimally active at home due to right hip discomfort. She does occasionally notice some rapid heartbeats at home. These episodes are fairly infrequent and generally brief in duration. The did not appear to be associated with other symptoms. She cannot recall having a sustained episode. She generally does not have symptoms of dizziness or lightheadedness. She has not had syncope recently. She does have an element of dyspnea on exertion on occasion this is most noticeable while at ascending stairs. She also has symptoms of chest discomfort that she describes as a precordial pressure sensation. This is fairly mild in most notable with exertion such as at ascending stairs while carrying laundry. The symptoms resolve with discontinuation of activity. She has not had similar symptoms at rest. She does not have chest discomfort with lesser forms of activity. Past Medical/Surgical History Presumed coronary artery disease based on abnormal stress echocardiogram performed in 2016. Inferior ischemia. 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 Atrial tachycardia Metastatic breast cancer currently on oral chemotherapy Hyperlipidemia Hypertension Hypothyroidism History of Lyme disease Restrictive lung disease Past surgical history: Mastectomy Cholecystectomy Femur repair Foot surgery Tonsillectomy Family History Cancer Diabetes mellitus FH: heart disease Hypertension Noncontributory given her advanced age and comorbidities Social History Smoking Status: Former Smoker History of Alcohol Use: Yes (on glass of wine with supper) Currently lives independently Review of Systems Respiratory: + cough (on admission), No sputum, No shortness of breath, No dyspnea on exertion Cardiac: + palpitations, No chest pain Per HPI. Her initial presentation also involved a subjective fevers and chills as well as diarrhea. She continues to have diarrhea. No recent swelling of lower extremities. All Other Systems: Reviewed and Negative Allergies Coded Allergies: Isosorbide Nitrate (Verified Adverse Reaction, Intermediate, IMDUR/ MIGRAINE, 08/17/16) Oxycodone (Verified Adverse Reaction, Intermediate, HALLUCINATIONS, 08/17/16 ) HALLUCINATIONS Aspirin (Verified Adverse Reaction, Mild, HISTORY OF BLEEDING ULCERS, 05/31) Buprenorphine (Verified Adverse Reaction, Mild, GI SYMPTOMS, 06/01/15) Diphenhydramine (Verified Adverse Reaction, Mild, RESTLESS LEGS, 06/01/15) RESTLESS LEGS Morphine (Verified Adverse Reaction, Mild, SEVERE VOMITING, 06/01/15) NSAIDs (Verified Adverse Reaction, Mild, BLEEDING ULCER DISEASE-CAN NOT HAVE NSAIDS, 06/01/15) Tapentadol (Verified Adverse Reaction, Mild, headache, 06/01/15) Medications Current Inpatient Medications Medications (Trade) Dose Ordered Sig/[place] Route Start Time Stop Time Status Last Admin Dose Admin Acetaminophen/ Butalbital/ Caffeine (Fioricet Tab) 1 tab UD PRN PO 07/11/17 17:30 08/10/17 17:29 Atorvastatin Calcium (Lipitor Tab) 40 mg HS PO 07/11/17 21:00 08/10/17 20:59 07/11/17 21:57 40 MG Levothyroxine Sodium (Synthroid Tab) 150 mcg DAILYBB PO 07/12/17 06:30 08/11/17 06:29 07/12/17 03:45 150 MCG Pantoprazole Sodium (Protonix Tab) 40 mg DAILY PO 07/12/17 09:00 08/11/17 08:59 07/12/17 08:17 40 MG Potassium Chloride (Klor-Con M10) 20 meq BID PO 07/11/17 21:00 08/10/17 20:59 07/12/17 08:20 20 MEQ Zolpidem Tartrate (Ambien Tab) 10 mg HS PO 07/11/17 21:00 08/10/17 20:59 07/11/17 21:55 10 MG Miscellaneous Information (Order Awaiting Action) 1 ea QS N/A 07/12/17 00:00 08/11/17 00:00 Metoprolol Succinate (Toprol Xl Tab) 100 mg DAILY PO 07/12/17 09:00 08/11/17 08:59 07/12/17 08:16 100 MG Heparin Sodium (Porcine) (Heparin Sq 5000 Unit/0.5ml) 5,000 unit Q8 SQ 07/11/17 22:00 08/10/17 21:59 Sodium Chloride 1,000 ml @ 75 mls/hr [id number] IV 07/11/17 17:33 08/10/17 17:32 07/12/17 08:15 75 MLS/HR Acetaminophen (Tylenol Tab) 650 mg Q4H PRN PO 07/11/17 17:45 08/10/17 17:44 07/12/17 09:29 650 MG Al Hydrox/Mg Hydrox/Simethicone (Maalox Max Susp) 15 ml Q4H PRN PO 07/11/17 17:45 08/10/17 17:44 Magnesium Hydroxide (Milk Of Magnesia Susp) 30 ml Q12H PRN PO 07/11/17 17:45 08/10/17 17:44 Ondansetron HCl (Zofran Inj) 4 mg Q6H PRN IV 07/11/17 17:45 08/10/17 17:44 Polyethylene (Miralax Powder Packet) 17 gm DAILY PRN PO 07/11/17 17:45 08/10/17 17:44 Ceftriaxone Sodium 1 gm/ Dextrose 50 ml @ 100 mls/hr Q24H IV 07/11/17 19:00 07/18/17 18:59 07/11/17 19:50 100 MLS/HR Azithromycin 500 mg/Dextrose 255 ml @ 250 mls/hr Q24H IV 07/11/17 18:00 07/16/17 17:59 07/11/17 19:49 250 MLS/HR Miscellaneous Information (Pharmacy Consult) 1 ea UD PRN N/A 07/11/17 17:33 08/10/17 17:32 Lactobacillus Acidophilus (Floranex Tab) 4 tab TIDM PO 07/11/17 19:00 08/10/17 18:59 07/12/17 08:20 4 TAB Miscellaneous Information (Pharmacy Consult) 1 ea UD PRN N/A 07/11/17 19:30 08/10/17 19:29 Exemestane (Aromasin Tab) 25 mg DAILY PO 07/12/17 09:00 08/11/17 08:59 07/12/17 08:18 25 MG Everolimus (Afinitor) 5 mg DAILY PO 07/12/17 09:00 08/11/17 08:59 07/12/17 08:19 5 MG Ipratropium [place] (Atrovent 0.02% 0.5MG/2.5ML Neb) 0.5 mg Q8R INH 07/12/17 00:00 08/11/17 00:00 07/12/17 06:46 0.5 MG Dextromethorphan Polymer Complex (Delsym Susp) 30 mg Q8H PRN PO 07/12/17 00:15 08/11/17 00:14 07/12/17 08:20 30 MG Potassium/ Phosphorus/Sodium (Phospha 250 Neutral 155-852-130 Mg) 1 tab QID PO 07/12/17 09:00 07/13/17 08:59 07/12/17 08:21 1 TAB Potassium Phosphate 30 mmol/ Sodium Chloride 510 ml @ 102 mls/hr ONE ONCE IV 07/12/17 08:00 07/12/17 12:59 07/12/17 08:15 102 MLS/HR Potassium Chloride (Klor-Con Tab) 20 meq BID PO 07/12/17 09:00 08/11/17 08:59 07/12/17 09:31 20 MEQ Calcium Acetate (Phoslo Cap) 667 mg TIDM PO 07/12/17 12:00 07/14/17 11:59 Physical Exam Vital Signs Past 12 Hours Date Time Temp Pulse Resp B/P (MAP) Pulse Ox O2 Delivery O2 Flow Rate FiO2 07/12/17 11:09 36.8 155 20 112/80 (91) 94 Nasal Cannula 2.0 07/12/17 10:59 162 110/62 07/12/17 07:02 38.4 102 18 138/81 (100) 94 Nasal Cannula 2.0 07/12/17 06:46 101 16 94 Nasal Cannula 3.0 07/12/17 05:53 37.3 110 18 151/91 (111) 93 Nasal Cannula 2.0 07/12/17 04:00 Room Air She is alert and oriented x3. Mood affect appear normal. She answered all questions appropriately. HEENT: Sclerae are anicteric. Pupils are equal and reactive to light and accommodation. Extraocular movements were intact. Neuro: Cranial nerves intact Neck: Examination of the submandibular region did not reveal any significant lymphadenopathy. Carotids are palpable bilaterally and free of bruits on auscultation. There was no evidence of jugular venous distention. The thyroid was not enlarged. Lungs: Reduced breath sounds at the right base with occasional crackle. No wheezes. She has normal respiratory effort without use of accessory muscles. There is normal pulmonary excursion. Cardiac: The rhythm was regular. S1 and S2 were normal. There are no murmurs on examination. The PMI was not markedly displaced on palpation. Abdomen: The abdomen was soft and nontender. Extremities: Patient has bilateral radial pulses that are equal in intensity. There is no evidence cyanosis or clubbing. There was no evidence of significant peripheral edema bilaterally. Skin: There are no rashes noted on examination today. Data Laboratory Results: Last 24 Hours Test 07/11/17 14:03 07/11/17 14:06 07/11/17 14:30 07/11/17 14:45 White Blood Count 7.03 K/uL Red Blood Count 4.80 M/uL Hemoglobin 12.6 g/dL Hematocrit 37.1 % Mean Corpuscular Volume 77.3 fL Mean Corpuscular Hemoglobin 26.3 pg Mean Corpuscular Hemoglobin Concent 34.0 g/dl Platelet Count 258 K/uL Mean Platelet Volume 8.6 fL Neutrophils (%) (Auto) 87.3 % Lymphocytes (%) (Auto) 6.1 % Monocytes (%) (Auto) 6.3 % Eosinophils (%) (Auto) 0.0 % Basophils (%) (Auto) 0.0 % Neutrophils # (Auto) 6.14 K/uL Lymphocytes # (Auto) 0.43 K/uL Monocytes # (Auto) 0.44 K/uL Eosinophils # (Auto) 0.00 K/uL Basophils # (Auto) 0.00 K/uL RDW Standard Deviation 40.3 fL RDW Coefficient of Variation 14.1 % Immature Granulocyte % (Auto) 0.3 % Immature Granulocyte # (Auto) 0.02 K/uL Erythrocyte Sedimentation Rate > 90 mm/hr Prothrombin Time 10.7 SECONDS Prothromb Time International Ratio 1.0 Activated Partial Thromboplast Time 31.8 SECONDS Partial Thromboplastin Ratio 1.2 Sodium Level 129 mmol/L Potassium Level 2.7 mmol/L Chloride Level 94 mmol/L Carbon Dioxide Level 24 mmol/L Anion Gap 11.0 mmol/L Blood Urea Nitrogen 6 mg/dl Creatinine 0.76 mg/dl Est Creatinine Clear Calc Drug Dose 45.7 ml/min Estimated GFR () 90.8 Estimated GFR (Non- 78.4 BUN/Creatinine Ratio 7.5 Random Glucose 98 mg/dl Calcium Level 8.8 mg/dl Magnesium Level 2.0 mg/dl Total Bilirubin 0.3 mg/dl Aspartate Amino Transf (AST/SGOT) 31 U/L Alanine Aminotransferase (ALT/SGPT) 33 U/L Alkaline Phosphatase 55 U/L Total Creatine Kinase 161 U/L Creatine Kinase MB < 0.5 ng/ml Creatine Kinase MB Ratio Troponin I < 0.015 ng/ml C-Reactive Protein 21.90 mg/dl Total Protein 8.7 gm/dl Albumin 3.4 gm/dl Globulin 5.3 gm/dl Albumin/Globulin Ratio 0.6 Lipase 60 U/L Bedside Lactic Acid Venous 1.65 mmol/L Urine Color YELLOW Urine Appearance CLEAR Urine pH 6.0 Urine Specific [place] 1.014 Urine Protein 2+ Urine Glucose (UA) NEG Urine Ketones 3+ Urine Occult Blood 3+ Urine Nitrite NEG Urine Bilirubin NEG Urine Urobilinogen NEG Urine Leukocyte Esterase NEG Urine WBC (Auto) 1-5 /hpf Urine RBC (Auto) >30 /hpf Urine Hyaline Casts (Auto) 1-5 /lpf Urine Epithelial Cells (Auto) >30 /lpf Urine Bacteria (Auto) NEG Influenza Type A (RT-PCR) Neg for Influ A Influenza Type B (RT-PCR) Neg for Influ B Test 07/11/17 23:20 07/12/17 00:25 07/12/17 06:18 07/12/17 12:24 Troponin I 0.030 ng/ml 0.025 ng/ml White Blood Count 5.15 K/uL Red Blood Count 4.02 M/uL Hemoglobin 10.3 g/dL Hematocrit 30.9 % Mean Corpuscular Volume 76.9 fL Mean Corpuscular Hemoglobin 25.6 pg Mean Corpuscular Hemoglobin Concent 33.3 g/dl Platelet Count 203 K/uL Mean Platelet Volume 8.2 fL Neutrophils (%) (Auto) 86.6 % Lymphocytes (%) (Auto) 5.6 % Monocytes (%) (Auto) 7.4 % Eosinophils (%) (Auto) 0.2 % Basophils (%) (Auto) 0.0 % Neutrophils # (Auto) 4.46 K/uL Lymphocytes # (Auto) 0.29 K/uL Monocytes # (Auto) 0.38 K/uL Eosinophils # (Auto) 0.01 K/uL Basophils # (Auto) 0.00 K/uL RDW Standard Deviation 40.8 fL RDW Coefficient of Variation 14.4 % Immature Granulocyte % (Auto) 0.2 % Immature Granulocyte # (Auto) 0.01 K/uL Sodium Level 136 mmol/L Potassium Level 3.3 mmol/L Chloride Level 106 mmol/L Carbon Dioxide Level 21 mmol/L Anion Gap 8.0 mmol/L Blood Urea Nitrogen 4 mg/dl Creatinine 0.46 mg/dl Est Creatinine Clear Calc Drug Dose 75.5 ml/min Estimated GFR () 115.2 Estimated GFR (Non- 99.4 BUN/Creatinine Ratio 9.7 Random Glucose 98 mg/dl Calcium Level 7.2 mg/dl Phosphorus Level 0.9 mg/dl Magnesium Level 1.7 mg/dl Total Bilirubin 0.2 mg/dl Aspartate Amino Transf (AST/SGOT) 28 U/L Alanine Aminotransferase (ALT/SGPT) 26 U/L Alkaline Phosphatase 40 U/L Total Protein 6.5 gm/dl Albumin 2.3 gm/dl Globulin 4.2 gm/dl Albumin/Globulin Ratio 0.6 Imaging: Chest x-ray suspicious for right lobar pneumonia EKG: Normal sinus rhythm Telemetry reviewed: Normal sinus rhythm with periods of SVT Echocardiogram performed 08/16/2016: Preserved LV systolic function. Ejection fraction 60 percent. No wall motion abnormalities. Assessment & Plan 1. SVT: Patient is well documented SVT. This has been present subsequent to her ablation. The morphology previously was suggestive of an atrial tachycardia which was documented at the time of her EP study. It is very difficult to determine the mechanism of her current SVT based on the telemetry. This could be reentrant or an atrial tachycardia. She is minimally symptomatic. She likely has some episodes of this SVT on an outpatient basis that also produce few symptoms. Her metoprolol was recently increased and has been increased again today after episodes of SVT. This seems like a reasonable intervention currently. If she continues to have extended periods of SVT despite increased doses of beta-winnie a calcium channel winnie could be added or substituted for beta-winnie. Antiarrhythmic medications could be employed for extended and symptomatic episodes of SVT. Repeat ablation is also an option on both this point the patient would decline. 2. Chest pain: The patient does have symptoms of exertional chest discomfort. There has been some suspicion of coronary disease based on an abnormal stress echocardiogram. The symptoms are mild and stable. I do not feel there is any current need for additional studies or intervention. Controlling her heart rate and increasing her beta-winnie will have some benefit in this regard. Patient is on high-dose atorvastatin. She is not on anti-platelet therapy due to history of gastrointestinal hemorrhage.
[2017-07-12] MEDS: CALCIUM ACETATE 667MG GELCAP PO SCH ×2 (13:02→16:43)
[2017-07-12] MEDS ORDERED: LOPERAMIDE HCL 2 MG CAP PO STA (13:43)
[2017-07-12] MEDS: LOPERAMIDE HCL 2 MG CAP PO PRN ×2 (16:41→20:15)
[2017-07-12] MEDS: AZITHROMYCIN IV 500 MG in DEXTROSE 5% 250ML 250 ML IV SCH (17:41)
[2017-07-12] MEDS: CEFTRIAXONE SOD INJ 1 GM in DEXTROSE 5% ADD-VANTAGE 50ML 50 ML IV SCH (18:15)
[2017-07-12] MEDS: ATORVASTATIN 40 MG TAB PO SCH (19:41)
[2017-07-12] MEDS: ZOLPIDEM TARTRATE 10 MG TAB PO SCH (21:50)
[2017-07-12] MEDS ORDERED: NURSING VERBAL MED ORDER ONE (22:15)
[2017-07-13] VITALS (9 sets, daily range): BP systolic 109–148; BP diastolic 79–94; PULSE 88–152; TEMP 36.6–37.4; O2SAT 90–94
[2017-07-13] MEDS: SODIUM CHLORIDE 0.9% 1000ML 1,000 ML IV SCH ×2 (01:17→15:17)
[2017-07-13] MEDS: LOPERAMIDE HCL 2 MG CAP PO PRN ×5 (01:22→17:34)
[2017-07-13] MEDS: DEXTROMETHORPHAN POLYMR COMPLX 30 MG/5 ML UDP PO PRN ×3 (02:46→20:03)
[2017-07-13] MEDS: HEPARIN SOD 5000 UNIT/0.5 ML CARP SQ SCH ×3 (04:55→21:40)
[2017-07-13] MEDS: ACETAMINOPHEN 325 MG TAB PO PRN ×3 (04:55→21:39)
[2017-07-13] MEDS: LEVOTHYROXINE 150 MCG TAB PO SCH (04:56)
[2017-07-13] MEDS ORDERED: METOPROLOL TARTRATE 1 MG/ML VIAL IV STA ×3 (05:51→07:53)
[2017-07-13] MEDS: IPRATROPIUM BROMIDE NEB SOLN 0.02% 2.5 ML VIAL INH SCH ×3 (07:15→23:47)
[2017-07-13 07:17] LABS: HEMATOCRIT 33.5 % (37-47); HEMOGLOBIN 11.4 g/dL (12.0-16.0); MEAN CELL VOLUME 77.4 fL (80-100); MEAN CORPUSCULAR HEMOGLOBIN 26.3 pg (25-34); MEAN PLATELET VOLUME 8.5 fL (7.4-10.4); PLATELET COUNT 226 K/uL (130-400); RED CELL DISTRIBUTION WIDTH SD 42.8 fL (36.4-46.3)
[2017-07-13] MEDS: POTASSIUM CHLORIDE 10 MEQ TABCR PO SCH ×2 (07:26→21:37)
[2017-07-13] MEDS: METOPROLOL SUCC 50MG EXT REL TAB PO SCH (07:26)
[2017-07-13] MEDS: PANTOprazole SOD 40 MG TAB PO SCH (07:27)
[2017-07-13] MEDS: LACTOBACILLUS ACIDOPHILUS (FLORANEX) TAB PO SCH ×3 (07:27→17:35)
[2017-07-13] MEDS: CALCIUM ACETATE 667MG GELCAP PO SCH ×3 (07:27→17:34)
[2017-07-13] MEDS: EXEMESTANE 25 MG PO SCH (07:29)
[2017-07-13] MEDS: AFINITOR PO SCH (07:29)
[2017-07-13 07:54] LABS: CALCIUM 7.7 mg/dl (8.5-10.1); CREATININE 0.36 mg/dl (0.60-1.20); POTASSIUM 3.6 mmol/L (3.5-5.1)
[2017-07-13 07:59] LABS: PHOSPHORUS 1.9 mg/dl (2.5-4.9)
[2017-07-13] MEDS ORDERED: NURSING VERBAL MED ORDER ONE (09:30)
[2017-07-13] MEDS ORDERED: ADENOSINE IV SOLN 3 MG/ML 2 ML VIAL IV ONE (09:30)
[2017-07-13] MEDS ORDERED: DILTIAZEM BOLUS / DRIP IV STA (12:03)
[2017-07-13] MEDS ORDERED: DILTIAZEM HCL 5 MG/ML 5 ML VIAL BOLUS/OMNI IV SCH (12:15)
[2017-07-13] MEDS: DILTIAZEM HCL INJ 125 MG in DEXTROSE 5% 100ML IV PRN (12:47)
--- NOTE | 2017-07-13 13:26 | Cardiology Follow-Up ---
Subjective Date of Service: Jul 13, 2017. Pt evaluation today including: conversation w/ patient, physical exam, chart review, lab review, review of studies, review of inpatient medication list, conversation w/ attending History of Present Illness Patient had some mildly worsening dyspnea. This was in the setting of sustained SVT this morning. She did not describe dizziness, lightheadedness or chest discomfort. She did undergo administration adenosine with conversion to a normal sinus rhythm. However, approximately 2 hours later she converted back to a sustained SVT. She is aware of the rapid heart rate. She generally has few symptoms associated with rapid heart rate. Social History Smoking Status: Former Smoker History of Alcohol Use: Yes (on glass of wine with supper) Review of Systems Respiratory: + cough (on admission), No sputum, No shortness of breath, No dyspnea on exertion Cardiac: + palpitations, No chest pain Per HPI. Her initial presentation also involved a subjective fevers and chills as well as diarrhea. She continues to have diarrhea. No recent swelling of lower extremities. Objective Vital Signs Past 12 Hours Date Time Temp Pulse Resp B/P (MAP) Pulse Ox O2 Delivery O2 Flow Rate FiO2 07/13/17 12:15 36.6 100 20 148/87 (107) 92 Nasal Cannula 2.0 07/13/17 09:50 36.9 152 18 94 2.0 07/13/17 08:22 152 109/79 07/13/17 08:12 94 Nasal Cannula 2.0 07/13/17 07:18 36.9 151 18 117/88 (98) 90 Nasal Cannula 3.0 07/13/17 07:18 160 130/72 07/13/17 07:15 99 16 94 Nasal Cannula 3.0 07/13/17 06:06 155 130/90 07/13/17 04:00 Nasal Cannula 3.0 07/13/17 03:17 37.4 88 16 148/86 (106) 90 Nasal Cannula 3.0 Last Recorded Weight-Kilograms: 46.300 Physical Exam She is alert and oriented x3. Mood affect appear normal. She answered all questions appropriately. HEENT: Sclerae are anicteric. Pupils are equal and reactive to light and accommodation. Extraocular movements were intact. Neuro: Cranial nerves intact Neck: Examination of the submandibular region did not reveal any significant lymphadenopathy. Carotids are palpable bilaterally and free of bruits on auscultation. There was no evidence of jugular venous distention. The thyroid was not enlarged. Lungs: Reduced breath sounds at the right base with occasional crackle. No wheezes. She has normal respiratory effort without use of accessory muscles. There is normal pulmonary excursion. Cardiac: The rhythm was regular. S1 and S2 were normal. There are no murmurs on examination. The PMI was not markedly displaced on palpation. Abdomen: The abdomen was soft and nontender. Extremities: Patient has bilateral radial pulses that are equal in intensity. There is no evidence cyanosis or clubbing. There was no evidence of significant peripheral edema bilaterally. Skin: There are no rashes noted on examination today. Data Laboratory Results: Last 24 Hours Test 07/12/17 19:03 07/13/17 07:04 Troponin I < 0.015 ng/ml White Blood Count 6.70 K/uL Red Blood Count 4.33 M/uL Hemoglobin 11.4 g/dL Hematocrit 33.5 % Mean Corpuscular Volume 77.4 fL Mean Corpuscular Hemoglobin 26.3 pg Mean Corpuscular Hemoglobin Concent 34.0 g/dl RDW Standard Deviation 42.8 fL RDW Coefficient of Variation 15.0 % Platelet Count 226 K/uL Mean Platelet Volume 8.5 fL Sodium Level 139 mmol/L Potassium Level 3.6 mmol/L Chloride Level 110 mmol/L Carbon Dioxide Level 20 mmol/L Anion Gap 9.0 mmol/L Blood Urea Nitrogen 3 mg/dl Creatinine 0.36 mg/dl Est Creatinine Clear Calc Drug Dose 96.4 ml/min Estimated GFR () 124.9 Estimated GFR (Non- 107.7 BUN/Creatinine Ratio 8.3 Random Glucose 107 mg/dl Calcium Level 7.7 mg/dl Phosphorus Level 1.9 mg/dl Magnesium Level 2.2 mg/dl EKG: EKG revealed SVT of unclear mechanism Telemetry reviewed: Sustained SVT for over 3 hours. Assessment and Plan 1. SVT: The mechanism of her SVT is unclear. However, it is sustained and this morning did produce some worsening dyspnea after an extended duration. It did terminate with adenosine. My intention was to switch her beta-winnie to a calcium channel winnie in the hopes of achieving better efficacy at suppression. However, she returned to SVT recently. I ordered her a diltiazem infusion and we will monitor the result. She may require more aggressive antiarrhythmic therapy, possibly in the form of amiodarone. Ideally a 1 C agent such as flecainide could be used but she does have a history of ischemia on a recent stress echocardiogram. I think initiating a class 3 agent such as sotalol would cause too much bradycardia currently. Hopefully this can be controlled with diltiazem, otherwise amiodarone will be employed. We did discuss the option of a repeat EP study and possible ablation. She wishes to try medical therapy 1st. 2. Chest pain: The patient does have symptoms of exertional chest discomfort. There has been some suspicion of coronary disease based on an abnormal stress echocardiogram. The symptoms are mild and stable. I do not feel there is any current need for additional studies or intervention. Controlling her heart rate and increasing her beta-winnie will have some benefit in this regard. Patient is on high-dose atorvastatin. She is not on anti-platelet therapy due to history of gastrointestinal hemorrhage.
[2017-07-13] MEDS ORDERED: AMIODARONE IV BOLUS / DRIP IV STA (17:22)
--- NOTE | 2017-07-13 17:23 | Progress Note ---
Subjective Date of Service: Jul 13, 2017. Subjective Pt evaluation today including: conversation w/ patient, physical exam Patient examined throughout day. Intitally patient states only palpitations Patient has been more short of breath today as the day progressed Patient states she has had multiple episodes of palpitations throughout the day despite initial treatment. Problem List Medical Problems: (1) Abnormal ECG Status: Acute (2) Cholecystitis Status: Acute (3) Pneumonia Status: Acute (4) Sepsis Status: Acute (5) Transaminitis Status: Acute Review of Systems Constitutional: No fever, No chills Eyes: No worsening of vision ENT: No hearing loss Respiratory: + cough (on admission), No sputum, No shortness of breath, No dyspnea on exertion Cardiac: + palpitations, No chest pain Abdomen: No pain Neurologic: No memory loss Psychiatric: No depression symptoms Endo: No fatigue Skin: No rash All Other Systems: Reviewed and Negative Medications Current Inpatient Medications Medications (Trade) Dose Ordered Sig/[place] Route Start Time Stop Time Status Last Admin Dose Admin Acetaminophen/ Butalbital/ Caffeine (Fioricet Tab) 1 tab UD PRN PO 07/11/17 17:30 08/10/17 17:29 Atorvastatin Calcium (Lipitor Tab) 40 mg HS PO 07/11/17 21:00 08/10/17 20:59 07/13/17 21:39 40 MG Levothyroxine Sodium (Synthroid Tab) 150 mcg DAILYBB PO 07/12/17 06:30 08/11/17 06:29 07/14/17 06:19 150 MCG Pantoprazole Sodium (Protonix Tab) 40 mg DAILY PO 07/12/17 09:00 08/11/17 08:59 07/13/17 07:27 40 MG Potassium Chloride (Klor-Con M10) 20 meq BID PO 07/11/17 21:00 08/10/17 20:59 07/13/17 21:37 20 MEQ Zolpidem Tartrate (Ambien Tab) 10 mg HS PO 07/11/17 21:00 08/10/17 20:59 07/13/17 22:21 10 MG Miscellaneous Information (Order Awaiting Action) 1 ea QS N/A 07/12/17 00:00 08/11/17 00:00 Heparin Sodium (Porcine) (Heparin Sq 5000 Unit/0.5ml) 5,000 unit Q8 SQ 07/11/17 22:00 08/10/17 21:59 Sodium Chloride 1,000 ml @ 75 mls/hr [id number] IV 07/11/17 17:33 08/10/17 17:32 07/14/17 02:51 75 MLS/HR Acetaminophen (Tylenol Tab) 650 mg Q4H PRN PO 07/11/17 17:45 08/10/17 17:44 07/13/17 21:39 650 MG Al Hydrox/Mg Hydrox/Simethicone (Maalox Max Susp) 15 ml Q4H PRN PO 07/11/17 17:45 08/10/17 17:44 Magnesium Hydroxide (Milk Of Magnesia Susp) 30 ml Q12H PRN PO 07/11/17 17:45 08/10/17 17:44 Ondansetron HCl (Zofran Inj) 4 mg Q6H PRN IV 07/11/17 17:45 08/10/17 17:44 Polyethylene (Miralax Powder Packet) 17 gm DAILY PRN PO 07/11/17 17:45 08/10/17 17:44 Ceftriaxone Sodium 1 gm/ Dextrose 50 ml @ 100 mls/hr Q24H IV 07/11/17 19:00 07/18/17 18:59 07/13/17 19:52 100 MLS/HR Azithromycin 500 mg/Dextrose 255 ml @ 250 mls/hr Q24H IV 07/11/17 18:00 07/16/17 17:59 07/13/17 17:34 250 MLS/HR Miscellaneous Information (Pharmacy Consult) 1 ea UD PRN N/A 07/11/17 17:33 08/10/17 17:32 Lactobacillus Acidophilus (Floranex Tab) 4 tab TIDM PO 07/11/17 19:00 08/10/17 18:59 07/13/17 17:35 4 TAB Miscellaneous Information (Pharmacy Consult) 1 ea UD PRN N/A 07/11/17 19:30 08/10/17 19:29 Exemestane (Aromasin Tab) 25 mg DAILY PO 07/12/17 09:00 08/11/17 08:59 07/13/17 07:29 25 MG Everolimus (Afinitor) 5 mg DAILY PO 07/12/17 09:00 08/11/17 08:59 07/13/17 07:29 5 MG Ipratropium [place] (Atrovent 0.02% 0.5MG/2.5ML Neb) 0.5 mg Q8R INH 07/12/17 00:00 08/11/17 00:00 07/13/17 07:15 0.5 MG Dextromethorphan Polymer Complex (Delsym Susp) 30 mg Q8H PRN PO 07/12/17 00:15 08/11/17 00:14 07/14/17 04:36 30 MG Calcium Acetate (Phoslo Cap) 667 mg TIDM PO 07/12/17 12:00 07/14/17 11:59 07/13/17 17:34 667 MG Loperamide HCl (Imodium Cap) 2 mg UD PRN PO 07/12/17 13:45 08/11/17 13:44 07/13/17 17:34 2 MG Diltiazem HCl 125 mg/Dextrose 125 ml @ 0 mls/hr Q0M PRN IV 07/13/17 12:15 08/12/17 12:14 07/13/17 12:47 5 MLS/HR Amiodarone HCL/ Dextrose 200 ml @ 16.7 mls/hr [id number] IV 07/13/17 23:45 08/12/17 23:44 07/13/17 23:46 16.7 MLS/HR Objective Vital Signs Date Time Temp Pulse Resp B/P (MAP) Pulse Ox O2 Delivery O2 Flow Rate FiO2 07/13/17 16:00 Nasal Cannula 2.0 07/13/17 15:36 37.0 141 18 144/94 (111) 92 Nasal Cannula 2.0 07/13/17 12:15 36.6 100 20 148/87 (107) 92 Nasal Cannula 2.0 07/13/17 12:00 Nasal Cannula 2.0 07/13/17 09:50 36.9 152 18 94 2.0 07/13/17 08:22 152 109/79 07/13/17 08:12 94 Nasal Cannula 2.0 07/13/17 07:18 36.9 151 18 117/88 (98) 90 Nasal Cannula 3.0 07/13/17 07:18 160 130/72 07/13/17 07:15 99 16 94 Nasal Cannula 3.0 07/13/17 06:06 155 130/90 07/13/17 04:00 Nasal Cannula 3.0 07/13/17 03:17 37.4 88 16 148/86 (106) 90 Nasal Cannula 3.0 07/13/17 00:00 Nasal Cannula 3.0 07/12/17 23:30 37.3 99 20 153/92 (112) 92 Room Air 07/12/17 23:15 154/91 (112) 07/12/17 23:11 102 16 85 Room Air 07/12/17 21:50 120 185/101 07/12/17 20:00 Nasal Cannula 2.0 07/12/17 19:55 37.1 07/12/17 19:17 37.7 99 18 134/86 (102) 91 Nasal Cannula 2.0 Physical Exam Comments: General Appearance: WD/WN, no apparent distress Eyes: normal inspection ENT: normal ENT inspection Neck: supple, no adenopathy Respiratory/Chest: chest non-tender, lungs clear Cardiovascular: regular rate, rhythm Abdomen: normal bowel sounds, non tender Extremities: normal range of motion Neurologic/Psychiatric: alert, oriented x 3 Skin: normal color Lymphatic: no adenopathy Laboratory Results Last 24 Hours Test 07/12/17 19:03 07/13/17 07:04 Troponin I < 0.015 ng/ml White Blood Count 6.70 K/uL Red Blood Count 4.33 M/uL Hemoglobin 11.4 g/dL Hematocrit 33.5 % Mean Corpuscular Volume 77.4 fL Mean Corpuscular Hemoglobin 26.3 pg Mean Corpuscular Hemoglobin Concent 34.0 g/dl RDW Standard Deviation 42.8 fL RDW Coefficient of Variation 15.0 % Platelet Count 226 K/uL Mean Platelet Volume 8.5 fL Sodium Level 139 mmol/L Potassium Level 3.6 mmol/L Chloride Level 110 mmol/L Carbon Dioxide Level 20 mmol/L Anion Gap 9.0 mmol/L Blood Urea Nitrogen 3 mg/dl Creatinine 0.36 mg/dl Est Creatinine Clear Calc Drug Dose 96.4 ml/min Estimated GFR () 124.9 Estimated GFR (Non- 107.7 BUN/Creatinine Ratio 8.3 Random Glucose 107 mg/dl Calcium Level 7.7 mg/dl Phosphorus Level 1.9 mg/dl Magnesium Level 2.2 mg/dl Assessment and Plan 72-year-old female with past medical history of metastatic breast cancer status post bilateral mastectomy / talc pleurodesis of right lung due to recurrent malignant effusion, history of hypertension, peptic ulcer disease, thyroid cancer, PSVT-AVNRT and atrial tachycardia and hypothyroidism. Presented with fever/tachycardia and productive cough, found to have right hilar and lower lobe lung pneumonia, hypokalemia and new left bundle branch block Patient admitted with diagnosis of sepsis with right sided perihilar and lower lobe pneumonia. At this time, I am not sure of this diagnosis of sepsis. Patient has tachycardia, but it may be due to her underlying history of SVT. She has no leukocytosis. But did have a significant fever. At this point, though doesn't change much management. shahana continue with ceftriaxone and azithromycin Sustained SVT S/P ablation in 2017 Again this is an issue. She dd not response to lopressor IV nor max cardizem drip. Will place on amiodarone. Cardiology aware. Right Costovertral angle tenderness May be due to the pneumonia will monitor Urine wart has no infection, patient has right costovertebral angle tenderness, will repeat urine analysis if tenderness and pain and right costovertebral angle continued then maybe consider imaging studies. New left bundle branch block, happened between 08/2016 and today (denies any chest pain with negative troponin) will monitor for now. Hypokalemia, Hypophos, hypo mag, hypo calcium K is better Phos is low, will replace history of metastatic breast cancer status post bilateral mastectomy history of talc pleurodesis of right lung due to recurrent malignant effusion will monitor hypertension BP slightly elevated. will continue home meds peptic ulcer disease protonix History of thyroid cancer / hypothyroidism continue home meds DVT prophylaxis/heparin subcutaneous Spent 68 minutes on case to manage her SVT.
[2017-07-13] MEDS: AZITHROMYCIN IV 500 MG in DEXTROSE 5% 250ML 250 ML IV SCH (17:34)
[2017-07-13] MEDS ORDERED: AMIODARONE / D5W 200 ML IV SCH (17:45)
[2017-07-13] MEDS ORDERED: 0.2 MICRON FILTER SET 1 EA IV SCH (17:45)
[2017-07-13] MEDS ORDERED: AMIODARONE / D5W 100 ML PHARMACY PREPARED IV SCH ×2 (17:45)
[2017-07-13] MEDS: CEFTRIAXONE SOD INJ 1 GM in DEXTROSE 5% ADD-VANTAGE 50ML 50 ML IV SCH (19:52)
[2017-07-13] MEDS: ATORVASTATIN 40 MG TAB PO SCH (21:39)
[2017-07-13] MEDS: ZOLPIDEM TARTRATE 10 MG TAB PO SCH (22:21)
[2017-07-13] MEDS: AMIODARONE / D5W 200 ML IV SCH (23:46)
[2017-07-14] VITALS (15 sets, daily range): BP systolic 128–174; BP diastolic 79–131; PULSE 97–155; TEMP 36.5–37.2; O2SAT 91–98
[2017-07-14] MEDS: SODIUM CHLORIDE 0.9% 1000ML 1,000 ML IV SCH (02:51)
[2017-07-14] MEDS: DEXTROMETHORPHAN POLYMR COMPLX 30 MG/5 ML UDP PO PRN (04:36)
[2017-07-14] MEDS: HEPARIN SOD 5000 UNIT/0.5 ML CARP SQ SCH ×3 (06:00→21:47)
[2017-07-14] MEDS: LEVOTHYROXINE 150 MCG TAB PO SCH (06:19)
[2017-07-14] MEDS: IPRATROPIUM BROMIDE NEB SOLN 0.02% 2.5 ML VIAL INH SCH ×3 (07:20→20:10)
[2017-07-14] MEDS: PANTOprazole SOD 40 MG TAB PO SCH (07:30)
[2017-07-14 07:41] LABS: CALCIUM 7.8 mg/dl (8.5-10.1); CREATININE 0.38 mg/dl (0.60-1.20); PHOSPHORUS 1.6 mg/dl (2.5-4.9); POTASSIUM 3.6 mmol/L (3.5-5.1)
[2017-07-14] MEDS: LACTOBACILLUS ACIDOPHILUS (FLORANEX) TAB PO SCH ×3 (08:22→16:15)
[2017-07-14] MEDS: CALCIUM ACETATE 667MG GELCAP PO SCH ×2 (08:22→11:30)
[2017-07-14] MEDS: EXEMESTANE 25 MG PO SCH (08:23)
[2017-07-14] MEDS: AFINITOR PO SCH (08:23)
[2017-07-14] MEDS: POTASSIUM CHLORIDE 10 MEQ TABCR PO SCH ×2 (08:24→21:11)
[2017-07-14] MEDS ORDERED: POTASSIUM PHOS 3 MMOL/1 ML INFUSION IV STA (08:30)
--- NOTE | 2017-07-14 08:33 | Clinical Documentation Query ---
CLINICAL DOCUMENTATION QUERY Dr. CROCKER, In your clinical opinion is this patient being managed for: ( xx) Hyponatremia, POA treated and resolved ( ) Not Agree ( ) Other explanation of clinical findings (Please Explain. If no explanation given, this would be considered a no response.) ( ) Unable to determine ( ) Need to Discuss (Please call CDS via extension or qliq. If no interaction occurs this is considered a no response.) The medical record reflects the following clinical findings, treatment, and risk factors. Clinical Indicators: 72 yo female presenting with suspected sepsis and R sided pneumonia. Initial Na 129. Subsequent Na has improved to 139. Treatment: 2 L NSS bolus, serial PRP's, Risk Factors: pneumonia, suspected sepsis, metastatic breast cancer Please clarify and document your clinical opinion in the progress notes and discharge summary. Terms such as "probable", "suspected", "likely", "questionable", "possible", or "still to be ruled out" are acceptable. IF IN AGREEMENT, YOU MUST DOCUMENT ABOVE DIAGNOSTIC STATEMENT IN DAILY PROGRESS NOTES AND DISCHARGE SUMMARY. This document is not part of the patient's record. Thank You, Gabi Tejada RN [phone]
[2017-07-14] MEDS ORDERED: POTASSIUM PHOSPHATE INJ 21 MMOL in SODIUM CHLORIDE 0.9% 500ML 500 ML IV STA (08:36)
--- NOTE | 2017-07-14 10:08 | Cardiology Follow-Up ---
Subjective Date of Service: Jul 14, 2017. Pt evaluation today including: conversation w/ patient, conversation w/ family , physical exam, lab review, review of studies, review of inpatient medication list History of Present Illness I reviewed her symptoms of SVT with her, she is aware of them, she has had brief episodes as an outpatient but cannot give me a good idea as to how frequent or how long they persist. They are not very bothersome to her so she has not been concerned about them. She does feel it here in the hospital and notes that it is much more sustained here than at home. She has not had chest discomfort, lightheadedness or dizziness with them. Today she is feeling well, she has not been aware of the arrhythmia since yesterday and has no cardiovascular complaints. She is tolerating intravenous amiodarone well. Social History Smoking Status: Former Smoker History of Alcohol Use: Yes (on glass of wine with supper) Review of Systems Respiratory: + cough (on admission), No sputum, No shortness of breath, No dyspnea on exertion Cardiac: + palpitations, No chest pain Medications Cardiovascular: Item Value Date Time Amiodarone HCL/ 200 ml @ 16.7 mls/hr 07/13/17 2345 Dextrose .[id number] 07/13/17 2346 Diltiazem HCl 125 125 ml @ 0 mls/hr 07/13/17 1215 mg/Dextrose .Q0M PRN/IV 07/13/17 1247 Atorvastatin 40 mg 07/11/17 2100 Calcium HS/PO 07/13/17 2139 (Lipitor Tab) Potassium Chloride 20 meq 07/11/17 2100 (Klor-Con M10) BID/PO 07/14/17 0824 Objective Vital Signs Past 12 Hours Date Time Temp Pulse Resp B/P (MAP) Pulse Ox O2 Delivery O2 Flow Rate FiO2 07/14/17 08:04 37.2 97 2 164/92 (116) 92 Nasal Cannula 07/14/17 08:00 Nasal Cannula 07/14/17 07:20 102 16 92 Nasal Cannula 2.0 07/14/17 04:01 166/93 (117) 07/14/17 04:00 94 Nasal Cannula 4.0 07/14/17 03:37 37.2 97 20 172/102 (125) 94 Nasal Cannula 2.0 4/30/18 00:45 149/90 (109) 07/14/17 00:17 36.5 106 18 91 2.0 07/14/17 00:00 93 Nasal Cannula 4.0 Last Recorded Weight-Kilograms: 45.800 Physical Exam Constitutional: Level of Distress: NAD Lungs: Auscultation: no wheezing, no rales/crackles, decreased breath sounds (At the right base) Cardiovascular: Heart Auscultation: RRR, no murmurs Extremities: no edema Data Laboratory Results: Last 24 Hours Test 07/14/17 05:55 Sodium Level 137 mmol/L Potassium Level 3.6 mmol/L Chloride Level 105 mmol/L Carbon Dioxide Level 22 mmol/L Anion Gap 10.0 mmol/L Blood Urea Nitrogen 4 mg/dl Creatinine 0.38 mg/dl Est Creatinine Clear Calc Drug Dose 91.3 ml/min Estimated GFR () 122.7 Estimated GFR (Non- 105.8 BUN/Creatinine Ratio 9.7 Random Glucose 111 mg/dl Calcium Level 7.8 mg/dl Ionized Calcium 0.98 mmol/l Phosphorus Level 1.6 mg/dl Magnesium Level 1.9 mg/dl Thyroid Stimulating Hormone (TSH) 2.620 uIu/ml Telemetry reviewed: No further supraventricular tachycardia since yesterday, none since starting intravenous amiodarone Assessment and Plan 1. 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 She has not been very bothered by the atrial tachycardia since, although she does have it. I suspect her current arrhythmia is the atrial tachycardia not recurrent AV sal reentry. This could be treated with ablation, but she would prefer not and I think it is very reasonable at this point (in part due to her minimal symptoms when she has it) to continue amiodarone. I would probably continue this as an outpatient as well, perhaps she will respond to a low dose. I am going to add oral amiodarone today, will overlap for at least one day. It would probably be prudent to keep her in the hospital at least overnight, but I will leave that up to the discretion of the primary service. Thank you for allowing me to participate in her care.
[2017-07-14] MEDS: AMIODARONE / D5W 200 ML IV SCH ×2 (11:56→23:41)
[2017-07-14] MEDS: DILTIAZEM HCL INJ 125 MG in DEXTROSE 5% 100ML IV PRN ×3 (12:10→19:56)
[2017-07-14] MEDS ORDERED: FUROSEMIDE INJ 20 MG in SYRINGE 0 ML IV ONE (12:30)
--- NOTE | 2017-07-14 15:04 | Hospitalist Progress Note ---
Hospitalist Progress Note Date of Service Jul 14, 2017. (Cristine Puri ., PA-C) Subjective Pt evaluation today including: conversation w/ patient, physical exam, lab review, review of studies, conversation w/ business risk consultant, review of inpatient medication list Voiding: no voiding problems Patient resting in bed. Feeling well. O2 2L NC- does not have oxygen at home. Notes mild SOB but seems to be improving. Cough and sputum production improving. Denies any palpitations or chest pain. Rates currently in low 100s on IV Amiodarone gtt. Patient denies any fever, chills, sweats, lightheadedness, dizziness, vision changes, CP, palpitations, edema, wheezing, abdominal pain, nausea, vomiting, diarrhea, urinary symptoms, melena, numbness/tingling, weakness, muscle/joint pain, anxiety/depression, active bleeding, or new skin discoloration/changes. Around 11 AM patient went back in SVT w/ rates in 160s. IV Lasix 20 mg x1. Discussed w/ Dr. Munroe- restart Cardizem gtt- if no improvement in 1 hour, consider Adenosine. Rechecked patient's rates- low 100's, symptoms significantly improved per RN. (Cristine Puri ., PA-C) Medications Current Inpatient Medications Medications (Trade) Dose Ordered Sig/[place] Route Start Time Stop Time Status Last Admin Dose Admin Acetaminophen/ Butalbital/ Caffeine (Fioricet Tab) 1 tab UD PRN PO 07/11/17 17:30 08/10/17 17:29 Atorvastatin Calcium (Lipitor Tab) 40 mg HS PO 07/11/17 21:00 08/10/17 20:59 07/13/17 21:39 40 MG Levothyroxine Sodium (Synthroid Tab) 150 mcg DAILYBB PO 07/12/17 06:30 08/11/17 06:29 07/14/17 06:19 150 MCG Pantoprazole Sodium (Protonix Tab) 40 mg DAILY PO 07/12/17 09:00 08/11/17 08:59 07/14/17 07:30 40 MG Potassium Chloride (Klor-Con M10) 20 meq BID PO 07/11/17 21:00 08/10/17 20:59 07/14/17 08:24 20 MEQ Zolpidem Tartrate (Ambien Tab) 10 mg HS PO 07/11/17 21:00 08/10/17 20:59 07/13/17 22:21 10 MG Miscellaneous Information (Order Awaiting Action) 1 ea QS N/A 07/12/17 00:00 08/11/17 00:00 Heparin Sodium (Porcine) (Heparin Sq 5000 Unit/0.5ml) 5,000 unit Q8 SQ 07/11/17 22:00 08/10/17 21:59 Sodium Chloride 1,000 ml @ 75 mls/hr [id number] IV 07/11/17 17:33 08/10/17 17:32 07/14/17 02:51 75 MLS/HR Acetaminophen (Tylenol Tab) 650 mg Q4H PRN PO 07/11/17 17:45 08/10/17 17:44 07/13/17 21:39 650 MG Al Hydrox/Mg Hydrox/Simethicone (Maalox Max Susp) 15 ml Q4H PRN PO 07/11/17 17:45 08/10/17 17:44 Magnesium Hydroxide (Milk Of Magnesia Susp) 30 ml Q12H PRN PO 07/11/17 17:45 08/10/17 17:44 Ondansetron HCl (Zofran Inj) 4 mg Q6H PRN IV 07/11/17 17:45 08/10/17 17:44 Polyethylene (Miralax Powder Packet) 17 gm DAILY PRN PO 07/11/17 17:45 08/10/17 17:44 Ceftriaxone Sodium 1 gm/ Dextrose 50 ml @ 100 mls/hr Q24H IV 07/11/17 19:00 07/18/17 18:59 07/13/17 19:52 100 MLS/HR Miscellaneous Information (Pharmacy Consult) 1 ea UD PRN N/A 07/11/17 17:33 08/10/17 17:32 Lactobacillus Acidophilus (Floranex Tab) 4 tab TIDM PO 07/11/17 19:00 08/10/17 18:59 07/14/17 08:22 4 TAB Miscellaneous Information (Pharmacy Consult) 1 ea UD PRN N/A 07/11/17 19:30 08/10/17 19:29 Exemestane (Aromasin Tab) 25 mg DAILY PO 07/12/17 09:00 08/11/17 08:59 07/14/17 08:23 25 MG Everolimus (Afinitor) 5 mg DAILY PO 07/12/17 09:00 08/11/17 08:59 07/14/17 08:23 5 MG Ipratropium [place] (Atrovent 0.02% 0.5MG/2.5ML Neb) 0.5 mg Q8R INH 07/12/17 00:00 08/11/17 00:00 07/14/17 07:20 0.5 MG Dextromethorphan Polymer Complex (Delsym Susp) 30 mg Q8H PRN PO 07/12/17 00:15 08/11/17 00:14 07/14/17 04:36 30 MG Loperamide HCl (Imodium Cap) 2 mg UD PRN PO 07/12/17 13:45 08/11/17 13:44 07/13/17 17:34 2 MG Diltiazem HCl 125 mg/Dextrose 125 ml @ 0 mls/hr Q0M PRN IV 07/13/17 12:15 08/12/17 12:14 07/14/17 13:55 10 MLS/HR Amiodarone HCL/ Dextrose 200 ml @ 16.7 mls/hr [id number] IV 07/13/17 23:45 08/12/17 23:44 07/14/17 11:56 16.7 MLS/HR Azithromycin (Zithromax Tab) 500 mg DAILY@1800 PO 07/14/17 18:00 07/16/17 17:59 (Cristine Puri, TRACYC) Objective Vital Signs Date Time Temp Pulse Resp B/P (MAP) Pulse Ox O2 Delivery O2 Flow Rate FiO2 07/14/17 14:00 147/79 (101) 07/14/17 12:48 37.1 155 16 174/131 (145) 93 Nasal Cannula 4.0 07/14/17 12:00 Nasal Cannula 07/14/17 08:04 37.2 97 2 164/92 (116) 92 Nasal Cannula 07/14/17 08:00 Nasal Cannula 07/14/17 07:20 102 16 92 Nasal Cannula 2.0 07/14/17 04:01 166/93 (117) 07/14/17 04:00 94 Nasal Cannula 4.0 07/14/17 03:37 37.2 97 20 172/102 (125) 94 Nasal Cannula 2.0 07/14/17 00:45 149/90 (109) 07/14/17 00:17 36.5 106 18 91 2.0 07/14/17 00:00 93 Nasal Cannula 4.0 07/13/17 21:00 93 Nasal Cannula 4.0 07/13/17 19:30 37.0 95 18 142/91 (108) 93 Nasal Cannula 4.0 07/13/17 16:00 Nasal Cannula 2.0 07/13/17 15:36 37.0 141 18 144/94 (111) 92 Nasal Cannula 2.0 (Cristine Puri, PA-C) Physical Exam General Appearance: no apparent distress, + thin, + pertinent finding (O2 NC) Eyes: normal inspection, PERRL ENT: hearing grossly normal Neck: supple Respiratory/Chest: lungs clear, no respiratory distress, no accessory muscle use, + decreased breath sounds (decreased throughout) Cardiovascular: + tachycardia (regular rhythm) Abdomen: normal bowel sounds, non tender, soft Extremities: no pedal edema, no calf tenderness Neurologic/Psychiatric: alert, normal mood/affect, oriented x 3 Skin: normal color, warm/dry, no rash (Cristine Puri ., PA-C) Laboratory Results Last 24 Hours Test 07/14/17 05:55 Sodium Level 137 mmol/L Potassium Level 3.6 mmol/L Chloride Level 105 mmol/L Carbon Dioxide Level 22 mmol/L Anion Gap 10.0 mmol/L Blood Urea Nitrogen 4 mg/dl Creatinine 0.38 mg/dl Est Creatinine Clear Calc Drug Dose 91.3 ml/min Estimated GFR () 122.7 Estimated GFR (Non- 105.8 BUN/Creatinine Ratio 9.7 Random Glucose 111 mg/dl Calcium Level 7.8 mg/dl Ionized Calcium 0.98 mmol/l Phosphorus Level 1.6 mg/dl Magnesium Level 1.9 mg/dl Thyroid Stimulating Hormone (TSH) 2.620 uIu/ml (Cristine Puri ., PA-C) Assessment and Plan 72-year-old female with past medical history of metastatic breast cancer status post bilateral mastectomy / talc pleurodesis of right lung due to recurrent malignant effusion, history of hypertension, peptic ulcer disease, thyroid cancer, PSVT-AVNRT and atrial tachycardia and hypothyroidism. Presented with fever/tachycardia and productive cough, found to have right hilar and lower lobe lung pneumonia, hypokalemia and new left bundle branch block Sustained SVT s/p ablation in 2017: - Tele for cardiac monitoring- in/out of SVT w/ rates up into the 160s - IV Adenosine 6 mg x1 on 07/13 - IV Lasix 20 mg x1 today - Currently on IV Cardizem and Amiodarone gtt - Cardiology consulted, appreciate recommendations Sepsis secondary R-sided perihilar and lower lobe PNA: - O2 protocol, wean as tolerated- NOT on O2 supplement at home - IV Rocephin + Azithromycin x5 days- started on 07/11 - Atrovent TID, Delsym PRN - BCx NGTD; UCx pending; sputum culture negative; influenza negative; urine legionella negative Diarrhea- IMPROVING: - C. diff negative - Continue Probiotic and Imodium PRN HTN: Holding Metoprol due IV Cardizem gtt as above HLD: Continue Lipitor 40 mg HS Hypokalemia- RESOLVED: Continue KCL 20 mEq BID Hypophosphatemia: Replace w/ IV Phosphate supplement, follow and replace PRN Hypomagnesemia- RESOLVED h/o metastatic breast cancer s/p bilateral mastectomy, h/o talc pleurodesis of R lung due to recurrent malignant effusion: Continue Aromasin, Afinitor, Acyclovir h/o thyroid cancer, hypothyroidism- TSH WNL: Continue Synthroid PUD: Continue Protonix DVT prophylaxis: Heparin SQ TID Code status: LEVEL I, FULL Dispo: From home- PT/OT and CM consulted (Cristine Puri ., PA-C) PA Physician Supervision Note: I interviewed and examined the patient. Discussed with Cristine Puri PAC and agree with findings and plan as documented in the note. Any exceptions or clarifications are listed here: None 72-year-old female fever/tachycardia and productive cough,right hilar and lower lobe lung pneumonia, hypokalemia and new left bundle branch block this pt is currently being managed for chronic hyponatremia 37.2 97 164/92 tachycardia, some increased right sided rales, abdomen is soft Sustained SVT s/p ablation in 2017:IV Adenosine 6 mg x1 on 07/[address] Munroe did evaluate and recommends re bolus diltiazem and continue iv amiodarone Sepsis secondary R-sided perihilar and lower lobe PNA: Rocephin + Azithromycin last dose 07/18 and 07/16 - Atrovent TID, Delsym PRN Diarrhea- IMPROVING:- C. diff negative - Continue Probiotic and Imodium PRN HTN: Holding Metoprol due IV Cardizem gtt as above HLD: Continue Lipitor 40 mg HS Hypokalemia, Hypophosphatemia, Hypomagnesemia, RESOLVED: Continue KCL 20 mEq BID h/o metastatic breast cancer s/p bilateral mastectomy, h/o talc pleurodesis of R lung due to recurrent malignant effusion: Continue Aromasin, Afinitor, Acyclovir h/o thyroid cancer, hypothyroidism- TSH NL:on Synthroid PUD: Continue Protonix DVT prophylaxis: Heparin SQ TID Code status: LEVEL I, FULL Documented By: Radames Chávez (Radames Chávez M.D.)
[2017-07-14] MEDS: AZITHROMYCIN 250 MG TAB PO SCH (16:15)
[2017-07-14] MEDS: LOPERAMIDE HCL 2 MG CAP PO PRN (16:15)
[2017-07-14] MEDS: CEFTRIAXONE SOD INJ 1 GM in DEXTROSE 5% ADD-VANTAGE 50ML 50 ML IV SCH (19:20)
[2017-07-14] MEDS: ATORVASTATIN 40 MG TAB PO SCH (21:10)
[2017-07-14] MEDS: ZOLPIDEM TARTRATE 10 MG TAB PO SCH (21:47)
[2017-07-15] VITALS (13 sets, daily range): BP systolic 118–164; BP diastolic 80–96; PULSE 65–112; TEMP 36.6–37.1; O2SAT 89–100
[2017-07-15] MEDS: HEPARIN SOD 5000 UNIT/0.5 ML CARP SQ SCH ×3 (06:00→20:52)
[2017-07-15] MEDS: LEVOTHYROXINE 150 MCG TAB PO SCH (06:09)
[2017-07-15] MEDS: IPRATROPIUM BROMIDE NEB SOLN 0.02% 2.5 ML VIAL INH SCH ×3 (07:08→23:00)
[2017-07-15] MEDS: PANTOprazole SOD 40 MG TAB PO SCH (07:22)
[2017-07-15] MEDS: AFINITOR PO SCH (08:25)
[2017-07-15] MEDS: EXEMESTANE 25 MG PO SCH (08:25)
[2017-07-15] MEDS: LACTOBACILLUS ACIDOPHILUS (FLORANEX) TAB PO SCH ×3 (08:25→15:15)
[2017-07-15] MEDS: POTASSIUM CHLORIDE 10 MEQ TABCR PO SCH ×2 (08:26→20:52)
[2017-07-15] MEDS ORDERED: DILTIAZEM HCL 240 MG CAPCR PO ONE (09:15)
--- NOTE | 2017-07-15 09:15 | Cardiology Follow-Up ---
Subjective Date of Service: July 15, 2017. Pt evaluation today including: conversation w/ patient, conversation w/ family , physical exam, lab review, review of studies, review of inpatient medication list History of Present Illness On review of her symptoms of palpitations, today she reports that she was having a lot more episodes than she had initially led us to believe. It sounds as though she may have had daily episodes of the tachycardia, which she "ignored ". She did not have hemodynamic symptoms or shortness of breath until she got the pneumonia with the episodes. She notes that the episodes were much briefer than what she has experienced here. She has not had chest discomfort, lightheadedness or dizziness with them. After starting amiodarone 2 days ago she seems to have suppression of her arrhythmia as of yesterday morning, but then developed SVT. We started intravenous diltiazem in addition to the amiodarone, that seems to have been fairly effective in controlling the arrhythmia. Today she is feeling well, she has not been aware of the arrhythmia since yesterday and has no cardiovascular complaints. She is tolerating the medications well. Social History Smoking Status: Former Smoker History of Alcohol Use: Yes (on glass of wine with supper) Review of Systems Respiratory: + cough (on admission), No sputum, No shortness of breath, No dyspnea on exertion Cardiac: + palpitations, No chest pain Medications Cardiovascular: Item Value Date Time Amiodarone HCL/ 200 ml @ 16.7 mls/hr 07/13/17 2345 Dextrose .[id number]/IV 07/14/17 2341 Diltiazem HCl 125 125 ml @ 0 mls/hr 07/13/17 1215 mg/Dextrose .Q0M PRN/IV 07/14/17 1956 Atorvastatin 40 mg 07/11/17 2100 Calcium HS/PO 07/14/17 2110 (Lipitor Tab) Potassium Chloride 20 meq 07/11/17 2100 (Klor-Con M10) BID/PO 07/15/17 0826 Objective Vital Signs Past 12 Hours Date Time Temp Pulse Resp B/P (MAP) Pulse Ox O2 Delivery O2 Flow Rate FiO2 07/15/17 08:00 Nasal Cannula 07/15/17 07:50 36.8 99 22 118/80 (93) 98 Nasal Cannula 3.0 07/15/17 07:11 99 16 94 Nasal Cannula 3.0 07/15/17 04:04 37.1 107 18 145/90 (108) 91 Nasal Cannula 4.0 07/15/17 04:00 95 Nasal Cannula 4.0 07/15/17 03:33 37.1 107 18 145/90 (108) 91 07/15/17 00:04 36.8 109 18 126/88 (101) 90 07/15/17 00:00 95 Nasal Cannula 4.0 Last Recorded Weight-Kilograms: 48.300 Physical Exam Constitutional: Level of Distress: NAD Lungs: Auscultation: no wheezing, rales/crackles on the left, rales/crackles on the right Cardiovascular: Heart Auscultation: RRR, no murmurs Extremities: no edema Data Laboratory Results: Last 24 Hours Test 07/15/17 06:20 Phosphorus Level 1.9 mg/dl Telemetry reviewed: She has had no episodes of SVT since around 2 PM yesterday. Sinus rhythm with a controlled heart rate. Assessment and Plan 1. 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 She has not been very bothered by the atrial tachycardia since, although she does have it, perhaps more frequently than she had let us to believe. She now believes she was having it daily but for relatively brief periods of time so she could ignore it. I suspect her symptoms of palpitations were due to the atrial tachycardia not recurrent AV sal reentry. The atrial tachycardia could be treated with ablation, but results may not be as good as with AV sal reentry and recurrence rates are higher, I would like to continue medical therapy. If this does not work, we could plan on ablation this . I will switch to oral diltiazem today and add oral amiodarone. If she has recurrence we should plan on ablation. It would probably be prudent to keep her in the hospital at least overnight as we make changes to her medications. Thank you for allowing me to participate in her care.
[2017-07-15] MEDS: AMIODARONE / D5W 200 ML IV SCH ×2 (11:17→21:55)
[2017-07-15] MEDS: LOPERAMIDE HCL 2 MG CAP PO PRN (11:24)
--- NOTE | 2017-07-15 14:11 | DIAGNOSTIC IMAGING REPORT ---
CHEST ONE VIEW PORTABLE CLINICAL HISTORY: eval for pneumonia dyspnea COMPARISON STUDY: 07/11/2017 FINDINGS: Interval development of a very small bilateral pleural effusions. Mild cardiomegaly subtly increased. Pulmonary vasculature is slightly increased. IMPRESSION: Slightly progressive components of congestive failure possibly with superimposed basilar infiltrates. The above report was generated using voice recognition software. It may contain grammatical, syntax or spelling errors. Electronically signed by: Jaren Brennan M.D. 07/15/2017 2:10 PM Dictated Date/Time: 07/15/2017 2:09 PM
[2017-07-15] MEDS ORDERED: FUROSEMIDE INJ 40 MG in SYRINGE 0 ML IV ONE (14:45)
[2017-07-15] MEDS ORDERED: POTASSIUM CHLORIDE 20 MEQ TABCR PO ONE (14:45)
--- NOTE | 2017-07-15 16:54 | Progress Note ---
Subjective Date of Service: July 15, 2017. Subjective pt states she feels a bit more short of breath, she however has had better rate control with diltiazem added to amiodarone, non productive cough Problem List Medical Problems: (1) Abnormal ECG Status: Acute (2) Cholecystitis Status: Acute (3) Pneumonia Status: Acute (4) Sepsis Status: Acute (5) Transaminitis Status: Acute Review of Systems Constitutional: No fever, No chills Respiratory: + cough, + shortness of breath, + dyspnea on exertion, + dyspnea at rest, No sputum Cardiac: No chest pain, No edema Abdomen: No pain, No nausea, No vomiting, No diarrhea Musculoskeletal: No joint pain Female : No dysuria, No urinary frequency Psychiatric: No depression symptoms, No anhedonism Objective Vital Signs Date Time Temp Pulse Resp B/P (MAP) Pulse Ox O2 Delivery O2 Flow Rate FiO2 07/15/17 16:36 Nasal Cannula 07/15/17 15:30 36.6 105 16 126/86 (99) 100 Nasal Cannula 07/15/17 15:27 109 16 90 Nasal Cannula 2.0 07/15/17 12:02 36.7 65 20 154/84 (107) 96 Nasal Cannula 2.0 07/15/17 12:00 Nasal Cannula 07/15/17 08:00 Nasal Cannula 07/15/17 07:50 36.8 99 22 118/80 (93) 98 Nasal Cannula 3.0 07/15/17 07:11 99 16 94 Nasal Cannula 3.0 07/15/17 04:04 37.1 107 18 145/90 (108) 91 Nasal Cannula 4.0 07/15/17 04:00 95 Nasal Cannula 4.0 07/15/17 03:33 37.1 107 18 145/90 (108) 91 07/15/17 00:04 36.8 109 18 126/88 (101) 90 07/15/17 00:00 95 Nasal Cannula 4.0 07/14/17 20:12 115 18 92 Nasal Cannula 2.0 07/14/17 20:00 95 Nasal Cannula 4.0 07/14/17 19:18 36.8 110 16 128/85 (99) 92 Nasal Cannula 2.0 Physical Exam General Appearance: WD/WN, + mild distress Eyes: normal inspection, sclerae normal Neck: supple, no JVD Respiratory/Chest: chest non-tender, + decreased breath sounds, + accessory muscle use, + rales Cardiovascular: no murmur, + tachycardia Abdomen: normal bowel sounds, non tender, soft Extremities: no pedal edema, no calf tenderness Neurologic/Psychiatric: alert, oriented x 3 Laboratory Results Last 24 Hours Test 07/15/17 06:20 Phosphorus Level 1.9 mg/dl Assessment and Plan 72-year-old female fever/tachycardia and productive cough,right hilar and lower lobe lung pneumonia, hypokalemia and new left bundle branch block this pt is currently being managed for chronic hyponatremia Sepsis secondary R-sided perihilar and lower lobe PNA: Rocephin + Azithromycin last dose 07/18 and 07/16, repeat CXR that I interpreted has improved continue treatment for infection and dose lasix iv based on clinical evaluation - Atrovent TID Sustained SVT s/p ablation in 2017:IV Adenosine 6 mg x1 on 07/[address] Munroe did evaluate and is pleased with response to diltiazem will change to po diltiazem and continue iv amiodarone Diarrhea-resolved:- C. 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
[2017-07-15] MEDS: CEFTRIAXONE SOD INJ 1 GM in DEXTROSE 5% ADD-VANTAGE 50ML 50 ML IV SCH (17:56)
[2017-07-15] MEDS: AZITHROMYCIN 250 MG TAB PO SCH (17:56)
[2017-07-15] MEDS: ATORVASTATIN 40 MG TAB PO SCH (20:52)
[2017-07-15] MEDS: AMIODARONE 200 MG TAB PO SCH (20:52)
[2017-07-15] MEDS: ZOLPIDEM TARTRATE 10 MG TAB PO SCH (20:54)
[2017-07-15] MEDS ORDERED: FUROSEMIDE INJ 20 MG in SYRINGE 0 ML IV ONE (22:30)
[2017-07-16] VITALS (9 sets, daily range): BP systolic 97–133; BP diastolic 65–85; PULSE 97–109; TEMP 36.7–37.3; O2SAT 91–98
[2017-07-16] MEDS: HEPARIN SOD 5000 UNIT/0.5 ML CARP SQ SCH ×3 (05:54→21:36)
[2017-07-16] MEDS: LEVOTHYROXINE 150 MCG TAB PO SCH (05:54)
[2017-07-16] MEDS: IPRATROPIUM BROMIDE NEB SOLN 0.02% 2.5 ML VIAL INH SCH (07:07)
[2017-07-16] MEDS: LACTOBACILLUS ACIDOPHILUS (FLORANEX) TAB PO SCH ×3 (08:28→16:19)
[2017-07-16] MEDS: AMIODARONE 200 MG TAB PO SCH ×2 (08:29→21:33)
[2017-07-16] MEDS: DILTIAZEM HCL 240 MG CAPCR PO SCH (08:29)
[2017-07-16] MEDS: PANTOprazole SOD 40 MG TAB PO SCH (08:29)
[2017-07-16] MEDS: POTASSIUM CHLORIDE 10 MEQ TABCR PO SCH ×2 (08:29→21:33)
[2017-07-16] MEDS: EXEMESTANE 25 MG PO SCH (08:30)
[2017-07-16] MEDS: AFINITOR PO SCH (08:30)
--- NOTE | 2017-07-16 09:05 | Cardiology Follow-Up ---
Subjective Date of Service: July 16, 2017. Pt evaluation today including: conversation w/ patient, physical exam, lab review, review of studies, review of inpatient medication list History of Present Illness On review of her symptoms of palpitations, she reports that she was having a lot more episodes than she had initially led us to believe. It sounds as though she may have had daily episodes of the tachycardia, which she "ignored". She did not have hemodynamic symptoms or shortness of breath until she got the pneumonia with the episodes. She notes that the episodes were much briefer than what she has experienced here. She has not had chest discomfort, lightheadedness or dizziness with them. After starting amiodarone IV she seemed to have suppression of her arrhythmia fro a short time, but then developed SVT. We started intravenous diltiazem in addition to the IV amiodarone, that seemed to have been fairly effective in controlling the arrhythmia. I therefore switched to oral diltiazem yesterday and started oral amiodarone, along with IV. We have been gently diuresing her, however she has not lost weight, in part because she apparently is drinking a lot of water as well. When asked why she told me that she thought she should drink a lot of water since she was on a diuretic. Today she is feeling very SOB, no palpitations. She is tolerating the medications well. Social History Smoking Status: Former Smoker History of Alcohol Use: Yes (on glass of wine with supper) Review of Systems Respiratory: + cough, + shortness of breath, + dyspnea on exertion, + dyspnea at rest, No sputum Cardiac: No chest pain, No edema Medications Cardiovascular: Item Value Date Time Diltiazem HCl 240 mg 07/16/17 0900 (Cardizem Cd Cap) QAM/PO 07/16/17 0829 Amiodarone HCl 200 mg 07/15/17 2100 (Cordarone Tab) BID/PO 07/16/17 0829 Amiodarone HCL/ 200 ml @ 16.7 mls/hr 07/13/17 2345 Dextrose .[id number] 07/15/17 215 Atorvastatin 40 mg 07/11/172099 Calcium HS/PO 07/15/172051 (Lipitor Tab) Potassium Chloride 20 meq 07/11/17 2100 (Klor-Con M10) BID/PO 07/16/17 0829 Objective Vital Signs Past 12 Hours Date Time Temp Pulse Resp B/P (MAP) Pulse Ox O2 Delivery O2 Flow Rate FiO2 07/16/17 07:07 100 20 98 Nasal Cannula 4.0 07/16/17 04:25 37.1 105 22 120/82 (95) 93 Nasal Cannula 4.0 07/16/17 04:00 Nasal Cannula 4.0 07/16/17 00:00 Nasal Cannula 4.0 07/15/17 23:36 36.6 112 40 164/96 (118) 89 Nasal Cannula 4.0 07/15/17 23:01 112 24 91 Nasal Cannula 4.0 Last Recorded Weight-Kilograms: 49.700 Physical Exam Constitutional: Level of Distress: NAD Lungs: Auscultation: no wheezing, rales/crackles on the left, rales/crackles on the right Cardiovascular: Heart Auscultation: RRR, no murmurs Extremities: no edema Data Telemetry reviewed: Sinus rhythm and sinus tachycardia, no SVT in more than 24 hours Assessment and Plan 1. 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 She has not been very bothered by the atrial tachycardia since, although she does have it, perhaps more frequently than she had let us to believe. She now believes she was having it daily but for relatively brief periods of time so she could ignore it. I suspect her symptoms of palpitations were due to the atrial tachycardia not recurrent AV sal reentry. The atrial tachycardia could be treated with ablation, but results may not be as good as with AV sal reentry and recurrence rates are higher, I would like to continue medical therapy. If this does not work, we could plan on ablation. A combination of oral diltiazem and intravenous amiodarone has been successful for 24 hour in controlling her arrhythmia. I am going to discontinue her intravenous amiodarone today. She may have recurrence until the loading phase is completed, I would not be discouraged by that. The success over the last day suggest that it will work over the long run. 2. CHF: She appears to have significant CHF, her weight has been rising and her symptoms are consistent. Despite diuresis she has had a net fluid gain. I am going to impose a fairly strict fluid restriction, and increase her diuresis. Thank you for allowing me to participate in her care.
[2017-07-16] MEDS ORDERED: FUROSEMIDE 40 MG/4 ML VIAL IV STA (09:06)
[2017-07-16] MEDS: FUROSEMIDE INJ 40 MG in SYRINGE 0 ML IV SCH ×2 (09:57→16:20)
[2017-07-16 10:14] LABS: CALCIUM 7.4 mg/dl (8.5-10.1); CREATININE 0.47 mg/dl (0.60-1.20); POTASSIUM 3.6 mmol/L (3.5-5.1)
--- NOTE | 2017-07-16 10:26 | Progress Note ---
Subjective Date of Service: July 16, 2017. Subjective pt feels weak and tired and has been drinking excess water, subsequently her serum sodium is now 117. she otherwise has had some tachycardia being watched for need of ablation Problem List Medical Problems: (1) Abnormal ECG Status: Acute (2) Cholecystitis Status: Acute (3) Pneumonia Status: Acute (4) Sepsis Status: Acute (5) Transaminitis Status: Acute Review of Systems Constitutional: + weakness, + fatigue, No fever, No chills Respiratory: No cough, No wheezing, No shortness of breath Cardiac: No chest pain, No edema Abdomen: No pain, No nausea, No vomiting, No diarrhea Female : No dysuria, No urinary frequency Objective Vital Signs Date Time Temp Pulse Resp B/P (MAP) Pulse Ox O2 Delivery O2 Flow Rate FiO2 07/16/17 07:07 100 20 98 Nasal Cannula 4.0 07/16/17 04:25 37.1 105 22 120/82 (95) 93 Nasal Cannula 4.0 07/16/17 04:00 Nasal Cannula 4.0 07/16/17 00:00 Nasal Cannula 4.0 07/15/17 23:36 36.6 112 40 164/96 (118) 89 Nasal Cannula 4.0 07/15/17 23:01 112 24 91 Nasal Cannula 4.0 07/15/17 20:12 Nasal Cannula 07/15/17 19:24 36.8 108 20 127/85 (99) 92 Nasal Cannula 2.0 07/15/17 16:36 Nasal Cannula 07/15/17 15:30 36.6 105 16 126/86 (99) 100 Nasal Cannula 07/15/17 15:27 109 16 90 Nasal Cannula 2.0 07/15/17 12:02 36.7 65 20 154/84 (107) 96 Nasal Cannula 2.0 07/15/17 12:00 Nasal Cannula Physical Exam General Appearance: WD/WN, + mild distress Eyes: normal inspection, sclerae normal Respiratory/Chest: chest non-tender, lungs clear, normal breath sounds Cardiovascular: no murmur, + tachycardia Abdomen: normal bowel sounds, non tender, soft Extremities: no pedal edema, no calf tenderness Neurologic/Psychiatric: alert, oriented x 3 Laboratory Results Last 24 Hours Test 07/16/17 09:19 Sodium Level 116 mmol/L Potassium Level 3.6 mmol/L Chloride Level 81 mmol/L Carbon Dioxide Level 24 mmol/L Anion Gap 11.0 mmol/L Blood Urea Nitrogen 7 mg/dl Creatinine 0.47 mg/dl Est Creatinine Clear Calc Drug Dose 73.8 ml/min Estimated GFR () 114.4 Estimated GFR (Non- 98.7 BUN/Creatinine Ratio 14.4 Random Glucose 134 mg/dl Calcium Level 7.4 mg/dl Assessment and Plan 72-year-old female fever/tachycardia and productive cough,right hilar and lower lobe lung pneumonia, hypokalemia and new left bundle branch block this pt is currently being managed for chronic hyponatremia, this has worsened over last few days Sepsis secondary R-sided perihilar and lower lobe PNA: Rocephin + Azithromycin last dose 07/18 and 07/16, repeat CXR has improved - Atrovent TID Sustained SVT s/p ablation in 2017:IV Adenosine 6 mg x1 on 07/[address] Munroe did evaluate and is pleased with response to diltiazem will change to po diltiazem and continue amiodarone Acute diastolic heart failure maybe rate related, is now on scheduled lasix bid hyponatremia, is much lower, random urine sodium is elevated consistent with siadh, fluid restrict Diarrhea-resolved:- C. 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
[2017-07-16] MEDS: LOPERAMIDE HCL 2 MG CAP PO PRN ×2 (11:35→16:30)
[2017-07-16] MEDS: IPRATROPIUM BROMIDE HFA INHALER INH SCH ×2 (14:55→21:36)
[2017-07-16] MEDS: CEFTRIAXONE SOD INJ 1 GM in DEXTROSE 5% ADD-VANTAGE 50ML 50 ML IV SCH (21:32)
[2017-07-16] MEDS: ATORVASTATIN 40 MG TAB PO SCH (21:33)
[2017-07-16] MEDS: ZOLPIDEM TARTRATE 10 MG TAB PO SCH (21:35)
[2017-07-16] MEDS: ACETAMINOPHEN 325 MG TAB PO PRN (23:04)
[2017-07-17] VITALS (8 sets, daily range): BP systolic 110–125; BP diastolic 71–79; PULSE 88–93; TEMP 36.4–36.8; O2SAT 92–97
[2017-07-17] MEDS: HEPARIN SOD 5000 UNIT/0.5 ML CARP SQ SCH ×3 (04:45→21:29)
[2017-07-17] MEDS: LEVOTHYROXINE 150 MCG TAB PO SCH (05:06)
[2017-07-17] MEDS: IPRATROPIUM BROMIDE HFA INHALER INH SCH ×3 (05:07→21:29)
[2017-07-17] MEDS: PANTOprazole SOD 40 MG TAB PO SCH (06:59)
[2017-07-17] MEDS ORDERED: NURSING VERBAL MED ORDER ONE (07:00)
[2017-07-17 07:30] LABS: CALCIUM 7.5 mg/dl (8.5-10.1); CREATININE 0.47 mg/dl (0.60-1.20); POTASSIUM 3.3 mmol/L (3.5-5.1)
[2017-07-17] MEDS ORDERED: POTASSIUM CHLORIDE 20 MEQ TABCR PO ONE (08:30)
[2017-07-17] MEDS: FUROSEMIDE INJ 40 MG in SYRINGE 0 ML IV SCH ×2 (08:41→16:32)
[2017-07-17] MEDS: LACTOBACILLUS ACIDOPHILUS (FLORANEX) TAB PO SCH ×3 (08:42→16:34)
[2017-07-17] MEDS: DILTIAZEM HCL 240 MG CAPCR PO SCH (08:42)
[2017-07-17] MEDS: AMIODARONE 200 MG TAB PO SCH ×2 (08:42→22:29)
[2017-07-17] MEDS: POTASSIUM CHLORIDE 10 MEQ TABCR PO SCH ×2 (08:42→21:32)
[2017-07-17] MEDS: AFINITOR PO SCH (08:43)
[2017-07-17] MEDS: EXEMESTANE 25 MG PO SCH (08:44)
[2017-07-17] MEDS: LOPERAMIDE HCL 2 MG CAP PO PRN ×4 (08:46→22:29)
--- NOTE | 2017-07-17 10:03 | Cardiology Follow-Up ---
Subjective Date of Service: July 17, 2017. Pt evaluation today including: conversation w/ patient, conversation w/ family , physical exam, lab review, review of studies, review of inpatient medication list History of Present Illness On review of her symptoms of palpitations, she reports that she was having a lot more episodes than she had initially led us to believe. It sounds as though she may have had daily episodes of the tachycardia, which she "ignored". She did not have hemodynamic symptoms or shortness of breath until she got the pneumonia with the episodes. She notes that the episodes were much briefer than what she has experienced here. She has not had chest discomfort, lightheadedness or dizziness with them. After starting amiodarone IV she seemed to have suppression of her arrhythmia fro a short time, but then developed SVT. We started intravenous diltiazem in addition to the IV amiodarone, that seemed to have been fairly effective in controlling the arrhythmia. I therefore switched to oral diltiazem yesterday and started oral amiodarone, along with IV. We have been gently diuresing her, however she had not lost weight, in part because she apparently is drinking a lot of water as well. When asked why she told me that she thought she should drink a lot of water since she was on a diuretic. I did place her on a fluid restriction yesterday and continued diuresis. Her shortness of breath is improved, but she has not been out of bed much and has not exercised in the hallways. Social History Smoking Status: Former Smoker History of Alcohol Use: Yes (on glass of wine with supper) Review of Systems Respiratory: + shortness of breath, No cough, No wheezing Cardiac: No chest pain, No edema Medications Cardiovascular: Item Value Date Time Furosemide 40 mg/ 4 ml @ 4 mls/min 07/16/17 0915 Syringe BID17/IV 07/17/17 0841 Diltiazem HCl 240 mg 07/16/17 0900 (Cardizem Cd Cap) QAM/PO 07/17/17 0842 Amiodarone HCl 200 mg 07/15/17 2100 (Cordarone Tab) BID/PO 07/17/17 0842 Atorvastatin 40 mg 07/11/17 2100 Calcium HS/PO 07/16/17 213 (Lipitor Tab) Potassium Chloride 20 meq 07/11/17 2100 (Klor-Con M10) BID/PO 07/17/17 0842 Objective Vital Signs Past 12 Hours Date Time Temp Pulse Resp B/P (MAP) Pulse Ox O2 Delivery O2 Flow Rate FiO2 07/17/17 04:00 36.7 88 20 117/75 (89) 92 Nasal Cannula 2.0 07/17/17 04:00 Nasal Cannula 4.0 07/17/17 00:00 Nasal Cannula 4.0 07/16/17 23:19 36.7 97 18 97/65 (76) 95 Nasal Cannula 2.0 Last Recorded Weight-Kilograms: 49.700 Physical Exam Constitutional: Level of Distress: NAD Lungs: Auscultation: no wheezing, rales/crackles on the left, rales/crackles on the right Cardiovascular: Heart Auscultation: RRR, no murmurs Extremities: no edema Data Laboratory Results: Last 24 Hours Test 07/16/17 10:44 07/17/17 06:06 Sodium Level 117 mmol/L 127 mmol/L Potassium Level 3.3 mmol/L Chloride Level 92 mmol/L Carbon Dioxide Level 29 mmol/L Anion Gap 6.0 mmol/L Blood Urea Nitrogen 5 mg/dl Creatinine 0.47 mg/dl Est Creatinine Clear Calc Drug Dose 73.8 ml/min Estimated GFR () 114.4 Estimated GFR (Non- 98.7 BUN/Creatinine Ratio 11.6 Random Glucose 91 mg/dl Calcium Level 7.5 mg/dl Telemetry reviewed: Sinus rhythm and sinus tachycardia, no SVT Assessment and Plan 1. 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 She has not been very bothered by the atrial tachycardia since, although she does have it, perhaps more frequently than she had let us to believe. She now believes she was having it daily but for relatively brief periods of time so she could ignore it. I suspect her symptoms of palpitations were due to the atrial tachycardia not recurrent AV sal reentry. The atrial tachycardia could be treated with ablation, but results may not be as good as with AV sal reentry and recurrence rates are higher, I would like to continue medical therapy. If this does not work, we could plan on ablation. A combination of oral diltiazem and now oral amiodarone seems to have suppressed the arrhythmia. She may have recurrence until the loading phase of amiodarone is completed, I would not be discouraged by that. The success over the last several days suggests that it will work over the long run. 2. CHF: She appears to have an improvement in her CHF, her weight had been rising and her symptoms are consistent, she was not weighed today but clinically is doing much better. I would continue diuresis at least another day with intravenous medications. Thank you for allowing me to participate in her care.
--- NOTE | 2017-07-17 12:18 | Hospitalist Progress Note ---
Hospitalist Progress Note Date of Service July 17, 2017. Subjective Pt evaluation today including: conversation w/ patient, physical exam, lab review, review of studies, review of inpatient medication list Voiding: no voiding problems Patient resting in bed. Feeling well. Eating and drinking OK. +cough but improving. +SOB but improving. No palpitations recently. Notes significant improvement in symptoms over the last 24/48 hours. +diarrhea on/off- improving. +weakness. Patient denies any fever, chills, sweats, lightheadedness, dizziness, vision changes, CP, palpitations, edema, wheezing, abdominal pain, nausea, vomiting, urinary symptoms, melena, numbness/tingling, muscle/joint pain, anxiety/ depression, active bleeding, or new skin discoloration/changes. Medications Current Inpatient Medications Medications (Trade) Dose Ordered Sig/[place] Route Start Time Stop Time Status Last Admin Dose Admin Acetaminophen/ Butalbital/ Caffeine (Fioricet Tab) 1 tab UD PRN PO 07/11/17 17:30 08/10/17 17:29 Atorvastatin Calcium (Lipitor Tab) 40 mg HS PO 07/11/17 21:00 08/10/17 20:59 07/16/17 21:33 40 MG Levothyroxine Sodium (Synthroid Tab) 150 mcg DAILYBB PO 07/12/17 06:30 08/11/17 06:29 07/17/17 05:06 150 MCG Potassium Chloride (Klor-Con M10) 20 meq BID PO 07/11/17 21:00 08/10/17 20:59 07/17/17 08:42 20 MEQ Zolpidem Tartrate (Ambien Tab) 10 mg HS PO 07/11/17 21:00 08/10/17 20:59 07/16/17 21:35 10 MG Miscellaneous Information (Order Awaiting Action) 1 ea QS N/A 07/12/17 00:00 08/11/17 00:00 Heparin Sodium (Porcine) (Heparin Sq 5000 Unit/0.5ml) 5,000 unit Q8 SQ 07/11/17 22:00 08/10/17 21:59 Acetaminophen (Tylenol Tab) 650 mg Q4H PRN PO 07/11/17 17:45 08/10/17 17:44 07/16/17 23:04 650 MG Al Hydrox/Mg Hydrox/Simethicone (Maalox Max Susp) 15 ml Q4H PRN PO 07/11/17 17:45 08/10/17 17:44 Magnesium Hydroxide (Milk Of Magnesia Susp) 30 ml Q12H PRN PO 07/11/17 17:45 08/10/17 17:44 Ondansetron HCl (Zofran Inj) 4 mg Q6H PRN IV 07/11/17 17:45 08/10/17 17:44 Polyethylene (Miralax Powder Packet) 17 gm DAILY PRN PO 07/11/17 17:45 08/10/17 17:44 Ceftriaxone Sodium 1 gm/ Dextrose 50 ml @ 100 mls/hr Q24H IV 07/11/17 19:00 07/18/17 18:59 07/16/17 21:32 100 MLS/HR Miscellaneous Information (Pharmacy Consult) 1 ea UD PRN N/A 07/11/17 17:33 08/10/17 17:32 Lactobacillus Acidophilus (Floranex Tab) 4 tab TIDM PO 07/11/17 19:00 08/10/17 18:59 07/17/17 08:42 4 TAB Miscellaneous Information (Pharmacy Consult) 1 UD PRN N/A 07/11/17 19:30 08/10/17 19:29 Exemestane (Aromasin Tab) 25 mg DAILY PO 07/12/17 09:00 08/11/17 08:59 07/17/17 08:44 25 MG Everolimus (Afinitor) 5 mg DAILY PO 07/12/17 09:00 08/11/17 08:59 07/17/17 08:43 5 MG Dextromethorphan Polymer Complex (Delsym Susp) 30 mg Q8H PRN PO 07/12/17 00:15 08/11/17 00:14 07/14/17 04:36 30 MG Loperamide HCl (Imodium Cap) 2 mg UD PRN PO 07/12/17 13:45 08/11/17 13:44 07/17/17 08:46 2 MG Diltiazem HCl (Cardizem Cd Cap) 240 mg QAM PO 07/16/17 09:00 08/15/17 08:59 07/17/17 08:42 240 MG Amiodarone HCl (Cordarone Tab) 200 mg BID PO 07/15/17 21:00 08/14/17 20:59 07/17/17 08:42 200 MG Furosemide 40 mg/ Syringe 4 ml @ 4 mls/min BID17 IV 07/16/17 09:15 08/15/17 09:14 07/17/17 08:41 4 MLS/MIN Ipratropium [place] (Atrovent Hfa Inhaler) 2 puffs Q8 INH 07/16/17 14:00 08/15/17 13:59 07/17/17 05:07 2 PUFFS Pantoprazole Sodium (Protonix Tab) 40 mg DAILY@0700 PO 07/17/17 07:00 08/16/17 06:59 07/17/17 06:59 40 MG Objective Vital Signs Date Time Temp Pulse Resp B/P (MAP) Pulse Ox O2 Delivery O2 Flow Rate FiO2 07/17/17 08:00 Nasal Cannula 2.0 07/17/17 08:00 36.8 89 20 111/71 (84) 94 Nasal Cannula 2.0 07/17/17 04:00 36.7 88 20 117/75 (89) 92 Nasal Cannula 2.0 07/17/17 04:00 Nasal Cannula 4.0 07/17/17 00:00 Nasal Cannula 4.0 07/16/17 23:19 36.7 97 18 97/65 (76) 95 Nasal Cannula 2.0 07/16/17 20:15 94 Nasal Cannula 3.0 07/16/17 18:55 36.9 98 20 111/73 (86) 94 Nasal Cannula 3.0 07/16/17 16:15 92 Nasal Cannula 3.0 07/16/17 15:51 37.0 100 19 108/72 (84) 92 Nasal Cannula 3.0 07/16/17 12:25 37.3 109 16 120/76 (91) 91 Nasal Cannula Physical Exam General Appearance: no apparent distress, + thin, + pertinent finding (O2 NC) Eyes: normal inspection, PERRL ENT: hearing grossly normal Neck: supple Respiratory/Chest: no respiratory distress, no accessory muscle use, + crackles (bilateral lung bases) Cardiovascular: regular rate, rhythm Abdomen: normal bowel sounds, non tender, soft Extremities: no pedal edema, no calf tenderness Neurologic/Psychiatric: alert, normal mood/affect, oriented x 3 Skin: normal color, warm/dry, no rash Laboratory Results Last 24 Hours Test 07/17/17 06:06 Sodium Level 127 mmol/L Potassium Level 3.3 mmol/L Chloride Level 92 mmol/L Carbon Dioxide Level 29 mmol/L Anion Gap 6.0 mmol/L Blood Urea Nitrogen 5 mg/dl Creatinine 0.47 mg/dl Est Creatinine Clear Calc Drug Dose 73.8 ml/min Estimated GFR () 114.4 Estimated GFR (Non- 98.7 BUN/Creatinine Ratio 11.6 Random Glucose 91 mg/dl Calcium Level 7.5 mg/dl Assessment and Plan 72-year-old female with past medical history of metastatic breast cancer status post bilateral mastectomy / talc pleurodesis of right lung due to recurrent malignant effusion, history of hypertension, peptic ulcer disease, thyroid cancer, PSVT-AVNRT and atrial tachycardia and hypothyroidism. Presented with fever/tachycardia and productive cough, found to have right hilar and lower lobe lung pneumonia, hypokalemia and new left bundle branch block Sustained SVT s/p ablation in 2016- STABLE: - Tele for cardiac monitoring- rates currently controlled - IV Adenosine 6 mg x1 on 07/13 - IV Cardizem and Amiodarone gtt- transitioned to Diltiazem 240 mg daily + Amiodarone 200 mg BID - Cardiology consulted, appreciate recommendations Acute diastolic CHF exacerbation: - IV Lasix 40 mg BID - Fluid restriction 1500 ml - Monitor I&Os and daily weights Sepsis secondary R-sided perihilar and lower lobe PNA- RESOLVING: - O2 protocol, wean as tolerated- NOT on O2 supplement at home - IV Rocephin- last dose 07/18 + Azithromycin x5 days- completed on 07/16- repeat CXR on 07/15 w/ improvement - Atrovent TID, Delsym PRN - BCx NG; UCx- negative; sputum culture negative; influenza negative; urine legionella negative Hyponatremia likely from increased fluid intake- IMPROVING: - Continue to fluid restrict - Follow PRP- Na 127 today from 116 yesterday Diarrhea- IMPROVING: - C. diff negative - Continue Probiotic and Imodium PRN HTN- STABLE: Diltazem as above HLD: Continue Lipitor 40 mg HS Hypokalemia: Continue KCL 20 mEq BID + additional 20 mEq KCL x1 today- follow and replace PRN Hypophosphatemia: Replaced w/ IV Phosphate supplement- follow and replace PRN Hypomagnesemia- RESOLVED h/o metastatic breast cancer s/p bilateral mastectomy, h/o talc pleurodesis of R lung due to recurrent malignant effusion: Continue Aromasin, Afinitor, Acyclovir h/o thyroid cancer, hypothyroidism- TSH WNL: Continue Synthroid PUD: Continue Protonix DVT prophylaxis: Heparin SQ TID Code status: LEVEL I, FULL Dispo: From home- PT/OT and CM following
--- NOTE | 2017-07-17 18:14 | Progress Note ---
Subjective Date of Service: July 17, 2017. Problem List Medical Problems: (1) Abnormal ECG Status: Acute (2) Cholecystitis Status: Acute (3) Pneumonia Status: Acute (4) Sepsis Status: Acute (5) Transaminitis Status: Acute Objective Vital Signs Date Time Temp Pulse Resp B/P (MAP) Pulse Ox O2 Delivery O2 Flow Rate FiO2 07/17/17 15:51 36.4 89 18 110/74 (86) 96 Nasal Cannula 1.0 07/17/17 12:08 36.8 93 18 112/73 (86) 93 Nasal Cannula 2.0 07/17/17 12:00 Nasal Cannula 1.0 07/17/17 08:00 Nasal Cannula 2.0 07/17/17 08:00 36.8 89 20 111/71 (84) 94 Nasal Cannula 2.0 07/17/17 04:00 36.7 88 20 117/75 (89) 92 Nasal Cannula 2.0 07/17/17 04:00 Nasal Cannula 4.0 07/17/17 00:00 Nasal Cannula 4.0 07/16/17 23:19 36.7 97 18 97/65 (76) 95 Nasal Cannula 2.0 07/16/17 20:15 94 Nasal Cannula 3.0 07/16/17 18:55 36.9 98 20 111/73 (86) 94 Nasal Cannula 3.0 Laboratory Results Last 24 Hours Test 07/17/17 06:06 Sodium Level 127 mmol/L Potassium Level 3.3 mmol/L Chloride Level 92 mmol/L Carbon Dioxide Level 29 mmol/L Anion Gap 6.0 mmol/L Blood Urea Nitrogen 5 mg/dl Creatinine 0.47 mg/dl Est Creatinine Clear Calc Drug Dose 73.8 ml/min Estimated GFR () 114.4 Estimated GFR (Non- 98.7 BUN/Creatinine Ratio 11.6 Random Glucose 91 mg/dl Calcium Level 7.5 mg/dl Assessment and Plan PA Physician Supervision Note: I interviewed and examined the patient. Discussed with Cristine BEACH and agree with findings and plan as documented in the note. Any exceptions or clarifications are listed here: None Patient still feels tired but feels somewhat better today. Her sodium is come up with fluid restriction only. She is complaining of mucus congestion requesting Mucinex. Her vital signs are stable. Her exam remains regular with only slight tachycardia, cardiology is hopeful that oral diltiazem and amiodarone will continue to control her PSVT. The patient's and also improving from infectious standpoint with regard to her lung. The biggest issue currently remains to be her hyponatremia Her cardiac exam is tachycardic regular her lungs are actually fairly clear with only minor rales at the bases abdomen normoactive bowel sounds and soft\ Hospital course will be continued treating antibiotic lavage evaluating her for tachyarrhythmias and surveillance with fluid restriction for SIADH and hyponatremia Documented By: Radames Chávez
[2017-07-17] MEDS: CEFTRIAXONE SOD INJ 1 GM in DEXTROSE 5% ADD-VANTAGE 50ML 50 ML IV SCH (19:06)
[2017-07-17] MEDS: GUAIFENESIN 600 MG TABCR PO SCH (19:33)
[2017-07-17] MEDS: ZOLPIDEM TARTRATE 10 MG TAB PO SCH (21:29)
[2017-07-17] MEDS: ATORVASTATIN 40 MG TAB PO SCH (21:31)
[2017-07-18 04:32] VITALS: BP 120/75; PULSE 88; TEMP 36.8; O2SAT 96
[2017-07-18] MEDS: HEPARIN SOD 5000 UNIT/0.5 ML CARP SQ SCH (06:00)
[2017-07-18] MEDS: GUAIFENESIN 600 MG TABCR PO SCH (06:05)
[2017-07-18] MEDS: LEVOTHYROXINE 150 MCG TAB PO SCH (06:05)
[2017-07-18] MEDS: IPRATROPIUM BROMIDE HFA INHALER INH SCH (06:06)
[2017-07-18 07:07] VITALS: BP 128/79; PULSE 85; TEMP 37.2; O2SAT 95
[2017-07-18 07:17] LABS: CALCIUM 7.8 mg/dl (8.5-10.1); CREATININE 0.44 mg/dl (0.60-1.20); POTASSIUM 3.5 mmol/L (3.5-5.1)
[2017-07-18] MEDS: PANTOprazole SOD 40 MG TAB PO SCH (07:22)
[2017-07-18] MEDS: LOPERAMIDE HCL 2 MG CAP PO PRN (07:55)
[2017-07-18] MEDS: LACTOBACILLUS ACIDOPHILUS (FLORANEX) TAB PO SCH (07:55)
[2017-07-18] MEDS: EXEMESTANE 25 MG PO SCH (07:57)
[2017-07-18] MEDS: AFINITOR PO SCH (07:58)
[2017-07-18] MEDS: DILTIAZEM HCL 240 MG CAPCR PO SCH (07:58)
[2017-07-18] MEDS: FUROSEMIDE INJ 40 MG in SYRINGE 0 ML IV SCH (07:58)
[2017-07-18] MEDS: AMIODARONE 200 MG TAB PO SCH (07:58)
[2017-07-18] MEDS: POTASSIUM CHLORIDE 10 MEQ TABCR PO SCH (07:59)
[2017-07-18 08:08] VITALS: BP 126/78; PULSE 91; TEMP 36.9; O2SAT 96
[2017-07-18] MEDS ORDERED: CRD200 PO (08:22)
[2017-07-18] MEDS ORDERED: DLTCD/240 PO (08:22)
[2017-07-18] MEDS ORDERED: CEFU1TAB35 PO (08:22)
[2017-07-18] MEDS ORDERED: FURO-85 PO (08:22)
[2017-07-18] MEDS ORDERED: GFNSR600 PO (08:22)
--- NOTE | 2017-07-18 08:26 | Discharge Instructions ---
Discharge Instructions Date of Service July 18, 2017. Admission Reason for Admission: Right Sided Pneumonia Discharge Discharge Diagnosis / Problem: tachyarrythmia, pneumonia, hyponatremia Discharge Goals Goal(s): Diagnostic testing, Therapeutic intervention Activity Recommendations Activity Limitations: as noted below Lifting Limitations: gradually increase as tolerated . Current Hospital Diet Patient's current hospital diet: Regular Diet Discharge Diet Recommended Diet: Regular Diet (please restrict free water intake) Pending Studies Studies pending at discharge: no Medical Emergencies . Who to Call and When: Medical Emergencies: If at any time you feel your situation is an emergency, please call 911 immediately. . Non-Emergent Contact Non-Emergency issues call your: Primary Care Provider, [facility] Cashier Call Non-Emergent contact if: temperature is above 101, your pain is unusual for you . . "Provider Documentation" section prepared by Radames Chávez. .
--- NOTE | 2017-07-18 09:35 | Cardiology Follow-Up ---
Subjective Date of Service: July 18, 2017. Pt evaluation today including: conversation w/ patient, conversation w/ family , physical exam, lab review, review of studies, review of inpatient medication list History of Present Illness On review of her symptoms of palpitations, she reports that she was having a lot more episodes than she had initially led us to believe. It sounds as though she may have had daily episodes of the tachycardia, which she "ignored". She did not have hemodynamic symptoms or shortness of breath until she got the pneumonia with the episodes. She notes that the episodes were much briefer than what she has experienced here. She has not had chest discomfort, lightheadedness or dizziness with them. After starting amiodarone IV she seemed to have suppression of her arrhythmia fro a short time, but then developed SVT. We started intravenous diltiazem in addition to the IV amiodarone, that seemed to have been fairly effective in controlling the arrhythmia. I therefore switched to oral diltiazem and started oral amiodarone, along with IV, then switched to oral amiodarone. We have been gently diuresing her, however she had not lost weight, in part because she apparently is drinking a lot of water as well. When asked why she told me that she thought she should drink a lot of water since she was on a diuretic. I did place her on a fluid restriction yesterday and continued diuresis. Her shortness of breath is improved, but she has not been out of bed much and has not exercised in the hallways. Social History Smoking Status: Former Smoker History of Alcohol Use: Yes (on glass of wine with supper) Review of Systems Respiratory: No cough, No wheezing, No shortness of breath Cardiac: No chest pain, No edema Medications Cardiovascular ] Item Value Date Time Furosemide 40 mg/ 4 ml @ 4 mls/min 07/16/17 0915 Syringe BID17/IV 07/18/17 0758 Diltiazem HCl 240 mg 07/16/17 0900 (Cardizem Cd Cap) QAM/PO 07/18/17 0758 Amiodarone HCl 200 mg 07/15/17 2100 (Cordarone Tab) BID/PO 07/18/17 0758 Atorvastatin 40 mg 07/11/17 2100 Calcium HS/PO 07/17/17 213 (Lipitor Tab) Objective Vital Signs Past 12 Hours Date Time Temp Pulse Resp B/P (MAP) Pulse Ox O2 Delivery O2 Flow Rate FiO2 07/18/17 08:08 36.9 91 19 126/78 (94) 96 Nasal Cannula 1.0 07/18/17 07:07 37.2 85 19 128/79 (95) 95 Nasal Cannula 2.0 07/18/17 04:32 36.8 88 19 120/75 (90) 96 Nasal Cannula 07/18/17 04:00 Nasal Cannula 1.0 07/18/17 00:01 Nasal Cannula 1.0 07/17/17 23:50 36.7 93 19 120/79 (93) 97 Nasal Cannula 2.0 Last Recorded Weight-Kilograms: 44.700 Physical Exam Constitutional: Level of Distress: NAD Lungs: Auscultation: no wheezing, rales/crackles on the left (Slight), rales/ crackles on the right (Slight) Cardiovascular: Heart Auscultation: RRR, no murmurs Extremities: no edema Data Laboratory Results: Last 24 Hours Test 07/18/17 05:40 Sodium Level 131 mmol/L Potassium Level 3.5 mmol/L Chloride Level 96 mmol/L Carbon Dioxide Level 30 mmol/L Anion Gap 5.0 mmol/L Blood Urea Nitrogen 8 mg/dl Creatinine 0.44 mg/dl Est Creatinine Clear Calc Drug Dose 102.1 ml/min Estimated GFR () 116.9 Estimated GFR (Non- 100.8 BUN/Creatinine Ratio 18.7 Random Glucose 94 mg/dl Calcium Level 7.8 mg/dl Telemetry reviewed: No SVT for >72 hours Assessment and Plan 1. 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 She has not been very bothered by the atrial tachycardia since, although she does have it, perhaps more frequently than she had let us to believe. She now believes she was having it daily but for relatively brief periods of time so she could ignore it. I suspect her symptoms of palpitations were due to the atrial tachycardia not recurrent AV sal reentry. The atrial tachycardia could be treated with ablation, but results may not be as good as with AV sal reentry and recurrence rates are higher, I would like to continue medical therapy. If this does not work, we could plan on ablation. A combination of oral diltiazem and now oral amiodarone seems to have suppressed the arrhythmia. She may have recurrence until the loading phase of amiodarone is completed, I would not be discouraged by that. The success over the last several days suggests that it will work over the long run. 2. CHF: She appears to have an improvement in her CHF, her weight and I/O are hard to interpret but I do not believe she is in much heart failure currently. I am going to stop her intravenous diuretic. She can go home from my standpoint, I have her scheduled in the office on August 08 at noon and she needs to get blood work prior to that visit, I told her to go 2 or 3 days before. Thank you for allowing me to participate in her care.
[2017-07-18 11:38] VITALS: BP 126/78; PULSE 91; TEMP 36.9; O2SAT 96
[2017-07-18 11:50] VITALS: BP 134/77; PULSE 92; TEMP 36.5; O2SAT 94
--- NOTE | 2017-07-18 17:11 | Discharge Summary ---
Discharge Summary Date of Service July 18, 2017. Discharge Summary Admission Date: Jul 11, 2017 at 17:39 Discharge Date: July 18, 2017 Discharge Disposition: Home with services Principal Diagnosis: pneumonia, tachyarrythmia Immunizations: Have You Had Influenza Vaccine: Unknown History of Tetanus Vaccine?: Unknown History of Pneumococcal: Unknown History of Hepatitis B Vaccine: Unknown Medication Reconciliation New Medications: Cefuroxime Axetil (Cefuroxime Axetil) 500 Mg Tab 500 MG PO BID, #10 DOSE Furosemide (Lasix) 20 Mg Tab 40 MG PO DAILY, #32 TAB 6 Refills Amiodarone HCl (Amiodarone HCl) 200 Mg Tab 200 MG PO BID, #60 TAB 6 Refills Diltiazem Hcl (Diltiazem Cd) 240 Mg Capcr 240 MG PO QAM, #60 DOSE 6 Refills Guaifenesin Ext Rel (Mucinex Ext Rel) 600 Mg Tabcr 1200 MG PO Q12H, #14 DOSE Continued Medications: Acetamin/Butalbital/Caffeine (Fioricet) 1 Ea Tab 1 TAB PO UD PRN for Pain, TAB Ascorbic Acid (Ascorbic Acid) Unknown Strength Tab 1 TAB PO BID Atorvastatin (Lipitor) 40 Mg Tab 40 MG PO HS Calcium Carbonate-Cholecalcife (Caltrate 600+D) 1 Tab Tab 2 TAB PO AMPM Cholecalciferol (Vitamin D) Unknown Strength Tab 1 TAB PO DAILY Cyclosporine (Ophth) (Restasis) 0.05 % Emu 1 DROP OPR BID Everolimus (Afinitor) 5 Mg Tab 5 MG PO DAILY Exemestane (Aromasin) 25 Mg Tab 25 MG PO DAILY Levothyroxine Sodium (Levothyroxine Sodium) 150 Mcg Tab 150 MCG PO DAILY Multivitamin (Multivitamin) Tab 1 TAB PO DAILY, TAB Pantoprazole (Pantoprazole Sodium) 40 Mg Tab 40 MG PO DAILY Potassium Chloride (Micro-K Ext Rel) 10 Meq Capcr 10 MEQ PO BID for 30 Days, #60 CAP Valacyclovir HCl (Valacyclovir HCl) 500 Mg Tab 500 MG PO DAILY Zolpidem Tartrate (Ambien) 10 Mg Tab 10 MG PO HS, TAB Discontinued Medications: Metoprolol Succinate (Metoprolol Succinate ER) 100 Mg Tabcr 100 MG PO DAILY Discharge Exam Review of Systems: Constitutional: No fever, No chills, No sweats Respiratory: No cough, No sputum, No wheezing, No shortness of breath Cardiovascular: No chest pain Abdomen: No pain, No nausea, No vomiting, No diarrhea Genitourinary - Male: No hematuria, No dysuria, No urinary frequency Psychiatric: No depression symptoms, No anhedonism Physical Exam: General Appearance: WD/WN, + mild distress Eyes: PERRL, EOMI Neck: supple, no JVD Respiratory/Chest: chest non-tender, lungs clear, normal breath sounds Cardiovascular: regular rate, rhythm, no murmur Abdomen / GI: normal bowel sounds, non tender, soft Neurologic/Psychiatric: alert, oriented x 3 Hospital Course 72-year-old female fever/tachycardia and productive cough,right hilar and lower lobe lung pneumonia, hypokalemia and new left bundle branch block this pt is currently being managed for chronic hyponatremia, this has improved with fluid restriction Sepsis secondary R-sided perihilar and lower lobe PNA: Rocephin + Azithromycin did complete azithromycin and will use oral ceftin to complete course - Atrovent TID Sustained SVT s/p ablation in 2017:IV Adenosine 6 mg x1 on 07/[address] Munroe did evaluate and is pleased with response to diltiazem will discharge po diltiazem and amiodarone Acute diastolic heart failure maybe rate related, is now on scheduled lasix daily hyponatremia, consistent with siadh, fluid restrict at home she is understanding on how to do it Diarrhea-resolved:- C. diff negative - Continue Probiotic HTN: Holding Metoprol due to Cardizem as above HLD: Continue Lipitor 40 mg HS Hypokalemia, Hypomagnesemia, RESOLVED: h/o metastatic breast cancer s/p bilateral mastectomy, h/o talc pleurodesis of R lung due to recurrent malignant effusion: Continue Aromasin, Afinitor, Acyclovir, may consider re CT chest once pneumonia clears h/o thyroid cancer, hypothyroidism- TSH NL:clinically stable on Synthroid Code status: LEVEL I, FULL Total Time Spent: Greater than 30 minutes This includes examination of the patient, discharge planning, medication reconciliation, and communication with other providers. Discharge Instructions Please refer to the electronic Patient Visit Report (Discharge Instructions) for additional information.
== END 2017-07-18 13:33 | disposition home or self-care (01) | DRG 871 ==
LOC: C.EDB 13:36 → C.MED 17:39 → ENRESERV 18:18 → C.MED 20:58 → C.2T 07-13 09:46
PROVIDERS: ADMIT Internal Medicine; ATTEND Internal Medicine
DX: A41.9 Sepsis, unspecified organism (principal); J18.9 Pneumonia, unspecified organism; I50.31 Acute diastolic (congestive) heart failure; I47.1 Supraventricular tachycardia; E22.2 Syndrome of inappropriate secretion of antidiuretic hormone; E87.6 Hypokalemia; E83.42 Hypomagnesemia; R19.7 Diarrhea, unspecified; E83.39 Other disorders of phosphorus metabolism; I11.0 Hypertensive heart disease with heart failure; I44.7 Left bundle-branch block, unspecified; K21.9 Gastro-esophageal reflux disease without esophagitis; E03.9 Hypothyroidism, unspecified; E78.5 Hyperlipidemia, unspecified; B00.9 Herpesviral infection, unspecified; Z51.81 Encounter for therapeutic drug level monitoring; Z79.899 Other long term (current) drug therapy; Z85.3 Personal history of malignant neoplasm of breast; Z90.13 Acquired absence of bilateral breasts and nipples; Z85.850 Personal history of malignant neoplasm of thyroid; Z85.118 Personal history of other malignant neoplasm of bronchus and lung; Z87.11 Personal history of peptic ulcer disease; Z87.891 Personal history of nicotine dependence; Z88.8 Allergy status to other drugs, medicaments and biological substances; Z88.5 Allergy status to narcotic agent; Z88.6 Allergy status to analgesic agent; Z83.3 Family history of diabetes mellitus; Z82.49 Family history of ischemic heart disease and other diseases of the circulatory system

== ENCOUNTER → 2017-07-23 | Outpatient (CLI) | payer OTHER, BC ==
[~2017-07-23] MED LIST changes: -ATOR-22 PO; +CEFU1TAB35 PO; +CRD200 PO; +CYCL0.052 OPR; +DLTCD/240 PO; +FURO-85 PO; +GFNSR600 PO; +LPT40 PO; -METO-217 PO; -NYSS5 PO; -QSTP PO; -ULT50X PO
--- NOTE | 2017-07-23 07:40 | DIAGNOSTIC IMAGING REPORT ---
ADDENDUM Comparison made to studies dating back to 2016. The right pleural thickening/effusion remains unchanged. However, the right basilar densities have progressed compared to the 2016 examination, but slightly improved compared to the 07/11/2017 examination. Therefore, this raises the possibility of a resolving right basilar pneumonia. Electronically signed by: Wesley Castillo M.D. 07/25/2017 9:53 PM Dictated Date/Time: 07/25/2017 9:51 PM ORIGINAL REPORT CHEST 2 VIEWS ROUTINE HISTORY: Follow-up PNEUMONIA COMPARISON: Chest 07/15/2017. FINDINGS: No pneumothorax. The heart remains mildly enlarged. Stable right apical pleural thickening. The left lower lobe consolidation has essentially resolved. Small right pleural effusion and right basilar airspace opacity persists. No evidence for pulmonary edema. IMPRESSION: 1. No change in the small right pleural effusion and right basilar airspace opacity. This may represent a pneumonia. Recommend one month chest x-ray follow-up to ensure complete resolution. 2. The left pleural effusion and left basilar airspace opacity have resolved. 3. Stable mild cardiomegaly. Electronically signed by: Wesley Castillo M.D. 07/23/2017 7:39 AM Dictated Date/Time: 07/23/2017 7:37 AM
[2017-07-23 09:38] LABS: HEMATOCRIT 35.3 % (37-47); HEMOGLOBIN 11.9 g/dL (12.0-16.0); MEAN CELL VOLUME 76.9 fL (80-100); MEAN CORPUSCULAR HEMOGLOBIN 25.9 pg (25-34); MEAN CORPUSCULAR HGB CONC 33.7 g/dl (32-36); MEAN PLATELET VOLUME 8.6 fL (7.4-10.4); PLATELET COUNT 370 K/uL (130-400); RED CELL DISTRIBUTION WIDTH CV 14.4 % (11.5-14.5); RED CELL DISTRIBUTION WIDTH SD 40.9 fL (36.4-46.3); WHITE BLOOD COUNT 3.99 K/uL (4.8-10.8)
[2017-07-23 09:57] LABS: ALT/SGPT 34 U/L (12-78); AST/SGOT 24 U/L (15-37); BLOOD UREA NITROGEN 17 mg/dl (7-18); CARBON DIOXIDE 29 mmol/L (21-32); CREATININE 0.67 mg/dl (0.60-1.20); GLUCOSE 108 mg/dl (70-99); POTASSIUM 3.1 mmol/L (3.5-5.1); SODIUM 134 mmol/L (136-145)
[2017-07-23 10:08] LABS: ALKALINE PHOSPHATASE 56 U/L (45-117); TOTAL PROTEIN 7.8 gm/dl (6.4-8.2)
== END | disposition home or self-care (01) ==
LOC: C.RAD 07:02
PROVIDERS: ATTEND Family Medicine
DX: J18.9 Pneumonia, unspecified organism (principal); R91.8 Other nonspecific abnormal finding of lung field; J90 Pleural effusion, not elsewhere classified; E87.1 Hypo-osmolality and hyponatremia

== ENCOUNTER → 2017-07-26 | Outpatient (CLI) | payer OTHER, BC | END | disposition home or self-care (01) | LOC: C.LAB 12:03 | PROVIDERS: ATTEND Family Medicine | DX: R19.7 Diarrhea, unspecified (principal) ==

== ENCOUNTER → 2017-08-05 | Outpatient (CLI) | payer OTHER, BC ==
[~2017-08-05] MED LIST changes: +OPTIRAY 320 IV PRN
--- NOTE | 2017-08-05 14:36 | DIAGNOSTIC IMAGING REPORT ---
CT OF THE ABDOMEN AND PELVIS WITH CONTRAST CLINICAL HISTORY: Metastatic breast cancer. CT for restaging. COMPARISON STUDY: CT of the abdomen and pelvis April 08, 2017. TECHNIQUE: Following IV administration of 93 mL of Optiray-320, axial images of the abdomen and pelvis were obtained from the lung bases to the proximal femurs. Images were reviewed in the axial, sagittal, and coronal planes. IV contrast was administered without complication. A dose lowering technique was utilized adhering to the principles of ALARA. FINDINGS: Please note that the chest CT will be reported separately. A small right pleural effusion with pleural thickening and hyperdensity similar to previous exam of April 08, 2017. A 1.8 cm right adrenal nodule is unchanged since since previous exam and was not FDG avid on PET/CT of July 04, 2013. The liver is unremarkable with exception of a 7 mm inferior right hepatic lobe cyst. The gallbladder surgically absent. The spleen, kidneys and pancreas are unremarkable Global. There is no ascites. No abdominal or pelvic lymphadenopathy is present. Caliber and wall thickness of small and large bowel are normal. A right femoral internal fixation is noted. A sclerotic lesion within the T10 vertebra is similar to previous exam. IMPRESSION: 1. No evidence for progressive metastatic disease within the abdomen or pelvis. No change since exam of April 08, 2017. 2. No change in the T10 sclerotic lesion consistent with metastatic disease. 3. Stable right-sided pleural thickening with a trace right pleural effusion. This favors prior pleurodesis. Pleural metastatic disease could appear similar although is considered less likely. Electronically signed by: Xu Andrade M.D. 08/05/2017 2:35 PM Dictated Date/Time: 08/05/2017 2:23 PM
--- NOTE | 2017-08-05 14:54 | DIAGNOSTIC IMAGING REPORT ---
CT OF THE CHEST WITH IV CONTRAST CLINICAL HISTORY: Metastatic breast cancer. CT for restaging. COMPARISON STUDY: Chest CT April 08, 2017. TECHNIQUE: Following IV administration of 93 mL of Optiray-320, helical axial images of the chest were obtained. Sagittal and coronal reconstructions were viewed as well as maximal intensity projections on an independent 3-D workstation. A dose lowering technique was utilized adhering to the principles of ALARA. CT DOSE: 432.56 mGy.cm FINDINGS: A prominent AP window lymph node is similar to prior exam. The heart is mildly enlarged. There is no pericardial effusion. There is no thoracic aortic dissection. Right pleural thickening, a trace right pleural effusion and right pleural hyperdensity is unchanged since exam of April 08, 2017. A 5 mm right upper lobe nodule shown on image 110 and 306 is unchanged from earlier exams. There has been interval developed of multiple subpleural irregular right lung opacities since exam of April 08, 2017, including a 1.1 cm right lower lobe opacity shown on image 145 and an additional 1.1 cm right lower lobe opacity shown on image 170. There is persistent right lung interlobular septal thickening. No suspicious left lung nodules are noted. Sclerotic lesions within the sternum and T10 vertebra are unchanged since previous exam. No new lesions are present. The abdomen and pelvis will be reported separate. Right adrenal nodule is unchanged. IMPRESSION: 1. Right lung interlobular septal thickening which is similar to exam of April 08, 2017. This is nonspecific but lymphangitic carcinomatosis is within the differential. 2. Interval development of several subpleural irregular right lung opacities which favors a mild infectious process. Metastatic disease could appear similar. 3. No change in hyperdense right pleural thickening and trace right pleural effusion which favors previous pleurodesis however metastatic disease could appear similar. 4. Stable T10 and sternal sclerotic metastases. Electronically signed by: Xu Andrade M.D. 08/05/2017 2:53 PM Dictated Date/Time: 08/05/2017 2:36 PM
== END | disposition home or self-care (01) ==
LOC: C.CTS 13:49
PROVIDERS: ATTEND Internal Medicine Hematology & Oncology
DX: C50.911 Malignant neoplasm of unspecified site of right female breast (principal); J92.9 Pleural plaque without asbestos

== ENCOUNTER → 2017-08-07 | Outpatient (CLI) | payer OTHER, BC ==
[~2017-08-07] MED LIST changes: -OPTIRAY 320 IV PRN
--- NOTE | 2017-08-07 13:42 | DIAGNOSTIC IMAGING REPORT ---
WHOLE-BODY NUCLEAR BONE SCAN CLINICAL HISTORY: Breast cancer. COMPARISON STUDY: Whole body bone scan dated 04/08/2017. CT scan of the chest, abdomen, and pelvis dated 08/05/2017. TECHNIQUE: Three hours following the IV administration of 26.23 mCi of technetium 99m MDP, whole body nuclear bone scan was performed in the anterior and posterior projections. FINDINGS: There are foci of intense abnormal tracer uptake within the T10 vertebral body and the sternum. These correspond to known osteoblastic metastases when correlated with the recent CT scans. An additional focus of abnormal tracer deposition is identified within a right posterior rib, likely the 10th rib. This is also concerning for metastatic disease. No corresponding lesion seen on the recent CT scan. Typically degenerative uptake is identified in the shoulders, hips, knees, ankles, and right first metatarsophalangeal joints. Typically degenerative activity is also seen in the cervical and lumbar spine. There is expected excreted activity within the renal collecting system and bladder. IMPRESSION: Findings of osseous metastatic disease as above. This is similar in appearance to the 04/08/2017 examination. Electronically signed by: Rickie King M.D. 08/07/2017 1:41 PM Dictated Date/Time: 08/07/2017 1:35 PM
== END | disposition home or self-care (01) ==
LOC: C.NUCL 09:55
PROVIDERS: ATTEND Internal Medicine Hematology & Oncology
DX: C50.911 Malignant neoplasm of unspecified site of right female breast (principal)

== ENCOUNTER → 2017-10-23 | Outpatient (CLI) | payer OTHER, BC ==
[~2017-10-23] MED LIST changes: +ASCO100T4 PO; -CEFU1TAB35 PO; +CHOL1CAP26 PO; -FURO-85 PO; -GFNSR600 PO; +LVQ750 PO; +RANI150T3 PO; +SUCR1TAB29 PO; -VLT500 PO
--- NOTE | 2017-10-23 12:59 | DIAGNOSTIC IMAGING REPORT ---
CHEST 2 VIEWS ROUTINE CLINICAL HISTORY: Amiodarone therapy. Metastatic breast cancer. COMPARISON STUDY: Chest CT August 05, 2017 and chest radiograph September 03, 2017. FINDINGS: There is no pneumothorax. A small right pleural effusion has slightly increased. Right lower lung airspace opacity and interstitial thickening has mildly progressed. There is no evidence for pulmonary edema. Cardiomediastinal silhouette is stable. Cholecystectomy clips are incidentally noted. IMPRESSION: 1. Slight increase in size of a small right pleural effusion with increasing right lower lung opacity and interstitial thickening. The findings may reflect metastatic disease or an infectious process. 2. No left pleural effusion. 3. No evidence for pulmonary edema. Electronically signed by: Xu Andrade M.D. 10/23/2017 12:57 PM Dictated Date/Time: 10/23/2017 12:54 PM
== END | disposition home or self-care (01) ==
LOC: C.RAD1850 11:50
PROVIDERS: ATTEND Internal Medicine Cardiovascular Disease
DX: Z51.81 Encounter for therapeutic drug level monitoring (principal); Z79.899 Other long term (current) drug therapy; I44.7 Left bundle-branch block, unspecified; C73 Malignant neoplasm of thyroid gland; J90 Pleural effusion, not elsewhere classified; R91.8 Other nonspecific abnormal finding of lung field

== ENCOUNTER 2017-10-29 12:54 | Inpatient (IN) | payer OTHER, BC ==
[~2017-10-29] VITALS: Ht 144.8 cm; Wt 41.4 kg
[~2017-10-29 12:54] MED LIST changes: -ASCO100T4 PO; -CHOL1CAP26 PO; -LVQ750 PO; -SUCR1TAB29 PO
[2017-10-29] MEDS ORDERED: CEFEPIME IV 1,000 MG in DEXTROSE 5% 100ML 100 ML IV STA (13:11)
[2017-10-29] MEDS ORDERED: SODIUM CHLORIDE 0.9% 1000ML 2,000 ML IV STA (13:11)
--- NOTE | 2017-10-29 13:32 | DIAGNOSTIC IMAGING REPORT ---
CHEST ONE VIEW PORTABLE CLINICAL HISTORY: 72 years-old Female presenting with fever, weakness, history of metastatic breast cancer. TECHNIQUE: Portable upright AP view of the chest was obtained. COMPARISON: 10/23/2017. FINDINGS: Atherosclerosis of the aortic arch. Cardiac silhouette enlarged. Persistent small to moderate right pleural effusion with extensive right basilar opacity. Left lung and pleural space clear. No pneumothorax. Osseous structures normal. Upper abdomen normal. IMPRESSION: 1. Persistent small moderate right pleural effusion with associated right basilar infiltrate. Most likely this represents pneumonia with a parapneumonic effusion. Alternatively, this may represent lymphangitic carcinomatosis with pleural metastatic disease. 2. Cardiomegaly. Electronically signed by: Ubaldo Blancas M.D. 10/29/2017 1:31 PM Dictated Date/Time: 10/29/2017 1:28 PM
[2017-10-29] MEDS ORDERED: LEVAQUIN 750MG / 150ML D5W IV STA (13:43)
[2017-10-29] MEDS ORDERED: ACETAMINOPHEN 500 MG TAB PO STA (13:44)
[2017-10-29 14:16] LABS: BASO % 0.1 %; BASO ABS # 0.01 K/uL (0-0.2); HEMATOCRIT 33.8 % (37-47); HEMOGLOBIN 11.1 g/dL (12.0-16.0); IG# 0.01 K/uL (0.00-0.02); LYMPH ABS # 0.67 K/uL (1.2-3.4); MEAN CELL VOLUME 77.5 fL (80-100); MEAN CORPUSCULAR HEMOGLOBIN 25.5 pg (25-34); MEAN CORPUSCULAR HGB CONC 32.8 g/dl (32-36); MEAN PLATELET VOLUME 8.5 fL (7.4-10.4); MONO % 6.7 %; MONO ABS # 0.45 K/uL (0.11-0.59); NEUT % 83.1 %; NEUT ABS # 5.55 K/uL (1.4-6.5); PLATELET COUNT 277 K/uL (130-400); RED CELL DISTRIBUTION WIDTH CV 14.3 % (11.5-14.5); RED CELL DISTRIBUTION WIDTH SD 40.6 fL (36.4-46.3); WHITE BLOOD COUNT 6.69 K/uL (4.8-10.8)
[2017-10-29 14:19] LABS: ISTAT CREATININE 0.6 mg/dl (0.6-1.3); ISTAT IONIZED CALCIUM 1.01 mmol/l (1.12-1.32); ISTAT POTASSIUM 3.6 mEq/L (3.3-5.0)
[2017-10-29 14:32] LABS: INR 1.1 (0.9-1.1)
[2017-10-29 14:41] LABS: ALBUMIN 2.9 gm/dl (3.4-5.0); ALKALINE PHOSPHATASE 54 U/L (45-117); ALT/SGPT 74 U/L (12-78); AST/SGOT 46 U/L (15-37); BLOOD UREA NITROGEN 8 mg/dl (7-18); CALCIUM 8.5 mg/dl (8.5-10.1); CARBON DIOXIDE 26 mmol/L (21-32); CKMB < 1.0 ng/ml (0.5-3.6); CREATININE 0.71 mg/dl (0.60-1.20); GLUCOSE 96 mg/dl (70-99); POTASSIUM 3.3 mmol/L (3.5-5.1); SODIUM 129 mmol/L (136-145); TOTAL PROTEIN 7.9 gm/dl (6.4-8.2)
[2017-10-29] MEDS ORDERED: CHOL1CAP26 PO (14:52)
[2017-10-29] MEDS ORDERED: ASCO100T4 PO (14:52)
[2017-10-29] MEDS ORDERED: RANITIDINE HCL 150 MG TAB PO PRN (16:30)
--- NOTE | 2017-10-29 16:30 | History and Physical ---
History & Physical Date & Time of Service: Oct 29, 2017 at 16:17 Chief Complaint: Fever,Weak,Not Eating Primary Care Physician: Isaac Way M.D. History of Present Illness 72 y/o F Hx metastatic breast cancer, HTN, HPL, hypothyroidism, recurrent oral herpes, AVNRT, GERD, dysphagia. She has been taking Exemestane and Everolimus for bone and lungs mets for the past 5 years. She has a history of talc pleurodesis of right lung 2012 due to recurrent malignant effusion. The pt presents with worsening of SOB and a productive cough which she states are chronic, in addition to an acute fever. She denies any CP. Her temp prior to arrival was 102. A fever of 101.7 was confirmed in the ER. CXR demonstrated a R pleural effusion and likely an infiltrate as well. Past Medical/Surgical History 1) Metastatic breast CA - bilateral mastectomy 2005 - mets to bone and lung 2) Recurrent oral herpes 3) HTN 4) HPL 5) AVNRT requiring ablation 2016 6) Hypothyroidism 7) Malignant R pleural effusion 8) Dysphagia - limited to pills 9) GERD 10) PUD - history of GI bleed - normal EGD 09/2017 11) Thyroid CA 12) LBBB 13) Presumed CAD per cardiology records - abnormal stress echo with inferior ischemia 2015 Surgical: 1) BL mastectomy 2005 2) Ablation for AVNRT 2016 3) Cholecystectomy 4) Talc pleurodesis for recurrent R effusion 2012 Family History Cancer Diabetes mellitus FH: heart disease Gallbladder disease Hypertension Social History Smoking Status: Former Smoker Drug Use: none Occupational Status: retired, other Immunizations History of Influenza Vaccine: Unknown History of Tetanus Vaccine?: Unknown History of Pneumococcal: Unknown History of Hepatitis B Vaccine: Unknown Allergies Coded Allergies: Isosorbide Nitrate (Verified Adverse Reaction, Intermediate, IMDUR/ MIGRAINE, 10/29/17) Oxycodone (Verified Adverse Reaction, Intermediate, HALLUCINATIONS, ) HALLUCINATIONS Aspirin (Verified Adverse Reaction, Mild, HISTORY OF BLEEDING ULCERS, 10/29) Buprenorphine (Verified Adverse Reaction, Mild, GI SYMPTOMS, 10/29/17) Diphenhydramine (Verified Adverse Reaction, Mild, RESTLESS LEGS, 10/29/17) RESTLESS LEGS Morphine (Verified Adverse Reaction, Mild, SEVERE VOMITING, 10/29/17) NSAIDs (Verified Adverse Reaction, Mild, BLEEDING ULCER DISEASE-CAN NOT HAVE NSAIDS, 10/29/17) Tapentadol (Verified Adverse Reaction, Mild, headache, 10/29/17) Home Medications Scheduled Ascorbic Acid (Vitamin C), 100 MG PO DAILY Atorvastatin (Lipitor), 40 MG PO HS Calcium Carbonate-Cholecalcife (Caltrate 600+D), 2 TAB PO AMPM Cholecalciferol (D3 Ultra Strength), 5,000 UNITS PO DAILY Cyclosporine (Ophth) (Restasis), 1 DROP OPR HS Diltiazem Hcl (Diltiazem Cd), 240 MG PO QAM Everolimus (Afinitor), 5 MG PO QAM Exemestane (Aromasin), 25 MG PO QAM Levothyroxine Sodium (Levothyroxine Sodium), 150 MCG PO QAM Multivitamin (Multivitamin), 1 TAB PO DAILY Pantoprazole (Pantoprazole Sodium), 40 MG PO QAM Potassium Chloride (Micro-K Ext Rel), 10 MEQ PO BID Zolpidem Tartrate (Ambien), 10 MG PO HS Scheduled PRN Acetamin/Butalbital/Caffeine (Fioricet), 1 TAB PO UD PRN for Pain Ranitidine Hcl (Zantac), 150 MG PO BID PRN for gastritis Review of Systems Constitutional: + fever, No chills, No sweats Eyes: No worsening of vision ENT: No hearing loss, No unusual epistaxis, No nasal symptoms Respiratory: + cough, + sputum, + shortness of breath Cardiovascular: No chest pain, No orthopnea, No PND Abdomen: No pain, No nausea, No vomiting Musculoskeletal: No joint pain Genitourinary - Female: No dysuria, No urinary frequency Neurologic: + weakness, No memory loss, No paralysis Psychiatric: No depression symptoms Endocrine: + fatigue Hematologic / Lymphatic: No abnormal bleeding/bruising Integumentary: No rash Allergic / Immunologic: No environmental allergies Physical Exam Vital Signs Date Time Temp Pulse Resp B/P (MAP) Pulse Ox O2 Delivery O2 Flow Rate FiO2 10/29/17 14:54 38.2 87 20 125/71 92 Room Air 10/29/17 12:57 38.4 98 20 152/81 91 Room Air General Appearance: + pertinent finding (Pleasant, thin, elderly female - NINILCHIK - no distress or 02 requirements) Head: normocephalic Eyes: normal inspection ENT: normal ENT inspection, pharynx normal Neck: supple, thyroid normal Respiratory/Chest: chest non-tender, + pertinent finding (No entry at L base - crackles at L mid lung - R lung clear) Cardiovascular: regular rate, rhythm, no edema, no gallop Abdomen/GI: normal bowel sounds, non tender, soft Back: normal inspection, no CVA tenderness Extremities/Musculoskelatal: normal inspection, no calf tenderness, normal capillary refill Neurologic/Psych: slab inspector II-XII nml as tested, no motor/sensory deficits, alert, oriented x 3 Skin: normal color Diagnostics Laboratory Results Results Past 24 Hours Test 10/29/17 13:40 10/29/17 14:05 10/29/17 14:09 10/29/17 14:20 Range/Units White Blood Count 6.69 4.8-10.8 K/uL Red Blood Count 4.36 4.2-5.4 M/uL Hemoglobin 11.1 12.0-16.0 g/dL Hematocrit 33.8 37-47 % Mean Corpuscular Volume 77.5 80-100 fL Mean Corpuscular Hemoglobin 25.5 25-34 pg Mean Corpuscular Hemoglobin Concent 32.8 32-36 g/dl Platelet Count 277 130-400 K/uL Mean Platelet Volume 8.5 7.4-10.4 fL Neutrophils (%) (Auto) 83.1 % Lymphocytes (%) (Auto) 10.0 % Monocytes (%) (Auto) 6.7 % Eosinophils (%) (Auto) 0.0 % Basophils (%) (Auto) 0.1 % Neutrophils # (Auto) 5.55 1.4-6.5 K/uL Lymphocytes # (Auto) 0.67 1.2-3.4 K/uL Monocytes # (Auto) 0.45 0.11-0.59 K/uL Eosinophils # (Auto) 0.00 0-0.5 K/uL Basophils # (Auto) 0.01 0-0.2 K/uL RDW Standard Deviation 40.6 36.4-46.3 fL RDW Coefficient of Variation 14.3 11.5-14.5 % Immature Granulocyte % (Auto) 0.1 % Immature Granulocyte # (Auto) 0.01 0.00-0.02 K/uL Prothrombin Time 11.3 9.0-12.0 SECONDS Prothromb Time International Ratio 1.1 0.9-1.1 Sodium Level 129 136-145 mmol/L Potassium Level 3.3 3.5-5.1 mmol/L Chloride Level 92 98-107 mmol/L Carbon Dioxide Level 26 21-32 mmol/L Anion Gap 11.0 19.0 16-25 mmol/L Blood Urea Nitrogen 8 7-18 mg/dl Creatinine 0.71 0.60-1.20 mg/dl Est Creatinine Clear Calc Drug Dose 46.6 ml/min Estimated GFR () 98.6 Estimated GFR (Non- 85.1 BUN/Creatinine Ratio 11.7 10-20 Random Glucose 96 70-99 mg/dl Calcium Level 8.5 8.5-10.1 mg/dl Magnesium Level 2.0 1.8-2.4 mg/dl Total Bilirubin 0.3 0.2-1 mg/dl Direct Bilirubin 0.1 0-0.2 mg/dl Aspartate Amino Transf (AST/SGOT) 46 15-37 U/L Alanine Aminotransferase (ALT/SGPT) 74 12-78 U/L Alkaline Phosphatase 54 45-117 U/L Total Creatine Kinase 237 26-192 U/L Creatine Kinase MB < 1.0 0.5-3.6 ng/ml Creatine Kinase MB Ratio 0-3.0 Troponin I < 0.015 0-0.045 ng/ml Total Protein 7.9 6.4-8.2 gm/dl Albumin 2.9 3.4-5.0 gm/dl Bedside Lactic Acid Venous 1.46 0.90-1.70 mmol/L Bedside Hemoglobin 11.6 12.0-16.0 g/dl Bedside Hematocrit 34 37-47 % Bedside Sodium 130 135-144 mEq/L Bedside Potassium 3.6 3.3-5.0 mEq/L Bedside Chloride 92 101-112 mEq/L Bedside Total CO2 24 24-31 mEq/l Bedside Blood Urea Nitrogen 7 7-18 mg/dl Bedside Creatinine 0.6 0.6-1.3 mg/dl Bedside Glucose (other) 101 70-99 mg/dl Bedside Ionized Calcium (Teresita) 1.01 1.12-1.32 mmol/l Urine Color DK YELLOW Urine Appearance CLEAR CLEAR Urine pH 7.0 4.5-7.5 Urine Specific [place] 1.019 1.000-1.030 Urine Protein 3+ NEG Urine Glucose (UA) NEG NEG Urine Ketones TRACE NEG Urine Occult Blood 3+ NEG Urine Nitrite NEG NEG Urine Bilirubin NEG NEG Urine Urobilinogen NEG NEG Urine Leukocyte Esterase TRACE NEG Urine WBC (Auto) 1-5 0-5 /hpf Urine RBC (Auto) >30 0-4 /hpf Urine Hyaline Casts (Auto) 10-30 0-5 /lpf Urine Epithelial Cells (Auto) >30 0-5 /lpf Urine Bacteria (Auto) NEG NEG Urine Renal Epithelial Cells 0-5 /lpf Urine Mucus PRESENT NONE PRSENT Microbiology Results 10/29/17 Blood Culture, Received Pending 10/29/17 Blood Culture, Received Pending Diagnostic Radiology IMPRESSION: 1. Persistent small moderate right pleural effusion with associated right basilar infiltrate. Most likely this represents pneumonia with a parapneumonic effusion. Alternatively, this may represent lymphangitic carcinomatosis with pleural metastatic disease. 2. Cardiomegaly. EKG Sinus, LBBB, L axis - no significant change Impression Assessment and Plan 72 y/o F Hx metastatic breast cancer, HTN, HPL, hypothyroidism, recurrent oral herpes, AVNRT, GERD, dysphagia. She has been taking Exemestane and Everolimus for bone and lungs mets for the past 5 years. She has a history of talc pleurodesis of right lung 2012 due to recurrent malignant effusion. The pt presents with worsening of SOB and a productive cough which she states are chronic, in addition to an acute fever. She denies any CP. Her temp prior to arrival was 102. A fever of 101.7 was confirmed in the ER. CXR demonstrated a R pleural effusion and likely an infiltrate as well. 1) PNM - R effusion - acute on chronic SOB and cough - Pt started on Levaquin and received a dose of Cefepime in the ER as well. PRN nebs provided. R effusion is not new, although it may be increasing in size. A thoracentesis may be merited eventually if her symptoms worsen as this may confirm the effusion as parapneumonic. 2) HTN, HPL - cont Diltiazem, Lipitor. 3) Hypothyroidism - Continue Synthroid. 4) Breast CA with bone mets - will continue Exemestane and Everolimus. 5) Presumed CAD - she is presently taking a Statin - she has not had any recent CP - she follows up with Dr. Thomas regularly. Full code - Heparin prophylaxis Total time for this admit including review of labs, meds, imaging, records - discussion with pt and ER attending 38 min Resuscitation Status VTE Prophylaxis Will order VTE Prophylaxis: Yes
--- NOTE | 2017-10-29 17:11 | EMERGENCY ROOM VISIT NOTE ---
History Report prepared by Monica: Sallie Napier Under the Supervision of: Dr. Thor Kramer D.O. First contact with patient: 13:01 Chief Complaint: FEVER Stated Complaint: FEVER,WEAK,NOT EATING History of Present Illness The patient is a 72 year old female who presents to the Emergency Room with complaints of a fever beginning last night. She notes her fevers were almost 101 and she has had a wet cough with foamy yellow sputum since getting pneumonia in July. She is nauseous and states she has some abdominal pain and a lack of appetite. She states she was on Amiodarone but she had bad side effects , so Dr. Munroe took the patient off of it. Pt denies headache, chest pain, shortness of breath, nausea, vomiting, diarrhea, pain with urination, and melena. Her last normal BM was yesterday. She is on oral chemotherapy for breast cancer which has metastasized. Source of History: patient Onset: last night Position: head, abdomen, other (upper and lower extremities) Associated Symptoms: + fevers (101), + cough (a wet cough with foamy yellow sputum ) Review of Systems See HPI for pertinent positives & negatives. A total of 10 systems reviewed and were otherwise negative. Past Medical & Surgical Medical Problems: (1) Allergic rhinitis (2) Atrial tachycardia (3) AVNRT (AV sal re-entry tachycardia) (4) Bleeding ulcer (5) Cancer of thyroid (6) GERD (gastroesophageal reflux disease) (7) Metastatic breast cancer (8) Peptic ulcer disease with hemorrhage (9) right sided pneumonia Surgical Problems: (1) History of cardiac radiofrequency ablation Family History Cancer Diabetes mellitus FH: heart disease Gallbladder disease Hypertension Social History Smoking Status: Former Smoker Alcohol Use: occasionally Drug Use: none Housing Status: lives alone Occupation Status: retired, other Current/Historical Medications Scheduled Ascorbic Acid (Vitamin C), 100 MG PO DAILY Atorvastatin (Lipitor), 40 MG PO HS Calcium Carbonate-Cholecalcife (Caltrate 600+D), 2 TAB PO AMPM Cholecalciferol (D3 Ultra Strength), 5,000 UNITS PO DAILY Cyclosporine (Ophth) (Restasis), 1 DROP OPR HS Diltiazem Hcl (Diltiazem Cd), 240 MG PO QAM Everolimus (Afinitor), 5 MG PO QAM Exemestane (Aromasin), 25 MG PO QAM Levothyroxine Sodium (Levothyroxine Sodium), 150 MCG PO QAM Multivitamin (Multivitamin), 1 TAB PO DAILY Pantoprazole (Pantoprazole Sodium), 40 MG PO QAM Potassium Chloride (Micro-K Ext Rel), 10 MEQ PO BID Zolpidem Tartrate (Ambien), 10 MG PO HS Scheduled PRN Acetamin/Butalbital/Caffeine (Fioricet), 1 TAB PO UD PRN for Pain Ranitidine Hcl (Zantac), 150 MG PO BID PRN for gastritis Allergies Coded Allergies: Isosorbide Nitrate (Verified Adverse Reaction, Intermediate, IMDUR/ MIGRAINE, 10/29/17) Oxycodone (Verified Adverse Reaction, Intermediate, HALLUCINATIONS, ) HALLUCINATIONS Aspirin (Verified Adverse Reaction, Mild, HISTORY OF BLEEDING ULCERS, 10/29) Buprenorphine (Verified Adverse Reaction, Mild, GI SYMPTOMS, 10/29/17) Diphenhydramine (Verified Adverse Reaction, Mild, RESTLESS LEGS, 10/29/17) RESTLESS LEGS Morphine (Verified Adverse Reaction, Mild, SEVERE VOMITING, 10/29/17) NSAIDs (Verified Adverse Reaction, Mild, BLEEDING ULCER DISEASE-CAN NOT HAVE NSAIDS, 10/29/17) Tapentadol (Verified Adverse Reaction, Mild, headache, 10/29/17) Physical Exam Vital Signs Date Time Temp Pulse Resp B/P (MAP) Pulse Ox O2 Delivery O2 Flow Rate FiO2 10/29/17 14:54 38.2 87 20 125/71 92 Room Air 10/29/17 12:57 38.4 98 20 152/81 91 Room Air Physical Exam GENERAL: Sitting up in bed, alert, cachectic appearing, malnourished, no distress, non-toxic EYE EXAM: normal conjunctiva. OROPHARYNX: no exudate, no erythema, lips, buccal mucosa, and tongue normal and mucous membranes are dry NECK: supple, no nuchal rigidity, no adenopathy, non-tender LUNGS: Diminished at the right base. Normal chest wall mechanics HEART: Tachy, no murmurs, S1 normal and S2 normal ABDOMEN: abdomen soft, non-tender, normo-active bowel sounds, no masses, no rebound or guarding. BACK: Back is symmetrical on inspection and there is no deformity, no midline tenderness, no CVA tenderness. SKIN: no rashes and no bruising UPPER EXTREMITIES: upper extremities are grossly normal. LOWER EXTREMITIES: No pitting edema. NEURO EXAM: Normal sensorium, cranial nerves II-XII intact, normal speech, no gross weakness of arms, no gross weakness of legs. Medical Decision & Procedures ER Provider Diagnostic Interpretation: Radiology results as stated below per my review and the radiologist's interpretation: CHEST ONE VIEW PORTABLE CLINICAL HISTORY: 72 years-old Female presenting with fever, weakness, history of metastatic breast cancer. TECHNIQUE: Portable upright AP view of the chest was obtained. COMPARISON: 10/23/2017. FINDINGS: Atherosclerosis of the aortic arch. Cardiac silhouette enlarged. Persistent small to moderate right pleural effusion with extensive right basilar opacity. Left lung and pleural space clear. No pneumothorax. Osseous structures normal. Upper abdomen normal. IMPRESSION: 1. Persistent small moderate right pleural effusion with associated right basilar infiltrate. Most likely this represents pneumonia with a parapneumonic effusion. Alternatively, this may represent lymphangitic carcinomatosis with pleural metastatic disease. 2. Cardiomegaly. Electronically signed by: Ubaldo Blancas M.D. 10/29/2017 1:31 PM Laboratory Results 10/29/17 13:40 Red Blood Count 4.36, Mean Corpuscular Volume 77.5, Mean Corpuscular Hemoglobin 25.5, Mean Corpuscular Hemoglobin Concent 32.8, Mean Platelet Volume 8.5, Neutrophils (%) (Auto) 83.1, Lymphocytes (%) (Auto) 10.0, Monocytes (%) (Auto) 6.7, Eosinophils (%) (Auto) 0.0, Basophils (%) (Auto) 0.1, Neutrophils # (Auto) 5.55, Lymphocytes # (Auto) 0.67, Monocytes # (Auto) 0.45, Eosinophils # (Auto) 0.00, Basophils # (Auto) 0.01 10/29/17 13:40 Test 10/29/17 13:40 10/29/17 14:05 10/29/17 14:09 10/29/17 14:20 White Blood Count 6.69 K/uL (4.8-10.8) Red Blood Count 4.36 M/uL (4.2-5.4) Hemoglobin 11.1 g/dL (12.0-16.0) Hematocrit 33.8 % (37-47) Mean Corpuscular Volume 77.5 fL (80-100) Mean Corpuscular Hemoglobin 25.5 pg (25-34) Mean Corpuscular Hemoglobin Concent 32.8 g/dl (32-36) Platelet Count 277 K/uL (130-400) Mean Platelet Volume 8.5 fL (7.4-10.4) Neutrophils (%) (Auto) 83.1 % Lymphocytes (%) (Auto) 10.0 % Monocytes (%) (Auto) 6.7 % Eosinophils (%) (Auto) 0.0 % Basophils (%) (Auto) 0.1 % Neutrophils # (Auto) 5.55 K/uL (1.4-6.5) Lymphocytes # (Auto) 0.67 K/uL (1.2-3.4) Monocytes # (Auto) 0.45 K/uL (0.11-0.59) Eosinophils # (Auto) 0.00 K/uL (0-0.5) Basophils # (Auto) 0.01 K/uL (0-0.2) RDW Standard Deviation 40.6 fL (36.4-46.3) RDW Coefficient of Variation 14.3 % (11.5-14.5) Immature Granulocyte % (Auto) 0.1 % Immature Granulocyte # (Auto) 0.01 K/uL (0.00-0.02) Prothrombin Time 11.3 SECONDS (9.0-12.0) Prothromb Time International Ratio 1.1 (0.9-1.1) Est Creatinine Clear Calc Drug Dose 46.6 ml/min Estimated GFR () 98.6 Estimated GFR (Non- 85.1 BUN/Creatinine Ratio 11.7 (10-20) Calcium Level 8.5 mg/dl (8.5-10.1) Magnesium Level 2.0 mg/dl (1.8-2.4) Total Bilirubin 0.3 mg/dl (0.2-1) Direct Bilirubin 0.1 mg/dl (0-0.2) Aspartate Amino Transf (AST/SGOT) 46 U/L (15-37) Alanine Aminotransferase (ALT/SGPT) 74 U/L (12-78) Alkaline Phosphatase 54 U/L (45-117) Total Creatine Kinase 237 U/L (26-192) Creatine Kinase MB < 1.0 ng/ml (0.5-3.6) Creatine Kinase MB Ratio (0-3.0) Troponin I < 0.015 ng/ml (0-0.045) Total Protein 7.9 gm/dl (6.4-8.2) Albumin 2.9 gm/dl (3.4-5.0) Bedside Lactic Acid Venous 1.46 mmol/L (0.90-1.70) Bedside Hemoglobin 11.6 g/dl (12.0-16.0) Bedside Hematocrit 34 % (37-47) Bedside Sodium 130 mEq/L (135-144) Bedside Potassium 3.6 mEq/L (3.3-5.0) Bedside Chloride 92 mEq/L (101-112) Bedside Total CO2 24 mEq/l (24-31) Anion Gap 19.0 mmol/L (16-25) Bedside Blood Urea Nitrogen 7 mg/dl (7-18) Bedside Creatinine 0.6 mg/dl (0.6-1.3) Bedside Glucose (other) 101 mg/dl (70-99) Bedside Ionized Calcium (Teresita) 1.01 mmol/l (1.12-1.32) Urine Color DK YELLOW Urine Appearance CLEAR (CLEAR) Urine pH 7.0 (4.5-7.5) Urine Specific [place] 1.019 (1.000-1.030) Urine Protein 3+ (NEG) Urine Glucose (UA) NEG (NEG) Urine Ketones TRACE (NEG) Urine Occult Blood 3+ (NEG) Urine Nitrite NEG (NEG) Urine Bilirubin NEG (NEG) Urine Urobilinogen NEG (NEG) Urine Leukocyte Esterase TRACE (NEG) Urine WBC (Auto) 1-5 /hpf (0-5) Urine RBC (Auto) >30 /hpf (0-4) Urine Hyaline Casts (Auto) 10-30 /lpf (0-5) Urine Epithelial Cells (Auto) >30 /lpf (0-5) Urine Bacteria (Auto) NEG (NEG) Urine Renal Epithelial Cells /lpf (0-5) Urine Mucus PRESENT (NONE PRSENT) Laboratory results per my review. Medications Administered Medications (Trade) Dose Ordered Sig/[place] Route Start Time Stop Time Status Last Admin Dose Admin Sodium Chloride 2,000 ml @ 999 mls/hr Q2H1M STAT IV 10/29/17 13:11 10/29/17 15:11 DC 10/29/17 14:00 999 MLS/HR Cefepime HCl 1000 mg/Dextrose 111 ml @ 200 mls/hr NOW STAT IV 10/29/17 13:11 10/29/17 13:44 DC 10/29/17 14:19 200 MLS/HR Levofloxacin (Levaquin / D5W) 750 mg NOW STAT IV 10/29/17 13:43 10/29/17 13:44 DC 10/29/17 14:00 750 MG Acetaminophen (Tylenol Tab) 1,000 mg NOW STAT PO 10/29/17 13:44 10/29/17 13:45 DC 10/29/17 14:00 1,000 MG ED Course ED COURSE: Vital signs were reviewed and showed hypoxic, febrile, and tachy The patients medical record was reviewed The above diagnostic studies were performed and reviewed. ED treatments and interventions as stated above. 1304: The patient was evaluated in room C5. A complete history and physical examination was performed. 1311: Ordered Cefepime HCL 111 ml @ 200 mls/hr IV, Sodium Chloride 2000 ml @ 999 mls/hr IV 1343: Ordered Levofloxacin 750 mg IV 1344: Ordered Tylenol Tab 1000 mg PO 1423: I reviewed the patient's case with Dr. Wolf, [facility] Hospitalist. He will evaluate the patient for further management. 1407: Upon reevaluation, the patient is feeling slightly better. I discussed my findings with the patient and she understands and agrees with the treatment plan. Based on the patients age, coexisting illnesses, exam and lab findings the decision to treat as an inpatient was made. The patient remained stable while under my care. The patient will be evaluated for further management. Medical Decision Differential diagnosis includes etiologies such as sepsis, UTI, pneumonia, metabolic, electrolyte abnormalities, cardiac sources, intracerebral event, toxicologic, neurologic, as well as others were entertained. Patient is a 72-year-old female who presents the ER was found to be febrile, tachycardic and slightly hypoxic. She has metastatic breast cancer and is on oral chemo. Labs were obtained and CBC was unremarkable. BMP with mild hyponatremia and hypo-kalemia. Bilirubin and troponin were negative. LFTs were normal. UA was contaminated. Chest x-ray with an effusion and likely right lower lobe infiltrate. She was covered with broad-spectrum antibiotics. She was given Tylenol and fluids. She was discussed with internal medicine admitted for sepsis secondary to pneumonia in an immune compromised state. Medication Reconcilliation Current Medication List: was personally reviewed by me Blood Pressure Screening Patient's blood pressure: Elevated blood pressure Blood pressure disposition: Referred to PCP Consults Time Called: 1407 Consulting Physician: Dr. Wolf, [facility] Hospitalist Returned Call: 1423 I reviewed the patient's case with Dr. Wolf [facility] Hospitalist. He will evaluate the patient for further management. Impression Primary Impression: Sepsis Additional Impressions: Pneumonia Fever Hypokalemia Scribe Attestation The scribe's documentation has been prepared under my direction and personally reviewed by me in its entirety. I confirm that the note above accurately reflects all work, treatment, procedures, and medical decision making performed by me. Departure Information Dispostion Being Evaluated By Hospitalist (Dr. Wolf, [facility] Hospitalist) Referrals Isaac Way M.D. (PCP) Patient Instructions My [facility] Sepsis Post Crystalloid Evaluation Date: Oct 29, 2017 Time: 14:07 Capillary Refill Exam Normal (less than 2 seconds) Cardiopulmonary Evaluation Lung Exam: + rhonchi Vitals Last Vital Signs Documentation Date Time Temp Pulse Resp B/P (MAP) Pulse Ox O2 Delivery O2 Flow Rate FiO2 10/29/17 14:54 38.2 87 20 125/71 92 Room Air Problem Qualifiers Primary Impression: Sepsis Sepsis type: sepsis due to unspecified organism Qualified Codes: A41.9 - Sepsis, unspecified organism Additional Impressions: Pneumonia Pneumonia type: due to unspecified organism Laterality: unspecified laterality Lung location: unspecified part of lung Qualified Codes: J18.9 - Pneumonia, unspecified organism Fever Fever type: unspecified Qualified Codes: R50.9 - Fever, unspecified
[2017-10-29] MEDS ORDERED: ALBUT/IPRATROP 3MG/0.5MG NEB 3 ML VIAL INH PRN (17:15)
[2017-10-29] MEDS ORDERED: MAGNESIUM HYDROXIDE SUSP 30 ML UDC PO PRN (17:30)
[2017-10-29] MEDS ORDERED: ALUMINUM/MAGNESIUM/SIMETH (MAALOX MAX) 30 ML UDC PO PRN (17:30)
[2017-10-29] MEDS ORDERED: ACETAMINOPHEN 325 MG TAB PO PRN (17:30)
[2017-10-29] MEDS ORDERED: ONDANSETRON INJ 2 MG/ML 2 ML VIAL IV PRN (17:30)
[2017-10-29] MEDS ORDERED: POLYETHYLENE (MIRALAX) 17 GM PACK PO PRN (18:15)
[2017-10-29 18:27] VITALS: BP 147/73; PULSE 82; TEMP 37.2; O2SAT 90; BMI 19.7
[2017-10-29] MEDS: CALCIUM 600MG + VIT D 400 IU TAB PO SCH (20:47)
[2017-10-29] MEDS: ATORVASTATIN 40 MG TAB PO SCH (20:48)
[2017-10-29] MEDS: HEPARIN SOD 5000 UNIT/0.5 ML CARP SQ SCH (20:52)
[2017-10-29] MEDS: POTASSIUM CHLORIDE 10 MEQ TABCR PO SCH (20:53)
[2017-10-29] MEDS: ZOLPIDEM TARTRATE 10 MG TAB PO SCH (20:58)
[2017-10-29] MEDS ORDERED: NON-FORMULARY MEDICATION (Cyclosporine (Ophth) (Restasis) 1 DROP) OPR SCH (21:00)
[2017-10-29 22:37] VITALS: BP 145/79; PULSE 91; O2SAT 90
[2017-10-29 23:54] VITALS: TEMP 37.8
[2017-10-30] VITALS (8 sets, daily range): BP systolic 122–139; BP diastolic 66–82; PULSE 78–93; TEMP 36.6–38.7; O2SAT 90–92; Ht 144.8 cm; Wt 41.4 kg
[2017-10-30] MEDS: LEVOTHYROXINE 150 MCG TAB PO SCH (05:56)
[2017-10-30] MEDS ORDERED: EXEMESTANE 25 MG PO SCH (08:00)
[2017-10-30] MEDS ORDERED: EVEROLIMUS 5 MG PO SCH (08:00)
[2017-10-30] MEDS: CHOLECALCIFEROL 1000 INTER.UNIT TAB PO SCH (08:28)
[2017-10-30] MEDS: POTASSIUM CHLORIDE 10 MEQ TABCR PO SCH ×2 (08:28→20:05)
[2017-10-30] MEDS: ASCORBIC ACID 500 MG TAB PO SCH (08:28)
[2017-10-30] MEDS: AFINITOR PO SCH (08:29)
[2017-10-30] MEDS: CALCIUM 600MG + VIT D 400 IU TAB PO SCH ×2 (08:29→20:05)
[2017-10-30] MEDS: DILTIAZEM HCL 240 MG CAPCR PO SCH (08:29)
[2017-10-30] MEDS: PANTOprazole SOD 40 MG TAB PO SCH (08:29)
[2017-10-30] MEDS: MULTIVITAMIN TAB PO SCH (08:29)
[2017-10-30] MEDS: HEPARIN SOD 5000 UNIT/0.5 ML CARP SQ SCH ×2 (08:30→21:47)
[2017-10-30 09:47] LABS: BASO % 0.2 %; BASO ABS # 0.01 K/uL (0-0.2); EOS % 0.3 %; EOS ABS # 0.02 K/uL (0-0.5); HEMATOCRIT 32.7 % (37-47); HEMOGLOBIN 10.7 g/dL (12.0-16.0); IG# 0.02 K/uL (0.00-0.02); LYMPH % 6.7 %; LYMPH ABS # 0.43 K/uL (1.2-3.4); MEAN CELL VOLUME 77.7 fL (80-100); MEAN CORPUSCULAR HEMOGLOBIN 25.4 pg (25-34); MEAN CORPUSCULAR HGB CONC 32.7 g/dl (32-36); MEAN PLATELET VOLUME 8.4 fL (7.4-10.4); MONO % 2.4 %; MONO ABS # 0.15 K/uL (0.11-0.59); NEUT % 90.1 %; NEUT ABS # 5.75 K/uL (1.4-6.5); PLATELET COUNT 266 K/uL (130-400); RED CELL DISTRIBUTION WIDTH CV 14.6 % (11.5-14.5); RED CELL DISTRIBUTION WIDTH SD 41.3 fL (36.4-46.3); WHITE BLOOD COUNT 6.38 K/uL (4.8-10.8)
[2017-10-30 10:13] LABS: ALBUMIN 2.4 gm/dl (3.4-5.0); CALCIUM 8.1 mg/dl (8.5-10.1); CREATININE 0.67 mg/dl (0.60-1.20); POTASSIUM 2.9 mmol/L (3.5-5.1); TOTAL PROTEIN 6.9 gm/dl (6.4-8.2)
[2017-10-30] MEDS: EXEMESTANE 25 MG PO SCH (10:15)
--- NOTE | 2017-10-30 12:00 | Hospitalist Progress Note ---
Hospitalist Progress Note Date of Service Oct 30, 2017. Subjective Pt evaluation today including: conversation w/ patient, conversation w/ consultant nurse (Thoracic Surgery) Pt feels so much better. Has less cough, afebrile, more energy. No chest pain All Other Systems: Reviewed and Negative Objective Vital Signs Date Time Temp Pulse Resp B/P (MAP) Pulse Ox O2 Delivery O2 Flow Rate FiO2 10/30/17 11:09 36.6 86 16 133/78 (96) 92 Room Air 10/30/17 09:00 Room Air 10/30/17 07:34 37.0 78 16 122/66 (84) 90 Room Air 10/30/17 03:47 36.9 84 18 134/70 (91) 90 Room Air 10/30/17 01:20 38.7 10/29/17 23:54 37.8 10/29/17 23:47 Room Air 10/29/17 22:37 91 18 145/79 (101) 90 Room Air 10/29/17 18:27 37.2 82 20 147/73 90 Room Air 10/29/17 17:11 37.5 78 20 134/70 92 Room Air 10/29/17 14:54 38.2 87 20 125/71 92 Room Air 10/29/17 12:57 38.4 98 20 152/81 91 Room Air Physical Exam General Appearance: no apparent distress, + thin Eyes: normal inspection, sclerae normal ENT: hearing grossly normal Neck: trachea midline Respiratory/Chest: no respiratory distress, no accessory muscle use, + decreased breath sounds (at right base with some crackles) Cardiovascular: regular rate, rhythm, no edema, + systolic murmur Abdomen: normal bowel sounds, non tender, soft, no organomegaly, no pulsatile mass Extremities: non-tender, normal inspection, no pedal edema, no calf tenderness Neurologic/Psychiatric: alert, normal mood/affect, oriented x 3 Skin: normal color, warm/dry, no rash Laboratory Results Last 24 Hours Test 10/29/17 13:40 10/29/17 14:05 10/29/17 14:09 10/29/17 14:20 White Blood Count 6.69 K/uL Red Blood Count 4.36 M/uL Hemoglobin 11.1 g/dL Hematocrit 33.8 % Mean Corpuscular Volume 77.5 fL Mean Corpuscular Hemoglobin 25.5 pg Mean Corpuscular Hemoglobin Concent 32.8 g/dl Platelet Count 277 K/uL Mean Platelet Volume 8.5 fL Neutrophils (%) (Auto) 83.1 % Lymphocytes (%) (Auto) 10.0 % Monocytes (%) (Auto) 6.7 % Eosinophils (%) (Auto) 0.0 % Basophils (%) (Auto) 0.1 % Neutrophils # (Auto) 5.55 K/uL Lymphocytes # (Auto) 0.67 K/uL Monocytes # (Auto) 0.45 K/uL Eosinophils # (Auto) 0.00 K/uL Basophils # (Auto) 0.01 K/uL RDW Standard Deviation 40.6 fL RDW Coefficient of Variation 14.3 % Immature Granulocyte % (Auto) 0.1 % Immature Granulocyte # (Auto) 0.01 K/uL Prothrombin Time 11.3 SECONDS Prothromb Time International Ratio 1.1 Sodium Level 129 mmol/L Potassium Level 3.3 mmol/L Chloride Level 92 mmol/L Carbon Dioxide Level 26 mmol/L Anion Gap 11.0 mmol/L 19.0 mmol/L Blood Urea Nitrogen 8 mg/dl Creatinine 0.71 mg/dl Est Creatinine Clear Calc Drug Dose 46.6 ml/min Estimated GFR () 98.6 Estimated GFR (Non- 85.1 BUN/Creatinine Ratio 11.7 Random Glucose 96 mg/dl Calcium Level 8.5 mg/dl Magnesium Level 2.0 mg/dl Total Bilirubin 0.3 mg/dl Direct Bilirubin 0.1 mg/dl Aspartate Amino Transf (AST/SGOT) 46 U/L Alanine Aminotransferase (ALT/SGPT) 74 U/L Alkaline Phosphatase 54 U/L Total Creatine Kinase 237 U/L Creatine Kinase MB < 1.0 ng/ml Creatine Kinase MB Ratio Troponin I < 0.015 ng/ml Total Protein 7.9 gm/dl Albumin 2.9 gm/dl Bedside Lactic Acid Venous 1.46 mmol/L Bedside Hemoglobin 11.6 g/dl Bedside Hematocrit 34 % Bedside Sodium 130 mEq/L Bedside Potassium 3.6 mEq/L Bedside Chloride 92 mEq/L Bedside Total CO2 24 mEq/l Bedside Blood Urea Nitrogen 7 mg/dl Bedside Creatinine 0.6 mg/dl Bedside Glucose (other) 101 mg/dl Bedside Ionized Calcium (Teresita) 1.01 mmol/l Urine Color DK YELLOW Urine Appearance CLEAR Urine pH 7.0 Urine Specific [place] 1.019 Urine Protein 3+ Urine Glucose (UA) NEG Urine Ketones TRACE Urine Occult Blood 3+ Urine Nitrite NEG Urine Bilirubin NEG Urine Urobilinogen NEG Urine Leukocyte Esterase TRACE Urine WBC (Auto) 1-5 /hpf Urine RBC (Auto) >30 /hpf Urine Hyaline Casts (Auto) 10-30 /lpf Urine Epithelial Cells (Auto) >30 /lpf Urine Bacteria (Auto) NEG Urine Renal Epithelial Cells /lpf Urine Mucus PRESENT Test 10/30/17 09:34 White Blood Count 6.38 K/uL Red Blood Count 4.21 M/uL Hemoglobin 10.7 g/dL Hematocrit 32.7 % Mean Corpuscular Volume 77.7 fL Mean Corpuscular Hemoglobin 25.4 pg Mean Corpuscular Hemoglobin Concent 32.7 g/dl Platelet Count 266 K/uL Mean Platelet Volume 8.4 fL Neutrophils (%) (Auto) 90.1 % Lymphocytes (%) (Auto) 6.7 % Monocytes (%) (Auto) 2.4 % Eosinophils (%) (Auto) 0.3 % Basophils (%) (Auto) 0.2 % Neutrophils # (Auto) 5.75 K/uL Lymphocytes # (Auto) 0.43 K/uL Monocytes # (Auto) 0.15 K/uL Eosinophils # (Auto) 0.02 K/uL Basophils # (Auto) 0.01 K/uL RDW Standard Deviation 41.3 fL RDW Coefficient of Variation 14.6 % Immature Granulocyte % (Auto) 0.3 % Immature Granulocyte # (Auto) 0.02 K/uL Sodium Level 133 mmol/L Potassium Level 2.9 mmol/L Chloride Level 100 mmol/L Carbon Dioxide Level 25 mmol/L Anion Gap 8.0 mmol/L Blood Urea Nitrogen 6 mg/dl Creatinine 0.67 mg/dl Est Creatinine Clear Calc Drug Dose 46.3 ml/min Estimated GFR () 101.8 Estimated GFR (Non- 87.8 BUN/Creatinine Ratio 9.0 Random Glucose 173 mg/dl Calcium Level 8.1 mg/dl Magnesium Level 2.0 mg/dl Total Bilirubin 0.3 mg/dl Aspartate Amino Transf (AST/SGOT) 40 U/L Alanine Aminotransferase (ALT/SGPT) 64 U/L Alkaline Phosphatase 49 U/L Total Protein 6.9 gm/dl Albumin 2.4 gm/dl Globulin 4.4 gm/dl Albumin/Globulin Ratio 0.5 Procalcitonin 0.07 ng/ml Thyroid Stimulating Hormone (TSH) 1.440 uIu/ml Assessment and Plan This pt is a 72 y/o F Hx metastatic breast cancer, HTN, HPL, hypothyroidism, recurrent oral herpes, AVNRT now s/p ablation, GERD, dysphagia. She has been taking Exemestane and Everolimus for bone and lungs mets for the past 5 years. She has a history of talc pleurodesis of right lung 2012 due to recurrent malignant effusion. The pt presents with worsening of SOB and a productive cough which she states are chronic, in addition to an acute fever. She denies any CP. Her temp prior to arrival was 102. A fever of 101.7 was confirmed in the ER. CXR demonstrated a R pleural effusion and likely an infiltrate as well. CT [facility] now confirms bilateral multifocal PNA 1) PNA - multifocal, CAP with immunosuppression. with bilateral small effusions - acute on chronic SOB and cough - Pt started on Levaquin and received a dose of Cefepime in the ER as well. Improving already. -PRN nebs provided. R effusion is not new, although it may be increasing in size. -A thoracentesis may be merited eventually if her symptoms worsen as this may confirm the effusion as parapneumonic. -Appreciate Thoracic Surgery input on this -continue Levaquin -follow BCxs 2) HTN, HPL - cont Diltiazem, Lipitor. H/o AVNRT now s/p ablation-was just stopped from her amiodarone 1 week prior to admission 3) Hypothyroidism - Continue Synthroid. 4) Breast CA with bone mets - will continue Exemestane and Everolimus. 5) Presumed CAD - she is presently taking a Statin - she has not had any recent CP - she follows up with Dr. Munroe regularly. Full code - Heparin prophylaxis
--- NOTE | 2017-10-30 12:02 | Clinical Documentation Query ---
QUERY 1 OF [address] WATSON, In your clinical opinion is this patient being managed for: ( x ) Sepsis, POA ( ) Not Agree ( ) Other explanation of clinical findings (No explanation is considered a No Response) ( ) Unable to determine ( ) Need to Discuss (Phone CDS or qliq) (No discussion is considered a No Response) The medical record reflects the following clinical findings, treatment, and risk factors. Clinical Indicators: 72 yo female with breast cancer with mets to lung and bone undergoing oral chemotherapy. Initially temp 38.4, HR 98. Sepsis is noted in the ER impression but does not appear in the H/P. Treatment: 2L NSS bolus, IV cefepime,IV levaquin, po tylenol, pending blood cultures, nebs Risk Factors: Pneumonia, metastatic cancer on oral chemo QUERY 2 OF 2 In your clinical opinion is this patient being managed for: ( x ) Hyponatremia ( ) Not Agree ( ) Other explanation of clinical findings (No explanation is considered a No Response) ( ) Unable to determine ( ) Need to Discuss (Phone CDS or qliq) (No discussion is considered a No Response) The medical record reflects the following clinical findings, treatment, and risk factors. Clinical Indicators: 72 yo female presenting with pneumonia. Na 129. Treatment: 2L NSS bolus Risk Factors:breast cancer with mets to lung and bone Please clarify and document your clinical opinion in the progress notes and discharge summary. Terms such as "probable", "suspected", "likely", "questionable", "possible", or "still to be ruled out" are acceptable. IF IN AGREEMENT, YOU MUST DOCUMENT ABOVE DIAGNOSTIC STATEMENT IN DAILY PROGRESS NOTES AND DISCHARGE SUMMARY. This document is not part of the patient's record. Thank You, Gabi Tejada, RN [phone]
[2017-10-30] MEDS: LEVOFLOXACIN / D5W 750 MG in PREMIXED IN D5W 150 ML IV SCH (14:09)
[2017-10-30] MEDS: POTASSIUM CHLR 10 MEQ / WTR 100 ML IV SCH ×4 (14:09→18:00)
[2017-10-30] MEDS: BUTALBITAL/ACETAMIN/CAFFEINE TAB PO PRN (14:20)
--- NOTE | 2017-10-30 14:56 | DIAGNOSTIC IMAGING REPORT ---
(CHEST) THORAX WITHOUT CT DOSE: 194.16 mGy.cm HISTORY: right pleural effusion TECHNIQUE: Multiaxial CT images of the chest were performed without contrast. A dose lowering technique was utilized adhering to the principles of ALARA. COMPARISON: Chest CT 08/05/2017. FINDINGS: Interval progression of the right lung diffuse interstitial thickening. Right lower lung zone groundglass and consolidative opacities have also progressed. Small right pleural effusion, unchanged. Small cystic focus seen within the base of the right lower lobe is also stable. This measures 1.7 cm. Right pleural thickening and hyperdensity remains unchanged. This favors prior pleurodesis. Interval development of small left pleural effusion. Mild interlobular septal thickening of multiple scattered patchy groundglass and consolidative airspace opacities are seen within the left lower lobe. There are few scattered small groundglass patchy airspace opacities within the left upper lobe. This is new from the prior study. The central airways are patent. No pneumothorax. No change in the T10 and cisternal metastatic scar lesions. The visualized unenhanced liver and spleen are unremarkable. Bilateral adrenal gland thickening, unchanged. There is also a stable 1.8 cm right adrenal gland nodule. The heart remains mildly enlarged. No significant mediastinal or hilar lymphadenopathy. Stable 4 mm nodule within the right upper lobe on image 102. IMPRESSION: 1. Interval development of bilateral airspace opacities as described above. This favors a multifocal pneumonia. 2. Interval progression of the right lung interstitial thickening. This could be due to the pneumonia or superimposed lymphangitic carcinomatosis. Follow-up is recommended to ensure resolution. 3. Small right pleural effusion and right pleural hyperdensity remains unchanged. This favors prior pleurodesis. 4. There is a new small left pleural effusion. 5. Osteoblastic metastatic disease remains unchanged Electronically signed by: Wesley Castillo M.D. 10/30/2017 2:54 PM Dictated Date/Time: 10/30/2017 2:42 PM
[2017-10-30] MEDS: ATORVASTATIN 40 MG TAB PO SCH (21:46)
[2017-10-30] MEDS: ZOLPIDEM TARTRATE 10 MG TAB PO SCH (21:47)
[2017-10-31] VITALS (7 sets, daily range): BP systolic 120–134; BP diastolic 69–78; PULSE 70–82; TEMP 36.7–37.3; O2SAT 85–96
[2017-10-31] MEDS: LEVOTHYROXINE 150 MCG TAB PO SCH (06:30)
[2017-10-31] MEDS: BUTALBITAL/ACETAMIN/CAFFEINE TAB PO PRN (06:32)
[2017-10-31] MEDS: EXEMESTANE 25 MG PO SCH (08:21)
[2017-10-31] MEDS: AFINITOR PO SCH (08:21)
[2017-10-31] MEDS: ASCORBIC ACID 500 MG TAB PO SCH (08:23)
[2017-10-31] MEDS: DILTIAZEM HCL 240 MG CAPCR PO SCH (08:23)
[2017-10-31] MEDS: POTASSIUM CHLORIDE 10 MEQ TABCR PO SCH ×2 (08:23→21:07)
[2017-10-31] MEDS: CALCIUM 600MG + VIT D 400 IU TAB PO SCH ×2 (08:24→21:08)
[2017-10-31] MEDS: CHOLECALCIFEROL 1000 INTER.UNIT TAB PO SCH (08:24)
[2017-10-31] MEDS: PANTOprazole SOD 40 MG TAB PO SCH (08:24)
[2017-10-31] MEDS: MULTIVITAMIN TAB PO SCH (08:24)
[2017-10-31] MEDS: HEPARIN SOD 5000 UNIT/0.5 ML CARP SQ SCH ×2 (08:28→21:00)
--- NOTE | 2017-10-31 08:45 | SURGICAL CONSULTATION ---
DATE OF CONSULTATION: 10/30/2017 REASON FOR CONSULTATION: Management of recurrent right malignant pleural effusion. HISTORY OF PRESENT ILLNESS: This is a delightful 72-year-old [place] born female who has a history of metastatic breast cancer. She was admitted yesterday with a chief complaint of anorexia, fever and weakness and some hypoxemia. She has multiple medical issues including history of thyroid cancer with hypothyroidism, hyperlipidemia, hypertension who has been treated for her malignant right pleural effusion with a talc pleurodesis; however, this was sometime in the past. She has a productive cough and is quite weak with a temperature of 101.7. Chest x-ray suggested a right pleural effusion or possible infiltrate. I have been asked to help manage this. It should be noted this is the site of her malignant pleural effusion in the past. PAST MEDICAL HISTORY: 1. Longstanding history of breast cancer with bilateral mastectomy 12 years ago who has metastases to her right chest with resultant malignant effusion and apparent lung metastases. 2. Hypertension. 3. Hypothyroidism. 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 5. Hyperlipidemia. 6. Hypothyroidism. 7. Gastroesophageal reflux disease with dysphagia. 8. History of probable coronary artery disease. PAST SURGICAL HISTORY: 1. Cholecystectomy. 2. Supraventricular tachycardia. 3. Bilateral mastectomy. 4. Chest tube and talc pleurodesis, 5 years ago. MEDICATIONS: 1. Ambien. 2. Pantoprazole. 3. Potassium supplements. 4. Synthroid. 5. Afinitor. 6. Aromasin. 7. Restasis. 8. Diltiazem. 9. Lipitor. 10. Multiple vitamins etc. ALLERGIES: 1. NITRATES CAUSE MIGRAINE HEADACHES. 2. OXYCODONE CAUSES HALLUCINATIONS. 3. TAPENTADOL CAUSES HEADACHES. 4. NSAIDS EXACERBATE HER UNDERLYING PEPTIC ULCER DISEASE. 5. MORPHINE CAUSES VOMITING. 6. PARADOXICAL REACTION TO BENADRYL WITH RESTLESS LEGS. SOCIAL HISTORY: Patient smoked in the distant past. She was born in [place], in [place] [facility] but grew up in [place] including [place]. She also lived in [place]. She does not smoke now. Does not use alcohol. She is retired. She is . She lives here in [place] in an apartment. She lives alone. FAMILY MEDICAL HISTORY: Her 3 children are healthy. She has no grandchildren. There is a history of diabetes mellitus, coronary artery disease, hypertension and cancer in her family. REVIEW OF SYSTEMS: The patient feels that she has had fevers, chills and has not felt well, although she is better since she got to the hospital. She wears glasses but has had no change in her hearing or her vision. She has been coughing with sputum production and has dyspnea. She denies chest pain. She denies nausea, vomiting, diarrhea or other GI symptoms. She has had no urinary symptoms. She denies any joint pain or weakness. She has been anorexic. She denies any neurologic symptoms or amaurosis fugax, transient ischemic attacks. She has had no skin breakdown. PHYSICAL EXAMINATION: GENERAL: This is a tiny woman. She stands just over 4 feet 11 inches tall and weighs 91 pounds. HEENT: She wears glasses. Her extraocular movements are intact. Her pupils are equally round and reactive. Sclerae are anicteric. She is conversant. She has no oral mucosal lesions. Her tongue is midline. NECK: Supple. I really do not hear any carotid bruits. She has no supraclavicular or cervical lymphadenopathy. She has well-healed bilateral mastectomy incisions. She has no real adenopathy in her axilla. She is actually moving air well, although she has some mild end expiratory wheezing with some crackles bilaterally. ABDOMEN: Soft, nontender. She has good bowel sounds. EXTREMITIES: She has no peripheral edema. She has palpable dorsalis pedis pulses. NEUROLOGIC: She is completely intact. IMAGING DATA: I reviewed her CT scan which I ordered after seeing the patient and really she has very little fluid in her chest. She does have an infiltrative pattern and she does have evidence of chronic very small loculated area with very thickened rind around in her right base but much of what we are seeing is simply elevation of her right hemidiaphragm. There is nothing to really drain. She does have a small left pleural effusion which is new. Her pericardium is also a bit thickened. She does have an infiltrative pattern in her right lower lung field including the middle lobe and her lower lobe as well as her left lower lobe. LABORATORY DATA: Her white count is 6690 with hemoglobin 11.7. Platelet count stable at 277,000. Potassium is a bit low as is her sodium although it is now increased to 133 and 2.9, respectively. ASSESSMENT AND PLAN: 1. Questionable recurrent right malignant pleural effusion. At this point, there is really nothing to drain. She is off of her oxygen currently. The patient is eager to go home with her children will be coming home soon. As she is really not requiring any supplemental oxygen I would have nothing further to offer her.
[2017-10-31 10:23] LABS: CALCIUM 8.4 mg/dl (8.5-10.1); CREATININE 0.7 mg/dl (0.60-1.20); POTASSIUM 3.1 mmol/L (3.5-5.1)
[2017-10-31] MEDS ORDERED: NURSING DECISION MEDICATION ORDER SCH (10:30)
[2017-10-31] MEDS: POTASSIUM CHLORIDE 20 MEQ TABCR PO STA ×2 (11:19→11:24)
[2017-10-31] MEDS ORDERED: NURSING VERBAL MED ORDER ONE (11:30)
[2017-10-31] MEDS ORDERED: POTASSIUM CHLORIDE 10 MEQ TABCR PO ONE ×2 (12:00→15:00)
[2017-10-31] MEDS ORDERED: POTASSIUM CHLORIDE 20 MEQ TABCR PO ONE (15:00)
[2017-10-31] MEDS: LACTOBACILLUS ACIDOPHILUS (FLORANEX) TAB PO SCH (16:22)
[2017-10-31] MEDS: LEVOFLOXACIN / D5W 750 MG in PREMIXED IN D5W 150 ML IV SCH (16:23)
[2017-10-31] MEDS: SUCRALFATE 1 GM/10 ML UDC PO SCH ×2 (16:32→21:12)
[2017-10-31 16:34] LABS: POTASSIUM 3.7 mmol/L (3.5-5.1)
[2017-10-31 16:46] LABS: ALBUMIN 2.2 gm/dl (3.4-5.0); ALKALINE PHOSPHATASE 51 U/L (45-117); ALT/SGPT 74 U/L (12-78); AST/SGOT 50 U/L (15-37); LIPASE 55 U/L (73-393); TOTAL PROTEIN 6.6 gm/dl (6.4-8.2)
--- NOTE | 2017-10-31 20:40 | SURGERY PROGRESS NOTE ---
DATE: 10/31/2017 Ms. Rangel has not really changed much clinically. I did discuss this case with Dr. Rios. I would not intervene in this patient's chest at this point. I certainly would not consider going after the small amount of fluid in her right chest. I think it is clinically irrelevant. I do think she needs to follow up with her oncologist, Dr. Ryley Loera. I would be glad to see Ms. Rangel back at any time; however, I do not think that I have much to offer her. [facility]
--- NOTE | 2017-10-31 20:50 | Progress Note ---
Subjective Date of Service: Oct 31, 2017. Subjective Pt evaluation today including: conversation w/ patient, physical exam, chart review, lab review, review of studies (CT chest), conversation w/ sap pp consultant ( thoracic surgery), review of inpatient medication list Pain: upper epigastric discomfort PO Intake: recently poor, modestly improved here Voiding: no voiding problems main complaint is that of upper abdominal pain has had bowel movements no melena or BRBPR no vomiting no further fever she admits to 5 pound weight loss over last 6 months no dyspnea did walk in hallway today and felt better anxious to get home soon Problem List Medical Problems: (1) Abnormal ECG Status: Acute (2) Cholecystitis Status: Acute (3) Fever Status: Acute (4) Hypokalemia Status: Acute (5) Hypokalemia Status: Acute (6) Metastatic breast cancer Status: Chronic (7) Metastatic breast carcinoma Status: Acute (8) Pneumonia Status: Acute (9) Pneumonia Status: Acute (10) Sepsis Status: Acute (11) Sepsis Status: Acute (12) Transaminitis Status: Acute Review of Systems Constitutional: No fever, No chills Respiratory: No shortness of breath, No dyspnea on exertion Cardiac: No chest pain Abdomen: + pain, No nausea, No vomiting, No diarrhea, No GI bleeding Objective Vital Signs Date Time Temp Pulse Resp B/P (MAP) Pulse Ox O2 Delivery O2 Flow Rate FiO2 10/31/17 19:52 37.0 82 18 134/73 (93) 92 Room Air 10/31/17 16:00 Room Air 10/31/17 15:02 36.7 75 18 121/73 (89) 92 10/31/17 11:26 36.8 75 19 120/69 (86) 92 10/31/17 10:36 96 Room Air 10/31/17 08:45 Room Air 10/31/17 08:29 36.9 10/31/17 07:09 36.8 70 19 129/78 (95) 85 10/31/17 06:32 37.3 10/30/17 23:01 37.4 93 20 139/82 (101) 92 Room Air 10/30/17 20:45 Room Air Physical Exam General Appearance: no apparent distress, + thin ENT: pharynx normal Neck: no JVD Respiratory/Chest: lungs clear, no respiratory distress, no accessory muscle use Cardiovascular: regular rate, rhythm, no gallop, no murmur Abdomen: normal bowel sounds, soft, no organomegaly, + tenderness (high epigastric region) Extremities: no pedal edema Neurologic/Psychiatric: alert, oriented x 3 Laboratory Results Last 24 Hours Test 10/31/17 09:21 10/31/17 15:59 10/31/17 16:27 Sodium Level 134 mmol/L Potassium Level 3.1 mmol/L 3.7 mmol/L Chloride Level 100 mmol/L Carbon Dioxide Level 25 mmol/L Anion Gap 9.0 mmol/L Blood Urea Nitrogen 6 mg/dl Creatinine 0.70 mg/dl Est Creatinine Clear Calc Drug Dose 44.3 ml/min Estimated GFR () 100.3 Estimated GFR (Non- 86.6 BUN/Creatinine Ratio 8.8 Random Glucose 182 mg/dl Calcium Level 8.4 mg/dl Iron Level 15 mcg/dl Transferrin 142 mg/dl Transferrin % Saturation 8 % Ferritin 104.9 ng/ml Total Bilirubin 0.2 mg/dl Direct Bilirubin < 0.1 mg/dl Aspartate Amino Transf (AST/SGOT) 50 U/L Alanine Aminotransferase (ALT/SGPT) 74 U/L Alkaline Phosphatase 51 U/L Troponin I < 0.015 ng/ml Total Protein 6.6 gm/dl Albumin 2.2 gm/dl Lipase 55 U/L Urine Color YELLOW Urine Appearance CLEAR Urine pH 5.0 Urine Specific [place] 1.018 Urine Protein 1+ Urine Glucose (UA) NEG Urine Ketones NEG Urine Occult Blood 2+ Urine Nitrite NEG Urine Bilirubin NEG Urine Urobilinogen NEG Urine Leukocyte Esterase NEG Urine WBC (Auto) 1-5 /hpf Urine RBC (Auto) 10-30 /hpf Urine Hyaline Casts (Auto) 1-5 /lpf Urine Epithelial Cells (Auto) 10-20 /lpf Urine Bacteria (Auto) NEG Assessment and Plan 72yo female - 1. b/l community-acquired pneumonia - day #3 / 7 of antibiotics. Change levaquin to PO tomorrow to complete her course. Blood cx's remain negative. Fevers have resolved. Clinically improved. 2. severe hypokalemia - replace again, repeat K level later today to ensure normalization. 3. hyponatremia - suspect hypovolemic hyponatremia. Improved. Repeat BMP am. 4. abdominal pain - uncertain etiology. Recent CT abd/pelvis without pathology. LFTs this admission largely normal. I repeated her LFTs today - largely normal. Lipase wnl. Will obtain a urine culture but doubt UTI causing this pain. Pain is worse with eating. Has had frequent burping/belching. Will add carafate QID to her PPI. Of note - EGD just about 1 month ago was completely normal. She is also s/p cholecystectomy. 5. stage 4 breast ca - CT chest findings concerning for progressive disease. I will ask her to see Dr. Loera in consult shortly after discharge in light of imaging results. 6. HTN - controlled. 7. hypothyroidism - synthroid; most recent TSH wnl. 8. h/o AVNRT - noted. Remains in NSR clinically. 9. anemia - probably has some element of Fe deficiency given her low trans sat and microcytosis. Fe supplementation. 10. DVT proph - heparin. d/c home tomorrow if VSS, afebrile, and abd pain improved? Continued [facility] stay due to: multiple IV medications needed Discharge planning: home
[2017-10-31] MEDS: ATORVASTATIN 40 MG TAB PO SCH (21:09)
[2017-10-31] MEDS: ZOLPIDEM TARTRATE 10 MG TAB PO SCH (21:11)
[2017-11-01 00:08] VITALS: BP 143/83; PULSE 101; TEMP 37; O2SAT 92
[2017-11-01 03:56] VITALS: BP 143/79; PULSE 80; TEMP 36.8; O2SAT 91
[2017-11-01] MEDS ORDERED: LEVOTHYROXINE 150 MCG TAB PO SCH (04:00)
[2017-11-01] MEDS ORDERED: PANTOprazole SOD 40 MG TAB PO SCH (06:00)
[2017-11-01] MEDS: SUCRALFATE 1 GM/10 ML UDC PO SCH ×2 (06:00→12:09)
[2017-11-01 07:20] VITALS: BP 155/80; PULSE 88; TEMP 36.8; O2SAT 89
[2017-11-01 07:36] LABS: HEMATOCRIT 33.7 % (37-47); HEMOGLOBIN 11.1 g/dL (12.0-16.0); MEAN CELL VOLUME 76.8 fL (80-100); MEAN CORPUSCULAR HEMOGLOBIN 25.3 pg (25-34); MEAN CORPUSCULAR HGB CONC 32.9 g/dl (32-36); MEAN PLATELET VOLUME 8.4 fL (7.4-10.4); PLATELET COUNT 296 K/uL (130-400); RED CELL DISTRIBUTION WIDTH CV 14.7 % (11.5-14.5); RED CELL DISTRIBUTION WIDTH SD 41.3 fL (36.4-46.3); WHITE BLOOD COUNT 4.34 K/uL (4.8-10.8)
[2017-11-01] MEDS: ASCORBIC ACID 500 MG TAB PO SCH (08:00)
[2017-11-01 08:09] LABS: CALCIUM 8.6 mg/dl (8.5-10.1); CREATININE 0.47 mg/dl (0.60-1.20); POTASSIUM 3.9 mmol/L (3.5-5.1)
[2017-11-01] MEDS: LACTOBACILLUS ACIDOPHILUS (FLORANEX) TAB PO SCH ×2 (08:20→12:09)
[2017-11-01] MEDS: CALCIUM 600MG + VIT D 400 IU TAB PO SCH (08:20)
[2017-11-01] MEDS: POTASSIUM CHLORIDE 10 MEQ TABCR PO SCH (08:21)
[2017-11-01] MEDS: CHOLECALCIFEROL 1000 INTER.UNIT TAB PO SCH (08:21)
[2017-11-01] MEDS: DILTIAZEM HCL 240 MG CAPCR PO SCH (08:21)
[2017-11-01] MEDS: AFINITOR PO SCH (08:23)
[2017-11-01] MEDS: MULTIVITAMIN TAB PO SCH (08:23)
[2017-11-01] MEDS: EXEMESTANE 25 MG PO SCH (08:23)
[2017-11-01] MEDS: HEPARIN SOD 5000 UNIT/0.5 ML CARP SQ SCH (08:25)
[2017-11-01] MEDS ORDERED: LEVOFLOXACIN 750 MG TAB PO SCH (11:00)
[2017-11-01] MEDS ORDERED: NURSING DECISION MEDICATION ORDER SCH (12:15)
[2017-11-01] MEDS ORDERED: SODIUM CHLORIDE 0.65% NA SOLN 45 ML (OCEAN) PRN (12:45)
[2017-11-01] MEDS ORDERED: LVQ750 PO (13:03)
[2017-11-01] MEDS ORDERED: POTA10CA28 PO (13:03)
[2017-11-01] MEDS ORDERED: SUCR1TAB29 PO (13:03)
--- NOTE | 2017-11-01 13:11 | Discharge Instructions ---
Discharge Instructions Date of Service Nov 01, 2017. Admission Reason for Admission: Pneumonia Discharge Discharge Diagnosis / Problem: pneumonia, low potassium - both improved Discharge Goals Goal(s): Learn about illness, Diagnostic testing, Therapeutic intervention Activity Recommendations Activity Limitations: resume your previous activity . Instructions / Follow-Up Instructions / Follow-Up From Dr. Rios - 1. Pneumonia - please complete a course of levaquin (levofloxacin) 750mg once a day for 3 more days starting 11/02/17. You have already had your dose today at the hospital. 2. Consider taking [id number] mucinex up to 1200mg twice a day as needed for cough/congestion. 3. You can also consider using [id number] zyrtec or eloisa for post- nasal drip/sinus issues. 4. For your recent stomach troubles - * take carafate tablet 1000mg (1gm) about 30 minutes before your meals and at bedtime for the next 10 days * continue on your protonix (pantoprazole) as previous * if you continue with stomach troubles please follow-up with Dr. Clifton 5. Low potassium - as discussed please INCREASE your potassium to 20meq in the morning and 20meq in the afternoon/evening. New prescription provided. You can start this regimen tomorrow. * please have Dr. Way repeat your blood potassium level at the time of your hospital follow-up appointment * I would also consider checking the following labs - * renin and aldosterone levels * urinary potassium level 6. Please continue on your probiotic supplement as previous to prevent diarrhea from your antibiotics. 7. Follow-up - * please see Dr. Way within 3-5 days at the latest as you will need repeat blood work for the potassium * please see Dr. Loera within 1-2 weeks 8. Return to [facility] if - * you have fever over 100.5 degrees * you have worsening shortness of breath or chest pain * you have severe diarrhea or stomach pain * any other concerns Current Hospital Diet Patient's current hospital diet: Regular Diet Discharge Diet Recommended Diet: Regular Diet Procedures Procedures Performed: CAT scan of the lungs chest x-ray Pending Studies Studies pending at discharge: no Medical Emergencies . Who to Call and When: Medical Emergencies: If at any time you feel your situation is an emergency, please call 911 immediately. . Non-Emergent Contact Non-Emergency issues call your: Primary Care Provider, Oncologist Call Non-Emergent contact if: temperature is above 100.5, you have any medication questions . . "Provider Documentation" section prepared by Juancarlos Rios. .
[2017-11-01 14:00] VITALS: BP 155/80; PULSE 88; TEMP 36.8; O2SAT 89
--- NOTE | 2017-11-01 18:38 | Progress Note ---
Progress Note Date of Service Nov 01, 2017. Progress Note time - 183 The medical record shows O2 sats of 89% on 2 occasions today. I asked the medical staff to walk the patient in the hallway and around the 4east unit this AM prior to my bedside rounds. During the walk her O2 sats were monitored the entire time. The staff informed me her O2 sats were 96% at rest, went to 92% at peak walking , and never went below the 92% level. These O2 sats were in room air and not with supplemental oxygen. I suspect the 89% RA sats were incorrect readings. The patient denied any significant pulmonary symptom today. Martín ECHAVARRIA MD
--- NOTE | 2017-11-01 19:03 | Discharge Summary ---
Discharge Summary Date of Service Nov 01, 2017. Discharge Summary Admission Date: Oct 29, 2017 at 17:22 Discharge Date: Nov 01, 2017 Discharge Disposition: Home Principal Diagnosis: bilateral community-acquired pneumonia Problems/Secondary Diagnoses: 1. stage 4 breast cancer 2. GERD 3. h/o malignant pleural effusion s/p talc pleurodesis 4. hyponatremia - resolved 5. microcytic anemia - likely due to anemia of chronic disease 6. hypokalemia - resolved 7. mild protein calorie malnutrition 8. HTN 9. AVNRT requiring ablation 2016 10. Hypothyroidism 11. Dysphagia - limited to pills 12. PUD with history of prior GI bleed; normal EGD 09/2017 however 13. h/o thyroid cancer 14. LBBB - chronic 15. Presumed CAD per cardiology records - abnormal stress echo with inferior ischemia 2015 Immunizations: Have You Had Influenza Vaccine: Unknown History of Tetanus Vaccine?: Unknown History of Pneumococcal: Unknown History of Hepatitis B Vaccine: Unknown Procedures: CT chest: 1. Interval development of bilateral airspace opacities as described above. This favors a multifocal pneumonia. 2. Interval progression of the right lung interstitial thickening. This could be due to the pneumonia or superimposed lymphangitic carcinomatosis. Follow-up is recommended to ensure resolution. 3. Small right pleural effusion and right pleural hyperdensity remains unchanged. This favors prior pleurodesis. 4. There is a new small left pleural effusion. 5. Osteoblastic metastatic disease remains unchanged Consultations: thoracic surgery - Luis Richard MD Medication Reconciliation New Medications: Sucralfate (Carafate) 1 Gm Tab 1 GM PO ACHS for 10 Days, #40 TAB 0 Refills Levofloxacin (Levofloxacin) 750 Mg Tab 750 MG PO DAILY for 3 Days, #3 TAB 0 Refills start 11/02/17 Changed Medications: Potassium Chloride (Micro-K Ext Rel) 10 Meq Capcr 20 MEQ PO BID for 30 Days, #120 CAP 1 Refill (Changed from: 10 MEQ; 60; Refills : ) Continued Medications: Acetamin/Butalbital/Caffeine (Fioricet) 1 Ea Tab 1 TAB PO UD PRN for Pain, TAB Ascorbic Acid (Vitamin C) 100 Mg Tab 100 MG PO DAILY Atorvastatin (Lipitor) 40 Mg Tab 40 MG PO HS Calcium Carbonate-Cholecalcife (Caltrate 600+D) 1 Tab Tab 2 TAB PO AMPM Cholecalciferol (D3 Ultra Strength) 5,000 Unit Cap 5000 UNITS PO DAILY Cyclosporine (Ophth) (Restasis) 0.05 % Emu 1 DROP OPR HS Diltiazem Hcl (Diltiazem Cd) 240 Mg Capcr 240 MG PO QAM, #60 DOSE 6 Refills Everolimus (Afinitor) 5 Mg Tab 5 MG PO QAM Exemestane (Aromasin) 25 Mg Tab 25 MG PO QAM Levothyroxine Sodium (Levothyroxine Sodium) 150 Mcg Tab 150 MCG PO QAM Multivitamin (Multivitamin) Tab 1 TAB PO DAILY, TAB Pantoprazole (Pantoprazole Sodium) 40 Mg Tab 40 MG PO QAM Ranitidine Hcl (Zantac) 150 Mg Tab 150 MG PO BID PRN for gastritis, #60 TAB Zolpidem Tartrate (Ambien) 10 Mg Tab 10 MG PO HS, TAB Referrals At Discharge Follow up Referrals: Oncology/Hematology Referral - Please Call For Appointment with Ryley Loera MD Physician Referral - Please Call For Appointment with Isaac Way M.D. Discharge Exam Physical Exam: General Appearance: no apparent distress, + thin ENT: pharynx normal Neck: no JVD Respiratory/Chest: lungs clear, no respiratory distress, no accessory muscle use, + decreased breath sounds (mild, right base > left base) Cardiovascular: regular rate, rhythm, no gallop, no murmur, normal peripheral pulses Abdomen / GI: normal bowel sounds, non tender, soft, no organomegaly Extremities: no pedal edema Neurologic/Psychiatric: alert, oriented x 3 Hospital Course HISTORY OF PRESENT ILLNESS: 72 y/o F Hx metastatic breast cancer, HTN, hypothyroidism, recurrent oral herpes , AVNRT, GERD, dysphagia. She has been taking Exemestane and Everolimus for bone and lungs mets for the past 5 years. She has a history of talc pleurodesis of right lung 2013 due to recurrent malignant effusion. The pt presents with worsening of SOB and a productive cough which she states are chronic, in addition to an acute fever. She denies any CP. Her temp prior to arrival was 102. A fever of 101.7 was confirmed in the ER. CXR demonstrated a R pleural effusion and likely an infiltrate as well. HOSPITAL COURSE: The patient was treated for community-acquired pneumonia with IV antibiotic therapy and within 48 hours her fevers resolved. Blood cultures remained negative while hospitalized. Sputum culture failed to isolate a specific pathogen. CT chest was completed due to her known stage 4 breast cancer and prior malignant effusion on the right side. The CT chest demonstrated bilateral airspace opacities concerning for pneumonia along with bilateral pleural effusions, worse on the right. There was also concern about progressive metastatic breast cancer on the imaging particularly in the right chest cavity. The patient was seen in consult by Dr. Luis Richard, thoracic surgery, who advised against any intervention of her small right-sided pleural effusion. It was felt that that effusion was too small to safely intervene on. On day of discharge the patient's o2 sats with walking were in the mid 90s in room air. She completed a total of 4 days of IV/PO antibiotics while hospitalized and will complete 3 more days of levaquin at home. Her stay was complicated by significant hypokalemia requiring copious replacement. She has a history of hypokalemia going back several years and takes chronic potassium supplementation. Despite such her potassium level still tends to run low or low-normal. I recommended a renin/aldosterone level and urinary potassium level as an outpatient. Her potassium supplement was increased to 20meq BID at time of discharge. The patient also complained of mild epigastric pain while here. EGD done just a few weeks ago by Dr. Lenny Clifton was entirely normal. Troponin, LFTs, and lipase were all normal. Carafate was added to her PPI and within 12-24 hours her abdominal pain had resolved. I recommended a 10-day course of carafate at discharge. She will remain on her PPI as well. All other medical problems remained stable while hospitalized. Dr. Loera was made aware of her CT findings and she will follow-up with him in the [facility] shortly after discharge. She will need a repeat BMP within 3-5 days of discharge to ensure stability of her potassium level. Total Time Spent: Greater than 30 minutes This includes examination of the patient, discharge planning, medication reconciliation, and communication with other providers. Discharge Instructions Please refer to the electronic Patient Visit Report (Discharge Instructions) for additional information. Follow-Up see Dr. Way within 3-[address] Loera within 1-2 weeks Additional Copies To Ryley Loera MD; Isaac Way M.D.; Luis Richard MD
== END 2017-11-01 14:20 | disposition home or self-care (01) | DRG 871 ==
LOC: C.EDB 12:56 → C.4E 17:22 → ENRESERV 17:35 → CANRESERV 17:35 → ENRESERV 17:56
PROVIDERS: ADMIT Internal Medicine; ATTEND Internal Medicine
DX: A41.9 Sepsis, unspecified organism (principal); J18.9 Pneumonia, unspecified organism; E87.1 Hypo-osmolality and hyponatremia; C79.51 Secondary malignant neoplasm of bone; C78.00 Secondary malignant neoplasm of unspecified lung; J91.0 Malignant pleural effusion; E44.1 Mild protein-calorie malnutrition; Z68.1 Body mass index [BMI] 19.9 or less, adult; R09.02 Hypoxemia; E87.6 Hypokalemia; R10.9 Unspecified abdominal pain; I44.7 Left bundle-branch block, unspecified; R13.10 Dysphagia, unspecified; I25.10 Atherosclerotic heart disease of native coronary artery without angina pectoris; I10 Essential (primary) hypertension; E78.5 Hyperlipidemia, unspecified; K21.9 Gastro-esophageal reflux disease without esophagitis; E03.9 Hypothyroidism, unspecified; D63.8 Anemia in other chronic diseases classified elsewhere; Z85.3 Personal history of malignant neoplasm of breast; Z87.891 Personal history of nicotine dependence; Z79.899 Other long term (current) drug therapy; Z88.5 Allergy status to narcotic agent; Z88.6 Allergy status to analgesic agent; Z88.8 Allergy status to other drugs, medicaments and biological substances

== ENCOUNTER 2018-09-07 23:51 | Inpatient (IN) ==
[2018-09-08 00:39] LABS: Basophils # (auto) 0.03 K/uL (0-0.2); Basophils % (auto) 1.3 %; Eosinophils # (auto) 0.03 K/uL (0-0.5); Eosinophils % (auto) 1.3 %; Hematocrit (blood only) 35.4 % (37-47); Hemoglobin 11.8 g/dL (12.0-16.0); Lymphocytes # (auto) 0.37 K/uL (1.2-3.4); Lymphocytes % (auto) 15.7 %; Mean Corpuscular Hgb Conc 33.3 g/dL (32-36); Mean Corpuscular Volume 93.4 fL (80-100); Mean Platelet Volume 9.1 fL (7.4-10.4); Monocytes # (auto) 0.26 K/uL (0.11-0.59); Monocytes % (auto) 11.1 %; Neutrophils # (auto) 1.66 K/uL (1.4-6.5); Neutrophils % (auto) 70.6 %; Platelet Count 170 K/uL (130-400); RDW Coefficient of Variation 14.3 % (11.5-14.5); RDW Standard Deviation 48.5 fL (36.4-46.3); Red Blood Count 3.79 M/uL (4.2-5.4); White Blood Count 2.35 K/uL (4.8-10.8)
[2018-09-08 00:47] LABS: Albumin Level 3.8 gm/dl (3.4-5.0); BUN Creatinine Ratio 23.2 (10-20); Calcium 9.4 mg/dl (8.5-10.1); Creatinine Clr Calc Pharmacy 48.4 ml/min; Est GFR (African American) 100.1; Est GFR (Non-African American) 86.4; Magnesium 2.1 mg/dl (1.8-2.4); Potassium 3.5 mmol/L (3.5-5.1)
[2018-09-08 00:50] LABS: Albumin Globulin Ratio 1.2 (0.9-2); Bilirubin,Total 0.4 mg/dl (0.2-1); Globulin 3.3 gm/dl (2.5-4.0); Total Protein 7.1 gm/dl (6.4-8.2)
--- NOTE | 2018-09-08 03:00 | History & Physical Report ---
Date of Service September 08, 2018 Assessment & Plan (1) Accidental overdose: Patient inadvertently took 2000 mg of Multaq, and per recommendation from poison control center, the patient will be admitted to a monitored bed. Serial EKGs follow QTC. Consult her metal moulder Dr. Schaefer. Present on Admission?: Yes (2) SVT (supraventricular tachycardia): SVT/AV sal reentrant tachycardia/hypertension- Continue diltiazem 240 mg p.o. daily. Hold Multaq 400 mg p.o. twice daily. Consult cardiology Dr. Schaefer Present on Admission?: Yes (3) GERD (gastroesophageal reflux disease): GERD/peptic ulcer disease with hemorrhage- Continue pantoprazole 40 mg every morning, and ranitidine 50 mg p.o. twice daily PRN. Present on Admission?: Yes (4) Peptic ulcer disease with hemorrhage: See above Present on Admission?: Yes (5) Breast cancer, stage 4: Continue Xeloda 1500 mg p.o. twice daily Present on Admission?: Yes (6) AVNRT (AV sal re-entry tachycardia): See above Present on Admission?: Yes (7) Hyperlipidemia LDL goal <70: Continue atorvastatin 40 mg p.o. daily Present on Admission?: Yes (8) Hypertension: See above Present on Admission?: Yes (9) Hypothyroidism (acquired): Continue levothyroxine sodium 150 mcg p.o. daily Present on Admission?: Yes (10) Cancer of thyroid: No active treatment at this time. Present on Admission?: Yes (11) Migraine headache: Continue Fioricet as needed. Present on Admission?: Yes History of Present Illness Chief Complaint: The patient presents to the emergency department with concerns regarding an accidental overdose, where she took excessive numbers of Multaq, when she missed took them for new chemotherapy drug Xeloda. 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 She reports that she missed took her Multaq pills for Xeloda, as both packages look the same and the pills look relatively the same. In the ED, her heart monitor remained normal, and QTc int erval was actually noted to be decreasing during her stay there. However, the Poison Control Center advised that she be admitted to the hospital and monitored until it is determined that she was no longer at risk for significant arrhythmia. Allergies Allergy/AdvReac Type Severity Reaction Status Date / Time oxycodone [From OxyContin] Allergy HALLUCINATI Verified 09/08/18 01:39 ONS isosorbide AdvReac Intermediate IMDUR/ Verified 09/08/18 01:39 MIGRAINE aspirin AdvReac Mild HISTORY OF Verified 09/08/18 01:39 BLEEDING ULCERS buprenorphine AdvReac Mild GI SYMPTOMS Verified 09/08/18 01:39 diphenhydramine AdvReac Mild RESTLESS Verified 09/08/18 01:39 LEGS morphine AdvReac Mild SEVERE Verified 09/08/18 01:39 VOMITING NSAIDS (Non-Steroidal AdvReac Mild BLEEDING Verified 09/08/18 01:39 Anti-Inflamma ULCER DISEASE-CAN NOT HAVE NSAIDS tapentadol AdvReac Mild headache Verified 09/08/18 01:39 Home Medications Home Medications Medication Instructions Recorded Confirmed Type Caltrate 600 + D 2 tab PO BID 01/19/18 09/08/18 History Restasis 1 drp OPHTHALMIC (EYE) Q12H 01/19/18 09/08/18 History ascorbic acid (vitamin C) [Vitamin 500 mg PO BID 01/19/18 09/08/18 History C] atorvastatin [Lipitor] 40 mg PO DAILY 01/19/18 09/08/18 History ohglarucaa-yebljvjmidxeh-oeae 1 - 2 tabs PO UD PRN 01/19/18 09/08/18 History [Fioricet] cholecalciferol (vitamin D3) 5,000 unit PO DAILY 01/19/18 09/08/18 History levothyroxine [Synthroid] 150 mcg PO DAILY 01/19/18 09/08/18 History multivitamin 1 tab PO QAM 01/19/18 09/08/18 History pantoprazole [Protonix] 40 mg PO QAM 01/19/18 09/08/18 History potassium chloride 10 meq PO BID 01/19/18 09/08/18 History ranitidine HCl [Zantac] 150 mg PO BID PRN 01/19/18 09/08/18 History zolpidem [Ambien] 10 mg PO HS 01/19/18 09/08/18 History Multaq 400 mg PO BID 05/11/18 09/08/18 History capecitabine [Xeloda] 1,500 mg PO BID 09/08/18 09/08/18 History diltiazem HCl [Cartia XT] 240 mg PO DAILY 09/08/18 09/08/18 History letrozole 2.5 mg PO DAILY 09/08/18 09/08/18 History ondansetron HCl 8 mg PO Q8 PRN 09/08/18 09/08/18 History Past Med/Surg History Medical History Breast cancer, stage 4 (Acute) GERD (gastroesophageal reflux disease) (Chronic) Peptic ulcer disease with hemorrhage (Resolved) Cancer of thyroid (Resolved) Allergic rhinitis (Chronic) Migraine headache (Acute) Malignant pleural effusion (Acute 09/21/13) Cervical strain (Acute) Atrial tachycardia (Chronic) 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 Cardiology consult in ER: (1) SVT (supraventricular tachycardia): She appeared to be in SVT on ECG and telemetry. A carotid massage was performed on the right carotid. Quite quickly, her rhythm converted to sinus rhythm. She tolerated it well. She was taught how to do this at home. Continue diltiazem. She will likely require anti rhythmic therapy verses ablation. It is recommended that she follow up with her senior manager asset protection, Dr. Munroe next week. This appointment is being scheduled for her through the cardiology office. No other changes made at this time. If she has recurrent episodes at home, it was recommended that she sit down and performed a carotid massage. If this does not improve her symptoms, she was asked to come to the hospital at which point she can be admitted and be seen by electrophysiology at that time. 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 H/O bilateral mastectomy (Acute) History of cholecystectomy (Acute) H/O prior ablation treatment Ablation for SVT on 08/22/2016. 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 Beliefs That Will Affect Care: None marital status: Single Current Living Situation: Alone current occupational status: retired Other Information That Helps Us Care for You: No Feels Safe at Home: Yes Safety Concerns: Feels Safe At This Time Smoking Status: Former smoker Tobacco Type: cigarettes Cigarettes Per Day: QUIT 43 YEARS, HX OF 1.5PPD X7 YEARS Do You Dip or Chew Tobacco: No Smoking End Date: 1974 Second Hand Exposure: No Tobacco Cessation Education Requested by Patient: No Hx Alcohol Use: No Hx Substance Use: No Review of Systems Review of Systems: The patient denies chest pain, palpitations, shortness of breath, dyspnea on exertion, cough, lower extremity swelling, sore throat, fevers, chills, sweats, weight change, fatigue, nausea, vomiting, diarrhea , constipation, pelvic pain, blood in urine or stool, dysuria, urinary frequency or urgency, lightheadedness, dizziness, headache, memory loss, loss of consciousness, rash, abnormal bruising or bleeding, imbalance, focal or generalized weakness, numbness or tingling in arms or legs, generalized arthralgias or myalgias, back or neck pain, or night sweats. The review of systems is otherwise negative other than for that already noted above, and at least 10 systems have been reviewed. Physical Exam Physical Exam: The patient is awake, alert and oriented 3, well developed and well nourished, normocephalic and atraumatic, lying in bed and in no acute di stress. HEENT--PERRL, EOMI, mucous membranes and oropharynx normal. Neck--supple. No JVD. No bruits. Thyroid normal, trachea midline, no adenopathy. Heart--normal S1 and S2. No murmurs, rubs or gallops. Lungs--clear bilaterally, no respiratory distress, no accessory muscle use. Abdomen--normal bowel sounds and soft. Nontender. Nondistended, no hernias or masses, no organomegaly. Extremities--no cyanosis or clubbing. No edema. There are good distal pulses b/l. Dermatologic--normal skin turgor, normal color, no abnormal lymph nodes, no rash. Neurologic--cranial nerves II through XII grossly intact. Rheumatologic--normal range of motion. Psychiatric--normal affect. Results & Data Vital Signs (Past 12 Hours) Vital Signs Temp Pulse Resp BP Pulse Ox 09/08/18 02:34 72 17 153/84 H 96 09/08/18 02:01 69 22 122/75 93 09/08/18 01:31 65 21 116/67 94 09/08/18 01:01 70 19 109/67 94 09/08/18 00:31 71 20 124/71 95 09/08/18 00:01 78 19 126/74 98 09/07/18 23:59 97.7 F 87 23 163/98 H 97 Laboratory Results Laboratory Results WBC 2.46 K/uL (4.8-10.8) L 09/08/18 04:20 RBC 3.65 M/uL (4.2-5.4) L 09/08/18 04:20 Hgb 11.4 g/dL (12.0-16.0) L 09/08/18 04:20 Hct 34.4 % (37-47) L 09/08/18 04:20 MCV 94.2 fL (80-100) 09/08/18 04:20 MCH 31.2 pg (25-34) 09/08/18 04:20 MCHC 33.1 g/dL (32-36) 09/08/18 04:20 RDW Std Deviation 48.4 fL (36.4-46.3) H 09/08/18 04:20 RDW Coeff of Bobbi 14.2 % (11.5-14.5) 09/08/18 04:20 Plt Count 168 K/uL (130-400) 09/08/18 04:20 MPV 9.1 fL (7.4-10.4) 09/08/18 04:20 Immature Gran % (Auto) 0.0 % 09/08/18 04:20 Neut % (Auto) 69.1 % 09/08/18 04:20 Lymph % (Auto) 17.9 % 09/08/18 04:20 Mckean % (Auto) 11.0 % 09/08/18 04:20 Eos % (Auto) 0.8 % 09/08/18 04:20 Baso % (Auto) 1.2 % 09/08/18 04:20 Immature Gran # (Auto) 0.00 K/uL (0.00-0.02) 09/08/18 04:20 Neut # (Auto) 1.70 K/uL (1.4-6.5) 09/08/18 04:20 Lymph # (Auto) 0.44 K/uL (1.2-3.4) L 09/08/18 04:20 Mckean # (Auto) 0.27 K/uL (0.11-0.59) 09/08/18 04:20 Eos # (Auto) 0.02 K/uL (0-0.5) 09/08/18 04:20 Baso # (Auto) 0.03 K/uL (0-0.2) 09/08/18 04:20 PT 11.1 Seconds (9.0-12.0) 09/08/18 04:20 INR 1.1 (0.9-1.1) 09/08/18 04:20 APTT 26.0 Seconds (21.0-31.0) 09/08/18 04:20 PTT Ratio 1.0 09/08/18 04:20 Sodium 136 mmol/L (136-145) 09/08/18 04:20 Potassium 3.9 mmol/L (3.5-5.1) 09/08/18 04:20 Chloride 103 mmol/L (98-107) 09/08/18 04:20 Carbon Dioxide 29 mmol/L (21-32) 09/08/18 04:20 Anion Gap 4.0 (3-11) 09/08/18 04:20 BUN 15 mg/dl (7-18) 09/08/18 04:20 Creatinine 0.63 mg/dl (0.6-1.2) 09/08/18 04:20 Est Cr Clr Drug Dosing 50.1 ml/min 09/08/18 04:20 Est GFR ( Amer) 103.1 09/08/18 04:20 Est GFR (Non-Af Amer) 89.0 09/08/18 04:20 BUN/Creatinine Ratio 23.8 (10-20) H 09/08/18 04:20 Glucose 112 mg/dl (70-99) H 09/08/18 04:20 Calcium 8.9 mg/dl (8.5-10.1) 09/08/18 04:20 Magnesium 2.1 mg/dl (1.8-2.4) 09/08/18 00:10 Total Bilirubin 0.3 mg/dl (0.2-1) 09/08/18 04:20 AST 32 U/L (15-37) 09/08/18 04:20 ALT 52 U/L (12-78) 09/08/18 04:20 Alkaline Phosphatase 72 U/L (45-117) 09/08/18 04:20 Troponin I < 0.015 ng/ml (0-0.045) 09/08/18 04:20 Total Protein 6.8 gm/dl (6.4-8.2) 09/08/18 04:20 Albumin 3.6 gm/dl (3.4-5.0) 09/08/18 04:20 Globulin 3.2 gm/dl (2.5-4.0) 09/08/18 04:20 Albumin/Globulin Ratio 1.1 (0.9-2) 09/08/18 04:20 Code Status & VTE Plan Code Status Full code VTE Prophylaxis Plan VTE Prophylaxis will be ordered: Yes PG Care Time/CCT Total # of Minutes Spent Total Time Spent with Patient: Total time spent is greater than 50% in coordination of care (as documented) at patient's floor/unit and/or counseling patient: (1) Accidental overdose Encounter type: initial encounter Qualified Code(s): T50.901A - Poisoning by unspecified drugs, medicaments and biological substances, accidental (unintentional), initial encounter
--- NOTE | 2018-09-08 03:32 | Emergency Department Note ---
Entered by Claudia Shine acting as a scribe for Phyllis Carter DO History of Present Illness General Chief complaint: Overdose (Accidental) Stated complaint: OVERDOSE Time Seen by Provider: 09/08/18 00:09 Source: patient History of Present Illness Onset (ago): day(s) (this evening) Location: chest Pain Consistency: + other (episode) Maximum Pain Intensity: 0 Quality: + other (overdose) Associated symptoms: + nausea/vomiting (nausea) The patient is a 73 year old female who presents to the ED with complaints of an episode of an overdose occurring this evening. The patient states that she took her night time medications at 1930. She states that later in the evening she realized that she forgot to take her chemo drugs. She notes that there are 3 pil ls of them. She states that she just started them, but when she went to take them, she accidentally took 3 of her cardiac medication, Multaq. She reports that they looked similar in size and shape. The patient states that right after taking them, she realized what she did and called into the hospital who forwarded her to Poison Control. She states that they recommended she come to the ED. Nursing staff notes that Poison Control called over and recommend that she stay for overnight observation as the half-life is 19 hours. The patient complains of being nauseous, but states that she thinks it is from being so worked up. The patient notes that she had taken half an Ambien prior to this incident. Home Medications Home Medications Medication Instructions Recorded Confirmed Type Caltrate 600 + D 2 tab PO BID 01/19/18 09/08/18 History Restasis 1 drp OPHTHALMIC (EYE) Q12H 01/19/18 09/08/18 History ascorbic acid (vitamin C) [Vitamin 500 mg PO BID 01/19/18 09/08/18 History C] atorvastatin [Lipitor] 40 mg PO DAILY 01/19/18 09/08/18 History veniqvcwbd-tqjbxyxqqtcwh-lkix 1 - 2 tabs PO UD PRN 01/19/18 09/08/18 History [Fioricet] cholecalciferol (vitamin D3) 5,000 unit PO DAILY 01/19/18 09/08/18 History levothyroxine [Synthroid] 150 mcg PO DAILY 01/19/18 09/08/18 History multivitamin 1 tab PO QAM 01/19/18 09/08/18 History pantoprazole [Protonix] 40 mg PO QAM 01/19/18 09/08/18 History potassium chloride 10 meq PO BID 01/19/18 09/08/18 History ranitidine HCl [Zantac] 150 mg PO BID PRN 01/19/18 09/08/18 History zolpidem [Ambien] 10 mg PO HS 01/19/18 09/08/18 History Multaq 400 mg PO BID 05/11/18 09/08/18 History capecitabine [Xeloda] 1,500 mg PO BID 09/08/18 09/08/18 History diltiazem HCl [Cartia XT] 240 mg PO DAILY 09/08/18 09/08/18 History letrozole 2.5 mg PO DAILY 09/08/18 09/08/18 History ondansetron HCl 8 mg PO Q8 PRN 09/08/18 09/08/18 History Allergies Allergy/AdvReac Type Severity Reaction Status Date / Time oxycodone [From OxyContin] Allergy HALLUCINATI Verified 09/08/18 01:39 ONS isosorbide AdvReac Intermediate IMDUR/ Verified 09/08/18 01:39 MIGRAINE aspirin AdvReac Mild HISTORY OF Verified 09/08/18 01:39 BLEEDING ULCERS buprenorphine AdvReac Mild GI SYMPTOMS Verified 09/08/18 01:39 diphenhydramine AdvReac Mild RESTLESS Verified 09/08/18 01:39 LEGS morphine AdvReac Mild SEVERE Verified 09/08/18 01:39 VOMITING NSAIDS (Non-Steroidal AdvReac Mild BLEEDING Verified 09/08/18 01:39 Anti-Inflamma ULCER DISEASE-CAN NOT HAVE NSAIDS tapentadol AdvReac Mild headache Verified 09/08/18 01:39 Past Med/Surg History Medical History Breast cancer, stage 4 (Acute) GERD (gastroesophageal reflux disease) (Chronic) Peptic ulcer disease with hemorrhage (Resolved) Cancer of thyroid (Resolved) Allergic rhinitis (Chronic) Migraine headache (Acute) Malignant pleural effusion (Acute 09/21/13) Cervical strain (Acute) Atrial tachycardia (Chronic) 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 Cardiology consult in ER: (1) SVT (supraventricular tachycardia): She appeared to be in SVT on ECG and telemetry. A carotid massage was performed on the right carotid. Quite quickly, her rhythm converted to sinus rhythm. She tolerated it well. She was taught how to do this at home. Continue diltiazem. She will likely require anti rhythmic therapy verses ablation. It is recommended that she follow up with her radiologic tech, Dr. Munroe next week. This appointment is being scheduled for her through the cardiology office. No other changes made at this time. If she has recurrent episodes at home, it was recommended that she sit down and performed a carotid massage. If this does not improve her symptoms, she was asked to come to the hospital at which point she can be admitted and be seen by electrophysiology at that time. 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 H/O bilateral mastectomy (Acute) History of cholecystectomy (Acute) H/O prior ablation treatment Ablation for SVT on 08/22/2016. Thought to be AVNRT> History of colonoscopy History of esophagogastroduodenoscopy (EGD) History of foot surgery History of tonsillectomy Family History Other Family history non-contributory Social History Preferred Language: Moroccan Communication Ability: Effective Beliefs That Will Affect Care: None marital status: Single Current Living Situation: Alone current occupational status: retired Feels Safe at Home: Yes Smoking Status: Former smoker Tobacco Type: cigarettes Cigarettes Per Day: QUIT 43 YEARS, HX OF 1.5PPD X7 YEARS Second Hand Exposure: No Hx Alcohol Use: No Hx Substance Use: No Review of Systems See HPI for pertinent positives & negatives. and A total of 10 systems reviewed and were otherwise negative Physical Exam Vital Signs Vital Signs - 24 hr 09/07/18 23:59 09/08/18 00:01 09/08/18 00:27 Temperature 36.5 C Temperature Source Oral Sepsis Recent Fever Within 48 Hours No Sepsis New/Unexplained Change in Mental Status No Sepsis Action Taken by Nursing No Action Required Pulse Rate 87 78 Pulse Rate from SpO2 Sensor 78 Respiratory Rate 23 19 Respiratory Effort / Characteristics Non-Labored Spontaneous Respiratory Depth Normal Blood Pressure 163/98 H 126/74 Blood Pressure Mean 119 91 Pulse Oximetry 97 98 Oxygen Delivery Method Room Air Room Air Room Air 09/08/18 00:31 09/08/18 01:01 09/08/18 01:31 Temperature Temperature Source Sepsis Recent Fever Within 48 Hours Sepsis New/Unexplained Change in Mental Status Sepsis Action Taken by Nursing Pulse Rate 71 70 65 Pulse Rate from SpO2 Sensor 71 70 66 Respiratory Rate 20 19 21 Respiratory Effort / Characteristics Respiratory Depth Blood Pressure 124/71 109/67 116/67 Blood Pressure Mean 88 81 83 Pulse Oximetry 95 94 94 Oxygen Delivery Method Room Air Room Air Room Air 09/08/18 02:01 09/08/18 02:34 09/08/18 03:01 Temperature Temperature Source Sepsis Recent Fever Within 48 Hours Sepsis New/Unexplained Change in Mental Status Sepsis Action Taken by Nursing Pulse Rate 69 72 65 Pulse Rate from SpO2 Sensor 70 72 65 Respiratory Rate 22 17 21 Respiratory Effort / Characteristics Respiratory Depth Blood Pressure 122/75 153/84 H 106/65 Blood Pressure Mean 90 107 78 Pulse Oximetry 93 96 96 Oxygen Delivery Method Room Air Room Air Room Air HEENT: Head - normocephalic and atraumatic Pupils are equal, round, and reactive to light. Extraocular eye muscles are intact, and sclera are anicteric. Nose - moist nasal mucosa without discharge. Mouth - moist buccal mucosa. Oropharynx is nonerythematous and there is no tonsillar exudate or edema noted. Neck: Supple; no JVD, nuchal rigidity, cervical lymphadenopathy Heart: Regular rate and rhythm. There is a normal S1 and S2 with no murmurs, clicks, or gallops appreciated. Lungs: Clear to auscultation bilaterally with no wheezes, rales, or rhonchi. Abdomen: Soft, completely nontender, nondistended, with good bowel sounds. There are no palpable pulsatile masses or hepatosplenomegaly. There is no guarding, rigidity, or rebound noted. Extremities: No evidence of cyanosis, clubbing, or edema. There are easily palpable peripheral pulses. Skin: warm and dry with good turgor and no rashes. Course 0016: Past medical records reviewed. The patient was evaluated in room B12B. A complete history and physical exam was performed. An IV lock was initiated and labs were drawn as above. A twelve-lead EKG was performed upon her arrival. She was asymptomatic. Nursing staff spoke with the Poison Control Center 0113: I reevaluated the patient and updated her on her test results. I discussed the treatment plan with her. She verbally agrees and understands. A repeat 12- lead was obtained. She remains in normal sinus rhythm with a normal QTC. 0226: I discussed the patient's case with Dr. Chon BURGOS Hospitalist. He will evaluate the patient for further management. Consultations Consultation #1: I discussed the patient's case with Dr. Chon BURGOS Hospitalist. He will evaluate the patient for further management. Time: 02:26 Medical Decision Making Differential Diagnosis Differential diagnoses include risk of cardiac dysrhythmia- Torsades, bradycardia, prolonged QT; accidental overdose. Medical Records Attestation: I reviewed the patient's medical records. Home Medications Current Medication List: was personally reviewed by me Laboratory Data Attestation: I reviewed the patient's lab results. Result diagrams: 09/08/18 00:10 09/08/18 00:10 Lab Results 09/08/18 09/08/18 Range/Units 00:10 00:10 WBC 2.35 L (4.8-10.8) K/uL RBC 3.79 L (4.2-5.4) M/uL Hgb 11.8 L (12.0-16.0) g/dL Hct 35.4 L (37-47) % MCV 93.4 (80-100) fL MCH 31.1 (25-34) pg MCHC 33.3 (32-36) g/dL RDW Std Deviation 48.5 H (36.4-46.3) fL RDW Coeff of Bobbi 14.3 (11.5-14.5) % Plt Count 170 (130-400) K/uL MPV 9.1 (7.4-10.4) fL Immature Gran % (Auto) 0.0 % Neut % (Auto) 70.6 % Lymph % (Auto) 15.7 % [place] % (Auto) 11.1 % Eos % (Auto) 1.3 % Baso % (Auto) 1.3 % Immature Gran # (Auto) 0.00 (0.00-0.02) K/uL Neut # (Auto) 1.66 (1.4-6.5) K/uL Lymph # (Auto) 0.37 L (1.2-3.4) K/uL [place] # (Auto) 0.26 (0.11-0.59) K/uL Eos # (Auto) 0.03 (0-0.5) K/uL Baso # (Auto) 0.03 (0-0.2) K/uL Sodium 139 (136-145) mmol/L Potassium 3.5 (3.5-5.1) mmol/L Chloride 103 (98-107) mmol/L Carbon Dioxide 29 (21-32) mmol/L Anion Gap 6.0 (3-11) BUN 16 (7-18) mg/dl Creatinine 0.69 (0.6-1.2) mg/dl Est Cr Clr Drug Dosing 48.4 ml/min Est GFR ( Amer) 100.1 Est GFR (Non-Af Amer) 86.4 BUN/Creatinine Ratio 23.2 H (10-20) Glucose 129 H (70-99) mg/dl Calcium 9.4 (8.5-10.1) mg/dl Magnesium 2.1 (1.8-2.4) mg/dl Total Bilirubin 0.4 (0.2-1) mg/dl AST 34 (15-37) U/L ALT 57 (12-78) U/L Alkaline Phosphatase 79 (45-117) U/L Total Protein 7.1 (6.4-8.2) gm/dl Albumin 3.8 (3.4-5.0) gm/dl Globulin 3.3 (2.5-4.0) gm/dl Albumin/Globulin Ratio 1.2 (0.9-2) ECG Data Attestation: I personally reviewed and interpreted this ECG as follows: Indication: toxicologic Rate (beats per minute): 74 Rhythm: normal sinus Findings: + other (QT-c 466 milliseconds); no PAC, no PVC, no ST depression, no ST elevation, no acute ischemic change and no ectopy Additional Comments: REPEAT EKG: Normal sinus rhythm at a rate of 69. QT-c at 452 milliseconds. No acute ischemia or ectopy. Blood Pressure Blood Pressure Findings: Normal blood pressure Blood Pressure Disposition: did not require urgent referral MDM Narrative The patient is a 73 year old female who presents to the ED with complaints of an episode of an overdose occurring this evening. The patient accidentally took 3 of her antidysrhythmic medications instead of 3 tabs of her chemotherapeutic medication. The patient remains asymptomatic but the half-life of the MULTAQ is 19 hours. The poison control center recommended monitoring this patient at least until tomorrow. I discussed the case with the [facility] Hospitalist and they will evaluate for further management. Impression & Plan Accidental overdose Discharge Plan Visit Data Chief Complaint: Overdose (Accidental) Stated Complaint: OVERDOSE ED Provider: Phyllis Carter Discharge Problem: Accidental overdose Patient Disposition: Being Evaluated by Hospitalist Forms Stand Alone Forms: My [facility] Prescriptions Prescriptions: No Action atorvastatin [Lipitor] 40 mg Tablet 40 mg PO DAILY RF: 0 potassium chloride 10 mEq Tablet Extended Release 10 meq PO BID RF: 0 ascorbic acid (vitamin C) [Vitamin C] 500 mg Tablet 500 mg PO BID RF: 0 pantoprazole [Protonix] 40 mg Tablet,Delayed Release (Dr/Ec) 40 mg PO QAM RF: 0 ranitidine HCl [Zantac] 150 mg Tablet 150 mg PO BID PRN (Reason: Heartburn) RF: 0 levothyroxine [Synthroid] 150 mcg Tablet 150 mcg PO DAILY RF: 0 zolpidem [Ambien] 10 mg Tablet 10 mg PO HS RF: 0 multivitamin Capsule 1 tab PO QAM RF: 0 Restasis 0.05 % [place] 1 drp OPHTHALMIC (EYE) Q12H RF: 0 cholecalciferol (vitamin D3) 5,000 unit Tablet 5,000 unit PO DAILY RF: 0 jeyjaupgdv-dbdkobmtralsr-xxlv [Fioricet] 50-300-40 mg Capsule 1 - 2 tabs PO UD PRN (Reason: Pain) RF: 0 Caltrate 600 + D 600 mg (1,500 mg)-800 unit Tablet,Chewable 2 tab PO BID RF: 0 diltiazem HCl [Cartia XT] 240 mg capsule,extended release 24hr 240 mg PO DAILY RF: 0 capecitabine [Xeloda] 500 mg Tablet 1,500 mg PO BID RF: 0 letrozole 2.5 mg tablet 2.5 mg PO DAILY RF: 0 ondansetron HCl 8 mg tablet 8 mg PO Q8 PRN (Reason: Nausea) RF: 0 Multaq 400 mg Tablet 400 mg PO BID RF: 0 Referrals Referrals: Isaac Way [Primary Care Provider] - Discharge Problem: Accidental overdose Qualifiers: Encounter type: initial encounter Qualified Code(s): T50.901A - Poisoning by unspecified drugs, medicaments and biological substances, accidental (unintentional), initial encounter The scribe's documentation has been prepared under my direction and personally reviewed by me in its entirety. I confirm that the note above accurately reflects all work, treatment, procedures, and medical decision making performed by me.
[2018-09-08] MEDS ORDERED: ACETAMINOPHEN 1000 MG/100 ML IV IV PRN (04:08)
[2018-09-08] MEDS ORDERED: ACETAMINOPHEN 325 MG TAB PO PRN (04:08)
[2018-09-08] MEDS ORDERED: BUTALBITAL/ACETAMIN/CAFFEINE TAB PO PRN (04:08)
[2018-09-08] MEDS ORDERED: ALUMINUM/MAGNESIUM SUSP 30 ML UDC PO PRN (04:08)
[2018-09-08] MEDS ORDERED: MAGNESIUM HYDROXIDE SUSP 30 ML UDC PO PRN (04:08)
[2018-09-08] MEDS ORDERED: ONDANSETRON INJ 2 MG/ML 2 ML VIAL IV PRN (04:08)
[2018-09-08 04:37] LABS: Basophils # (auto) 0.03 K/uL (0-0.2); Basophils % (auto) 1.2 %; Eosinophils # (auto) 0.02 K/uL (0-0.5); Eosinophils % (auto) 0.8 %; Hematocrit (blood only) 34.4 % (37-47); Hemoglobin 11.4 g/dL (12.0-16.0); Lymphocytes # (auto) 0.44 K/uL (1.2-3.4); Lymphocytes % (auto) 17.9 %; Mean Corpuscular Hgb Conc 33.1 g/dL (32-36); Mean Corpuscular Volume 94.2 fL (80-100); Mean Platelet Volume 9.1 fL (7.4-10.4); Monocytes # (auto) 0.27 K/uL (0.11-0.59); Neutrophils % (auto) 69.1 %; Platelet Count 168 K/uL (130-400); RDW Coefficient of Variation 14.2 % (11.5-14.5); RDW Standard Deviation 48.4 fL (36.4-46.3); Red Blood Count 3.65 M/uL (4.2-5.4); White Blood Count 2.46 K/uL (4.8-10.8)
[2018-09-08] MEDS ORDERED: ACETAMINOPHEN 60 ML IV PRN (04:45)
[2018-09-08 04:54] LABS: INR 1.1 (0.9-1.1); Prothrombin Time 11.1 Seconds (9.0-12.0)
[2018-09-08 04:57] LABS: Albumin Level 3.6 gm/dl (3.4-5.0); BUN Creatinine Ratio 23.8 (10-20); Calcium 8.9 mg/dl (8.5-10.1); Creatinine Clr Calc Pharmacy 50.1 ml/min; Est GFR (African American) 103.1; Potassium 3.9 mmol/L (3.5-5.1)
[2018-09-08 04:59] LABS: Albumin Globulin Ratio 1.1 (0.9-2); Bilirubin,Total 0.3 mg/dl (0.2-1); Globulin 3.2 gm/dl (2.5-4.0); Total Protein 6.8 gm/dl (6.4-8.2)
[2018-09-08] MEDS ORDERED: LEVOTHYROXINE SODIUM 150 MCG TABLET PO SCH (06:30)
[2018-09-08] MEDS ORDERED: XELODA~ORDER AWAITING ACTION SCH (08:00)
[2018-09-08] MEDS ORDERED: RESTASIS~ORDER AWAITING ACTION SCH (08:00)
[2018-09-08] MEDS ORDERED: ATORVASTATIN 40 MG TAB PO SCH (09:00)
[2018-09-08] MEDS ORDERED: CALCIUM 600MG + VIT D 400 IU TAB PO SCH (09:00)
[2018-09-08] MEDS ORDERED: LETROZOLE 2.5 MG TAB PO SCH (09:00)
[2018-09-08] MEDS ORDERED: POTASSIUM CHLORIDE 10 MEQ TABCR PO SCH (09:00)
[2018-09-08] MEDS ORDERED: HEPARIN SOD 5,000 UNIT/0.5 ML VIAL SQ SCH (09:00)
[2018-09-08] MEDS ORDERED: CHOLECALCIFEROL 1,000 UNITS TAB PO SCH (09:00)
[2018-09-08] MEDS ORDERED: MULTIVITAMIN TAB PO SCH (09:00)
[2018-09-08] MEDS ORDERED: dilTIAZem HCL 240 MG CAPCR PO SCH (09:00)
[2018-09-08] MEDS ORDERED: PANTOprazole 40 MG TAB PO SCH (09:00)
[2018-09-08] MEDS ORDERED: ASCORBIC ACID 500 MG TAB PO SCH (09:00)
--- NOTE | 2018-09-08 09:54 | Cardiology Consultation ---
Date of Consultation September 08, 2018 Assessment & Plan (1) Accidental overdose: 2. Metastatic breast cancer 3. Paroxysmal SVT/atiral tachycardia-- status post ablation 4. Hypertension 5. Dyslipidemia 6. Abnormal stress echo Patient was admitted with accidental overdose of Multaq due to mistaking it for her chemotherapy medication. She took a total of 2000 mg yesterday (last dose around 10 pm-11 pm). She is asymptomatic. EKG upon arrival without prolonged QT. No events on telemetry and no significant bradycardia. Recommend repeat EKG now, if QTc remains normal would monitor patient until after lunch then safe to discharge from cardiology standpoint. History of Present Illness Attending Physician: Thor Denson DO History of Present Illness Mrs. Rangel is a 73 year old female with a medical history significant for metastatic breast cancer (bone/sternum, lung, liver) status post mastectomy and chemotherapy, thyroid cancer, AVnRT s/p ablation, atrial tachycardia, dyslipidemia, and abnormal stress test. She also has a history of recurrent gastric ulcers with significant GI bleeding requiring blood transfusion. She was admitted with accidental Multaq overdose. She reports that she recently started a new chemotherapy medication (Xeloda). Last evening she took her evening medications around 7 pm including 400 mg of Multaq. About 3-4 hours later she realized that she forgot to take her Xeloda but accidently took an additional 1200 mg of Multaq. She called poison control who recommended she report to the emergency department. Initial EKG without prolonged QT and she has not had any evidence of significant bradycardia on telemetry. She has no acute complaints. No chest pain, palpitations, lightheadedness, near syncope, syncope or edema. She has chronic exertional dyspnea which is stable. No abnormal bleeding. Social Hx: Quit smoking in 1975. One glass of wine daily. She is . Allergies Allergy/AdvReac Type Severity Reaction Status Date / Time oxycodone [From OxyContin] Allergy HALLUCINATI Verified 09/08/18 01:39 ONS isosorbide AdvReac Intermediate IMDUR/ Verified 09/08/18 01:39 MIGRAINE aspirin AdvReac Mild HISTORY OF Verified 09/08/18 01:39 BLEEDING ULCERS buprenorphine AdvReac Mild GI SYMPTOMS Verified 09/08/18 01:39 diphenhydramine AdvReac Mild RESTLESS Verified 09/08/18 01:39 LEGS morphine AdvReac Mild SEVERE Verified 09/08/18 01:39 VOMITING NSAIDS (Non-Steroidal AdvReac Mild BLEEDING Verified 09/08/18 01:39 Anti-Inflamma ULCER DISEASE-CAN NOT HAVE NSAIDS tapentadol AdvReac Mild headache Verified 09/08/18 01:39 Home Medications Home Medications Medication Instructions Recorded Confirmed Type Caltrate 600 + D 2 tab PO BID 01/19/18 09/08/18 History Restasis 1 drp OPHTHALMIC (EYE) Q12H 01/19/18 09/08/18 History ascorbic acid (vitamin C) [Vitamin 500 mg PO BID 01/19/18 09/08/18 History C] atorvastatin [Lipitor] 40 mg PO DAILY 01/19/18 09/08/18 History ohynovektf-qqbtowlhrlnny-land 1 - 2 tabs PO UD PRN 01/19/18 09/08/18 History [Fioricet] cholecalciferol (vitamin D3) 5,000 unit PO DAILY 01/19/18 09/08/18 History levothyroxine [Synthroid] 150 mcg PO DAILY 01/19/18 09/08/18 History multivitamin 1 tab PO QAM 01/19/18 09/08/18 History pantoprazole [Protonix] 40 mg PO QAM 01/19/18 09/08/18 History potassium chloride 10 meq PO BID 01/19/18 09/08/18 History ranitidine HCl [Zantac] 150 mg PO BID PRN 01/19/18 09/08/18 History zolpidem [Ambien] 10 mg PO HS 01/19/18 09/08/18 History Multaq 400 mg PO BID 05/11/18 09/08/18 History capecitabine [Xeloda] 1,500 mg PO BID 09/08/18 09/08/18 History diltiazem HCl [Cartia XT] 240 mg PO DAILY 09/08/18 09/08/18 History letrozole 2.5 mg PO DAILY 09/08/18 09/08/18 History ondansetron HCl 8 mg PO Q8 PRN 09/08/18 09/08/18 History Patient History Medical History Breast cancer, stage 4 (Acute) GERD (gastroesophageal reflux disease) (Chronic) Peptic ulcer disease with hemorrhage (Resolved) Cancer of thyroid (Resolved) Allergic rhinitis (Chronic) Migraine headache (Acute) Malignant pleural effusion (Acute 09/21/13) Cervical strain (Acute) Atrial tachycardia (Chronic) 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 Cardiology consult in ER: (1) SVT (supraventricular tachycardia): She appeared to be in SVT on ECG and telemetry. A carotid massage was performed on the right carotid. Quite quickly, her rhythm converted to sinus rhythm. She tolerated it well. She was taught how to do this at home. Continue diltiazem. She will likely require anti rhythmic therapy verses ablation. It is recommended that she follow up with her compensation coordinator, Dr. Munroe next week. This appointment is being scheduled for her through the cardiology office. No other changes made at this time. If she has recurrent episodes at home, it was recommended that she sit down and performed a carotid massage. If this does not improve her symptoms, she was asked to come to the hospital at which point she can be admitted and be seen by electrophysiology at that time. 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 H/O bilateral mastectomy (Acute) History of cholecystectomy (Acute) H/O prior ablation treatment Ablation for SVT on 08/22/2016. Thought to be AVNRT> History of colonoscopy History of esophagogastroduodenoscopy (EGD) History of foot surgery History of tonsillectomy Family History Other Family history non-contributory Social History Preferred Language: Colombian Communication Ability: Effective Telesales Advisor Required: No Beliefs That Will Affect Care: None marital status: Single Current Living Situation: Alone current occupational status: retired Other Information That Helps Us Care for You: No Feels Safe at Home: Yes Safety Concerns: Feels Safe At This Time Smoking Status: Former smoker Tobacco Type: cigarettes Cigarettes Per Day: QUIT 43 YEARS, HX OF 1.5PPD X7 YEARS Do You Dip or Chew Tobacco: No Smoking End Date: 1974 Second Hand Exposure: No Tobacco Cessation Education Requested by Patient: No Hx Alcohol Use: No Hx Substance Use: No Review of Systems Review of Systems: All systems reviewed & are unremarkable except as noted in HPI & below Physical Exam Physical Exam: General: No acute distress, comfortable. HEENT: Head is normal. PERRLA. EOMI. Sclerae anicteric. Ears, nose and throat unremarkable. Mucous membranes moist. Neck: Normal carotid upstrokes, no bruits. No appreciable JVD. Lungs: Decreased breath sounds right base. No rales, rhonchi or wheezing. Cardiac: Regular rate and rhythm. S1-S2 normal. No appreciable murmur, gallop or rub. Abdomen: Soft and nontender. Bowel sounds normal. No mass or organomegaly. No abdominal bruit. Extremities/vascular: Well perfused. No peripheral edema. Radial, DP and PT pulses 2+ bilaterally Skin: No rash or abnormal lesions. Normal turgor. Neurologic: Nonfocal Psychiatric: Affect appropriate. Alert and oriented. Results & Data Vital Signs (Past 12 Hours) Vital Signs Temp Pulse Pulse Resp BP BP Pulse Ox 09/08/18 08:48 71 09/08/18 08:20 36.6 C 57 L 18 124/79 97 09/08/18 03:50 36.7 C 78 20 140/87 96 09/08/18 03:31 63 19 107/67 95 09/08/18 03:01 65 21 106/65 96 09/08/18 02:34 72 17 153/84 H 96 09/08/18 02:01 69 22 122/75 93 09/08/18 01:31 65 21 116/67 94 09/08/18 01:01 70 19 109/67 94 09/08/18 00:31 71 20 124/71 95 09/08/18 00:01 78 19 126/74 98 09/07/18 23:59 36.5 C 87 23 163/98 H 97 Laboratory Results Laboratory Results - last 24 hr 09/08/18 09/08/18 09/08/18 00:10 00:10 04:20 WBC 2.35 L 2.46 L RBC 3.79 L 3.65 L Hgb 11.8 L 11.4 L Hct 35.4 L 34.4 L MCV 93.4 94.2 MCH 31.1 31.2 MCHC 33.3 33.1 RDW Std Deviation 48.5 H 48.4 H RDW Coeff of Bobbi 14.3 14.2 Plt Count 170 168 MPV 9.1 9.1 Immature Gran % (Auto) 0.0 0.0 Neut % (Auto) 70.6 69.1 Lymph % (Auto) 15.7 17.9 [place] % (Auto) 11.1 11.0 Eos % (Auto) 1.3 0.8 Baso % (Auto) 1.3 1.2 Immature Gran # (Auto) 0.00 0.00 Neut # (Auto) 1.66 1.70 Lymph # (Auto) 0.37 L 0.44 L [place] # (Auto) 0.26 0.27 Eos # (Auto) 0.03 0.02 Baso # (Auto) 0.03 0.03 PT INR APTT PTT Ratio Sodium 139 Potassium 3.5 Chloride 103 Carbon Dioxide 29 Anion Gap 6.0 BUN 16 Creatinine 0.69 Est Cr Clr Drug Dosing 48.4 Est GFR ( Amer) 100.1 Est GFR (Non-Af Amer) 86.4 BUN/Creatinine Ratio 23.2 H Glucose 129 H Calcium 9.4 Magnesium 2.1 Total Bilirubin 0.4 AST 34 ALT 57 Alkaline Phosphatase 79 Troponin I Total Protein 7.1 Albumin 3.8 Globulin 3.3 Albumin/Globulin Ratio 1.2 09/08/18 09/08/18 09/08/18 04:20 04:20 04:20 WBC RBC Hgb Hct MCV MCH MCHC RDW Std Deviation RDW Coeff of Bobbi Plt Count MPV Immature Gran % (Auto) Neut % (Auto) Lymph % (Auto) [place] % (Auto) Eos % (Auto) Baso % (Auto) Immature Gran # (Auto) Neut # (Auto) Lymph # (Auto) [place] # (Auto) Eos # (Auto) Baso # (Auto) PT 11.1 INR 1.1 APTT 26.0 PTT Ratio 1.0 Sodium 136 Potassium 3.9 Chloride 103 Carbon Dioxide 29 Anion Gap 4.0 BUN 15 Creatinine 0.63 Est Cr Clr Drug Dosing 50.1 Est GFR ( Amer) 103.1 Est GFR (Non-Af Amer) 89.0 BUN/Creatinine Ratio 23.8 H Glucose 112 H Calcium 8.9 Magnesium Total Bilirubin 0.3 AST 32 ALT 52 Alkaline Phosphatase 72 Troponin I < 0.015 Total Protein 6.8 Albumin 3.6 Globulin 3.2 Albumin/Globulin Ratio 1.1 ECG Additional Comments: EKGs reviewed-- sinus rhythm, normal QTc interval (1) Accidental overdose Encounter type: initial encounter Qualified Code(s): T50.901A - Poisoning by unspecified drugs, medicaments and biological substances, accidental (unintentional), initial encounter
--- NOTE | 2018-09-08 15:28 | Discharge Summary ---
Date of Service September 08, 2018 Admission HPI Per Admitting Provider The patient is a 73-year-old female with a past medical history including breast cancer stage IV metastatic to bone and lungs, GERD, peptic ulcer disease with hemorrhage, thyroid cancer, migraine headache, malignant pleural effusion, atrial tachycardia, AV sal reentrant tachycardia, CAD, GERD, hypertension, hypothyroidism, and left bundle branch block. She reports that she missed took her Multaq pills for Xeloda, as both packages look the same and the pills look relatively the same. In the ED, her heart monitor remained normal, and QTc interval was actually noted to be decreasing during her stay there. However, the Poison Control [facility] advised that she be admitted to the hospital and monitored until it is determined that she was no longer at risk for significant arrhythmia. Admission Exam Per Admitting Provider The patient is awake, alert and oriented 3, well developed and well nourished, normocephalic and atraumatic, lying in bed and in no acute distress. HEENT--PERRL, EOMI, mucous membranes and oropharynx normal. Neck--supple. No JVD. No bruits. Thyroid normal, trachea midline, no adenopathy. Heart--normal S1 and S2. No murmurs, rubs or gallops. Lungs--clear bilaterally, no respiratory distress, no accessory muscle use. Abdomen--normal bowel sounds and soft. Nontender. Nondistended, no hernias or masses, no organomegaly. Extremities--no cyanosis or clubbing. No edema. There are good distal pulses b/l. Dermatologic--normal skin turgor, normal color, no abnormal lymph nodes, no rash. Neurologic--cranial nerves II through XII grossly intact. Rheumatologic--normal range of motion. Psychiatric--normal affect. Principal Diagnosis Accidental overdose Discharge Exam General: Alert, oriented. No acute distress, sitting up in bed. HEENT: NC/AT, PERRLA, EOMI, oropharynx moist. Chest: Nontender to palpation. CV: RRR, Normal s1, s2. No murmurs appreciated Resp: Breath sounds clear bilaterally, no increased effort of breathing. No crackles/rhonchi/rales. Abdomen: Soft, nontender, nondistended. No guarding. No organomegaly appreciated. Extremities: No edema. Discharge Data Allergies Allergy/AdvReac Type Severity Reaction Status Date / Time oxycodone [From OxyContin] Allergy HALLUCINATI Verified 09/08/18 01:39 ONS isosorbide AdvReac Intermediate IMDUR/ Verified 09/08/18 01:39 MIGRAINE aspirin AdvReac Mild HISTORY OF Verified 09/08/18 01:39 BLEEDING ULCERS buprenorphine AdvReac Mild GI SYMPTOMS Verified 09/08/18 01:39 diphenhydramine AdvReac Mild RESTLESS Verified 09/08/18 01:39 LEGS morphine AdvReac Mild SEVERE Verified 09/08/18 01:39 VOMITING NSAIDS (Non-Steroidal AdvReac Mild BLEEDING Verified 09/08/18 01:39 Anti-Inflamma ULCER DISEASE-CAN NOT HAVE NSAIDS tapentadol AdvReac Mild headache Verified 09/08/18 01:39 Consultations 09/08/18 01:09 ED Decision to Admit Stat 09/08/18 04:08 Consult Cardiology Routine 09/08/18 14:14 Consult Case Management - Discharge Planning Routine Hospital Course (1) Accidental overdose: Ms. Rangel is a 73yo pleasant woman with a PMHx significant for metastatic breast cancer and AV sal reentry tachycardia who presented to the ED after accidentally ingesting 3 more Multaq 400mg pills than she needed. States she mixed up her Multaq pills with her chemotherapy meds that she forgot to take. So in attempting to correct her mistake, she ingested the 3 additional multaq pills instead. So ended up taking 2000mg in total of Multaq. She was admitted for monitoring on the recommendation of poison control overnight. Pt was monitored on telemetry overnight with no acute events. Repeated EKGs up until discharge showed NO QT prolongation. Pt remained asymptomatic with no signs of bradycardia, SOB, syncope or chest pain. She did complain of some mild diarrhea on the day of discharge with only two watery bowel movements noted. She was admitted on September 07 and discharged on September 08 2018. She was given instructions on the day of discharge to continue her home Multaq nightly dose as her QT was not prolonged and she remained asymptomatic. She was also offered home health services to help with keeping her medications organized, which she adamantly refused. Close PCP followup is strongly recommended. Total Time Total Time Spent Total Time Spent (In Minutes): <30 Discharge Plan Discharge Items Patient Disposition: Home - Self-Care Reason For Visit: ACCIDENTAL MULTAQ OD Discharge Diagnosis: Accidental overdose Discharge Goals: Prevent disease Activity: Per 'Additional Instructions' section Non-emergency contact: Primary Care Provider Call non-emergency contact if: your symptoms worsen and you have a fever Follow-up/Referrals: Isaac Way [Primary Care Provider] - 09/14/18 10:00 am (follow up appointment with your [facility] care provider) Diet: Regular Addtl Provider Instructions: You were admitted because you accidentally took more of your Multaq medication than you needed to. You were watched overnight and no abnormalities were noted. Continue to take all your medications on schedule as before. It is ok to take your Multaq dose tonight. Your new found diarrhea is likely a result of you taking more medications than needed. We expect it to resolve soon. Should it continue for longer than a week, please followup with your primary care provider. We are also requesting some home health nurses visit to help with creating a system to help keep your medications straight. Should your symptoms worsen or you suddenly develop shortness of breath, chest pain, pass out or feel your heart beating abnormally, please go to the nearest emergency room. Prescriptions: Continued atorvastatin [Lipitor] 40 mg Tablet 40 mg PO DAILY RF: 0 potassium chloride 10 mEq Tablet Extended Release 10 meq PO BID RF: 0 ascorbic acid (vitamin C) [Vitamin C] 500 mg Tablet 500 mg PO BID RF: 0 pantoprazole [Protonix] 40 mg Tablet,Delayed Release (Dr/Ec) 40 mg PO QAM RF: 0 ranitidine HCl [Zantac] 150 mg Tablet 150 mg PO BID PRN (Reason: Heartburn) RF: 0 levothyroxine [Synthroid] 150 mcg Tablet 150 mcg PO DAILY RF: 0 zolpidem [Ambien] 10 mg Tablet 10 mg PO HS RF: 0 multivitamin Capsule 1 tab PO QAM RF: 0 Restasis 0.05 % Dropperette 1 drp OPHTHALMIC (EYE) Q12H RF: 0 cholecalciferol (vitamin D3) 5,000 unit Tablet 5,000 unit PO DAILY RF: 0 zlgyfozidg-rytcdccflmxyr-ordv [Fioricet] 50-300-40 mg Capsule 1 - 2 tabs PO UD PRN (Reason: Pain) RF: 0 Caltrate 600 + D 600 mg (1,500 mg)-800 unit Tablet,Chewable 2 tab PO BID RF: 0 diltiazem HCl [Cartia XT] 240 mg capsule,extended release 24hr 240 mg PO DAILY RF: 0 letrozole 2.5 mg tablet 2.5 mg PO DAILY RF: 0 ondansetron HCl 8 mg tablet 8 mg PO Q8 PRN (Reason: Nausea) RF: 0 capecitabine [Xeloda] 500 mg Tablet 1,500 mg PO BID Qty: 0 RF: 0 Multaq 400 mg Tablet 400 mg PO BID RF: 0 Stand-Alone Forms: [facility] Discharge Orders: Discharge Order (Routine); Ordered 09/08/18 Ordered By: Arabella Melo Admission Data Admit Date/Time: 09/08/18 02:58 Attending Provider: Thor Denson Admit Provider: Edouard Oleary Primary Care Provider: Isaac Way Other Providers: Edouard Oleary ; Raymond Schaefer Service: Telemetry Other Interventions: Discharge Summary Assessment (RN) Last Done: 09/08/18 15:08 DC Date/Time DO NOT enter until pt leaves facility: 09/08/18 15:55 Supervising Physician Co-Signing Physician Notes I personally examined the patient and verified all mo points of history and exam, discussed case, and agree with decision making with Dr Melo. feeling fine. wants to go home. EKG without long QT vitals noted nad breathing unlabored no pallor or icterus. no focal neuro deficits. accidental multaq OD - safe/stable for home. otherwise as above Resident Activity Tracking Resident Involvement: Resident Care Provided Care Provided: Adult Hospital Medicine
[2018-09-08] MEDS ORDERED: ZOLPIDEM TARTRATE 10 MG TAB PO SCH (21:00)
== END 2018-09-08 15:55 | disposition home or self-care (01) | DRG 918 ==
LOC: ED 23:51 → 2S 09-08 02:58 → SUATTDRO 09-08 02:58 → 2S 09-08 03:37

== ENCOUNTER 2019-03-06 07:55 | Inpatient (IN) ==
[2019-03-06] MEDS ORDERED: ALBUT/IPRATROP 3MG/0.5MG NEB 3 ML VIAL NEB ONE (08:12)
[2019-03-06] MEDS ORDERED: MAGNESIUM SULFATE / D5W 1 GM/100 ML BAG IV ONE (08:15)
[2019-03-06] MEDS ORDERED: methylPREDNISolone 60 MG in SYRINGE 1 ML IV STA (08:15)
--- NOTE | 2019-03-06 08:35 | XRay Report ---
XR chest 1V portable CLINICAL HISTORY: 73 years-old Female presenting with Pt c/o SOB. TECHNIQUE: Portable upright AP view of the chest was obtained. COMPARISON: 01/07/2019. FINDINGS: Atherosclerosis of the aortic arch. Cardiac silhouette enlarged. Stable to increased size of the smal l to moderate right pleural effusion. New small left pleural effusion. Underlying heterogeneity and c oarsening of lung markings. Decreased aeration of the lung bases. No pneumothorax. Degenerative de jesus es of the thoracic spine. Osteopenia may be present. Upper abdomen normal. IMPRESSION: 1. Increased size of the right pleural effusion with increased right basilar atelectasis. 2. Pleural effusion and left basilar atelectasis. 3. Cardiomegaly. 4. Underlying chronic lung disease suspected. ACT 112: Negative or not required by law. Electronically signed by: Ubaldo Blancas M.D. 03/06/2019 8:34 AM
[2019-03-06 08:56] LABS: Basophils # (auto) 0.01 K/uL (0-0.2); Basophils % (auto) 0.2 %; Eosinophils # (auto) 0.02 K/uL (0-0.5); Eosinophils % (auto) 0.4 %; Hematocrit (blood only) 35.7 % (37-47); Hemoglobin 11.9 g/dL (12.0-16.0); Immature Granulocytes # (auto) 0.01 K/uL (0.00-0.02); Immature Granulocytes % (auto) 0.2 %; Lymphocytes # (auto) 0.21 K/uL (1.2-3.4); Lymphocytes % (auto) 4.6 %; Mean Corpuscular Hemoglobin 30.4 pg (25-34); Mean Corpuscular Hgb Conc 33.3 g/dL (32-36); Mean Corpuscular Volume 91.1 fL (80-100); Mean Platelet Volume 8.4 fL (7.4-10.4); Monocytes # (auto) 0.05 K/uL (0.11-0.59); Monocytes % (auto) 1.1 %; Neutrophils # (auto) 4.27 K/uL (1.4-6.5); Neutrophils % (auto) 93.5 %; Platelet Count 265 K/uL (130-400); RDW Coefficient of Variation 14.4 % (11.5-14.5); RDW Standard Deviation 47.9 fL (36.4-46.3); Red Blood Count 3.92 M/uL (4.2-5.4); White Blood Count 4.57 K/uL (4.8-10.8)
[2019-03-06 08:56] LABS: Base Excess VBG 3.7 mEq/L; Oxygen Saturation VBG 96.2 %; pH VBG 7.44 (7.36-7.41)
[2019-03-06 08:58] LABS: iSTAT Creatinine 0.4 mg/dl (0.6-1.3); iSTAT Hemoglobin 12.6 g/dl (12.0-16.0); iSTAT Ionized Calcium 1.13 mmol/l (1.12-1.32); iSTAT Potassium 3.7 mEq/L (3.3-5.0)
[2019-03-06 08:58] LABS: Influenza A virus by PCR Neg for Influ A (Neg); Influenza B virus by PCR Neg for Influ B (Neg)
[2019-03-06 09:18] LABS: Alanine Aminotransferase 51 U/L (12-78); Albumin Level 3.2 gm/dl (3.4-5.0); Aspartate Aminotransferase 38 U/L (15-37); BUN Creatinine Ratio 19.1 (10-20); Blood Urea Nitrogen 11 mg/dl (7-18); Calcium 8.4 mg/dl (8.5-10.1); Carbon Dioxide 27 mmol/L (21-32); Chloride 92 mmol/L (98-107); Creatinine Clr Calc Pharmacy 57.5 ml/min; Est GFR (African American) 107.2; Est GFR (Non-African American) 92.5; Glucose 112 mg/dl (70-99); Lipase 45 U/L (73-393); Potassium 3.6 mmol/L (3.5-5.1); Sodium 126 mmol/L (136-145)
[2019-03-06 09:22] LABS: Albumin Globulin Ratio 0.9 (0.9-2); Alkaline Phosphatase 73 U/L (45-117); Bilirubin,Total 0.6 mg/dl (0.2-1); Creatine Kinase 61 U/L (26-192); Creatine Kinase MB 1.1 ng/ml (0.5-3.6); Globulin 3.7 gm/dl (2.5-4.0); Total Protein 6.9 gm/dl (6.4-8.2); Troponin I < 0.015 ng/ml (0-0.045)
[2019-03-06 10:11] LABS: Appearance Urine Clear (Clear); Bacteria Urine Automated Negative (Negative); Bilirubin Urine Negative (Negative); Blood Urine Trace (Negative); Cast Urine Automated 0 /lpf (0-5); Color Urine Yellow; Epithelial Cell Urine Auto 0-5 /lpf (0-5); Glucose Urine UA Negative (Negative); Ketones Urine Negative (Negative); Leukocyte Esterase Urine Negative (Negative); Nitrite Urine Negative (Negative); Protein Urine Negative (Negative); RBC Urine Automated 0-4 /hpf (0-4); Specific Gravity Urine 1.008 (1.000-1.030); Urobilinogen Urine Negative (Negative)
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
[2019-03-06] MEDS ORDERED: OPTIRAY 320 125ml IV PRN (11:00)
--- NOTE | 2019-03-06 11:28 | CT Scan Report ---
CT angio chest PE protocol CLINICAL HISTORY: 73 years-old Female presenting with shortness of breath, clinical concern for pulmo nary embolus. TECHNIQUE: Multidetector CT angiography of the chest was performed after administration of intravenou s contrast. 3-D volumetric and/or maximum intensity projection (MIP) images were subsequently reconst ructed for review. IV contrast: 118 mL of Optiray 320. One or more dose lowering techniques were used consistent with the principles of ALARA (as low as reasonably achievable), including automatic expos ure control, mA or kV adjustment to individual patient size, and/or use of iterative reconstruction. COMPARISON: Contrast-enhanced chest CT from 02/03/2019. CT DOSE (mGy.cm): The estimated cumulative dose is 200.34 mGy.cm. 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 Pulmonary vasculature: The study is adequate for assessment of the pulmonary vascular tree. No filling defect within the pul monary arteries to suggest embolus. Main pulmonary artery enlarged measuring 3.4 cm in diameter. No f lattening of the interventricular septum. No intracardiac filling defect. No reflux of contrast into the hepatic veins. Remaining chest: Soft tissues: Thyroid either absent or atrophic. Bilateral mastectomies suspected. No axillary, supra clavicular, internal mammary, mediastinal, or hilar lymphadenopathy. Atherosclerosis of the aorta. Tr toni aortic valve calcification. Mild multichamber enlargement of the heart. Small right pleural effus ion as on prior. Moderate left pleural effusion, increased from prior. Extensive right pleural thicke nakita and enhancement as on prior exam. This is not evident on the left. Upper abdomen normal. Lungs and airways: No pneumothorax. Subsegmental endobronchial debris or bronchial collapse in the lo wer lobes greater on the right. More central airways remain patent. Pulmonary arteries enlarged relat evan to adjacent bronchi most pronounced in the left lung. Interlobular septal thickening evident thro ughout the right lung, which is also nodular. Nodularity of the fissures evident. Added density of th e right lung in comparison to the left similar to prior exam. Extensive peribronchovascular, dependen t, and multifocal nodular infiltrates throughout the right lung, which have slightly progressed from prior exam. Dependent passive atelectasis in the left lower lobe greater than on prior exam. Musculoskeletal: Degenerative changes of the spine. Redemonstration of sclerotic lesion in the right 10th rib lesion is not appreciated on this exam. In the T10 vertebral body. Faint sclerosis in the st ernum. IMPRESSION: 1. No evidence of pulmonary embolus. 2. Pulmonary artery hypertension. 3. Interval progression of lymphangitic carcinomatosis in the right lung with multifocal nodular par enchymal infiltrates likely representing metastasis. Increased density of the right lung in compariso n to prior may relate to mild edema. 4. Chronic right pleural thickening and minimal right pleural effusion, likely prior right pleurodes is. 5. Interval increased size of the now moderate left pleural effusion with increased passive atelecta sis in the left lower lobe. 6. Hepatic metastatic disease is not well demonstrated on this exam. Sclerotic lesions in the T10 ve rtebral body and sternum consistent with known osseous metastatic disease. Right 10th rib lesion not as well demonstrated on the current exam. ACT 112: Negative or not required by law. Electronically signed by: Ubaldo Blancas M.D. 03/06/2019 11:27 AM
[2019-03-06 11:32] LABS: Urine Potassium 9.6 mmol/L
[2019-03-06] MEDS ORDERED: fentaNYL citrate 100 MCG/2 ML VIAL ONE (12:02)
--- NOTE | 2019-03-06 12:28 | Procedure Note ---
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[employer] Hand: Not applicable Organs Examined: Lung BLUE point (upper), BLUE point (lower), Phrenic Point (axillary), PLAPS point (posterior) A lines visualized: Absent, Hemithorax: Bilateral B lines visualized: Present, Hemithorax: Right hemithorax only all points Lung Sliding: Present, Hemithorax: Bilateral Tissue-like Sign: Present, Hemithorax: Left collapse point Shred Sign: Absent, Hemithorax: Bilateral Quad Sign: Present, Hemithorax: Left collapse left phrenic point Sinusoid Sign: Present, Hemithorax: Left phrenic Type of effusions: Simple, Hemithorax: Left Interpleural distance: 3 cm Impression: Type B lung profile over global right points, simple appearing pleural effusions with greater than 2 cm interpleural distance on left hemit horax Images obtained are saved for permanent record Coding CPT Codes Pulmonary/Thoracic - Pulmonary and Thoracic: 60103 US, Chest, real time with imaging documentation ([id number])
--- NOTE | 2019-03-06 12:31 | Procedure Note ---
Procedure Note Date of Service March 06, 2019 Supervising Physician Co-Signing Physician Notes Procedure Date: noted above Procedure: Thoracentesis Pre-procedure Diagnosis: Metastatic breast cancer to right lung, acute hypoxic respiratory failure, compressive atelectasis left hemithorax Post-procedure Diagnosis: same as above Prior to Procedure: Informed Consent: The risks, benefits, indications, potential complications, and alternatives were explained to the patient and informed consent obtained. Attending Staff: Inocencio Varghese DO Resident/Physician Recruitment Advertising Manager: Not applicable Indications: The patient is a 73-year-old female patient with metastatic breast CA to the right lung with compressive atelectasis of the left lung and pleural effusions bilaterally status post pleurocentesis of the right lung and acute hypoxic respiratory failure requiring thoracentesis. The identity of the patient was confirmed and a bedside time out was performed. Description of Procedure: Patient positioned, the left posterior axillary line was prepped with chlorhexi dine and draped in usual sterile fashion. Ultrasound guidance was used and appropriate fluid pocket was identified. 4 mL of 1% Lidocaine without epinephrine was used to anesthetize the area. A needle was introduced into the pleural space over the superior margin of the rib with care and fluid removed and sent for analysis. Total Fluid Removed: 600 ml Color of Fluid: Staw Color Sent for: Gram Stain, culture, cell count, glucose, protein, LDH, pleural pH Complications: None Estimated blood loss: Trace Post procedure chest x-ray has been ordered Coding CPT Codes Pulmonary/Thoracic - Pulmonary and Thoracic: 83826 Thoracentesis w/o imaging ([id number])
--- NOTE | 2019-03-06 12:33 | History & Physical Report ---
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 above. Patient made herself DNR this afternoon. High risk of pleural fluid reaccumulation on left. other plans per MS Re Rios MD PG Care Time/CCT Total # of Minutes Spent Total Time Spent with Patient: Total time spent is greater than 50% in coordination of care (as documented) at patient's floor/unit and/or counseling patient:
--- NOTE | 2019-03-06 12:46 | XRay Report ---
XR chest 1V portable CLINICAL HISTORY: 73 years-old Female presenting with S/P Thoracentesis. TECHNIQUE: Portable upright AP view of the chest was obtained. COMPARISON: 03/06/2019. FINDINGS: Atherosclerosis of the aortic arch. Cardiac silhouette enlarged. Apparent right pleural effusion alex elates with the underlying trace for a pleural effusion and more significant pleural thickening, whic h is chronic. The presence of the underlying left pleural effusion is not appreciated consistent with the interval thoracentesis. Reticular opacities and added density of the right lung as on prior. Lef t lung grossly clear. No pneumothorax. Osseous structures normal. Upper abdomen normal. IMPRESSION: 1. Status post left thoracentesis with no significant residual fluid appreciated by radiograph. No p neumothorax. ACT 112: Negative or not required by law. Electronically signed by: Ubaldo Blancas M.D. 03/06/2019 12:45 PM
[2019-03-06 13:01] LABS: Total Protein Pleural Fluid 3.3 g/dl
[2019-03-06 13:27] LABS: Appearance Pleural Fluid CLEAR; Color Pleural Fluid YELLOW; RBC Pleural Fluid (A) < 3000 /uL; Source Pleural Fluid LEFT LUNG; WBC Pleural Fluid (A) 891 /uL
[2019-03-06] MEDS ORDERED: ACETAMINOPHEN 325 MG TAB PO PRN (13:45)
[2019-03-06] MEDS ORDERED: POLYETHYLENE (MIRALAX) 17 GM PACK PO PRN (13:45)
--- NOTE | 2019-03-06 13:55 | Emergency Department Note ---
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 techniques were used consistent with the principles of ALARA (as low as reasonably achievable), including automa tic exposure control, mA or kV adjustment to individual patient size, and/or use of iterative reconstruction. COMPARISON: Contrast-enhanced chest CT from 02/03/2019. CT DOSE (mGy.cm): The estimated cumulative dose is 200.34 mGy.cm. FINDINGS: Test Development Engineer topogram: Bilateral pleural effusions. Pulmonary vasculature: The study is adequate for assessment of the pulmonary vascular tree. No filling defect within the pulmonary arteries to suggest embolus. Main pulmonary artery enlarged measuring 3.4 cm in diameter. No flattening of the interventricular septum. No intracardiac filling defect. No reflux of contrast into the hepatic veins. Remaining chest: Soft tissues: Thyroid either absent or atrophic. Bilateral mastectomies suspected. No axillary, supraclavicular, internal mammary, mediastinal, or hilar lymphadenopathy. Atherosclerosis of the aorta. Trace aortic valve calcification. Mild multichamber enlargement of the heart. Small right pleural effusion as on prior. Moderate left pleural effusion, increased from prior. Extensive right pleural thickening and enhancement as on prior exam. This is not evident on the left. Upper abdomen normal. Lungs and airways: No pneumothorax. Subsegmental endobronchial debris or bronchial collapse in the lower lobes greater on the right. More central airways remain patent. Pulmonary arteries enlarged relative to adjacent bronchi most pronounced in the left lung. Interlobular septal thickening evident throughout the right lung, which is also nodular. Nodularity of the fissures evident. Added density of the right lung in comparison to the left similar to prior exam. Extensive peribronchovascular, dependent, and multifocal nodular infiltrates t hroughout the right lung, which have slightly progressed from prior exam. Dependent passive atelectasis in the left lower lobe greater than on prior exam. Musculoskeletal: Degenerative changes of the spine. Redemonstration of sclerotic lesion in the right 10th rib lesion is not appreciated on this exam. In the T10 vertebral body. Faint sclerosis in the sternum. IMPRESSION: 1. No evidence of pulmonary embolus. 2. Pulmonary artery hypertension. 3. 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 Increased density of the right lung in comparison to prior may relate to mild edema. 4. Chronic right pleural thickening and minimal right pleural effusion, likely prior right pleurodesis. 5. Interval increased size of the now moderate left pleural effusion with increased passive atelectasis in the left lower lobe. 6. Hepatic metastatic disease is not well demonstrated on this exam. Sclerotic lesions in the T10 vertebral body and sternum consistent with known osseous metastatic disease. Right 10th rib lesion not as well demonstrated on the current exam. ACT 112: Negative or not required by law. Electronically signed by: Ubaldo Blancas M.D. 03/06/2019 11:27 AM XR chest 1V portable CLINICAL HISTORY: 73 years-old Female presenting with Pt c/o SOB. TECHNIQUE: Portable upright AP view of the chest was obtained. COMPARISON: 01/07/2019. FINDINGS: Atherosclerosis of the aortic arch. Cardiac silhouette enlarged. Stable to increased size of the small to moderate right pleural effusion. New small left pleural effusion. Underlying heterogeneity and coarsening of lung markings. Decreased aeration of the lung bases. No pneumothorax. Degenerative changes of the thoracic spine. Osteopenia may be present. Upper abdomen normal. IMPRESSION: 1. Increased size of the right pleural effusion with increased right basilar atelectasis. 2. Pleural effusion and left basilar atelectasis. 3. Cardiomegaly. 4. Underlying chronic lung disease suspected. ACT 112: Negative or not required by law. Electronically signed by: Ubaldo Blancas M.D. 03/06/2019 8:34 AM XR chest 1V portable S/P left thoracentesis CLINICAL HISTORY: 73 years-old Female presenting with S/P Thoracentesis. TECHNIQUE: Portable upright AP view of the chest was obtained. COMPARISON: 03/06/2019. FINDINGS: Atherosclerosis of the aortic arch. Cardiac silhouette enlarged. Apparent right pleural effusion correlates with the underlying trace for a pleural effusion and more significant pleural thickening, which is chronic. The presence of the underlying left pleural effusion is not appreciated consistent with the interval thoracentesis. Reticular opacities and added density of the right lung as on prior. Left lung grossly clear. No pneumothorax. Osseous structures normal. Upper abdomen normal. IMPRESSION: 1. Status post left thoracentesis with no significant residual fluid appreciated by radiograph. No pneumothorax. ACT 112: Negative or not required by law. Electronically signed by: Ubaldo Blancas M.D. 03/06/2019 12:45 PM Blood Pressure Blood Pressure Findings: Elevated blood pressure Blood Pressure Disposition: further management by hospitalist SANDRA Narrative This is a 73-year-old female who presents emergency department complaining of shortness of breath. Upon arrival to the emergency department the patient is in acute distress. For this reason she was placed on BiPAP. She was given an hour-long breathing treatment and started on methylprednisolone as well as magne sium. The patient was also sent for CAT scan of the chest which showed bilateral pleural effusions. She was discussed with both the hospitalist as well as the ICU. Impression & Plan Acute hypoxemic respiratory failure Discharge Plan Visit Data *Final* Discharge Date/Time: 03/06/19 13:19 Chief Complaint: Shortness of Breath/Dyspnea Stated Complaint: SOB ED Provider: Onur Vega Discharge Problem: Acute hypoxemic respiratory failure Patient Disposition: Admitted As Inpatient Discharge Instructions Interventions: ED Discharge Assessment Last Done: 03/06/19 13:19 The scribe's documentation has been prepared under my direction and personally reviewed by me in its entirety. I confirm that the note above accurately reflects all work, treatment, procedures, and medical decision making performed by me.
[2019-03-06 17:51] LABS: BUN Creatinine Ratio 15.3 (10-20); Calcium 8.3 mg/dl (8.5-10.1); Creatinine Clr Calc Pharmacy 37.3 ml/min; Est GFR (African American) 83.5; Est GFR (Non-African American) 72.1; Potassium 3.9 mmol/L (3.5-5.1)
[2019-03-06] MEDS ORDERED: GABAPENTIN 100 MG CAP PO PRN (18:18)
[2019-03-06] MEDS ORDERED: ZOLPIDEM TARTRATE 10 MG TAB PO PRN (18:19)
[2019-03-06] MEDS: DRONEDARONE HCL 400 MG TAB PO SCH (22:44)
[2019-03-07 03:45] VITALS: O2SAT 95
[2019-03-07 05:49] LABS: Hematocrit (blood only) 34.7 % (37-47); Hemoglobin 11.3 g/dL (12.0-16.0); Mean Corpuscular Hemoglobin 30.1 pg (25-34); Mean Corpuscular Hgb Conc 32.6 g/dL (32-36); Mean Corpuscular Volume 92.5 fL (80-100); Mean Platelet Volume 8.3 fL (7.4-10.4); Platelet Count 307 K/uL (130-400); RDW Coefficient of Variation 14.4 % (11.5-14.5); RDW Standard Deviation 48.8 fL (36.4-46.3); Red Blood Count 3.75 M/uL (4.2-5.4); White Blood Count 5.27 K/uL (4.8-10.8)
[2019-03-07 06:29] LABS: Albumin Level 2.9 gm/dl (3.4-5.0); BUN Creatinine Ratio 26.5 (10-20); Calcium 8.6 mg/dl (8.5-10.1); Est GFR (African American) 107.2; Est GFR (Non-African American) 92.5; Potassium 3.8 mmol/L (3.5-5.1)
[2019-03-07] MEDS ORDERED: LEVOTHYROXINE SODIUM 150 MCG TABLET PO SCH (06:30)
[2019-03-07 06:33] LABS: Albumin Globulin Ratio 0.8 (0.9-2); Bilirubin,Total 0.4 mg/dl (0.2-1); Globulin 3.6 gm/dl (2.5-4.0); Total Protein 6.5 gm/dl (6.4-8.2)
[2019-03-07 07:29] VITALS: BP 161/84; TEMP 98.2
[2019-03-07] MEDS ORDERED: ATORVASTATIN 40 MG TAB PO SCH (09:00)
[2019-03-07] MEDS ORDERED: dilTIAZem HCL 240 MG CAPCR PO SCH (09:00)
[2019-03-07] MEDS ORDERED: PANTOprazole 40 MG TAB PO SCH (09:00)
[2019-03-07] MEDS: DRONEDARONE HCL 400 MG TAB PO SCH (09:20)
[2019-03-07 10:01] VITALS: PULSE 68
--- NOTE | 2019-03-07 11:29 | Discharge Summary ---
Date of Service March 07, 2019 Admission HPI Per Admitting Provider Mrs. Rangel is a 73 year old female with metastatic breast cancer, SVT, chemotherapy associated anemia, LBBB, HLD with probable CAD, hypothyroidism who presented with acute respiratory failure. Pt. reports she developed acute shortness of breath yesterday into this morning -- she has been requiring BiPAP in the ED but is usually on room air at home. SOB is present with exertion, denies SOB at rest. Has had mild nasal congestion and non productive cough over the last few days but denies fever/chills, headaches, pharyngitis, chest pain, LE edema, N/V, diarrhea or constipation, dysuria or hematuria, abd pain. She follows with an oncologist and does have liver, bone and likely lung metastasis in setting of primary breast cancer. She was recently evaluated by radiation oncology as well to discuss course of palliative radiation therapy. ER course: Community Health Worker was consulted to discuss goals of care -- pt. is DNR/DNI after extensive conversation. She would like to continue treatment at this time, including BiPAP and thoracentesis. Will admit to PCU tele for close monitoring. CT PE is pending in setting of acute respiratory failure. Admission Exam Per Admitting Provider General: Chronically ill appearing frail elderly female, mild distress related to resp issues. HEENT: NC/AT; PERRLA with EOMI; [place] conjunctiva, MMM. No erythema of posterior pharynx Neck: Supple and nontender Cardiac: RRR Lungs: on BiPAP; mild tachypnea noted; coarse breath sounds noted throughout with crackles in RLL base. Abdomen: Bowel normoactive X 4; Nontender to palpation Rectal: Deferred : Deferred Back: NO spinous tenderness Extremities: Warm. No edema present Neuro: No focal weakness Skin: No rash Principal Diagnosis Metastatic Breast Cancer, Acute Hypoxic Respiratory Failure, Left malignant pleural effusion Discharge Exam General: Chronically ill appearing frail elderly female. HEENT: NC/AT; PERRLA with EOMI; [place] conjunctiva, MMM. No erythema of posterior pharynx Neck: Supple and nontender Cardiac: RRR Lungs: on room air; CTA throughout. Abdomen: Bowel normoactive X 4; Nontender to palpation Extremities: Warm. No edema present Neuro: No focal weakness Skin: No rash Discharge Data Allergies Allergy/AdvReac Type Severity Reaction Status Date / Time denosumab [From Xgeva] Allergy Rash Verified 03/06/19 08:56 ibuprofen Allergy Verified 03/06/19 08:56 oxycodone [From OxyContin] Allergy HALLUCINATI Verified 03/06/19 08:56 ONS isosorbide AdvReac Intermediate IMDUR/ Verified 03/06/19 08:56 MIGRAINE aspirin AdvReac Mild HISTORY OF Verified 03/06/19 08:56 BLEEDING ULCERS buprenorphine AdvReac Mild GI SYMPTOMS Verified 03/06/19 08:56 diphenhydramine AdvReac Mild RESTLESS Verified 03/06/19 08:56 LEGS morphine AdvReac Mild SEVERE Verified 03/06/19 08:56 VOMITING NSAIDS (Non-Steroidal AdvReac Mild BLEEDING Verified 03/06/19 08:56 Anti-Inflamma ULCER DISEASE-CAN NOT HAVE NSAIDS tapentadol AdvReac Mild headache Verified 03/06/19 08:56 Consultations 03/06/19 10:40 ED Decision to Admit Stat 03/06/19 13:45 Consult Case Management - Discharge Planning Routine Consult Community Health Worker Routine 03/07/19 09:23 Consult [employer] fuels engineer Routine Ordered Studies 03/06/19 09:30 CT angio chest PE protocol Stat 03/06/19 11:41 US point of care ultrasound Routine CXR x 2 Hospital Course (1) Breast cancer, stage 4: With liver, bone and presumed pulmonary metastases in setting of pleural effusions. CTA showed progression of lymphangitic carcinomatosis in right lung with multifocal nodular infiltrates likely representing metastasis; also has hepatic disease and sclerotic lesions in T10 vertebral body/sternum/right 10th rib bony lesions. Follows with heme/onc -- will need to discuss further treatment with Dr. Loera on Friday. Community Health Worker consulted, code status was changed to DNR/DNI -- continue to address overall prognosis with Dr. Loera. (2) Metastasis from breast cancer: As noted above. (3) Acute hypoxemic respiratory failure: Likely related to malignant pleural effusion and progression of metastatic breast cancer. Required BiPAP on admission, now weaned to room air following left thoracentesis. Received Methylpred 60 mg IV and Duoneb in the ER. Recently treated for PNA, CT PE neg for opacity c/w infection. Held abx. S/p thoracentesis on 03/06, removed 600 cc pleural fluid. H/o aspergillus and candidiasis on previous bronch -- BC, fungal culture and fungitell are pending - f/u with Dr. Richard to discuss results. (4) Malignant pleural effusion: CT showed increased left pleural effusion and minimal right pleural effusion (h/o right pleurodesis) S/p thoracentesis by Dr. Varghese, removal of 600 cc pleural fluid +atypical cells. Cytology is pending but is likely related to malignancy. Script provided for outpt CXR on or Fri to eval for re-accumulation of fluid. Will need to f/u with Dr. Richard in Mar 2019 to discuss need for future PleurX placement if she has issues with recurrent pleural effusions. (5) Hyponatremia: Na level 125 - concern for SIADH in setting of underlying cancer. Urine sodium 45, urine osmo 168; serum osmo was <280 -- not likely related to SIADH based on low urine osmo levels. 1500 cc fluid restriction; Na level improved to 136. (6) Malignant cachexia: Significant weight loss; very frail appearing. (7) Severe protein-calorie malnutrition: In setting of metastatic breast cancer. BMI 18.1 (8) Anemia associated with chemotherapy: H/H was stable. (9) Atrial tachycardia: Follows with Dr. Munroe. Continued Multaq and Diltiazem as prescribed (10) Bleeding ulcer: H/o PUD. CBC stable. PPI PO daily. (11) CAD (coronary artery disease): Presumed CAD per cardiology note. Continued statin and CCB as prescribed; not currently on ASA. EKG on admission showed new T wave inversions in anterior leads; concern for recent acute coronary event. Trops were negative x 2. Repeat EKG in the morning showed improvement. Provided script for Nitro tablets at home and discussed indication for using medication for chest pain. Recommend f/u with cardiology and PCP. Consider outpatient echo to evaluate for new wall motion abnormalities. (12) GERD (gastroesophageal reflux disease): PPI daily. (13) Hypothyroidism (acquired): H/o thyroid cancer, s/p thyroidectomy. Continued Synthroid as prescribed. TSH was 1.4 in August, will hold repeat level in setting of acute illness. (14) DNR (do not resuscitate) discussion: DNR/DNI following discussion with family. (15) DVT prophylaxis: SCDs; held pharmacologic ppx for procedure. Discharged to home on 03/07/19. Total Time Total Time Spent Total Time Spent (In Minutes): >30 minutes Total Time Includes: Examination of the Patient, Discharge Planning, Medication Reconciliation, Communication With Other Providers and Other Discharge Plan Discharge Items Patient Disposition: Home - Self-Care Reason For Visit: ACUTE RESPIRATORY FAILURE Discharge Diagnosis: Acute Respiratory Failure, Metastatic Breast Cancer Goals: You have been hospitalized for an acute medical problem. During your stay at [facility], we have made an effort to correct the problem that brought you to the hospital while keeping you as comfortable as possible. Medications were used to bring your condition under control and your discharge instructions will include directions for any medications you should take after leaving the hospital. Please make sure you see your Primary Care Provider as part of your follow up plan. Activity: As commented below Exercise/Sports: Wait until after follow-up appointment Non-emergency contact: Primary Care Provider, Surgeon and Oncologist Call non-emergency contact if: you have any medication questions, your symptoms worsen and you have a fever Follow-up/Referrals: Isaac Way MD [Primary Care Provider] - Diet: Heart Healthy Ambulatory Orders: XR chest 2V PA/lateral (Routine) Timeframe: 5 Days Location: Determined by Patient Ordered By: Nalini Kinsey Attending Provider Instructions: 1. Metastatic Breast Cancer * Please follow up with oncologist to discuss further treatment/test results that are currently pending from this admission. 2. Acute Hypoxia in setting of pleural effusions and lung metastasis * Please follow up with oncology to determine future treatment; you may require PleurX placement if you develop fluid re-accumulation in your lungs. * A script was provided for a CXR later this week -- you will need a CXR on or Friday of this week. * An appointment will be scheduled with Dr. Richard in Mar 2019 to discuss CXR results. 3. EKG changes * EKG from admission showed T wave inversions -- new from prior studies. * A prescription for nitroglycerin was sent to your pharmacy -- please take nitroglycerin 0.4 mg (1 tablet) every 5 minutes for acute chest pain at home, max of 3 tablets. You will need to call 911 or go to the ER following administration and if chest pain does not resolve. * Please follow up with cardiology and PCP to discuss new EKG changes. 4. Please follow up for routine labs with your oncologist to monitor blood counts. Pending Studies at Discharge: Yes Studies:: Cytology from pleural fluid; Fungitell; Blood cultures & fungal culture Stand-Alone Forms: [facility] Medications and DC Order Prescriptions: New nitroglycerin 0.4 mg tablet, sublingual 0.4 mg sublingual Q5M PRN (Reason: chest pain) Qty: 10 RF: 0 Continued cholecalciferol (vitamin D3) 1,000 unit tablet,chewable 1,000 units PO DAILY RF: 0 triamcinolone acetonide 0.1 % paste 1 appln DT BID PRN (Reason: mouth irritation) RF: 0 diltiazem HCl [Cartia XT] 240 mg capsule,extended release 24hr 240 mg PO DAILY Qty: 90 RF: 3 Multaq 400 mg tablet 400 mg PO BID Qty: 180 RF: 3 atorvastatin [Lipitor] 40 mg Tablet 40 mg PO DAILY RF: 0 potassium chloride 10 mEq Tablet Extended Release 10 meq PO BID RF: 0 ascorbic acid (vitamin C) [Vitamin C] 500 mg Tablet 500 mg PO BID RF: 0 levothyroxine [Synthroid] 150 mcg Tablet 150 mcg PO DAILY RF: 0 zolpidem [Ambien] 10 mg Tablet 10 mg PO HS RF: 0 Restasis 0.05 % Dropperette 1 drp OPB Q12H RF: 0 dzsdozxkvf-xhxbsneejlzkv-dvrt [Fioricet] 50-300-40 mg capsule 1 cap PO TID PRN (Reason: Pain) RF: 0 Caltrate 600 plus D 600 mg (1,500 mg)-800 unit tablet,chewable 1 tab PO BID RF: 0 ondansetron HCl 8 mg tablet 8 mg PO Q8 PRN (Reason: Nausea) RF: 0 multivitamin Tablet 1 tab PO DAILY RF: 0 Probiotic 3 billion cell Capsule 0 mmu cells PO DAILY RF: 0 gabapentin 100 mg Capsule 200 mg PO TID PRN (Reason: Pain) RF: 0 Discharge Orders: Discharge Order (Routine); Ordered 03/07/19 Ordered By: Nalini Grimaldo Admission Data Admit Date/Time: 03/06/19 11:43 Attending Provider: Siuta,Juancarlos R Admit Provider: Juancarlos Rios Primary Care Provider: Isaac Way Other Providers: Justin Estes ; Adrian Varghese Other Interventions: Discharge Summary Assessment (RN) Last Done: 03/07/19 09:54 DC Date/Time DO NOT enter until pt leaves facility: 03/07/19 11:24 Supervising Physician Co-Signing Physician Notes Attending Discharge Note & Attestation: Pt seen/examined, chart reviewed, discharge care plan d/w PA Nalini Grimaldo. I agree w/ the mo components of her discharge documentation. Unfortunate 73yo female with extensive stage 4 breast ca who presented with worsening dyspnea. Upon arrival had significant respiratory distress requiring use of BiPAP for acute hypoxic resp failure. CTA chest neg for PE but evidence of worsening left-sided pleural effusion. Dr Varghese from ICU was consulted who performed left-sided thoracentesis yielding 600cc of exudative fluid highly concerning for malignant pleural effusion. Resp distress improved quickly following thoracentesis. By the next AM her O2 requirement had resolved. Cell counts and gram stain from the pleural fluid were not c/w infection. Only other issue was that of abnormal EKG showing ST segment depressions anteriorly. These improved by hospital day #2. Troponins were negative. She never had ischemic symptoms. [id number], CAD has been suspected in the past; the EKG changes support that concern. Nitro SL prescription was given at d/c. However, additional CAD w/u likely not advised in light of progressive stage 4 breast ca. I cannot rule out that ischemia did not contribute to her presentation. Discharge exam: gen - cacechtic, a/o x 3 mouth - MMM neck - no JVD heart - RRR, s1 s2, no murmur lungs - no rales, no wheeze; mildly decreased BS bases (slightly worse on right) abd - soft NT ND BS+ ext - no edema Juancarlos Rios MD
--- NOTE | 2019-03-08 08:00 | Palliative Care Progress Note ---
Date of Service March 08, 2019 Subjective Consult placed on 03/06, patient discharged prior to consult being completed. PG Care Time/CCT Total # of Minutes Spent Total Time Spent with Patient: Total time spent is greater than 50% in coordination of care (as documented) at patient's floor/unit and/or counseling patient:
[2019-03-11 19:07] LABS: Fungitell (1-3)-B-D-Glucan <31
== END 2019-03-07 11:24 | disposition home or self-care (01) | DRG 189 ==
LOC: ED 07:55 → 2S 11:43

== ENCOUNTER 2019-06-23 11:03 | Inpatient (IN) ==
--- NOTE | 2019-06-23 12:25 | Emergency Department Note ---
History of Present Illness General Chief complaint: Shortness of Breath/Dyspnea Time Seen by Provider: 06/23/19 12:07 Source: patient Mode of arrival: EMS Limitations: no limitations History of Present Illness Maximum Pain Intensity: 2 This patient has a history of metastatic breast cancer that comes in with increasing shortness of breath for last couple weeks that she has getting progressively worse. She does have a port in the right chest. She was started on 3 L nasal cannula yesterday. She is followed locally by Dr. Loera. She last received chemo on Friday and is scheduled for next Friday. She has had a pleural effusion drained off of her lungs in the past last time she believes in April. Denies fever. No trauma. No sick contacts or exposure to coronavirus. No cough or chest pain. She has had lower extremity edema for the last couple months. No bowel or bladder problems. No fall Home Medications Home Medications Medication Instructions Recorded Confirmed Type Restasis 1 drp OPB Q12H 01/19/18 06/23/19 History zolpidem [Ambien] 10 mg PO HS 01/19/18 06/23/19 History ondansetron HCl 8 mg PO Q8 PRN 09/08/18 06/23/19 History dronedarone 400 mg tablet 400 mg PO BID #180 tab 11/19/18 06/23/19 Rx ipcgpfsbyl-dwrtqcusexvrb-kprbwnts 1 cap PO TID PRN cap 02/19/19 06/23/19 History 50 mg-300 mg-40 mg capsule triamcinolone acetonide 0.1 % 1 appln DT BID PRN 02/19/19 06/23/19 History dental paste multivitamin 1 tab PO DAILY 03/06/19 06/23/19 History nitroglycerin 0.4 mg SUBLINGUAL Q5M PRN #10 tab 03/07/19 06/23/19 Rx gabapentin 100 mg capsule 200 mg PO TID 03/22/19 06/23/19 History diltiazem HCl [Cartia XT] 240 mg PO QAM 04/07/19 06/23/19 History hydrocodone-acetaminophen [[place]] 1 - 2 tab PO Q6H PRN #10 tab 04/12/19 06/23/19 Rx furosemide 20 mg tablet 0 mg PO DAILY 06/17/19 06/23/19 History levothyroxine 150 mcg tablet 150 mcg PO QAM #30 tab 06/18/19 06/23/19 Rx atorvastatin 40 mg tablet 40 mg PO HS #90 tab 06/21/19 06/23/19 Rx potassium chloride 40 meq PO BID 06/23/19 06/23/19 History Allergies Allergy/AdvReac Type Severity Reaction Status Date / Time denosumab [From Xgeva] Allergy Mild SEE BELOW Verified 06/23/19 12:56 isosorbide AdvReac Intermediate IMDUR/ Verified 06/23/19 12:56 MIGRAINE aspirin AdvReac Mild HISTORY OF Verified 06/23/19 12:56 BLEEDING ULCERS buprenorphine AdvReac Mild GI SYMPTOMS Verified 06/23/19 12:56 diphenhydramine AdvReac Mild RESTLESS Verified 06/23/19 12:56 LEGS ibuprofen AdvReac Mild AVOID DUE Verified 06/23/19 12:56 TO ULCER morphine AdvReac Mild SEVERE Verified 06/23/19 12:56 VOMITING NSAIDS (Non-Steroidal AdvReac Mild BLEEDING Verified 06/23/19 12:56 Anti-Inflamma ULCER DISEASE-CAN NOT HAVE NSAIDS oxycodone [From OxyContin] AdvReac Mild HALLUCINATI Verified 06/23/19 12:56 ONS tapentadol AdvReac Mild headache Verified 06/23/19 12:56 Past Med/Surg History Medical History Allergic rhinitis Breast cancer, stage 4 DX: 2006 HAS BEEN ON CHEMO FOR 12 YEARS - IV CHEMO AND THEN PO CHEMO AND NOW STARTED RADIATION AND NEEDING CHEMO AGAIN METASTATIC BREAST CA - LUNG, BONE, LIVER AND OTHERS CAD (coronary artery disease) Cancer of thyroid SURGICAL TREATMENT AND IODINE RADIATION Dyslipidemia Essential hypertension (Resolved) GERD (gastroesophageal reflux disease) Hypothyroidism, postablative LBBB (left bundle branch block) Lung nodule FROM METASTATIC BREAST CANCER Malignant pleural effusion (Resolved 09/21/13) Metastasis from breast cancer Migraine headache (Resolved) Osteopenia Paroxysmal SVT (supraventricular tachycardia) HX, CONTROLLED/NO RECENT ISSUES WITH MULTAC AND S/P ABLATION (2017) Peptic ulcer disease with hemorrhage (Resolved) HX Surgical History H/O bilateral mastectomy H/O prior ablation treatment (Resolved) 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 Bella 04-12-19 Family History Father , 70yo Heart disease Lymphoma Hx of CABG Mother , 91yo Diabetes Hypertension Congestive heart failure Brother Heart disease Brother Hepatitis Brother No problems noted. Sister Rheumatoid arthritis Daughter No problems noted. Son No problems noted. 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 Other Information That Helps Us Care for You: No Feels Safe at Home: Yes Safety Concerns: Feels Safe At This Time Smoking Status: Former smoker Tobacco Type: cigarettes ; Cigarettes Per Day: QUIT 43 YEARS, HX OF 1.5PPD X7 YEARS ; Second Hand Exposure: No ; Hx Alcohol Use: No Hx Substance Use: No caffeine: No during the past year weight has: remained stable Review of Systems A total of 10 systems reviewed and were otherwise negative Physical Exam Vital Signs Vital Signs - 24 hr 06/23/19 11:26 06/23/19 12:18 06/23/19 12:58 Temperature 36.9 C Temperature Source Oral Pulse Rate 80 Pulse Rate [Apical] 68 Respiratory Rate 18 18 Blood Pressure 159/85 H Blood Pressure [Right Arm] 115/71 Blood Pressure Mean 109 Blood Pressure Mean [Right Arm] 85 Pulse Oximetry 94 98 98 Oxygen Delivery Method Room Air Nasal Cannula Nasal Cannula Nasal Cannula Oxygen Flow Rate 0 3 3 Sepsis Recent Fever Within 48 Hours No Sepsis New/Unexplained Change in Mental Status No Sepsis Action Taken by Nursing No Action Required Oxygen Flow Rate - Titration 3 Pulse Oximetry Post Tiitration 98 06/23/19 14:00 Temperature Temperature Source Pulse Rate Pulse Rate [Apical] 95 H Respiratory Rate 18 Blood Pressure Blood Pressure [Right Arm] 124/76 Blood Pressure Mean Blood Pressure Mean [Right Arm] 92 Pulse Oximetry 98 Oxygen Delivery Method Nasal Cannula Oxygen Flow Rate 3 Sepsis Recent Fever Within 48 Hours Sepsis New/Unexplained Change in Mental Status Sepsis Action Taken by Nursing Oxygen Flow Rate - Titration Pulse Oximetry Post Tiitration General: Well developed well nourished in supplemental ocygen and appears in no acute distress, breathing comfortably on room air. Normal speech HEENT: Normal cephalic atraumatic. Pupils are equal round and reactive to light. Extraocular movements are intact. Oropharynx is pink with moist mucous membranes. No swelling of the mouth lips or tongue. Neck: Supple with a midline trachea. No meningeal signs or stiffness, no JVD or bruits. No Stridor. Chest: Crackles in the right base. No increased work of breathing. Heart: Regular rate and rhythm without murmurs or gallops. Abdomen: Soft nontender, nondistended without rebound guarding or rigidity. Extremities: No cyanosis clubbing or edema. No calf tenderness or assymetry Spine/Back. Non tender to palpation. No CVA tenderness Skin: Good turgor without rashes. Neurologic exam: Cranial nerves two through 12 are intact. Motor and sensation are intact and symmetrical throughout. Course Administered Medications Ioversol (Optiray 320 125ml) 116 ml IV ONCE PRN PRN Reason: Interaction Checking Stop: 06/27/19 14:44 Last Admin: 06/23/19 14:46 Dose: 116 ml Documented by: [id number] Medical Decision Making Differential Diagnosis Differential diagnosis includes but is not limited to: CHF, pleural effusion, cardiac disease, cancer related complication, electrolyte or metabolic a bnormality Medical Records Attestation: I reviewed the patient's medical records. Home Medications Current Medication List: was personally reviewed by me Laboratory Data Attestation: I reviewed the patient's lab results. Result diagrams: 06/23/19 11:20 06/23/19 11:20 Lab Results 06/23/19 06/23/19 06/23/19 Range/Units 11:20 11:20 11:20 WBC 11.73 H (4.8-10.8) K/uL RBC 3.40 L (4.2-5.4) M/uL Hgb 9.5 L (12.0-16.0) g/dL Hct 29.2 L (37-47) % MCV 85.9 (80-100) fL MCH 27.9 (25-34) pg MCHC 32.5 (32-36) g/dL RDW Std Deviation 48.9 H (36.4-46.3) fL RDW Coeff of Bobbi 16.2 H (11.5-14.5) % Plt Count 554 H (130-400) K/uL MPV 9.5 (7.4-10.4) fL Absolute Nucleated RBC 0.10 H (0-0) K/uL Nucleated RBC % (auto) 0.8 % Neutrophils % (Manual) 71.3 % Lymphocytes % (Manual) 8.7 % Monocytes % (Manual) 10.4 % Basophils % (Manual) 0.9 % Metamyelocytes % (Man) 3.5 % Myelocytes % (Man) 5.2 % Neutrophils # (Manual) 8.36 H (1.4-6.5) K/uL Total Absolute Neuts 8.36 H (1.4-6.5) K/uL Lymphocytes # (Manual) 1.02 L (1.2-3.4) K/uL Total Abs Lymphocytes 1.02 L (1.2-3.4) K/uL Monocytes # (Manual) 1.22 H (0.11-0.59) K/uL Basophils # (Manual) 0.11 (0-0.2) K/uL Metamyelocytes # (Man) 0.41 H (0-0) K/uL Myelocytes # (Manual) 0.61 H (0-0) K/uL Toxic Granulation 2+ Polychromasia 1+ PT 12.5 H (9.0-12.0) Seconds INR 1.2 H (0.9-1.1) APTT 28.3 (21.0-31.0) Seconds PTT Ratio 1.0 D-Dimer 940 H* (0-500) ug/L FEU Sodium 124 L (136-145) mmol/L Potassium 4.3 (3.5-5.1) mmol/L Chloride 91 L (98-107) mmol/L Carbon Dioxide 28 (21-32) mmol/L Anion Gap 5.0 (3-11) BUN 11 (7-18) mg/dl Creatinine 0.36 L (0.6-1.2) mg/dl Est Cr Clr Drug Dosing 93.5 ml/min Est GFR ( Amer) 123.1 Est GFR (Non-Af Amer) 106.2 BUN/Creatinine Ratio 31.2 H (10-20) Glucose 91 (70-99) mg/dl Calcium 8.0 L (8.5-10.1) mg/dl Total Bilirubin 0.3 (0.2-1) mg/dl AST 50 H (15-37) U/L ALT 78 (12-78) U/L Alkaline Phosphatase 100 (45-117) U/L Troponin I < 0.015 (0-0.045) ng/ml NT-Pro-B Natriuret Pep 536 (0-900) pg/ml Total Protein 5.7 L (6.4-8.2) gm/dl Albumin 2.5 L (3.4-5.0) gm/dl Globulin 3.2 (2.5-4.0) gm/dl Albumin/Globulin Ratio 0.8 L (0.9-2) Lipase 52 L (73-393) U/L Imaging Data Attestation: I personally reviewed and interpreted this imaging study as follows: My Impression: Chest x-raybilateral pleural effusions moderate size Radiologist's Impression: CTA of the chest: No PE. Increased consolidation right lung. Increased moderate to large left pleural effusion congestive heart failure changes. Please refer to radiology report ECG Data Attestation: I personally reviewed and interpreted this ECG as follows: Indication: + SOB/dyspnea Rate (beats per minute): 81 Rhythm: + normal sinus ECG Intervals/blocks: + Normal QRS and + Normal QT ECG [place]: + Normal ECG ST segments: + T-wave inversions (ant) ECG Findings: no PACs and no PVCs Comparison ECG Date: from (03/07/01) Change: no significant change Blood Pressure Blood Pressure Findings: Normal blood pressure MDM Narrative This patient comes in as described above. She has metastatic breast cancer to her lungs among other organs she has had increasing shortness of breath she is had pleural effusions before. She was placed on a monitoring engineer. A chest x- ray EKG multiple blood testing was obtained. Her a port had been accessed. EKG does not show any definite ischemic changes. White count is mildly elevated at 11 however she has no fever or other symptoms to suggest infection. Her hemoglobin is low at 9.5 which is slightly lower than baseline. Sodium is low at 124 however this appears to be her baseline looking back through her chart troponin and BMP are both within normal limits. D-dimer is mildly elevated and I think is most likely related to underlying metastatic lung disease. Chest x- ray does show pleural effusions. I did do a CTA, there is no PE, there is increased consolidation in the right base which may be related to her cancer or underlying lung disease/problems. She may have some congestive heart failure. I do think she needs to be admitted/observed and consult the [facility] hospitalist team to see Cardiac monityo radiation monitor: due to her shortness of breath, the patient was placed on a monitoring engineer upon arrival and had a normal sinus rhythm at 72. Impression & Plan SOB (shortness of breath), Breast cancer, stage 4, Pleural effusion, Chronic hyponatremia Discharge Plan Visit Data Chief Complaint: Shortness of Breath/Dyspnea ED Provider: Adrian Johnson Discharge Problem: SOB (shortness of breath), Breast cancer, stage 4, Pleural effusion, Chronic hyponatremia Discharge Instructions Interventions: ED Discharge Assessment Last Done: 06/23/19 15:24 Forms Stand Alone Forms: My [facility] Prescriptions Prescriptions: No Action triamcinolone acetonide 0.1 % paste 1 appln DT BID PRN (Reason: mouth irritation) RF: 0 atorvastatin [Lipitor] 40 mg tablet 40 mg PO HS Qty: 90 RF: 3 furosemide 20 mg tablet 0 mg PO DAILY RF: 0 Hold Instructions: Home Medication placed on hold at Doctor's office levothyroxine [Synthroid] 150 mcg tablet 150 mcg PO QAM Qty: 30 RF: 5 Multaq 400 mg tablet 400 mg PO BID Qty: 180 RF: 3 zolpidem [Ambien] 10 mg Tablet 10 mg PO HS RF: 0 Restasis 0.05 % [place] 1 drp OPB Q12H RF: 0 rrsulmyhqd-elygcqcpymfad-qyrd [Fioricet] 50-300-40 mg capsule 1 cap PO TID PRN (Reason: Headache) RF: 0 ondansetron HCl 8 mg tablet 8 mg PO Q8 PRN (Reason: Nausea) RF: 0 multivitamin Tablet 1 tab PO DAILY RF: 0 nitroglycerin 0.4 mg tablet, sublingual 0.4 mg sublingual Q5M PRN (Reason: chest pain) Qty: 10 RF: 0 gabapentin 100 mg capsule 200 mg PO TID RF: 0 diltiazem HCl [Cartia XT] 240 mg capsule,extended release 24hr 240 mg PO QAM RF: 0 hydrocodone-acetaminophen [[place]] 5-325 mg tablet 1 - 2 tab PO Q6H PRN (Reason: pain) Qty: 10 RF: 0 potassium chloride 10 mEq capsule, extended release 40 meq PO BID RF: 0 Referrals Referrals: Isaac Way MD [Primary Care Provider] - Discharge Problem: Breast cancer, stage 4 Qualifiers: Laterality: unspecified laterality Qualified Code(s): C50.919 - Malignant neoplasm of unspecified site of unspecified female breast
[2019-06-23 12:37] LABS: Mean Corpuscular Hgb Conc 32.5 g/dL (32-36); Mean Platelet Volume 9.5 fL (7.4-10.4); Nucleated RBC % (auto) 0.8 %; Platelet Count 554 K/uL (130-400)
[2019-06-23 12:44] LABS: INR 1.2 (0.9-1.1); Partial Thromboplastin Time 28.3 Seconds (21.0-31.0); Prothrombin Time 12.5 Seconds (9.0-12.0)
[2019-06-23 12:48] LABS: Alanine Aminotransferase 78 U/L (12-78); Albumin Level 2.5 gm/dl (3.4-5.0); Aspartate Aminotransferase 50 U/L (15-37); BUN Creatinine Ratio 31.2 (10-20); Blood Urea Nitrogen 11 mg/dl (7-18); Carbon Dioxide 28 mmol/L (21-32); Chloride 91 mmol/L (98-107); Creatinine Clr Calc Pharmacy 93.5 ml/min; Est GFR (African American) 123.1; Est GFR (Non-African American) 106.2; Glucose 91 mg/dl (70-99); Lipase 52 U/L (73-393); Potassium 4.3 mmol/L (3.5-5.1); Sodium 124 mmol/L (136-145)
[2019-06-23 12:53] LABS: Albumin Globulin Ratio 0.8 (0.9-2); Alkaline Phosphatase 100 U/L (45-117); Bilirubin,Total 0.3 mg/dl (0.2-1); Globulin 3.2 gm/dl (2.5-4.0); NT Pro B Type Natriuretic Pept 536 pg/ml (0-900); Total Protein 5.7 gm/dl (6.4-8.2); Troponin I < 0.015 ng/ml (0-0.045)
[2019-06-23 12:59] LABS: Hematocrit (blood only) 29.2 % (37-47); Hemoglobin 9.5 g/dL (12.0-16.0); Mean Corpuscular Hemoglobin 27.9 pg (25-34); Mean Corpuscular Volume 85.9 fL (80-100); RDW Coefficient of Variation 16.2 % (11.5-14.5); RDW Standard Deviation 48.9 fL (36.4-46.3); White Blood Count 11.73 K/uL (4.8-10.8)
[2019-06-23 13:01] LABS: ALC (manual) 1.02 K/uL (1.2-3.4); ANC (manual) 8.36 K/uL (1.4-6.5); Basophils # (manual) 0.11 K/uL (0-0.2); Basophils % (manual) 0.9 %; Lymphocytes # (manual) 1.02 K/uL (1.2-3.4); Lymphocytes % (manual) 8.7 %; Metamyelocytes # (manual) 0.41 K/uL (0-0); Metamyelocytes % (manual) 3.5 %; Monocytes # (manual) 1.22 K/uL (0.11-0.59); Monocytes % (manual) 10.4 %; Myelocytes # (manual) 0.61 K/uL (0-0); Myelocytes % (manual) 5.2 %; Neutrophils # (manual) 8.36 K/uL (1.4-6.5); Neutrophils % (manual) 71.3 %; Polychromasia 1+; Toxic Granulation 2+
[2019-06-23 13:06] LABS: D Dimer 940 ug/L FEU (0-500)
--- NOTE | 2019-06-23 13:21 | XRay Report ---
XR chest 1V portable CLINICAL HISTORY: Chest pain. Malignant pleural effusion. COMPARISON STUDY: Chest CT June 10, 2019. FINDINGS: Right subclavian [id number] is in place. Small to moderate right and small left pleural effusions are similar to prior CT of June 09, 2018. Bibasilar airspace opacity persists. There is pe rsistent interstitial thickening. Moderate cardiomegaly is noted. There is no pneumothorax. IMPRESSION: No significant change in appearance of the chest. Small to moderate right and small lef t pleural effusions with bibasilar opacities and interstitial thickening. ACT 112: Negative or not required by law. Electronically signed by: Xu Andrade M.D. 06/23/2019 1:19 PM
--- NOTE | 2019-06-23 14:09 | History & Physical Report ---
Date of Service June 23, 2019 Assessment & Plan (1) Primary malignant neoplasm of breast with metastasis: - Admit to med surg with tele - Infiltrating ductal carcinoma of the Right breast, [place]/ER +, HER-2/shaniqua negative stage II-B, original diagnosis Nov 2005, s/p bilateral mastectomy. - Chemo hx with xeloda and gemcitabine, now only gemcitabine therapy, last session was approximately 1 week ago, receives biweekly infusion, started Nov 2018. - s/p most recent radiation therapy to the right chest wall lesion completed on 03/29/[address] Keila Sanchez. - Follows with Dr. Loera as outpatient, consult heme/onc - A-port accessed currently - Continue supplemental O2 prn (2) Pleural effusion, malignant: -Chronic but appears to be worsening -Consult thoracic surgery --follows with Dr. Richard - last seen on 04/05/2019 and was operating independently without supplemental O2 need- ?pleurex placement would benefit?- I have called Dr. Richard and he will see her. Patient has history of a Pleurx catheter placement about 6 years ago. She d oes have diminished breath sounds on exam in the left base, right base and right middle lobe. -CXR reviewed showing similar size of small to moderate right-sided pleural effusion, small left-sided pleural effusion -CT PE reviewed- neg for PE, progressive consolidation in the right lung, Increased size of the moderate to large left pleural effusion with increased lower lobe passive atelectasis. Volume overload with congestive change and mild pulmonary edema suspected. Underlying pulmonary artery hypertension. Stable chronic changes of the right pleura, which can indicate prior pleurodesis are pleural-based metastatic disease. This is chronic. 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 -Will check dopplers bilat LE to r/o DVT. -Will order IV lasix 20 mg x 1 with increased SOB now--Hold Po lasix, pt unsure if took morning dose. (3) CAD (coronary artery disease): - Continue atorvastatin 40 mg HS, diltiazem 240 mg QAM. (4) AVNRT (AV sal re-entry tachycardia): - Continue dronedarone 400 mg BID (5) Hyponatremia: -Sodium = 124 at time of admission -It appears this has been chronic over the past year, oncology and nephrology are well aware. Patient was recently seen by Dr. Sanchez with nephrology- will consult during this hospital stay- I have discussed the case with him and he agrees on IV diuresis at this time - Will check urine osmolality, urine sodium and potassium prior to lasix administration - Her clinical presentation is consistent with nutritional deficiency. As outpt she has been told to limit free water intake to ~40oz per day -she also drinks Gatorade, milk, tea on a daily basis. She was recently asked to restrict her water intake to less than 10oz daily, and increase protein intake to >40 g daily. -There was concern for potential component of inappropriate excretion of ADH, urine osmolality= 250 on last check on 06/11/19 -Goal to improve sodium to 130-135 (6) Severe protein-calorie malnutrition: - Encourage increased protein consumption as above, will order boost dunaway pplementation -Albumin was 2.5 - BMI of 21.4 (7) Malignant cachexia: -Secondary to poor protein malnutrition, nutritional deficiency, limited oral intake (8) Anemia associated with chemotherapy: -Hemoglobin 9.5, HCT = 29.2 this appears lower than her baseline of 11-13 - Guiac all stools with report of diarrhea - Recent chemo therapy (9) Hypothyroidism, postablative: - TSH is elevated at 23.6 on 06/13 - Consider endocrinology consultation in regards to multiple medical comorbidities (10) DVT prophylaxis: -heparin subcu, SCDs CODE STATUS: DNR/DNI Disposition: Patient from home, likely to remain in the hospital x1 to 2 days, PT/OT evaluations History of Present Illness Primary Care Provider: Isaac Way MD This is a 74 yo F with PMHx of metastatic breast cancer to lung, liver and bone, malignant pleural effusion, CAD, AV sal re-entry tachycardia, acute hypoxemic respiratory failure, anemia, chronic hyponatremia ranging from 128-135 for over a year, who presents with acute worsening of shortness of breath and progressive weakness x 10days. She notes that she at home has been having difficulty with progressive shortness of breath, that started out with exertion but now feels short of breath even with speaking a sentence. She has not been able to walk much, can only go a few feet before becoming extremely short of breath. She was placed on supplemental O2 approximately 3 months ago and told to wear it on exertion, but has been wearing it continuously for several days. She denies any recent sick contacts, travel, rhinorrhea, loss of taste or smell, and has not been around a COVID-19 positive patient. She last had chemotherapy treatment with gemcitabine about 1 week ago, and also recently was treated for low sodium with NSS infusion bolus which did improve Na+ level. She reports that she has been eating and drinking without difficulty and that she has been restricting the amount of free water she drinks. She has been drinking gatorade, mild and tea at home. She denies nausea or vomiting. She admits to having some recent diarrhea which she attributes to gemcitabine treatment last week. She also reports intermittent constipation but none recently. Pt lives at home with her partner, and has had difficulty performing basic ADLs recently due to increased shortness of breath. Allergies Allergy/AdvReac Type Severity Reaction Status Date / Time denosumab [From Xgeva] Allergy Mild SEE BELOW Verified 06/23/19 12:56 isosorbide AdvReac Intermediate IMDUR/ Verified 06/23/19 12:56 MIGRAINE aspirin AdvReac Mild HISTORY OF Verified 06/23/19 12:56 BLEEDING ULCERS buprenorphine AdvReac Mild GI SYMPTOMS Verified 06/23/19 12:56 diphenhydramine AdvReac Mild RESTLESS Verified 06/23/19 12:56 LEGS ibuprofen AdvReac Mild AVOID DUE Verified 06/23/19 12:56 TO ULCER morphine AdvReac Mild SEVERE Verified 06/23/19 12:56 VOMITING NSAIDS (Non-Steroidal AdvReac Mild BLEEDING Verified 06/23/19 12:56 Anti-Inflamma ULCER DISEASE-CAN NOT HAVE NSAIDS oxycodone [From OxyContin] AdvReac Mild HALLUCINATI Verified 06/23/19 12:56 ONS tapentadol AdvReac Mild headache Verified 06/23/19 12:56 Home Medications Home Medications Medication Instructions Recorded Confirmed Type Restasis 1 drp OPB Q12H 01/19/18 06/23/19 History zolpidem [Ambien] 10 mg PO HS 01/19/18 06/23/19 History ondansetron HCl 8 mg PO Q8 PRN 09/08/18 06/23/19 History dronedarone 400 mg tablet 400 mg PO BID #180 tab 11/19/18 06/23/19 Rx whyqhdtzzy-qomasfaldbrhg-eipgomrq 1 cap PO TID PRN cap 02/19/19 06/23/19 History 50 mg-300 mg-40 mg capsule triamcinolone acetonide 0.1 % 1 appln DT BID PRN 02/19/19 06/23/19 History dental paste multivitamin 1 tab PO DAILY 03/06/19 06/23/19 History nitroglycerin 0.4 mg SUBLINGUAL Q5M PRN #10 tab 03/07/19 06/23/19 Rx gabapentin 100 mg capsule 200 mg PO TID 03/22/19 06/23/19 History diltiazem HCl [Cartia XT] 240 mg PO QAM 04/07/19 06/23/19 History hydrocodone-acetaminophen [[place]] 1 - 2 tab PO Q6H PRN #10 tab 04/12/19 06/23/19 Rx furosemide 20 mg tablet 0 mg PO DAILY 06/17/19 06/23/19 History levothyroxine 150 mcg tablet 150 mcg PO QAM #30 tab 06/18/19 06/23/19 Rx atorvastatin 40 mg tablet 40 mg PO HS #90 tab 06/21/19 06/23/19 Rx potassium chloride 40 meq PO BID 06/23/19 06/23/19 History Past Med/Surg History Medical History Allergic rhinitis Breast cancer, stage 4 (Acute) DX: 2007 HAS BEEN ON CHEMO FOR 12 YEARS - IV CHEMO AND THEN PO CHEMO AND NOW STARTED RADIATION AND NEEDING CHEMO AGAIN METASTATIC BREAST CA - LUNG, BONE, LIVER AND OTHERS CAD (coronary artery disease) Cancer of thyroid SURGICAL TREATMENT AND IODINE RADIATION Dyslipidemia Essential hypertension (Resolved) GERD (gastroesophageal reflux disease) Hypothyroidism, postablative LBBB (left bundle branch block) Lung nodule FROM METASTATIC BREAST CANCER Malignant pleural effusion (Resolved 09/21/13) Metastasis from breast cancer Migraine headache (Resolved) Osteopenia Paroxysmal SVT (supraventricular tachycardia) HX, CONTROLLED/NO RECENT ISSUES WITH MULTAC AND S/P ABLATION (2017) Peptic ulcer disease with hemorrhage (Resolved) HX Surgical History H/O bilateral mastectomy H/O prior ablation treatment (Resolved) 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 Bella 04-12-19 Family History Father , 70yo Heart disease Lymphoma Hx of CABG Mother , 91yo Diabetes Hypertension Congestive heart failure Brother Heart disease Brother Hepatitis Brother No problems noted. Sister Rheumatoid arthritis Daughter No problems noted. Son No problems noted. 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 Other Information That Helps Us Care for You: No Feels Safe at Home: Yes Safety Concerns: Feels Safe At This Time Smoking Status: Former smoker Tobacco Type: cigarettes ; Cigarettes Per Day: QUIT 43 YEARS, HX OF 1.5PPD X7 YEARS ; Second Hand Exposure: No ; Hx Alcohol Use: No Hx Substance Use: No caffeine: No during the past year weight has: remained stable Review of Systems Review of Systems: Constitutional: No fever, sweats or chills Eyes: No diplopia, no worsening or blurred vision ENT: normal hearing, no trouble swallowing Respiratory: No cough, sputum, + dyspnea at rest and with minimal exertion, no wheezing, no recent URI Cardiovascular: No chest pain, tightness or palpitations Abdomen: No pain, nausea, vomiting, + diarrhea and intermittent constipation, last BM diarrhea today Musculoskeletal: No joint pain, calf pain, + chronic lower extremity swelling Neurologic: + Generalized weakness, no numbness/tingling, or balance problems Psychiatric: No anxiety or depression Skin: No rash or itch Physical Exam Physical Exam: General: awake, alert, + cachectic, + has to catch her breath during a sentence when speaking Head: Normocephalic, atraumatic ENT: PERRL, EOMI, no pharyngeal exudate, mucous membranes moist Chest: A-port in place right chest wall, on 3L via NC, diminished breath sounds at bases bilaterally and diminished into the RML as well. No rales, rhonchi or wheezes. Cardiac: Regular rhythm, + slightly tachycardic with HR = 95 at bedside, no murmur, no JVD, normal peripheral pulses, good capillary refill Abdominal: NABS x 4 quadrants, soft, nondistended, nontender to palpation, no rebound, guarding or tenderness Extremities: + Lymphedema bilateral lower extremities, + pitting edema up to thighs bilaterally, no erythema, calfs nontender to palpation Psych: Normal mood and affect Neuro: AAO x 3, no gross motor deficits, speech is clear, no peripheral sensory deficits Skin: no rash or erythema Results & Data Results & Data ([facility]) Vital Signs (Past 12 Hours) Vital Signs Temp Pulse Pulse Resp BP BP Pulse Ox 06/23/19 12:58 68 18 115/71 98 06/23/19 12:18 98 06/23/19 11:26 36.9 C 80 18 159/85 H 94 Diagnostic Findings XR chest 1V portable CLINICAL HISTORY: Chest pain. Malignant pleural effusion. COMPARISON STUDY: Chest CT June 10, 2019. FINDINGS: Right subclavian Thtdtw-h-Dwaw is in place. Small to moderate right and small left pleural effusions are similar to prior CT of June 09, 2018. Bibasilar airspace opacity persists. There is persistent interstitial thickening. Moderate cardiomegaly is noted. There is no pneumothorax. IMPRESSION: No significant change in appearance of the chest. Small to moderate right and small left pleural effusions with bibasilar opacities and interstitial thickening. ACT 112: Negative or not required by law. Electronically signed by: Xu Andrade M.D. 06/23/2019 1:[address] angio chest PE protocol CLINICAL HISTORY: 74 years-old Female presenting with shortness of breath, atypical chest pain, clinical concern for pulmonary embolus. TECHNIQUE: Multidetector CT angiography of the chest was performed after administration of intravenous contrast. 3-D volumetric and/or maximum intensity projection (MIP) images were subsequently reconstructed for review. IV contrast: 116 mL of Optiray 320. One or more dose lowering techniques were used consistent with the principles of ALARA (as low as reasonably achievable), including automatic exposure control, mA or kV adjustment to individual patient size, and/or use of iterative reconstruction. COMPARISON: 06/10/2019. CT DOSE (mGy.cm): The estimated cumulative dose is 189.31 mGy.cm. FINDINGS: Bricklayer Tender topogram: Bilateral pleural effusions. Diffuse lung disease. Right subclavian Mediport terminates at the superior cavoatrial junction. Pulmonary vasculature: The study is adequate for assessment of the pulmonary vascular tree. No filling defect within the pulmonary arteries to suggest embolus. Main pulmonary artery mildly enlarged measuring 3.4 cm in diameter. No flattening of the interventricular septum. No intracardiac filling defect. No reflux of contrast into the hepatic veins. Remaining chest: Soft tissues: Thyroid atrophic or absent. Right subclavian Mediport as mentioned. Mild body wall edema. No axillary, supraclavicular, mediastinal, or hilar lymphadenopathy. Atherosclerosis of the aorta. Aortic arch unfolding. Trace coronary artery calcification. Top normal heart size. Moderate to large simple appearing left pleural effusion, increased in size. No pericardial effusion. Evidence of significant pleural thickening and abnormal enhancement on the right with trace right pleural fluid, unchanged. Multiple hepatic lesions are not evident on the current exam due to the [id number]. Lungs and airways: No pneumothorax. Central airways patent. Pulmonary arteries enlarged relative to adjacent bronchi. Interlobular septal thickening has slightly increased from prior and is noted diffusely though more evident on the right. Extensive confluent solid consolidation in the right lower lobe appears to have increased from prior. Dependent consolidation in the right upper lobe also increased. Increased consolidation in the right middle lobe. Extensive with passive atelectasis of the left lower lobe, increased from prior. Patchy groundglass opacity with diffuse increased density of the lungs. Groundglass infiltrates most evident at the left upper lobe and lingula. Musculoskeletal: Previously evident sclerotic lesions of the sternum and T10 as on prior exam. Osteopenia. IMPRESSION: 1. No evidence of pulmonary embolus. 2. Progressive consolidation in the right lung. 3. Increased size of the moderate to large left pleural effusion with increased lower lobe passive atelectasis. 4. Volume overload with congestive change and mild pulmonary edema suspected. 5. Underlying pulmonary artery hypertension. 6. Stable chronic changes of the right pleura, which can indicate prior pleurodesis are pleural-based metastatic disease. This is chronic. 7. 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 Code Status & VTE Plan Code Status DNR-discussed with the patient at bedside Supervising Physician Co-Signing Physician Notes Attending Attestation & Admission Note: Pt seen/examined, chart reviewed, admission care plan d/w AKIKO Ríos. I agree w/ the mo components of her documentation. Unfortunate 74yo female w/ stage 4 breast cancer with mets to lungs, liver, and bones; chronic hyponatremia; recent institution of NC O2 for chronic hypoxic respiratory failure; h/o malignant pleural effusion; and CAD presenting with progressive MCFADDEN. CT chest reviewed today - multiple issues including worsening left-sided pleural effusion, pulmonary edema, and consolidation of the right lung. Na 124 at presentation as well. Patient with c/o ongoing LE edema as well. PMH, PSH, allergies, meds, sochx, famhx, ros - reviewed VSS, no fever gen - chronically ill appearing, dyspneic with minimal exertion mouth - no thrush neck - very mild JVD heart - RRR, s1 s2 lungs - decreased BS left base, crackles right base, and crackles b/l anterior chest; no wheeze abd - soft NT ext - 2+ edema b/l labs - Na 124 mild anemia cxr, CT chest - reviewed A/P: 1. worsening SOB/MCFADDEN - likely multifactorial including worsening left-sided pleural effusion (probably malignant) +/- pulm edema +/- right-lung consolidation (XRT induced? infectious?). Plan - consult Dr Richard for consideration of thoracentesis left chest vs pleurX. Lasix IV for pulm edema. Right lung issues - consider pulmonary consultation for recommendations. 2. LE edema - check dopplers, r/o DVT. Hypoalbuminemia could be contributing. Decompensated hypothyroidism could contribute. Volume overload also factoring in. Lasix IV x 1 this afternoon then reassess response. Dr Sanchez to assist with diuretic management. 3. decompensated hypothyroidism - see above. Cont synthroid. Compliance w/ meds?? 4. chronic hypoxic resp failure - recently started 24/7 NC O2 at home. 5. CAD - no ischemic sx's at this time. 6. hyponatremia - complicated issue - sees Dr Sanchez for such; right now likely due to total body volume overload. In the past there was concern of solute deficiency as well. Lasix now. Check urine osm, urine Na, urine K. Consult Dr Sanchez. 7. consider palliative care consult while here. Juancarlos Rios MD PG Care Time/CCT Total # of Minutes Spent Total Time Spent with Patient: Total time spent is greater than 50% in coordination of care (as documented) at patient's floor/unit and/or counseling patient: Coding Level of Care Code 16021 Initial Inpt Care Lvl 3 Diagnoses Primary malignant neoplasm of breast with metastasis C50.919 Pleural effusion, malignant J91.0 CAD (coronary artery disease) I25.10 AVNRT (AV sal re-entry tachycardia) I47.1 Hyponatremia E87.1 Severe protein-calorie malnutrition E43 Malignant cachexia R64 Anemia associated with chemotherapy D64.81; T45.1X5A Hypothyroidism, postablative E89.0 DVT prophylaxis Z29.9
[2019-06-23] MEDS ORDERED: OPTIRAY 320 125ml IV PRN (14:45)
--- NOTE | 2019-06-23 15:23 | CT Scan Report ---
CT angio chest PE protocol CLINICAL HISTORY: 74 years-old Female presenting with shortness of breath, atypical chest pain, clini ezequiel concern for pulmonary embolus. TECHNIQUE: Multidetector CT angiography of the chest was performed after administration of intravenou s contrast. 3-D volumetric and/or maximum intensity projection (MIP) images were subsequently reconst ructed for review. IV contrast: 116 mL of Optiray 320. One or more dose lowering techniques were used consistent with the principles of ALARA (as low as reasonably achievable), including automatic expos ure control, mA or kV adjustment to individual patient size, and/or use of iterative reconstruction. COMPARISON: 06/10/2019. CT DOSE (mGy.cm): The estimated cumulative dose is 189.31 mGy.cm. FINDINGS: Granulating Machine Operator topogram: Bilateral pleural effusions. Diffuse lung disease. Right subclavian Mediport terminat es at the superior cavoatrial junction. Pulmonary vasculature: The study is adequate for assessment of the pulmonary vascular tree. No filling defect within the pul monary arteries to suggest embolus. Main pulmonary artery mildly enlarged measuring 3.4 cm in diamete r. No flattening of the interventricular septum. No intracardiac filling defect. No reflux of contras t into the hepatic veins. Remaining chest: Soft tissues: Thyroid atrophic or absent. Right subclavian Mediport as mentioned. Mild body wall mitchell a. No axillary, supraclavicular, mediastinal, or hilar lymphadenopathy. Atherosclerosis of the aorta. Aortic arch unfolding. Trace coronary artery calcification. Top normal heart size. Moderate to large simple appearing left pleural effusion, increased in size. No pericardial effusion. Evidence of sign ificant pleural thickening and abnormal enhancement on the right with trace right pleural fluid, unch anged. Multiple hepatic lesions are not evident on the current exam due to the [id number]. Lungs and airways: No pneumothorax. Central airways patent. Pulmonary arteries enlarged relative to a djacent bronchi. Interlobular septal thickening has slightly increased from prior and is noted diffus marleny though more evident on the right. Extensive confluent solid consolidation in the right lower lobe appears to have increased from prior. Dependent consolidation in the right upper lobe also increased . Increased consolidation in the right middle lobe. Extensive with passive atelectasis of the left lo wer lobe, increased from prior. Patchy groundglass opacity with diffuse increased density of the lung s. Groundglass infiltrates most evident at the left upper lobe and lingula. Musculoskeletal: Previously evident sclerotic lesions of the sternum and T10 as on prior exam. Osteop enia. IMPRESSION: 1. No evidence of pulmonary embolus. 2. Progressive consolidation in the right lung. 3. Increased size of the moderate to large left pleural effusion with increased lower lobe passive a telectasis. 4. Volume overload with congestive change and mild pulmonary edema suspected. 5. Underlying pulmonary artery hypertension. 6. Stable chronic changes of the right pleura, which can indicate prior pleurodesis are pleural-base d metastatic disease. This is chronic. 7. 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 ACT 112: Negative or not required by law. Electronically signed by: Ubaldo Blancas M.D. 06/23/2019 3:22 PM
[2019-06-23] MEDS ORDERED: FUROSEMIDE 20 MG in SYRINGE 0 ML IV ONE (16:00)
[2019-06-23] MEDS ORDERED: TRIAMCINOLONE ACET 0.1% ORABASE 5 GM TUBE MT PRN (16:06)
[2019-06-23] MEDS ORDERED: NITROGLYCERIN SL 0.4 MG/TAB TAB SL PRN (16:06)
[2019-06-23] MEDS ORDERED: ONDANSETRON 8MG OD TAB PO PRN (16:06)
[2019-06-23] MEDS ORDERED: ACETAMINOPHEN 325 MG TAB PO PRN (16:06)
[2019-06-23] MEDS ORDERED: HYDROCODONE/ACETAMOPHEN 5/325MG TAB PO PRN (16:06)
[2019-06-23 16:13] LABS: Appearance Urine Clear (Clear); Bilirubin Urine Negative (Negative); Blood Urine Negative (Negative); Color Urine Yellow; Glucose Urine UA Negative (Negative); Ketones Urine Trace (Negative); Leukocyte Esterase Urine Negative (Negative); Nitrite Urine Negative (Negative); Protein Urine Negative (Negative); Specific Gravity Urine 1.015 (1.000-1.030); Urobilinogen Urine Negative (Negative); pH Urine 8.5 (4.5-7.5)
[2019-06-23] MEDS ORDERED: BUTALBITAL/ACETAMIN/CAFFEINE TAB PO PRN (16:35)
--- NOTE | 2019-06-23 17:23 | Ultrasound Report ---
ULTRASOUND BILATERAL LOWER EXTREMITY VENOUS CLINICAL HISTORY: Lower extremity edema. COMPARISON STUDY: Bilateral lower extremity venous ultrasound dated 04/28/2019. TECHNIQUE: Real-time, grayscale, and color Doppler sonography of the deep veins of the right and left lower extremity was performed from the inguinal crease to the calf. Compression and augmentation wer e utilized. FINDINGS: There is no sonographic evidence of deep venous thrombosis identified in the right or left lower extremity. The common femoral, superficial femoral, and popliteal veins are patent and normally compressible bilaterally. The greater saphenous vein and the profunda femoris vein at the junction w ith the common femoral vein are clear in both legs. The visualized calf veins are patent bilaterally. Soft tissue edema is present in both legs. IMPRESSION: There is no sonographic evidence of deep venous thrombosis identified in the right or lef t lower extremity. ACT 112: Negative or not required by law. Electronically signed by: Rickie King M.D. 06/23/2019 5:21 PM
[2019-06-23 18:56] LABS: Potassium Random Urine 50.1 mmol/L
--- NOTE | 2019-06-23 20:23 | Nephrology Consultation ---
Date of Consultation June 23, 2019 Assessment & Plan (1) Hyponatremia: Moderate, chronic hyponatremia with potentially mild symptoms. Symptoms are difficult to assess due to multiple medical comorbidities. Unfortunately, Kellee has progressive failure to thrive. She has increased total body water with edema however I suspect she is somewhat intravascularly volume depleted. Thankfully her blood pressure remains reasonable reflecting appropriate effective arterial volume. There were no orthostatic changes in vital signs when I saw her in clinic last week. I think it is reasonable to continue 20 milligrams daily with close monitoring at this time. I will recheck a serum sodium level in the morning. I believe most of her lower extremity edema is related to lymphedema, protein calorie malnutrition, and venous insufficiency. She has not have any evidence of decompensated heart failure otherwise. Likewise, lymphedema and protein calorie malnutrition are certainly contributing to her interstitial pulmonary edema. She also has some evidence of pulmonary hypertension related to her underlying pulmonary disease. I would avoid being overly aggressive with diuretics at this time. Clinical presentation is most concerning for a tea and toast or nutritional deficiency. She has hypoalbuminemia with a serum albumin that has been progressively declining. Also of concern is recent treated hypothyroidism. Levothyroxine dosing has recently been adjusted based on endocrine recommendations. Goals at this time including improving dietary protein intake. As well as limiting free water intake to at least 1.2 L/d. There is certainly ADH release related to intravascular volume depletion or decreased EAV but also excessive or inappropriate release (likely related underlying lung disease).Overall due to the chronicity of the problem as well as are other multiple medical issues and nutritional status and minimal symptoms, we should certainly avoid correcting her sodium quickly. Aside from fluid restriction and diuretic therapy, any additional therapy will be deferred at this time. (2) Primary malignant neoplasm of breast with metastasis: (3) Pleural effusion, malignant: (4) CAD (coronary artery disease): (5) AVNRT (AV sal re-entry tachycardia): (6) Severe protein-calorie malnutrition: (7) Malignant cachexia: (8) Anemia associated with chemotherapy: (9) Hypothyroidism, postablative: (10) DVT prophylaxis: History of Present Illness Reason for Consultation: Hyponatremia Requesting Physician: Juancarlos Rios Attending Physician: Juancarlos Rios History of Present Illness Kellee Rangel is a 74-year-old female with metastatic breast cancer who I initially met in the [facility] nephrology clinic in [place] on June 16. She presented for evaluation of hyponatremia. She was was referred by her oncologist, Dr. Loera. Kellee has a complicated history history of chronic persistent moderate hyponatremia. She generally reports that she is asymptomatic in terms of her dysnatremia. However, review of symptoms has been notable for progressive fatigue and decreased appetite. She denies any history of falls or difficulty with balance. In terms of her malignancy, Kellee has been struggling with persistent progressive disease including pulmonary lymphangitic carcinomatosis. Current treatment includes gemcitabine. 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 Spironolactone was started to assist with lower extremity edema. The patient had notable response with approximately 6 pounds weight loss. Unfortunately she became volume depleted and the medication was stopped. Serum sodium had dropped down to 125 millimoles per liter at that time. 0.5 liter of IV normal saline solution was provided in the oncology clinic and follow-up serum sodium level was 128 millimoles per liter. Urine osmolality was checked at this time found to be 250. Increased dietary sodium intake was encouraged as well as a fluid restriction. Follow-up serum sodium level was then 127 millimoles per liter. Kellee has preserved glomerular filtration with serum creatinine of 0.7 milligrams/deciliter. She has a history of mild hypokalemia for which she has been maintained on daily replacement. Recent laboratory studies were also notable for a TSH of 23. TSH had been down to 0.3 in April. At that time, levothyroxine was reduced from 150 micrograms daily to 75 micrograms daily. TSH levels were rising since that time. Several days ago, the the medication was increased to 150 mcg daily. Several days prior to her nephrology office visit, due to increased lower extremity edema, furosemide 20 mg daily was restarted. She continued the medication until Friday, when she was showing signs of volume depletion, persistent dysnatremia and notable hypokalemia. With the medication, she had not noted any change in her urine output or her weight. She has intermittently been using compression stockings to help with some of the edema. Kellee also notes that edema improves significantly when she keeps her legs elevated. Medical history is also notable for history of paroxysmal supraventricular tachycardia for which underwent ablation in the past. She is maintained on Multaq. She has a history of thyroid cancer treated surgically and with SHARMA. She denies NSAID use. She has been working on trying to increase her dietary protein intake as well as regulate her fluid intake. Kellee had been restricting fluid intake at home to 40 fl oz. She recently started protein supplements with a goal of approximately 40 grams daily. Unfortunately weight loss persists. Kellee presented to the ER today with increasing LE edema, progressive weakness, and increasing exertional dyspnea. Furosemide 40 mg IV has been provided. LE duplex negative for DVT. CXR demonstrates patchy ground glass opacity and bilateral pleural effusions. CTA negative for PE but evidence of pulmonary hypertension with some interstitial edema and right lung consolidation with ground glass opacities and infiltrates. Allergies Allergy/AdvReac Type Severity Reaction Status Date / Time denosumab [From Xgeva] Allergy Mild SEE BELOW Verified 06/23/19 12:56 isosorbide AdvReac Intermediate IMDUR/ Verified 06/23/19 12:56 MIGRAINE aspirin AdvReac Mild HISTORY OF Verified 06/23/19 12:56 BLEEDING ULCERS buprenorphine AdvReac Mild GI SYMPTOMS Verified 06/23/19 12:56 diphenhydramine AdvReac Mild RESTLESS Verified 06/23/19 12:56 LEGS ibuprofen AdvReac Mild AVOID DUE Verified 06/23/19 12:56 TO ULCER morphine AdvReac Mild SEVERE Verified 06/23/19 12:56 VOMITING NSAIDS (Non-Steroidal AdvReac Mild BLEEDING Verified 06/23/19 12:56 Anti-Inflamma ULCER DISEASE-CAN NOT HAVE NSAIDS oxycodone [From OxyContin] AdvReac Mild HALLUCINATI Verified 06/23/19 12:56 ONS tapentadol AdvReac Mild headache Verified 06/23/19 12:56 Home Medications Home Medications Medication Instructions Recorded Confirmed Type Restasis 1 drp OPB Q12H 01/19/18 06/23/19 History zolpidem [Ambien] 10 mg PO HS 01/19/18 06/23/19 History ondansetron HCl 8 mg PO Q8 PRN 09/08/18 06/23/19 History dronedarone 400 mg tablet 400 mg PO BID #180 tab 11/19/18 06/23/19 Rx [id number]-[id number]-xlmisnyc 1 cap PO TID PRN cap 02/19/19 06/23/19 History 50 mg-300 mg-40 mg capsule triamcinolone acetonide 0.1 % 1 appln DT BID PRN 02/19/19 06/23/19 History dental paste multivitamin 1 tab PO DAILY 03/06/19 06/23/19 History nitroglycerin 0.4 mg SUBLINGUAL Q5M PRN #10 tab 03/07/19 06/23/19 Rx gabapentin 100 mg capsule 200 mg PO TID 03/22/19 06/23/19 History diltiazem HCl [Cartia XT] 240 mg PO QAM 04/07/19 06/23/19 History hydrocodone-acetaminophen [[place]] 1 - 2 tab PO Q6H PRN #10 tab 04/12/19 06/23/19 Rx furosemide 20 mg tablet 0 mg PO DAILY 06/17/19 06/23/19 History levothyroxine 150 mcg tablet 150 mcg PO QAM #30 tab 06/18/19 06/23/19 Rx atorvastatin 40 mg tablet 40 mg PO HS #90 tab 06/21/19 06/23/19 Rx potassium chloride 40 meq PO BID 06/23/19 06/23/19 History Patient History Medical History Allergic rhinitis Breast cancer, stage 4 (Acute) DX: 2007 HAS BEEN ON CHEMO FOR 12 YEARS - IV CHEMO AND THEN PO CHEMO AND NOW STARTED RADIATION AND NEEDING CHEMO AGAIN METASTATIC BREAST CA - LUNG, BONE, LIVER AND OTHERS CAD (coronary artery disease) Cancer of thyroid SURGICAL TREATMENT AND IODINE RADIATION Dyslipidemia Essential hypertension (Resolved) GERD (gastroesophageal reflux disease) Hypothyroidism, postablative LBBB (left bundle branch block) Lung nodule FROM METASTATIC BREAST CANCER Malignant pleural effusion (Resolved 09/21/13) Metastasis from breast cancer Migraine headache (Resolved) Osteopenia Paroxysmal SVT (supraventricular tachycardia) HX, CONTROLLED/NO RECENT ISSUES WITH MULTAC AND S/P ABLATION (2017) Peptic ulcer disease with hemorrhage (Resolved) HX Surgical History H/O bilateral mastectomy H/O prior ablation treatment (Resolved) 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 Bella 04-12-19 Family History Father , 70yo Heart disease Lymphoma Hx of CABG Mother , 91yo Diabetes Hypertension Congestive heart failure Brother Heart disease Brother Hepatitis Brother No problems noted. Sister Rheumatoid arthritis Daughter No problems noted. Son No problems noted. 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 Constitutional: + thin and + frail appearing Eyes: + anicteric sclerae ENMT: Mouth: + dry oral mucous membranes Neck: normal visual inspection and trachea midline Respiratory: normal respiratory effort Cardiovascular: Rate/Rhythm: regular rate Extremities: + edema Skin: + turgor decreased Results & Data Vital Signs (Past 12 Hours) Vital Signs Temp Pulse Pulse Pulse Resp BP BP 06/23/19 19:37 36.8 C 83 20 101/63 06/23/19 16:06 84 06/23/19 14:00 95 H 18 124/76 06/23/19 12:58 68 18 115/71 06/23/19 12:18 06/23/19 11:26 36.9 C 80 18 159/85 H Pulse Ox 06/23/19 19:37 97 06/23/19 16:06 06/23/19 14:00 98 06/23/19 12:58 98 06/23/19 12:18 98 06/23/19 11:26 94 Laboratory Results Laboratory Results - last 24 hr 06/23/19 06/23/19 06/23/19 11:20 11:20 11:20 WBC 11.73 H RBC 3.40 L Hgb 9.5 L Hct 29.2 L MCV 85.9 MCH 27.9 MCHC 32.5 RDW Std Deviation 48.9 H RDW Coeff of Bobbi 16.2 H Plt Count 554 H MPV 9.5 Absolute Nucleated RBC 0.10 H Nucleated RBC % (auto) 0.8 Neutrophils % (Manual) 71.3 Lymphocytes % (Manual) 8.7 Monocytes % (Manual) 10.4 Basophils % (Manual) 0.9 Metamyelocytes % (Man) 3.5 Myelocytes % (Man) 5.2 Neutrophils # (Manual) 8.36 H Total Absolute Neuts 8.36 H Lymphocytes # (Manual) 1.02 L Total Abs Lymphocytes 1.02 L Monocytes # (Manual) 1.22 H Basophils # (Manual) 0.11 Metamyelocytes # (Man) 0.41 H Myelocytes # (Manual) 0.61 H Toxic Granulation 2+ Polychromasia 1+ PT 12.5 H INR 1.2 H APTT 28.3 PTT Ratio 1.0 D-Dimer 940 H* Sodium 124 L Potassium 4.3 Chloride 91 L Carbon Dioxide 28 Anion Gap 5.0 BUN 11 Creatinine 0.36 L Est Cr Clr Drug Dosing 93.5 Est GFR ( Amer) 123.1 Est GFR (Non-Af Amer) 106.2 BUN/Creatinine Ratio 31.2 H Glucose 91 Calcium 8.0 L Total Bilirubin 0.3 AST 50 H ALT 78 Alkaline Phosphatase 100 Troponin I < 0.015 NT-Pro-B Natriuret Pep 536 Total Protein 5.7 L Albumin 2.5 L Globulin 3.2 Albumin/Globulin Ratio 0.8 L Lipase 52 L Urine Color Urine Appearance Urine pH Ur Specific [place] Urine Protein Urine Glucose (UA) Urine Ketones Urine Blood Urine Nitrite Urine Bilirubin Urine Urobilinogen Ur Leukocyte Esterase Urine Osmolality Ur Random Sodium Ur Random Potassium 06/23/19 06/23/19 06/23/19 12:10 18:28 18:28 WBC RBC Hgb Hct MCV MCH MCHC RDW Std Deviation RDW Coeff of Bobbi Plt Count MPV Absolute Nucleated RBC Nucleated RBC % (auto) Neutrophils % (Manual) Lymphocytes % (Manual) Monocytes % (Manual) Basophils % (Manual) Metamyelocytes % (Man) Myelocytes % (Man) Neutrophils # (Manual) Total Absolute Neuts Lymphocytes # (Manual) Total Abs Lymphocytes Monocytes # (Manual) Basophils # (Manual) Metamyelocytes # (Man) Myelocytes # (Manual) Toxic Granulation Polychromasia PT INR APTT PTT Ratio D-Dimer Sodium Potassium Chloride Carbon Dioxide Anion Gap BUN Creatinine Est Cr Clr Drug Dosing Est GFR ( Amer) Est GFR (Non-Af Amer) BUN/Creatinine Ratio Glucose Calcium Total Bilirubin AST ALT Alkaline Phosphatase Troponin I NT-Pro-B Natriuret Pep Total Protein Albumin Globulin Albumin/Globulin Ratio Lipase Urine Color Yellow Urine Appearance Clear Urine pH 8.5 H Ur Specific [place] 1.015 Urine Protein Negative Urine Glucose (UA) Negative Urine Ketones Trace H Urine Blood Negative Urine Nitrite Negative Urine Bilirubin Negative Urine Urobilinogen Negative Ur Leukocyte Esterase Negative Urine Osmolality 470 L Ur Random Sodium 83 Ur Random Potassium 50.1 PG Care Time/CCT Total # of Minutes Spent Total Time Spent with Patient: Total time spent is greater than 50% in coordination of care (as documented) at patient's floor/unit and/or counseling patient: Coding Level of Care Code 19894 Inpt Consult Level 5 Diagnoses Hyponatremia E87.1 Primary malignant neoplasm of breast with metastasis C50.919 Pleural effusion, malignant J91.0 CAD (coronary artery disease) I25.10 AVNRT (AV sal re-entry tachycardia) I47.1 Severe protein-calorie malnutrition E43 Malignant cachexia R64 Anemia associated with chemotherapy D64.81; T45.1X5A Hypothyroidism, postablative E89.0 DVT prophylaxis Z29.9
[2019-06-23] MEDS: GABAPENTIN 100 MG CAP PO SCH (21:02)
[2019-06-23] MEDS: ATORVASTATIN 40 MG TAB PO SCH (21:02)
[2019-06-23] MEDS: POTASSIUM CHLORIDE 20 MEQ TABCR PO SCH (21:02)
[2019-06-23] MEDS: ZOLPIDEM TARTRATE 10 MG TAB PO SCH (21:02)
[2019-06-23] MEDS: DRONEDARONE HCL 400 MG TAB PO SCH (23:10)
[2019-06-24] MEDS: LEVOTHYROXINE SODIUM 150 MCG TABLET PO SCH (05:38)
[2019-06-24] MEDS: HEPARIN 100 UNIT/ML 5ML FLUSH FLUSH PRN (05:40)
[2019-06-24 06:53] LABS: Albumin Level 2.5 gm/dl (3.4-5.0); Calcium 8.1 mg/dl (8.5-10.1); Creatinine Clr Calc Pharmacy 81.1 ml/min; Est GFR (Non-African American) 101.8
[2019-06-24 07:01] LABS: Albumin Globulin Ratio 0.9 (0.9-2); Bilirubin,Total 0.3 mg/dl (0.2-1); Globulin 2.9 gm/dl (2.5-4.0); Total Protein 5.4 gm/dl (6.4-8.2)
[2019-06-24 07:06] LABS: Hematocrit (blood only) 26.6 % (37-47); Hemoglobin 8.7 g/dL (12.0-16.0); Mean Corpuscular Hemoglobin 28.3 pg (25-34); Mean Corpuscular Hgb Conc 32.7 g/dL (32-36); Mean Corpuscular Volume 86.6 fL (80-100); Mean Platelet Volume 9.4 fL (7.4-10.4); Nucleated RBC # (auto) 0.24 K/uL (0-0); Nucleated RBC % (auto) 0.9 %; Platelet Count 585 K/uL (130-400); RDW Coefficient of Variation 16.7 % (11.5-14.5); RDW Standard Deviation 49.6 fL (36.4-46.3); Red Blood Count 3.07 M/uL (4.2-5.4); White Blood Count 28.11 K/uL (4.8-10.8)
[2019-06-24] MEDS: MULTIVITAMIN TAB PO SCH (07:59)
[2019-06-24] MEDS: GABAPENTIN 100 MG CAP PO SCH ×3 (07:59→20:29)
[2019-06-24] MEDS: ENOXAPARIN INJ 30 MG/0.3 ML SYR SQ SCH ×2 (07:59→08:08)
[2019-06-24] MEDS: POTASSIUM CHLORIDE 20 MEQ TABCR PO SCH ×2 (07:59→20:27)
[2019-06-24] MEDS: DRONEDARONE HCL 400 MG TAB PO SCH ×2 (07:59→20:27)
[2019-06-24] MEDS: dilTIAZem HCL 240 MG CAPCR PO SCH (07:59)
--- NOTE | 2019-06-24 10:42 | Electrocardiogram Report ---
Test Reason : Blood Pressure : / mmHG Vent. Rate : 081 BPM Atrial Rate : 081 BPM P-R Int : 170 ms QRS Dur : 078 ms QT Int : 378 ms P-R-T Axes : 013 001 032 degrees QTc Int : 439 ms Normal sinus rhythm T wave abnormality, consider anterior ischemia Abnormal ECG When compared with ECG of 07-MAR-2019 09:25, T wave inversion more evident in Anterior leads Confirmed by Marcial Munroe ([id number]) on 06/24/2019 10:42:21 AM Referred By: Ryley Loera Confirmed By:Marcial Munroe
--- NOTE | 2019-06-24 11:06 | XRay Report ---
XR chest 1V portable HISTORY: 74 years-old Female thoracentesis status post left-sided thoracentesis with pleural effusio n COMPARISON: CTA of the chest and chest radiograph 06/23/2019 TECHNIQUE: Portable AP view of the chest FINDINGS: Cardiac silhouette is enlarged with pulmonary vascular congestion. Calcification of the aorta. Trace left pleural effusion has decreased in size status post thoracentesis. No postprocedural pneumothorax identified. Unchanged right lung base consolidation with trace right pleural effusion. Volume loss o f the right lung. Unchanged positioning of the right pectoral Xsjxly-o-Pqpc catheter. Degenerative ch anges of the shoulders and spine. And T10 metastatic lesion is better seen on comparison chest CT. IMPRESSION: 1. Decreased size of the left pleural effusion status post thoracentesis. No postprocedural pneumotho rax identified. 2. Unchanged consolidation of the right lung. 3. Cardiomegaly with pulmonary vascular congestion. ACT 112: Negative or not required by law. The above report was generated using voice recognition software. It may contain grammatical, syntax o r spelling errors. Electronically signed by: Johnathan Kwong M.D. 06/24/2019 11:05 AM
--- NOTE | 2019-06-24 11:08 | Surgery Consultation ---
Date of Consultation June 24, 2019 Assessment & Plan (1) Pleural effusion: -pt. offered a pleurex catheter, but she declined and would rather have thoracentesis -Dr. Richard obtained consent performed thoracentesis (See operative note for details) -fluid will be sent for appropriate analysis History of Present Illness Attending Physician: Justin Estes History of Present Illness 74 year old female known to our service. She has underlying hx. of metastatic breast cancer, having undergone thoracentesis in the past. She presented to hospital due to worsening SOB over the past few days. No fevers, shakes, chills, or CP. She notes generalized fatigue. Imaging revealed a large left pleural effusion. Allergies Allergy/AdvReac Type Severity Reaction Status Date / Time denosumab [From Xgeva] Allergy Mild SEE BELOW Verified 06/23/19 12:56 isosorbide AdvReac Intermediate IMDUR/ Verified 06/23/19 12:56 MIGRAINE aspirin AdvReac Mild HISTORY OF Verified 06/23/19 12:56 BLEEDING ULCERS buprenorphine AdvReac Mild GI SYMPTOMS Verified 06/23/19 12:56 diphenhydramine AdvReac Mild RESTLESS Verified 06/23/19 12:56 LEGS ibuprofen AdvReac Mild AVOID DUE Verified 06/23/19 12:56 TO ULCER morphine AdvReac Mild SEVERE Verified 06/23/19 12:56 VOMITING NSAIDS (Non-Steroidal AdvReac Mild BLEEDING Verified 06/23/19 12:56 Anti-Inflamma ULCER DISEASE-CAN NOT HAVE NSAIDS oxycodone [From OxyContin] AdvReac Mild HALLUCINATI Verified 06/23/19 12:56 ONS tapentadol AdvReac Mild headache Verified 06/23/19 12:56 Home Medications Home Medications Medication Instructions Recorded Confirmed Type Restasis 1 drp OPB Q12H 01/19/18 06/23/19 History zolpidem [Ambien] 10 mg PO HS 01/19/18 06/23/19 History ondansetron HCl 8 mg PO Q8 PRN 09/08/18 06/23/19 History dronedarone 400 mg tablet 400 mg PO BID #180 tab 11/19/18 06/23/19 Rx znxqsyhnqc-fgdmhnxlohapb-hkmufxfs 1 cap PO TID PRN cap 02/19/19 06/23/19 History 50 mg-300 mg-40 mg capsule triamcinolone acetonide 0.1 % 1 appln DT BID PRN 02/19/19 06/23/19 History dental paste multivitamin 1 tab PO DAILY 03/06/19 06/23/19 History nitroglycerin 0.4 mg SUBLINGUAL Q5M PRN #10 tab 03/07/19 06/23/19 Rx gabapentin 100 mg capsule 200 mg PO TID 03/22/19 06/23/19 History diltiazem HCl [Cartia XT] 240 mg PO QAM 04/07/19 06/23/19 History hydrocodone-acetaminophen [[place]] 1 - 2 tab PO Q6H PRN #10 tab 04/12/19 06/23/19 Rx furosemide 20 mg tablet 0 mg PO DAILY 06/17/19 06/23/19 History levothyroxine 150 mcg tablet 150 mcg PO QAM #30 tab 06/18/19 06/23/19 Rx atorvastatin 40 mg tablet 40 mg PO HS #90 tab 06/21/19 06/23/19 Rx potassium chloride 40 meq PO BID 06/23/19 06/23/19 History Patient History Medical History Allergic rhinitis Breast cancer, stage 4 (Acute) DX: 2007 HAS BEEN ON CHEMO FOR 12 YEARS - IV CHEMO AND THEN PO CHEMO AND NOW STARTED RADIATION AND NEEDING CHEMO AGAIN METASTATIC BREAST CA - LUNG, BONE, LIVER AND OTHERS CAD (coronary artery disease) Cancer of thyroid SURGICAL TREATMENT AND IODINE RADIATION Dyslipidemia Essential hypertension (Resolved) GERD (gastroesophageal reflux disease) Hypothyroidism, postablative LBBB (left bundle branch block) Lung nodule FROM METASTATIC BREAST CANCER Malignant pleural effusion (Resolved 09/21/13) Metastasis from breast cancer Migraine headache (Resolved) Osteopenia Paroxysmal SVT (supraventricular tachycardia) HX, CONTROLLED/NO RECENT ISSUES WITH MULTAC AND S/P ABLATION (2017) Peptic ulcer disease with hemorrhage (Resolved) HX Surgical History H/O bilateral mastectomy H/O prior ablation treatment (Resolved) 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 Bella 04-12-19 Family History Father , 70yo Heart disease Lymphoma Hx of CABG Mother , 91yo Diabetes Hypertension Congestive heart failure Brother Heart disease Brother Hepatitis Brother No problems noted. Sister Rheumatoid arthritis Daughter No problems noted. Son No problems noted. 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 Other Information That Helps Us Care for You: No Feels Safe at Home: Yes Safety Concerns: Feels Safe At This Time Smoking Status: Former smoker Tobacco Type: cigarettes ; Cigarettes Per Day: QUIT 43 YEARS, HX OF 1.5PPD X7 YEARS ; Second Hand Exposure: No ; Hx Alcohol Use: No Hx Substance Use: No caffeine: No during the past year weight has: remained stable Review of Systems Constitutional: + fatigue; no fever and no chills Respiratory: + dyspnea on exertion Cardiovascular: no chest pain Gastrointestinal: no nausea Musculoskeletal: no back pain Integumentary: no rash Neurologic: no localized weakness Physical Exam Constitutional: + thin Eyes: no conjunctival abnormality ENMT: Ears: no hearing impairment Neck: trachea midline Respiratory: normal respiratory effort; no respiratory distress and no labored breathing BS are decreased at bases, L>R Cardiovascular: Rate/Rhythm: regular rate and regular rhythm Skin: no rashes, warm and dry Neurologic: moves all extremities Results & Data Vital Signs (Past 12 Hours) Vital Signs Temp Pulse Pulse Resp BP Pulse Ox 06/24/19 09:30 93 06/24/19 07:28 36.8 C 81 18 113/67 95 06/24/19 03:19 36.2 C L 85 20 128/72 94 06/23/19 23:45 76 PG Care Time/CCT Total # of Minutes Spent Total Time Spent with Patient: Total time spent is greater than 50% in coordination of care (as documented) at patient's floor/unit and/or counseling patient: Coding Level of Care Code 04523 Inpt Consult Level 3 Diagnoses Pleural effusion J90
--- NOTE | 2019-06-24 11:30 | Operative Report (OR) ---
DATE OF OPERATION: 06/24/2019 PREOPERATIVE DIAGNOSIS: Recurrent malignant left pleural effusion. POSTOPERATIVE DIAGNOSIS: Same. PROCEDURE: Left thoracentesis under ultrasound guidance. SPECIFICS OF PROCEDURE AND FINDINGS: Kellee Rangel is a 74-year-old female who is well known to me. She has been battling metastatic lung cancer for many years. She is currently being treated by Dr. Ryley Loera and has a left pleural effusion which is malignant. She also had a right malignant pleural effusion in the past. The patient is anxious. She is also tiny. She presented complaining of increasing shortness of breath. On 04/29/2019 I performed a thoracentesis on the left side for 710 mL and her breathing improved a bit, but not really that much. She was not on home oxygen routinely at home. She did not notice much of a difference with the drainage, so we did not insert an indwelling pleural catheter, although I did recommend it. She stated she did not want to have a PleurX catheter. The patient presented back with increasing shortness of breath and this time it was "much worse." She also has increasing peripheral edema. The patient was brought in and got another CT scan which was similar with a homogenous effusion on the left side. I was asked to evaluate her and offered to insert a PleurX catheter today; however, she did not want a PleurX catheter and made it quite clear. She asked if a thoracentesis would be done to improve her symptoms. At the patient's bedside in the morning of 06/24/2019 an ultrasound-guided left thoracentesis was performed without difficulty and 900 mL of a clear fluid was drained. Even though she has a history of a malignancy here we did send it off for microbiologic studies as her white count was well over 20,000. We also sent it for cytology. PROCEDURE: The patient was seated at the bedside. An ultrasound was used to find the homogenous fluid which appeared to be free flowing. A mandy was made on the posterior left chest at about the posterior axillary line. The patient was prepped and draped in usual sterile fashion. After appropriate timeout had been called, a 25-gauge needle and 1% Xylocaine were used to raise the skin and subcutaneous tissues over this mandy. Large bore needle was then used to anesthetize the intercostal muscles and pleura. We got free flowing fluid back. Syringe removed and a soft J-tipped guidewire was inserted through the needle and the needle removed. Introducer sheath was slid over the guidewire gently and then removed and the triple lumen catheter was slid into 17 cm and the guidewire removed. Approximately 900 mL of serous fluid was drained. The patient had reexpansion coughing. We really did not get any more fluid and I removed this. There was no bleeding. An antimicrobial occlusive dressing was placed. Chest x-ray showed good expansion of the patient's lung and essentially resolution of the left pleural effusion. She tolerated it well. I attest to the content of the Intraoperative Record and any orders documented therein. Any exception s are noted below.
[2019-06-24 11:39] LABS: LDH Pleural Fluid 113 U/L
[2019-06-24 11:49] LABS: Total Protein Pleural Fluid 2.9 g/dl
[2019-06-24 12:27] LABS: Appearance Pleural Fluid CLEAR; Color Pleural Fluid YELLOW; RBC Pleural Fluid (A) < 3000 /uL; Source Pleural Fluid LEFT LUNG; WBC Pleural Fluid (A) 187 /uL
[2019-06-24 12:37] LABS: Eosinophils, Fluid 1 %; Lymphocytes, Fluid 84 %; Mono,Macrophage,Mesothelial 6 %; Neutrophils, Fluid 9 %
--- NOTE | 2019-06-24 12:45 | Nephrology Progress Note ---
Date of Service June 24, 2019 Assessment & Plan (1) Hyponatremia: Moderate, chronic hyponatremia with potentially mild symptoms. Symptoms are difficult to assess due to multiple medical comorbidities. Unfortunately, Kellee has progressive failure to thrive. She has increased total body water with edema however I suspect she is somewhat intravascularly volume depleted this is somewhat manifested by hypotension post diuretics this morning. There were no orthostatic changes in vital signs when I saw her in clinic last week. I think it is reasonable to continue furosemide to encourage furosemide to maintain a slightly negative fluid balance at this time. I have not completely excluded an associated a component of right heart failure related to underlying intrinsic pulmonary hypertension. I do believe thoracentesis that was provided today will provided some benefit. I believe most of her lower extremity edema is related to lymphedema, protein calorie malnutrition, and venous insufficiency. She has not had significant evidence of decompensated heart failure otherwise. Likewise, lymphedema and protein calorie malnutrition are certainly contributing to her interstitial pulmonary edema. She also has some evidence of pulmonary hypertension related to her underlying pulmonary disease. I would avoid being overly aggressive with diuretics at this time. There is certainly ADH release related to intravascular volume depletion or decreased EAV but also excessive or inappropriate release (likely related underlying lung disease). Overall due to the chronicity of the problem as well as are other multiple medical issues and nutritional status and minimal symptoms, we should certainly avoid correcting her sodium quickly. Aside from fluid restriction and diuretic therapy, any additional therapy will be deferred at this time. Clinical presentation is most concerning for a tea and toast diet -- nutritional deficiency. She has hypoalbuminemia with a serum albumin that has been progressively declining. Also of concern is hypothyroidism. Levothyroxine dosing has recently been adjusted based on endocrine recommendations recently as an outpatient. Goals at this time including improving dietary protein intake. As well as limiting free water intake. I have further restricted this to 1 L/d today. For hypokalemia associated with diuretics, she remains on KCl 40 mEq BID. I discussed the patient's current status and plan of care with Dr. Estes this morning. I also spoke to Dr. Loera yesterday. (2) Primary malignant neoplasm of breast with metastasis: (3) Pleural effusion, malignant: (4) Malignant cachexia: (5) Anemia associated with chemotherapy: Subjective No acute events overnight. Appetite poor. Kellee was seen and evaluated prior to her thoracentesis. LE edema had improved after keeping her legs elevated. Weakness persists. She denied significant dyspnea at rest. No fevers or chills. Review of Systems Review of Systems: All systems reviewed & are unremarkable except as noted in HPI & below Physical Exam Physical Exam: Limited due to COVID 19 pandemic. Constitutional: + thin and + frail appearing Eyes: + anicteric sclerae ENMT: Mouth: + dry oral mucous membranes Neck: normal visual inspection and trachea midline Cardiovascular: Extremities: + edema (improved) Results & Data Vital Signs (Past 12 Hours) Vital Signs Temp Pulse Pulse Resp BP BP Pulse Ox 06/24/19 11:49 80 06/24/19 11:40 36.9 C 81 18 87/53 L 80/51 L 97 06/24/19 09:30 93 06/24/19 07:28 36.8 C 81 18 113/67 95 06/24/19 03:19 36.2 C L 85 20 128/72 94 Laboratory Results Laboratory Results - last 24 hr 06/23/19 06/23/19 06/23/19 11:20 11:20 11:20 WBC 11.73 H RBC 3.40 L Hgb 9.5 L Hct 29.2 L MCV 85.9 MCH 27.9 MCHC RDW Std Deviation 48.9 H RDW Coeff of Bobbi 16.2 H Plt Count MPV Absolute Nucleated RBC Nucleated RBC % (auto) Neutrophils % (Manual) 71.3 Lymphocytes % (Manual) 8.7 Monocytes % (Manual) 10.4 Basophils % (Manual) 0.9 Metamyelocytes % (Man) 3.5 Myelocytes % (Man) 5.2 Neutrophils # (Manual) 8.36 H Total Absolute Neuts 8.36 H Lymphocytes # (Manual) 1.02 L Total Abs Lymphocytes 1.02 L Monocytes # (Manual) 1.22 H Basophils # (Manual) 0.11 Metamyelocytes # (Man) 0.41 H Myelocytes # (Manual) 0.61 H Toxic Granulation 2+ Polychromasia 1+ PT 12.5 H INR 1.2 H APTT 28.3 PTT Ratio 1.0 D-Dimer 940 H* Sodium Potassium Chloride Carbon Dioxide Anion Gap BUN Creatinine Est Cr Clr Drug Dosing Est GFR ( Amer) Est GFR (Non-Af Amer) BUN/Creatinine Ratio Glucose Calcium Total Bilirubin 0.3 AST ALT Alkaline Phosphatase 100 Troponin I < 0.015 NT-Pro-B Natriuret Pep 536 Total Protein 5.7 L Albumin Globulin 3.2 Albumin/Globulin Ratio 0.8 L Urine Color Urine Appearance Urine pH Ur Specific [place] Urine Protein Urine Glucose (UA) Urine Ketones Urine Blood Urine Nitrite Urine Bilirubin Urine Urobilinogen Ur Leukocyte Esterase Urine Osmolality Ur Random Sodium Ur Random Potassium Fluid Neutrophils % Fluid Lymphocytes % Fluid Eosinophils % Fluid [place]/Macro/[place] % Pleural Fluid Source Pleural Color Pleural Appearance Pleural pH Pleural WBC Pleural RBC Pleural Total Protein Pleural LDH Pleural Glucose Pleural Amylase Pleural Cholesterol 06/23/19 06/23/19 06/23/19 12:10 18:28 18:28 WBC RBC Hgb Hct MCV MCH MCHC RDW Std Deviation RDW Coeff of Bobbi Plt Count MPV Absolute Nucleated RBC Nucleated RBC % (auto) Neutrophils % (Manual) Lymphocytes % (Manual) Monocytes % (Manual) Basophils % (Manual) Metamyelocytes % (Man) Myelocytes % (Man) Neutrophils # (Manual) Total Absolute Neuts Lymphocytes # (Manual) Total Abs Lymphocytes Monocytes # (Manual) Basophils # (Manual) Metamyelocytes # (Man) Myelocytes # (Manual) Toxic Granulation Polychromasia PT INR APTT PTT Ratio D-Dimer Sodium Potassium Chloride Carbon Dioxide Anion Gap BUN Creatinine Est Cr Clr Drug Dosing Est GFR ( Amer) Est GFR (Non-Af Amer) BUN/Creatinine Ratio Glucose Calcium Total Bilirubin AST ALT Alkaline Phosphatase Troponin I NT-Pro-B Natriuret Pep Total Protein Albumin Globulin Albumin/Globulin Ratio Urine Color Yellow Urine Appearance Clear Urine pH 8.5 H Ur Specific [place] 1.015 Urine Protein Negative Urine Glucose (UA) Negative Urine Ketones Trace H Urine Blood Negative Urine Nitrite Negative Urine Bilirubin Negative Urine Urobilinogen Negative Ur Leukocyte Esterase Negative Urine Osmolality 470 L Ur Random Sodium 83 Ur Random Potassium 50.1 Fluid Neutrophils % Fluid Lymphocytes % Fluid Eosinophils % Fluid [place]/Macro/[place] % Pleural Fluid Source Pleural Color Pleural Appearance Pleural pH Pleural WBC Pleural RBC Pleural Total Protein Pleural LDH Pleural Glucose Pleural Amylase Pleural Cholesterol 06/24/19 06/24/19 06/24/19 05:40 05:40 10:50 WBC 28.11 H D RBC 3.07 L Hgb 8.7 L Hct 26.6 L MCV 86.6 MCH 28.3 MCHC 32.7 RDW Std Deviation 49.6 H RDW Coeff of Bobbi 16.7 H Plt Count 585 H MPV 9.4 Absolute Nucleated RBC 0.24 H Nucleated RBC % (auto) 0.9 Neutrophils % (Manual) Lymphocytes % (Manual) Monocytes % (Manual) Basophils % (Manual) Metamyelocytes % (Man) Myelocytes % (Man) Neutrophils # (Manual) Total Absolute Neuts Lymphocytes # (Manual) Total Abs Lymphocytes Monocytes # (Manual) Basophils # (Manual) Metamyelocytes # (Man) Myelocytes # (Manual) Toxic Granulation Polychromasia PT INR APTT PTT Ratio D-Dimer Sodium 126 L Potassium 4.0 Chloride 91 L Carbon Dioxide 30 Anion Gap 5.0 BUN 10 Creatinine 0.41 L Est Cr Clr Drug Dosing 81.1 Est GFR ( Amer) 118.0 Est GFR (Non-Af Amer) 101.8 BUN/Creatinine Ratio 25.0 H Glucose 77 Calcium 8.1 L Total Bilirubin 0.3 AST 41 H ALT 66 Alkaline Phosphatase 383 H D Troponin I NT-Pro-B Natriuret Pep Total Protein 5.4 L Albumin 2.5 L Globulin 2.9 Albumin/Globulin Ratio 0.9 Urine Color Urine Appearance Urine pH Ur Specific [place] Urine Protein Urine Glucose (UA) Urine Ketones Urine Blood Urine Nitrite Urine Bilirubin Urine Urobilinogen Ur Leukocyte Esterase Urine Osmolality Ur Random Sodium Ur Random Potassium Fluid Neutrophils % Fluid Lymphocytes % Fluid Eosinophils % Fluid [place]/Macro/[place] % Pleural Fluid Source Pleural Color Pleural Appearance Pleural pH 7.47 H Pleural WBC Pleural RBC Pleural Total Protein Pleural LDH Pleural Glucose Pleural Amylase Pleural Cholesterol 06/24/19 06/24/19 06/24/19 Unknown Unknown Unknown WBC RBC Hgb Hct MCV MCH MCHC RDW Std Deviation RDW Coeff of Bobbi Plt Count MPV Absolute Nucleated RBC Nucleated RBC % (auto) Neutrophils % (Manual) Lymphocytes % (Manual) Monocytes % (Manual) Basophils % (Manual) Metamyelocytes % (Man) Myelocytes % (Man) Neutrophils # (Manual) Total Absolute Neuts Lymphocytes # (Manual) Total Abs Lymphocytes Monocytes # (Manual) Basophils # (Manual) Metamyelocytes # (Man) Myelocytes # (Manual) Toxic Granulation Polychromasia PT INR APTT PTT Ratio D-Dimer Sodium Potassium Chloride Carbon Dioxide Anion Gap BUN Creatinine Est Cr Clr Drug Dosing Est GFR ( Amer) Est GFR (Non-Af Amer) BUN/Creatinine Ratio Glucose Calcium Total Bilirubin AST ALT Alkaline Phosphatase Troponin I NT-Pro-B Natriuret Pep Total Protein Albumin Globulin Albumin/Globulin Ratio Urine Color Urine Appearance Urine pH Ur Specific [place] Urine Protein Urine Glucose (UA) Urine Ketones Urine Blood Urine Nitrite Urine Bilirubin Urine Urobilinogen Ur Leukocyte Esterase Urine Osmolality Ur Random Sodium Ur Random Potassium Fluid Neutrophils % 9 Fluid Lymphocytes % 84 Fluid Eosinophils % 1 Fluid Mes[place]/Macro/[place] % 6 Pleural Fluid Source LEFT LUNG Pleural Color YELLOW Pleural Appearance CLEAR Pleural pH Pleural WBC 187 Pleural RBC < 3000 Pleural Total Protein 2.9 Pleural LDH 113 Pleural Glucose 108 Pleural Amylase 36 Pleural Cholesterol Pending PG Care Time/CCT Total # of Minutes Spent Total Time Spent with Patient: Total time spent is greater than 50% in coordination of care (as documented) at patient's floor/unit and/or counseling patient: Coding Level of Care Code 11417 Subseq Hosp Care Lvl 3 Diagnoses Hyponatremia E87.1 Primary malignant neoplasm of breast with metastasis C50.919 Pleural effusion, malignant J91.0 Malignant cachexia R64 Anemia associated with chemotherapy D64.81; T45.1X5A
[2019-06-24] MEDS: FUROSEMIDE 20 MG TAB PO SCH (14:09)
[2019-06-24] MEDS: ZOLPIDEM TARTRATE 10 MG TAB PO SCH (20:26)
[2019-06-24] MEDS: ATORVASTATIN 40 MG TAB PO SCH (20:26)
--- NOTE | 2019-06-24 23:02 | Hospitalist Progress Note ---
Date of Service June 24, 2019 Assessment & Plan (1) Primary malignant neoplasm of breast with metastasis: - Admit to med surg with tele - Infiltrating ductal carcinoma of the Right breast, MS/ER +, HER-2/shaniqua negative stage II-B, original diagnosis Nov 2005, s/p bilateral mastectomy. - Chemo hx with xeloda and gemcitabine, now only gemcitabine therapy, last session was approximately 1 week ago, receives biweekly infusion, started Nov 2018. - s/p most recent radiation therapy to the right chest wall lesion completed on 03/29/[address] Keila Sanchez. - Follows with Dr. Loera as outpatient, consult heme/onc - A-port accessed currently - Continue supplemental O2 prn (2) Pleural effusion, malignant: -Chronic but appears to be worsening -Consult thoracic surgery --follows with Dr. Richard - last seen on 04/05/2019 and was operating independently without supplemental O2 need- ?pleurex placement would benefit?- I have called Dr. Richard and he will see her. Patient has history of a Pleurx catheter placement about 6 years ago. She d oes have diminished breath sounds on exam in the left base, right base and right middle lobe. -CXR reviewed showing similar size of small to moderate right-sided pleural effusion, small left-sided pleural effusion -CT PE reviewed- neg for PE, progressive consolidation in the right lung, Increased size of the moderate to large left pleural effusion with increased lower lobe passive atelectasis. Volume overload with congestive change and mild pulmonary edema suspected. Underlying pulmonary artery hypertension. Stable chronic changes of the right pleura, which can indicate prior pleurodesis are pleural-based metastatic disease. This is chronic. 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 Patient improved after thoracocenthesis Jonathan consult palliative care for end of life discussion. (3) CAD (coronary artery disease): - Continue atorvastatin 40 mg HS, diltiazem 240 mg QAM. (4) AVNRT (AV sal re-entry tachycardia): - Continue dronedarone 400 mg BID (5) Hyponatremia: -Sodium = 124 at time of admission -It appears this has been chronic over the past year, oncology and nephrology are well aware. Patient was recently seen by Dr. Sanchez with nephrology- will consult during this hospital stay- I have discussed the case with him and he agrees on IV diuresis at this time - Will check urine osmolality, urine sodium and potassium prior to lasix administration - Her clinical presentation is consistent with nutritional deficiency. As outpt she has been told to limit free water intake to ~40oz per day -she also drinks Gatorade, milk, tea on a daily basis. She was recently asked to restrict her water intake to less than 10oz daily, and increase protein intake to >40 g daily. -There was concern for potential component of inappropriate excretion of ADH, urine osmolality= 250 on last check on 06/11/19 -Goal to improve sodium to 130-135 (6) Severe protein-calorie malnutrition: - Encourage increased protein consumption as above, will order boost supplementation -Albumin was 2.5 - BMI of 21.4 (7) Malignant cachexia: -Secondary to poor protein malnutrition, nutritional deficiency, limited oral intake (8) Anemia associated with chemotherapy: -Hemoglobin 9.5, HCT = 29.2 this appears lower than her baseline of 11-13 - Guiac all stools with report of diarrhea - Recent chemo therapy (9) Hypothyroidism, postablative: - TSH is elevated at 23.6 on 06/13 - Consider endocrinology consultation in regards to multiple medical comorbidities (10) DVT prophylaxis: -heparin subcu, SCDs CODE STATUS: DNR/DNI Disposition: Patient from home, likely to remain in the hospital x1 to 2 days, PT/OT evaluations patient has ambulatory dysfunction and unsteady/weak gait due to cancer with mets to bone Admission and Anticipated Discharge Date Admission Date: June 23, 2019 Subjective Patient reports feeling well. She has no new complaints at this time. She tolerated her thoracocenthesis and states that she feels better. Her shortness of breath has improved. Review of Systems Review of Systems: All systems reviewed & are unremarkable except as noted in HPI & below Physical Exam Physical Exam: General: awake, alert, + cachectic, + able to speak in full sen tences. No longer short of breah Head: Normocephalic, atraumatic ENT: PERRL, EOMI, no pharyngeal exudate, mucous membranes moist Chest: A-port in place right chest wall, on 3L via NC. No rales, rhonchi or wheezes. Cardiac: Regular rhythm, RRR, no murmur, no JVD, normal peripheral pulses, good capillary refill Abdominal: NABS x 4 quadrants, soft, nondistended, nontender to palpation, no rebound, guarding or tenderness Extremities: + Lymphedema bilateral lower extremities, + pitting edema up to thighs bilaterally, no erythema, calfs nontender to palpation Psych: Normal mood and affect Neuro: AAO x 3, no gross motor deficits, speech is clear, no peripheral sensory deficits Skin: no rash or erythema Results & Data Results & Data ([facility]) Vital Signs (Past 12 Hours) Vital Signs Temp Pulse Pulse Resp BP BP Pulse Ox 06/24/19 19:15 36.9 C 87 18 98/62 L 97 06/24/19 16:17 82 06/24/19 16:02 36.7 C 85 18 102/64 95 06/24/19 14:00 96/62 L 06/24/19 11:49 80 06/24/19 11:40 36.9 C 81 18 87/53 L 80/51 L 97 PG Care Time/CCT Total # of Minutes Spent Total Time Spent with Patient: Total time spent is greater than 50% in brand coordinator rdination of care (as documented) at patient's floor/unit and/or counseling patient: Coding Level of Care Code 26985 Subseq Hosp Care Lvl 3 Diagnoses Primary malignant neoplasm of breast with metastasis C50.919 Pleural effusion, malignant J91.0 CAD (coronary artery disease) I25.10 AVNRT (AV sal re-entry tachycardia) I47.1 Hyponatremia E87.1 Severe protein-calorie malnutrition E43 Malignant cachexia R64 Anemia associated with chemotherapy D64.81; T45.1X5A Hypothyroidism, postablative E89.0 DVT prophylaxis Z29.9 Time Spent (min) 35
[2019-06-25] MEDS: HEPARIN 100 UNIT/ML 5ML FLUSH FLUSH PRN ×3 (05:31→15:34)
[2019-06-25] MEDS: LEVOTHYROXINE SODIUM 150 MCG TABLET PO SCH (05:40)
[2019-06-25 06:23] LABS: Albumin Level 2.2 gm/dl (3.4-5.0); BUN Creatinine Ratio 32.2 (10-20); Calcium 7.8 mg/dl (8.5-10.1); Creatinine Clr Calc Pharmacy 72.3 ml/min; Est GFR (African American) 113.6; Potassium 4.5 mmol/L (3.5-5.1)
[2019-06-25 06:33] LABS: Albumin Globulin Ratio 0.8 (0.9-2); Bilirubin,Total 0.3 mg/dl (0.2-1); Globulin 2.8 gm/dl (2.5-4.0)
[2019-06-25 06:42] LABS: Hematocrit (blood only) 25.7 % (37-47); Hemoglobin 8.3 g/dL (12.0-16.0); Mean Corpuscular Hgb Conc 32.3 g/dL (32-36); Mean Corpuscular Volume 86.8 fL (80-100); Mean Platelet Volume 8.5 fL (7.4-10.4); Nucleated RBC % (auto) 0.8 %; Platelet Count 510 K/uL (130-400); RDW Coefficient of Variation 17.4 % (11.5-14.5); RDW Standard Deviation 51.3 fL (36.4-46.3); Red Blood Count 2.96 M/uL (4.2-5.4)
--- NOTE | 2019-06-25 07:38 | Oncology Consultation ---
Date of Consultation June 24, 2019 Assessment & Plan (1) Primary malignant neoplasm of breast with metastasis: I had a long conversation with Ms. Rangel today. She is steadily becoming sicker despite chemotherapy. She has tried multiple lines of therapy over the last year or so and has not seen a significant response to any of them. Her nutrition and performance status are such that it would be difficult to treat her at this point. She also has other worsening issues, including the volume overload, pulmonary hypertension, and electrolyte issues, and it is not clear that these issues will get better with treatment. As a result of these issues, I think she would be well served by a transition to hospice. We discussed hospice and how it works today. She stated that she would prefer to be at home as long as possible. I think that is an achievable goal. She was not quite ready to make a decision today, but did agree to meet with our palliative care team to discuss how hospice would work for her. I asked her hospitalist to consult them today. Present on Admission?: Yes History of Present Illness Attending Physician: Justin Estes History of Present Illness Ms. Rangel is a 74 year old woman with a history of metastatic breast cancer. Her original diagnosis was in 2005 and she developed metastatic disease in 2013. She did well on endocrine therapies until early 2019. Since then, however, we have tried a series of treatments that have been modest in effect at best. 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 She has also been steadily losing weight over the last few months. She reports eating healthy things and feeling hungry, but she admits to having a hard time eating larger meals. In the last few weeks, we have been attempting to correct moderate hyponatremia. She has had some edema and initially we thought her issue was overdiuresis. However, we eventually involved nephrology and her urine osmolarity is lower than we would expect, suggesting solute deficiency. She came to the ER yesterday complaining of worsening shortness of breath. Her left pleural effusion had recurred and she underwent a thoracentesis earlier today, which helped her symptoms. She was tired and weak today. However, she was alert and not confused. She denied any worsening pain. She also denied any fevers or myalgias. Her legs are more edematous, which makes her uncomfortable, and she has some peripheral neuropathy that is bothersome. Allergies Allergy/AdvReac Type Severity Reaction Status Date / Time denosumab [From Xgeva] Allergy Mild SEE BELOW Verified 06/23/19 12:56 isosorbide AdvReac Intermediate IMDUR/ Verified 06/23/19 12:56 MIGRAINE aspirin AdvReac Mild HISTORY OF Verified 06/23/19 12:56 BLEEDING ULCERS buprenorphine AdvReac Mild GI SYMPTOMS Verified 06/23/19 12:56 diphenhydramine AdvReac Mild RESTLESS Verified 06/23/19 12:56 LEGS ibuprofen AdvReac Mild AVOID DUE Verified 06/23/19 12:56 TO ULCER morphine AdvReac Mild SEVERE Verified 06/23/19 12:56 VOMITING NSAIDS (Non-Steroidal AdvReac Mild BLEEDING Verified 06/23/19 12:56 Anti-Inflamma ULCER DISEASE-CAN NOT HAVE NSAIDS oxycodone [From OxyContin] AdvReac Mild HALLUCINATI Verified 06/23/19 12:56 ONS tapentadol AdvReac Mild headache Verified 06/23/19 12:56 Home Medications Home Medications Medication Instructions Recorded Confirmed Type Restasis 1 drp OPB Q12H 01/19/18 06/23/19 History zolpidem [Ambien] 10 mg PO HS 01/19/18 06/23/19 History ondansetron HCl 8 mg PO Q8 PRN 09/08/18 06/23/19 History dronedarone 400 mg tablet 400 mg PO BID #180 tab 11/19/18 06/23/19 Rx dpvkrdrkku-ldgmuhtwwmehr-xvctqkzb 1 cap PO TID PRN cap 02/19/19 06/23/19 History 50 mg-300 mg-40 mg capsule triamcinolone acetonide 0.1 % 1 appln DT BID PRN 02/19/19 06/23/19 History dental paste multivitamin 1 tab PO DAILY 03/06/19 06/23/19 History nitroglycerin 0.4 mg SUBLINGUAL Q5M PRN #10 tab 03/07/19 06/23/19 Rx gabapentin 100 mg capsule 200 mg PO TID 03/22/19 06/23/19 History diltiazem HCl [Cartia XT] 240 mg PO QAM 04/07/19 06/23/19 History hydrocodone-acetaminophen [[place]] 1 - 2 tab PO Q6H PRN #10 tab 04/12/19 06/23/19 Rx furosemide 20 mg tablet 0 mg PO DAILY 06/17/19 06/23/19 History levothyroxine 150 mcg tablet 150 mcg PO QAM #30 tab 06/18/19 06/23/19 Rx atorvastatin 40 mg tablet 40 mg PO HS #90 tab 06/21/19 06/23/19 Rx potassium chloride 40 meq PO BID 06/23/19 06/23/19 History Patient History Medical History Allergic rhinitis Breast cancer, stage 4 (Acute) DX: 2006 HAS BEEN ON CHEMO FOR 12 YEARS - IV CHEMO AND THEN PO CHEMO AND NOW STARTED RADIATION AND NEEDING CHEMO AGAIN METASTATIC BREAST CA - LUNG, BONE, LIVER AND OTHERS CAD (coronary artery disease) Cancer of thyroid SURGICAL TREATMENT AND IODINE RADIATION Dyslipidemia Essential hypertension (Resolved) GERD (gastroesophageal reflux disease) Hypothyroidism, postablative LBBB (left bundle branch block) Lung nodule FROM METASTATIC BREAST CANCER Malignant pleural effusion (Resolved 09/21/13) Metastasis from breast cancer Migraine headache (Resolved) Osteopenia Paroxysmal SVT (supraventricular tachycardia) HX, CONTROLLED/NO RECENT ISSUES WITH MULTAC AND S/P ABLATION (2017) Peptic ulcer disease with hemorrhage (Resolved) HX Surgical History H/O bilateral mastectomy H/O prior ablation treatment (Resolved) 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 Bella 04-12-19 Family History Father , 70yo Heart disease Lymphoma Hx of CABG Mother , 91yo Diabetes Hypertension Congestive heart failure Brother Heart disease Brother Hepatitis Brother No problems noted. Sister Rheumatoid arthritis Daughter No problems noted. Son No problems noted. 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 Physical Exam Constitutional: + ill appearing (chronically) and + cachectic; no acute distress Eyes: + anicteric sclerae ENMT: external ear and nose normal, oropharynx normal Respiratory: normal respiratory effort Auscultation: lungs clear to auscultation bilaterally (anteriorly) Cardiovascular: Rate/Rhythm: regular rate and regular rhythm Extremities: + edema (1+ bilateral pitting edema to her ankles) Gastrointestinal (Abdomen): Inspection/Auscultation: abdomen not distended Percussion/Palpation: abdomen soft; abdomen nontender Psychiatric: A+Ox3, euthymic affect Results & Data Vital Signs (Past 12 Hours) Vital Signs Temp Pulse Pulse Resp BP BP Pulse Ox 06/25/19 07:17 36.4 C L 88 16 95/64 L 98 06/25/19 03:22 36.9 C 90 18 105/64 91 06/24/19 23:17 37.1 C 73 18 103/68 97 06/24/19 23:00 86 Laboratory Results Laboratory Tests 06/24/19 06/24/19 05:40 05:40 WBC 28.11 H D Hgb 8.7 L Plt Count 585 H Sodium 126 L Potassium 4.0 Chloride 91 L Carbon Dioxide 30 Creatinine 0.41 L Glucose 77 Calcium 8.1 L Total Bilirubin 0.3 AST 41 H ALT 66 Alkaline Phosphatase 383 H D Total Protein 5.4 L Albumin 2.5 L Diagnostic Findings CTA Chest, 06/23/19: IMPRESSION: 1. No evidence of pulmonary embolus. 2. Progressive consolidation in the right lung. 3. Increased size of the moderate to large left pleural effusion with increased lower lobe passive atelectasis. 4. Volume overload with congestive change and mild pulmonary edema suspected. 5. Underlying pulmonary artery hypertension. 6. Stable chronic changes of the right pleura, which can indicate prior pleurodesis are pleural-based metastatic disease. This is chronic. 7. 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
[2019-06-25] MEDS: POTASSIUM CHLORIDE 20 MEQ TABCR PO SCH ×2 (07:43→21:15)
[2019-06-25] MEDS: FUROSEMIDE 20 MG TAB PO SCH (07:44)
[2019-06-25] MEDS: GABAPENTIN 100 MG CAP PO SCH ×3 (07:44→21:09)
[2019-06-25] MEDS: dilTIAZem HCL 240 MG CAPCR PO SCH (07:44)
[2019-06-25] MEDS: MULTIVITAMIN TAB PO SCH (07:45)
[2019-06-25] MEDS: DRONEDARONE HCL 400 MG TAB PO SCH ×2 (07:45→21:09)
[2019-06-25] MEDS: ENOXAPARIN INJ 30 MG/0.3 ML SYR SQ SCH (07:46)
[2019-06-25 08:28] LABS: Basophilic Stippling 1+; Polychromasia 1+; Toxic Granulation 1+
[2019-06-25 08:30] LABS: ALC (manual) 1.65 K/uL (1.2-3.4); ANC (manual) 40.85 K/uL (1.4-6.5); Blast Cells % (manual) 0.8 %; Lymphocytes # (manual) 1.65 K/uL (1.2-3.4); Lymphocytes % (manual) 3.3 %; Metamyelocytes # (manual) 3.35 K/uL (0-0); Metamyelocytes % (manual) 6.7 %; Monocytes # (manual) 1.65 K/uL (0.11-0.59); Monocytes % (manual) 3.3 %; Myelocytes # (manual) 0.85 K/uL (0-0); Myelocytes % (manual) 1.7 %; Neutrophils # (manual) 40.85 K/uL (1.4-6.5); Neutrophils % (manual) 81.7 %; Promyelocytes # (manual) 1.25 K/uL (0-0); Promyelocytes % (manual) 2.5 %
--- NOTE | 2019-06-25 11:16 | Progress Notes ---
DATE: 06/25/2019 The patient was seen today on 06/25/2019. She is "much better." She feels much less short of breath and is able to do more. She is quite pleased with how well she feels. I evaluated the pleural fluid results and I do not see evidence of infection. Her fungal and AFB smears are negative and her pleural fluid Gram stain shows no evidence of organisms. She also sounds better on exam. The pH with the fluid was normal at 7.47. Her LDH is 113. Her glucose was 108. This does not appear to be infected. We are concerned, however, because her white count went from 28,000 to 50,000; however, it should be noted that the patient's white count was 30,000 on 06/07/2019 only to drop to 5250 one week later. At any rate, she has had no temperature elevations and her temperature is 36.4 this morning. At this point, I am not sure I would do anything different with her. She looks better and I think that she can probably go home; however, the leukocytosis is concerning. At this point, I would sign off and see her back on a p.r.n. basis. She did not want a PleurX. It was hard to argue with her. JOAQUÍN
[2019-06-25 11:34] LABS: Hematocrit (blood only) 25.7 % (37-47); Hemoglobin 8.3 g/dL (12.0-16.0); Mean Corpuscular Hemoglobin 28.4 pg (25-34); Mean Corpuscular Hgb Conc 32.3 g/dL (32-36); Mean Platelet Volume 8.9 fL (7.4-10.4); Nucleated RBC # (auto) 0.38 K/uL (0-0); Nucleated RBC % (auto) 0.8 %; Platelet Count 549 K/uL (130-400); RDW Coefficient of Variation 17.6 % (11.5-14.5); RDW Standard Deviation 52.2 fL (36.4-46.3); Red Blood Count 2.92 M/uL (4.2-5.4); White Blood Count 49.47 K/uL (4.8-10.8)
[2019-06-25 11:54] LABS: ALC (manual) 0.45 K/uL (1.2-3.4); ANC (manual) 39.63 K/uL (1.4-6.5); Lymphocytes # (manual) 0.45 K/uL (1.2-3.4); Lymphocytes % (manual) 0.9 %; Metamyelocytes # (manual) 0.84 K/uL (0-0); Metamyelocytes % (manual) 1.7 %; Monocytes # (manual) 5.14 K/uL (0.11-0.59); Monocytes % (manual) 10.4 %; Myelocytes # (manual) 0.84 K/uL (0-0); Myelocytes % (manual) 1.7 %; Neutrophils # (manual) 39.63 K/uL (1.4-6.5); Neutrophils % (manual) 80.1 %; Promyelocytes # (manual) 2.57 K/uL (0-0); Promyelocytes % (manual) 5.2 %; Toxic Granulation 2+
--- NOTE | 2019-06-25 12:32 | Palliative Care Consultation ---
Date of Consultation June 25, 2019 Assessment & Plan (1) Palliative care encounter: Patient is a 74-year-old female with a past medical history significant for metastatic breast cancer-diagnosed in 2005, status post bilateral radical mastectomy who presented to the hospital on 06/22 with increased shortness of breath progressive over several weeks. Patient has a history of malignant pleural effusion-was tapped for 700 cc on April. Patient was tapped on this admission for 900 cc-left pleural effusion. Patient also has metastatic disease and T10-no current complaints of pain. Patient has been declining nutritionally and from a functional status point of view-she has had discussions with oncology and no more chemo will be offered. Past medical history is significant for CAD, tachycardia as well as protein calorie malnutrition. Patient states she was started on oxygen approximately 3 months ago-is on O2 continuously. Patient is , lives with her significant other, Magdalene, for the past 18 years. Patient has 3 children her oldest son Zander, lives in the area, she has a 48-year-old son in [place] and a 43-year-old daughter in [facility]. Patient reports an allergy to morphine-patient states that she vomited when she received morphine after surgery. Discussed that this is a side effect and not necessarily an allergy and that if needed lower dose morphine may be effective with little side effect. -Goals of care-patient currently is a DO NOT RESUSCITATE, she does have a living will, she named her significant other as well as her 3 children as healthcare surrogate's. Her significant other does have paperwork naming him as a healthcare surrogate. Patient states her living will delineates her wishes in significant detail. Discussed when hospice would be appropriate, also gave patient information regarding outpatient palliative clinic for follow-up. -Shortness of breath-due to left malignant pleural effusion-markedly improved status post thoracentesis. Patient states she would want to return to the hospital for repeat thoracentesis as needed. Discussed with patient in detail when a Pleurx catheter would be recommended-when pleural effusion reaccumulate's quickly and as disease progresses for comfort. -Protein calorie malnutrition-patient with significant weight loss, is cachectic. Patient's weight has increased primarily due to lower extremity edema. Discussed protein supplements including Liqua Chichi -which is up supplement of liquid protein with the same amount of protein in 1 ounce that boost or Ensure have an 8 ounces. She may benefit from the lower volume. Discussed with patient that her appetite and fatigue may significantly increase off her chemo. -Bone metastases-no current pain, patient does have [place] available at home -Hypoxia-patient now on continuous O2 (2) SOB (shortness of breath): (3) Pleural effusion, malignant: (4) Breast cancer metastasized to bone: Laterality: right Qualified Code(s): C50.911 - Malignant neoplasm of unspecified site of right female breast; C79.51 - Secondary malignant neoplasm of bone (5) Acute hypoxemic respiratory failure: (6) Severe protein-calorie malnutrition: History of Present Illness Reason for Consultation: Address goals of care and discuss palliative care Requesting Physician: Dr. Justin Estes Attending Physician: Justin Estes History of Present Illness Patient is a 74-year-old female with a past medical history significant for metastatic breast cancer-diagnosed in 2005, status post bilateral radical mastectomy who presented to the hospital on 06/22 with increased shortness of breath progressive over several weeks. Patient has a history of pleural effusion-was tapped for 700 cc on April. Patient was tapped on this admission for 900 cc-left pleural effusion. Patient also has metastatic disease and T10-no current complaints of pain. Patient has been declining nutritionally and from a functional status point of view-she has had discussions with oncology and no more chemo will be offered. Past medical history is significant for CAD, tachycardia as well as protein calorie malnutrition. Patient states she was started on oxygen approximately 3 months ago-is on O2 continuously. Patient is , lives with her significant other, Geof, for the past 18 years. Patient has 3 children her oldest son Zander, lives in the area, she has a 48-year-old son in [place] and a 43-year-old daughter in [facility]. Patient reports an allergy to morphine-patient states that she vomited when she received morphine after surgery. Discussed that this is a side effect and not necessarily an allergy and that if needed lower dose morphine may be effective with little side effect. Allergies Allergy/AdvReac Type Severity Reaction Status Date / Time denosumab [From Xgeva] Allergy Mild SEE BELOW Verified 06/23/19 12:56 isosorbide AdvReac Intermediate IMDUR/ Verified 06/23/19 12:56 MIGRAINE aspirin AdvReac Mild HISTORY OF Verified 06/23/19 12:56 BLEEDING ULCERS buprenorphine AdvReac Mild GI SYMPTOMS Verified 06/23/19 12:56 diphenhydramine AdvReac Mild RESTLESS Verified 06/23/19 12:56 LEGS ibuprofen AdvReac Mild AVOID DUE Verified 06/23/19 12:56 TO ULCER morphine AdvReac Mild SEVERE Verified 06/23/19 12:56 VOMITING NSAIDS (Non-Steroidal AdvReac Mild BLEEDING Verified 06/23/19 12:56 Anti-Inflamma ULCER DISEASE-CAN NOT HAVE NSAIDS oxycodone [From OxyContin] AdvReac Mild HALLUCINATI Verified 06/23/19 12:56 ONS tapentadol AdvReac Mild headache Verified 06/23/19 12:56 Home Medications Home Medications Medication Instructions Recorded Confirmed Type Restasis 1 drp OPB Q12H 01/19/18 06/23/19 History zolpidem [Ambien] 10 mg PO HS 01/19/18 06/23/19 History ondansetron HCl 8 mg PO Q8 PRN 09/08/18 06/23/19 History dronedarone 400 mg tablet 400 mg PO BID #180 tab 11/19/18 06/23/19 Rx abpitpkqor-qintyooipfrip-imhbbgvw 1 cap PO TID PRN cap 02/19/19 06/23/19 History 50 mg-300 mg-40 mg capsule triamcinolone acetonide 0.1 % 1 appln DT BID PRN 02/19/19 06/23/19 History dental paste multivitamin 1 tab PO DAILY 03/06/19 06/23/19 History nitroglycerin 0.4 mg SUBLINGUAL Q5M PRN #10 tab 03/07/19 06/23/19 Rx gabapentin 100 mg capsule 200 mg PO TID 03/22/19 06/23/19 History diltiazem HCl [Cartia XT] 240 mg PO QAM 04/07/19 06/23/19 History hydrocodone-acetaminophen [[place]] 1 - 2 tab PO Q6H PRN #10 tab 04/12/19 06/23/19 Rx furosemide 20 mg tablet 0 mg PO DAILY 06/17/19 06/23/19 History levothyroxine 150 mcg tablet 150 mcg PO QAM #30 tab 06/18/19 06/23/19 Rx atorvastatin 40 mg tablet 40 mg PO HS #90 tab 06/21/19 06/23/19 Rx potassium chloride 40 meq PO BID 06/23/19 06/23/19 History Patient History Medical History Allergic rhinitis Breast cancer, stage 4 (Acute) DX: 2007 HAS BEEN ON CHEMO FOR 12 YEARS - IV CHEMO AND THEN PO CHEMO AND NOW STARTED RADIATION AND NEEDING CHEMO AGAIN METASTATIC BREAST CA - LUNG, BONE, LIVER AND OTHERS CAD (coronary artery disease) Cancer of thyroid SURGICAL TREATMENT AND IODINE RADIATION Dyslipidemia Essential hypertension (Resolved) GERD (gastroesophageal reflux disease) Hypothyroidism, postablative LBBB (left bundle branch block) Lung nodule FROM METASTATIC BREAST CANCER Malignant pleural effusion (Resolved 09/21/13) Metastasis from breast cancer Migraine headache (Resolved) Osteopenia Paroxysmal SVT (supraventricular tachycardia) HX, CONTROLLED/NO RECENT ISSUES WITH MULTAC AND S/P ABLATION (2017) Peptic ulcer disease with hemorrhage (Resolved) HX Surgical History H/O bilateral mastectomy H/O prior ablation treatment (Resolved) 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 Bella 04-12-19 Family History Father , 70yo Heart disease Lymphoma Hx of CABG Mother , 91yo Diabetes Hypertension Congestive heart failure Brother Heart disease Brother Hepatitis Brother No problems noted. Sister Rheumatoid arthritis Daughter No problems noted. Son No problems noted. 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 Other Information That Helps Us Care for You: No Feels Safe at Home: Yes Safety Concerns: Feels Safe At This Time Smoking Status: Former smoker Tobacco Type: cigarettes ; Cigarettes Per Day: QUIT 43 YEARS, HX OF 1.5PPD X7 YEARS ; Second Hand Exposure: No ; Hx Alcohol Use: No Hx Substance Use: No caffeine: No during the past year weight has: remained stable Review of Systems Review of Systems: Patient denies fever, chills, chest pain, or abdominal pain Positive for dyspnea-improved, lower extremity edema, poor appetite and fatigue Physical Exam Physical Exam: PE: NAD, cachectic HEENT: EOMI, hearing within normal limits Respirations: Diminished breath sounds on right, on O2, comfortable at rest CV: Regular rate, 3+ pitting edema to the level of the knees, 1+ edema in the thighs. Abdomen: Soft, nontender Extremities: Full range of motion Neuro: Alert and oriented x4 Results & Data Vital Signs (Past 12 Hours) Vital Signs Temp Pulse Pulse Resp BP BP Pulse Ox 06/25/19 08:10 88 06/25/19 07:17 97.5 F L 88 16 95/64 L 98 06/25/19 03:22 98.4 F 90 18 105/64 91 PG Care Time/CCT Total # of Minutes Spent Total Time Spent with Patient: Total time 70 minutes with greater than 50% of the time spent at bedside discussing patient's goals of care as well as counseling regarding outpatient follow-up. Coding Level of Care Code 40064 Inpt Consult Level 3 Diagnoses Palliative care encounter Z51.5 SOB (shortness of breath) R06.02 Pleural effusion, malignant J91.0 Breast cancer metastasized to bone C50.911; C79.51 Laterality: right Acute hypoxemic respiratory failure J96.01 Severe protein-calorie malnutrition E43 Time Spent (min) 70
--- NOTE | 2019-06-25 12:38 | Nephrology Progress Note ---
Date of Service June 25, 2019 Assessment & Plan (1) Hyponatremia: Moderate, chronic hyponatremia. Serum sodium rising acceptably in response to therapy. TBW high but intravascularly dry. I would continue furosemide 20 mg daily to help maintain fluid balance. I think it is reaonably to maintain the 1.2 L/d fluid restriction. Dietary protein intake is encouraged. Symptoms improved significantly with thoracentesis yesterday. Unfortunately, I do not think diuretics will keep this from reaccumulating. I think that lymphedema treatment, keeping legs elevated and use of compression stockings should be strongly encouraged for LE edema. BP has been acceptable. No changes in this regard. Elevated WBC is being monitored. Preliminary evaluation including peripheral smear favors a leukemoid reaction, rare blasts. No obviously infection. No fevers or chills. Please continue KCl 40 mEq BID for hypokalemia. No additional nephrology recommendations at this time. I will sign off for now. Please contact us as needed for any additional questions. Otherwise, post discharge follow up labs should be obtained within 1 week. I would also like to arrange a telehealth or virtual visit with me in the clinic within 1-2 weeks of discharge. Subjective No acute events overnight. Appetite remains poor. Kellee states that she feels much better today. Her breathing has improved significantly. Activity tolerance has improved. She denies any fevers or chills. She denies a cough. Unfortunately WBC has continued to rise to 50,000. This finding was discussed with Dr. Loera. The overall plan of care was also discussed with Dr. Estes and Dr. Richard this morning. Review of Systems Review of Systems: All systems reviewed & are unremarkable except as noted in HPI & below Physical Exam Physical Exam: Exam was not performed today due to COVID 19 pandemic. Kellee did appear stronger and in better spirits today. Her breathing was unlabored. Results & Data Vital Signs (Past 12 Hours) Vital Signs Temp Pulse Pulse Resp BP BP Pulse Ox 06/25/19 08:10 88 06/25/19 07:17 36.4 C L 88 16 95/64 L 98 06/25/19 03:22 36.9 C 90 18 105/64 91 Laboratory Results Laboratory Results - last 24 hr 06/24/19 06/25/19 06/25/19 Unknown 05:31 05:31 WBC 50.00 H* D RBC 2.96 L Hgb 8.3 L Hct 25.7 L MCV 86.8 MCH 28.0 MCHC 32.3 RDW Std Deviation 51.3 H RDW Coeff of Bobbi 17.4 H Plt Count 510 H MPV 8.5 Absolute Nucleated RBC 0.40 H Nucleated RBC % (auto) 0.8 Neutrophils % (Manual) 81.7 Lymphocytes % (Manual) 3.3 Monocytes % (Manual) 3.3 Metamyelocytes % (Man) 6.7 Myelocytes % (Man) 1.7 Promyelocytes % (Man) 2.5 Blast Cells % (Manual) 0.8 Neutrophils # (Manual) 40.85 H Total Absolute Neuts 40.85 H Lymphocytes # (Manual) 1.65 Total Abs Lymphocytes 1.65 Monocytes # (Manual) 1.65 H Metamyelocytes # (Man) 3.35 H Myelocytes # (Manual) 0.85 H Promyelocytes # (Man) 1.25 H Blast Cells # (Man) 0.40 H Blood Smear Review Toxic Granulation 1+ Polychromasia 1+ Basophilic Stippling 1+ Sodium 130 L Potassium 4.5 Chloride 96 L Carbon Dioxide 33 H Anion Gap 1.0 L BUN 15 Creatinine 0.46 L Est Cr Clr Drug Dosing 72.3 Est GFR ( Amer) 113.6 Est GFR (Non-Af Amer) 98.0 BUN/Creatinine Ratio 32.2 H Glucose 94 Calcium 7.8 L Total Bilirubin 0.3 AST 51 H ALT 82 H Alkaline Phosphatase 201 H Total Protein 5.0 L Albumin 2.2 L Globulin 2.8 Albumin/Globulin Ratio 0.8 L Procalcitonin Fluid Neutrophils % 9 Fluid Lymphocytes % 84 Fluid Eosinophils % 1 Fluid Meso/Macro/[place] % 6 06/25/19 06/25/19 10:52 10:52 WBC 49.47 H* RBC 2.92 L Hgb 8.3 L Hct 25.7 L MCV 88.0 MCH 28.4 MCHC 32.3 RDW Std Deviation 52.2 H RDW Coeff of Bobbi 17.6 H Plt Count 549 H MPV 8.9 Absolute Nucleated RBC 0.38 H Nucleated RBC % (auto) 0.8 Neutrophils % (Manual) 80.1 Lymphocytes % (Manual) 0.9 Monocytes % (Manual) 10.4 Metamyelocytes % (Man) 1.7 Myelocytes % (Man) 1.7 Promyelocytes % (Man) 5.2 Blast Cells % (Manual) Neutrophils # (Manual) 39.63 H Total Absolute Neuts 39.63 H Lymphocytes # (Manual) 0.45 L Total Abs Lymphocytes 0.45 L Monocytes # (Manual) 5.14 H Metamyelocytes # (Man) 0.84 H Myelocytes # (Manual) 0.84 H Promyelocytes # (Man) 2.57 H Blast Cells # (Man) Blood Smear Review Toxic Granulation 2+ Polychromasia Basophilic Stippling Sodium Potassium Chloride Carbon Dioxide Anion Gap BUN Creatinine Est Cr Clr Drug Dosing Est GFR ( Amer) Est GFR (Non-Af Amer) BUN/Creatinine Ratio Glucose Calcium Total Bilirubin AST ALT Alkaline Phosphatase Total Protein Albumin Globulin Albumin/Globulin Ratio Procalcitonin Pending Fluid Neutrophils % Fluid Lymphocytes % Fluid Eosinophils % Fluid Meso/Macro/[place] % PG Care Time/CCT Total # of Minutes Spent Total Time Spent with Patient: Total time spent is greater than 50% in coordination of care (as documented) at patient's floor/unit and/or counseling patient: Coding Level of Care Code 65195 Subseq Hosp Care Lvl 3 Diagnoses Hyponatremia E87.1
[2019-06-25] MEDS: ONDANSETRON INJ 2 MG/ML 2 ML VIAL IV PRN (15:34)
[2019-06-25] MEDS: ATORVASTATIN 40 MG TAB PO SCH (21:09)
[2019-06-25] MEDS: ZOLPIDEM TARTRATE 10 MG TAB PO SCH (21:46)
--- NOTE | 2019-06-25 23:12 | Hospitalist Progress Note ---
Date of Service June 25, 2019 Assessment & Plan (1) Primary malignant neoplasm of breast with metastasis: - Admitted to med surg with tele - Infiltrating ductal carcinoma of the Right breast, [place]/ER +, HER-2/shaniqua negative stage II-B, original diagnosis Nov 2005, s/p bilateral mastectomy. - Chemo hx with xeloda and gemcitabine, now only gemcitabine therapy, last session was approximately 1 week ago, receives biweekly infusion, started Nov 2018. - s/p most recent radiation therapy to the right chest wall lesion completed on 03/29/[address] Keila Sanchez. - Follows with Dr. Loera as outpatient, consult heme/onc - A-port accessed currently - Continue supplemental O2 prn -improved with thoracocenthesis. (2) Pleural effusion, malignant: -Chronic but appears to be worsening -Consult thoracic surgery --follows with Dr. Richard - last seen on 04/05/2019 and was operating independently without supplemental O2 need- ?pleurex placement would benefit?- I have called Dr. Richard and he will see her. Patient has history of a Pleurx catheter placement about 6 years ago. She does have diminished breath sounds on exam in the left base, right base and right middle lobe. -CXR reviewed showing similar size of small to moderate right-sided pleural effusion, small left-sided pleural effusion -CT PE reviewed- neg for PE, progressive consolidation in the right lung, Increased size of the moderate to large left pleural effusion with increased lower lobe passive atelectasis. Volume overload with congestive change and mild pulmonary edema suspected. Underlying pulmonary artery hypertension. Stable chronic changes of the right pleura, which can indicate prior pleurodesis are pleural-based metastatic disease. This is chronic. 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 Patient improved after thoracocenthesis Had palliative care consult. Please refer to documentation. Not ready for hospice at this time. (3) CAD (coronary artery disease): - Continue atorvastatin 40 mg HS, diltiazem 240 mg QAM. (4) AVNRT (AV sal re-entry tachycardia): - Continue dronedarone 400 mg BID (5) Hyponatremia: -Sodium = 124 at time of admission -It appears this has been chronic over the past year, oncology and nephrology are well aware. Patient was recently seen by Dr. Daniel with nephrology- will consult during this hospital stay- I have discussed the case with him and he agrees on IV diuresis at this time - Will check urine osmolality, urine sodium and potassium prior to lasix administration - Her clinical presentation is consistent with nutritional deficiency. As outpt she has been told to limit free water intake to ~40oz per day -she also drinks Gatorade, milk, tea on a daily basis. She was recently asked to restrict her water intake to less than 10oz daily, and increase protein intake to >40 g daily. -There was concern for potential component of inappropriate excretion of ADH, urine osmolality= 250 on last check on 06/11/19 -Goal to improve sodium to 130-135 Sodium on 06/24 is 130. (6) Severe protein-calorie malnutrition: - Encourage increased protein consumption as above, will order boost supplementation -Albumin was 2.5 - BMI of 21.4 (7) Malignant cachexia: -Secondary to poor protein malnutrition, nutritional deficiency, limited oral intake (8) Anemia associated with chemotherapy: -Hemoglobin 9.5, HCT = 29.2 this appears lower than her baseline of 11-13 - Guiac all stools with report of diarrhea - Recent chemo therapy (9) Hypothyroidism, postablative: - TSH is elevated at 23.6 on 06/13 - Consider endocrinology consultation in regards to multiple medical comorbidities (10) DVT prophylaxis: -heparin subcu, SCDs CODE STATUS: DNR/DNI Disposition: Patient from home, likely to remain in the hospital x1 to 2 days, PT/OT evaluations patient has ambulatory dysfunction and unsteady/weak gait due to cancer with mets to bone (11) Leukocytosis: May be related to malignancy. Possibly secondary to an infection, however clinically patient is doing well. Will hold off antibiotics. If patient remains asymptomatic, will discharge in AM. Admission and Anticipated Discharge Date Admission Date: June 23, 2019 Subjective 74 yo female reports feeling well. She states she has not felt as well for a few months. She states she had a conversation with [facility] today. Patient denies any new symptoms. Review of Systems Review of Systems: All systems reviewed & are unremarkable except as noted in HPI & below Physical Exam Physical Exam: General: awake, alert, + cachectic, + able to speak in full sentences.Patient contiues to be on 4 liters nasal cannula. Head: Normocephalic, atraumatic ENT: PERRL, EOMI, no pharyngeal exudate, mucous membranes moist Chest: A-port in place right chest wall, on 3L via NC. No rales, rhonchi or wheezes. Cardiac: Regular rhythm, RRR, no murmur, no JVD, normal peripheral pulses, good capillary refill Abdominal: NABS x 4 quadrants, soft, nondistended, nontender to palpation, no rebound, guarding or tenderness Extremities: + Lymphedema bilateral lower extremities, + pitting edema up to thighs bilaterally, no erythema, calfs nontender to palpation Psych: Normal mood and affect Neuro: AAO x 3, no gross motor deficits, speech is clear, no peripheral sensory deficits Skin: no rash or erythema Results & Data Results & Data ([facility]) Vital Signs (Past 12 Hours) Vital Signs Temp Pulse Pulse Resp BP Pulse Ox 06/25/19 22:22 36.5 C 80 16 100/64 98 06/25/19 19:34 36.7 C 79 18 92/60 L 99 06/25/19 16:00 73 06/25/19 15:20 37.1 C 79 18 95/60 L 99 PG Care Time/CCT Total # of Minutes Spent Total Time Spent with Patient: Total time spent is greater than 50% in coordination of care (as documented) at patient's floor/unit and/or counseling patient: Coding Level of Care Code 21544 Subseq Hosp Care Lvl 2 Diagnoses Primary malignant neoplasm of breast with metastasis C50.919 Pleural effusion, malignant J91.0 CAD (coronary artery disease) I25.10 AVNRT (AV sal re-entry tachycardia) I47.1 Hyponatremia E87.1 Severe protein-calorie malnutrition E43 Malignant cachexia R64 Anemia associated with chemotherapy D64.81; T45.1X5A Hypothyroidism, postablative E89.0 DVT prophylaxis Z29.9 Leukocytosis D72.829 Time Spent (min) 25
[2019-06-26] MEDS: LEVOTHYROXINE SODIUM 150 MCG TABLET PO SCH (05:59)
[2019-06-26 07:09] LABS: Albumin Level 2.3 gm/dl (3.4-5.0); BUN Creatinine Ratio 35.6 (10-20); Calcium 7.9 mg/dl (8.5-10.1); Creatinine Clr Calc Pharmacy 77.2 ml/min; Est GFR (African American) 116.1; Est GFR (Non-African American) 100.2; Potassium 4.5 mmol/L (3.5-5.1)
[2019-06-26 07:12] LABS: Albumin Globulin Ratio 0.8 (0.9-2); Bilirubin,Total 0.4 mg/dl (0.2-1); Total Protein 5.3 gm/dl (6.4-8.2)
[2019-06-26 07:14] LABS: Hematocrit (blood only) 26.1 % (37-47); Hemoglobin 8.3 g/dL (12.0-16.0); Mean Corpuscular Hemoglobin 28.1 pg (25-34); Mean Corpuscular Hgb Conc 31.8 g/dL (32-36); Mean Corpuscular Volume 88.5 fL (80-100); Mean Platelet Volume 8.7 fL (7.4-10.4); Nucleated RBC # (auto) 0.27 K/uL (0-0); Nucleated RBC % (auto) 0.6 %; Platelet Count 480 K/uL (130-400); RDW Coefficient of Variation 18.1 % (11.5-14.5); RDW Standard Deviation 54.1 fL (36.4-46.3); Red Blood Count 2.95 M/uL (4.2-5.4); White Blood Count 42.77 K/uL (4.8-10.8)
[2019-06-26 07:29] VITALS: TEMP 98.6; O2SAT 95
[2019-06-26 08:43] VITALS: BP 95/64; PULSE 95
[2019-06-26] MEDS: MULTIVITAMIN TAB PO SCH (08:45)
[2019-06-26] MEDS: FUROSEMIDE 20 MG TAB PO SCH (08:45)
[2019-06-26] MEDS: dilTIAZem HCL 240 MG CAPCR PO SCH (08:46)
[2019-06-26] MEDS: GABAPENTIN 100 MG CAP PO SCH (08:46)
[2019-06-26] MEDS: DRONEDARONE HCL 400 MG TAB PO SCH (08:46)
[2019-06-26] MEDS: POTASSIUM CHLORIDE 20 MEQ TABCR PO SCH (08:47)
[2019-06-26] MEDS: ENOXAPARIN INJ 30 MG/0.3 ML SYR SQ SCH (08:51)
[2019-06-26] MEDS: ONDANSETRON INJ 2 MG/ML 2 ML VIAL IV PRN (09:55)
[2019-06-26] MEDS: HEPARIN 100 UNIT/ML 5ML FLUSH FLUSH PRN (09:55)
[2019-06-26] MEDS ORDERED: SODIUM CHLORIDE 1 GM TABLET PO SCH (11:00)
--- NOTE | 2019-06-26 11:08 | Nephrology Progress Note ---
Date of Service June 26, 2019 Assessment & Plan (1) Hyponatremia: -- Clinically euvolemic to volume contracted -- Hypothyroid on admission. Thyroid replacement has been adjusted -- Start NaCl 1 g po BID. Continue Furosemide 20 mg po BID -- Schedule hospital follow up w/ Dr. Sanchez in 1-2 weeks (telehealth visit) (2) Breast cancer metastasized to bone: -- h/o metastatic breast CA -- L thoracentesis fluid + for malignancy -- Patient is discussing plan of care and possibly hospice w/ Oncology and Palliative Care consultants Subjective Mrs. Rangel was seen & examined in her hospital room this morning. Evaluation was provided because serum sodium is again trending down. Mrs. Rangel reports that her breathing has improved following thoracentesis. She hopes to be discharged to home later today. She voiced no new medical concerns. Review of Systems Constitutional: no fever and no chills Eyes: no worsening vision and no problem reported Ear, Nose, Mouth, Throat: no problem reported Respiratory: no cough Cardiovascular: no chest pain, no palpitations and no edema Gastrointestinal: no abdominal pain, no nausea, no vomiting and no diarrhea/loose stools Genitourinary: no dysuria and no hematuria Musculoskeletal: no back pain Integumentary: no rash Neurologic: no confusion Physical Exam Constitutional: + thin and + frail appearing; not in distress Eyes: PERRL, conjunctivae normal, anicteric sclerae ENMT: external ear and nose normal, oropharynx normal Neck: trachea midline, no thyromegaly Respiratory: normal respiratory effort, lungs clear to auscultation Cardiovascular: RRR, no murmur, no edema Gastrointestinal (Abdomen): normal bowel sounds, soft, nontender, no hepatosplenomegaly Skin: no rashes, warm and dry Neurologic: awake; not confused Results & Data Vital Signs (Past 12 Hours) Vital Signs Temp Pulse Pulse Pulse Resp BP BP 06/26/19 08:42 37.0 C 95 H 88 18 95/58 L 95/64 L 06/26/19 07:28 37.0 C 88 18 95/58 L 06/26/19 03:24 37.7 C H 06/26/19 03:12 38 C H 94 H 16 106/67 06/26/19 00:20 85 Pulse Ox 06/26/19 08:42 95 06/26/19 07:28 95 06/26/19 03:24 06/26/19 03:12 93 06/26/19 00:20 Laboratory Results Laboratory Tests 06/26/19 06/26/19 06:28 06:28 WBC 42.77 H* Hgb 8.3 L Hct 26.1 L Plt Count 480 H Sodium 128 L Potassium 4.5 Chloride 96 L Carbon Dioxide 31 BUN 15 Creatinine 0.43 L Glucose 119 H PG Care Time/CCT Total # of Minutes Spent Total Time Spent with Patient: Total time spent is greater than 50% in coordination of care (as documented) at patient's floor/unit and/or counseling patient: Coding Level of Care Code 74975 Subseq Hosp Care Lvl 3 Diagnoses Hyponatremia E87.1 Breast cancer metastasized to bone C50.911; C79.51 Laterality: right (1) Breast cancer metastasized to bone Laterality: right Qualified Code(s): C50.911 - Malignant neoplasm of unspecified site of right female breast; C79.51 - Secondary malignant neoplasm of bone
--- NOTE | 2019-07-04 23:32 | Discharge Summary ---
Date of Service June 26, 2019 Admission HPI Per Admitting Provider This is a 74 yo F with PMHx of metastatic breast cancer to lung, liver and bone, malignant pleural effusion, CAD, AV sal re-entry tachycardia, acute hypoxemic respiratory failure, anemia, chronic hyponatremia ranging from 128-135 for over a year, who presents with acute worsening of shortness of breath and progressive weakness x 10days. She notes that she at home has been having difficulty with progressive shortness of breath, that started out with exertion but now feels short of breath even with speaking a sentence. She has not been able to walk much, can only go a few feet before becoming extremely short of breath. She was placed on supplemental O2 approximately 3 months ago and told to wear it on exertion, but has been wearing it continuously for several days. She denies any recent sick contacts, travel, rhinorrhea, loss of taste or smell, and has not been around a COVID-19 positive patient. She last had chemotherapy treatment with gemcitabine about 1 week ago, and also recently was treated for low sodium with NSS infusion bolus which did improve Na+ level. She reports that she has been eating and drinking without difficulty and that she has been restricting the amount of free water she drinks. She has been drinking gatorade, mild and tea at home. She denies nausea or vomiting. She admits to having some recent diarrhea which she attributes to gemcitabine treatment last week. She also reports intermittent constipation but none recently. Pt lives at home with her partner, and has had difficulty performing basic ADLs recently due to increased shortness of breath. Principal Diagnosis pleural effusion Discharge Exam General: awake, alert, + cachectic, + able to speak in full sentences.Patient continues to be on 4 liters nasal cannula. Head: Normocephalic, atraumatic ENT: PERRL, EOMI, no pharyngeal exudate, mucous membranes moist Chest: A-port in place right chest wall, No rales, rhonchi or wheezes. Cardiac: Regular rhythm, RRR, no murmur, no JVD, normal peripheral pulses, good capillary refill Abdominal: NABS x 4 quadrants, soft, nondistended, nontender to palpation, no rebound, guarding or tenderness Extremities: + Lymphedema bilateral lower extremities, + pitting edema up to thighs bilaterally, no erythema, calfs nontender to palpation Psych: Normal mood and affect Neuro: AAO x 3, no gross motor deficits, speech is clear, no peripheral sensory deficits Skin: no rash or erythema Discharge Data Allergies Allergy/AdvReac Type Severity Reaction Status Date / Time denosumab [From Xgeva] Allergy Mild SEE BELOW Verified 06/23/19 12:56 isosorbide AdvReac Intermediate IMDUR/ Verified 06/23/19 12:56 MIGRAINE aspirin AdvReac Mild HISTORY OF Verified 06/23/19 12:56 BLEEDING ULCERS buprenorphine AdvReac Mild GI SYMPTOMS Verified 06/23/19 12:56 diphenhydramine AdvReac Mild RESTLESS Verified 06/23/19 12:56 LEGS ibuprofen AdvReac Mild AVOID DUE Verified 06/23/19 12:56 TO ULCER morphine AdvReac Mild SEVERE Verified 06/23/19 12:56 VOMITING NSAIDS (Non-Steroidal AdvReac Mild BLEEDING Verified 06/23/19 12:56 Anti-Inflamma ULCER DISEASE-CAN NOT HAVE NSAIDS oxycodone [From OxyContin] AdvReac Mild HALLUCINATI Verified 06/23/19 12:56 ONS tapentadol AdvReac Mild headache Verified 06/23/19 12:56 Consultations 06/23/19 14:14 ED Decision to Admit Stat 06/23/19 15:37 Consult Thoracic Surgery Routine 06/23/19 16:06 Consult Case Management - Discharge Planning Routine Consult Nephrology Routine Consult Oncology Routine 06/24/19 18:14 Consult Palliative Care Routine Ordered Studies 06/23/19 14:04 CT angio chest PE protocol Stat 06/23/19 15:37 US venous doppler LE Routine Hospital Course (1) Primary malignant neoplasm of breast with metastasis: - Admitted to med surg with tele - Infiltrating ductal carcinoma of the Right breast, VT/ER +, HER-2/shaniqua negative stage II-B, original diagnosis Nov 2005, s/p bilateral mastectomy. - Chemo hx with xeloda and gemcitabine, now only gemcitabine therapy, last session was approximately 1 week ago, receives biweekly infusion, started Nov 2018. - s/p most recent radiation therapy to the right chest wall lesion completed on 03/29/[address] Keila Sanchez. - Follows with Dr. Loera as outpatient, consult heme/onc - A-port accessed currently - Continue supplemental O2 prn -improved with thoracocenthesis. (2) Pleural effusion, malignant: -Chronic but appears to be worsening -Consult thoracic surgery --follows with Dr. Richard - last seen on 04/05/2019 and was operating independently without supplemental O2 need- ?pleurex placement would benefit?- I have called Dr. Richard and he will see her. Patient has history of a Pleurx catheter placement about 6 years ago. She does have diminished breath sounds on exam in the left base, right base and right middle lobe. -CXR reviewed showing similar size of small to moderate right-sided pleural effusion, small left-sided pleural effusion -CT PE reviewed- neg for PE, progressive consolidation in the right lung, Increased size of the moderate to large left pleural effusion with increased lower lobe passive atelectasis. Volume overload with congestive change and mild pulmonary edema suspected. Underlying pulmonary artery hypertension. Stable chronic changes of the right pleura, which can indicate prior pleurodesis are pleural-based metastatic disease. This is chronic. 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 Patient improved after thoracocenthesis Had palliative care consult. Please refer to documentation. Not ready for hospice at this time. (3) CAD (coronary artery disease): - Continue atorvastatin 40 mg HS, diltiazem 240 mg QAM. (4) AVNRT (AV sal re-entry tachycardia): - Continue dronedarone 400 mg BID (5) Hyponatremia: -Sodium = 124 at time of admission -It appears this has been chronic over the past year, oncology and nephrology are well aware. Patient was recently seen by Dr. Sanchez with nephrology- will consult during this hospital stay- I have discussed the case with him and he agrees on IV diuresis at this time - Will check urine osmolality, urine sodium and potassium prior to lasix administration - Her clinical presentation is consistent with nutritional deficiency. As outpt she has been told to limit free water intake to ~40oz per day -she also drinks Gatorade, milk, tea on a daily basis. She was recently asked to restrict her water intake to less than 10oz daily, and increase protein intake to >40 g daily. -There was concern for potential component of inappropriate excretion of ADH, urine osmolality= 250 on last check on 06/11/19 -Goal to improve sodium to 130-135 Sodium on 06/24 is 130. (6) Severe protein-calorie malnutrition: - Encourage increased protein consumption as above, will order boost dunaway pplementation -Albumin was 2.5 - BMI of 21.4 (7) Malignant cachexia: -Secondary to poor protein malnutrition, nutritional deficiency, limited oral intake (8) Anemia associated with chemotherapy: -Hemoglobin 9.5, HCT = 29.2 this appears lower than her baseline of 11-13 - Guiac all stools with report of diarrhea - Recent chemo therapy (9) Hypothyroidism, postablative: - TSH is elevated at 23.6 on 06/13 - Consider endocrinology consultation in regards to multiple medical comorbidities (10) DVT prophylaxis: -heparin subcu, SCDs CODE STATUS: DNR/DNI patient has ambulatory dysfunction and unsteady/weak gait due to cancer with mets to bone (11) Leukocytosis: May be related to malignancy. Possibly secondary to an infection, however clinically patient is doing well. Will hold off antibiotics. Patient remained feeling well and was discharged with close followup with oncology. Total Time Total Time Spent Total Time Spent (In Minutes): 32 Total Time Includes: Examination of the Patient, Discharge Planning and Medication Reconciliation Discharge Plan Discharge Items Patient Disposition: Home - Self-Care Reason For Visit: METASTATIC BREAST CANCER,SHORTNESS OF BREATH Discharge Diagnosis: Mestatic breast cancer, shortness of breath. Activity: Resume your previous activity Non-emergency contact: Primary Care Provider Call non-emergency contact if: you have any medication questions Follow-up/Referrals: Isaac Way MD [Primary Care Provider] - Diet: Heart Healthy Fluids: 1200ml (5 cups) Addtl Attending Provider Instructions: You have been hospitalized for an acute medical problem. During your stay at [facility], we have made an effort to correct the problem that brought you to the hospital while keeping you as comfortable as possible. Medications were used to bring your condition under control and your discharge instructions will include directions for any medications you should take after leaving the hospital. Please make sure you see your Primary Care Provider as part of your follow up plan. Coronavirus disease 2019 (COVID-19) is a virus that causes a respiratory illness. It is caused by a coronavirus called 2019 novel coronavirus (2019- nCoV). There are many types of coronavirus. Coronaviruses are a very common cause of bronchitis. They may sometimes cause lung infection(pneumonia). Symptoms can range from mild to severe respiratory illness. These viruses are also foundin some animals. COVID-19 was first found in people in [facility], in late 2019. In 2020, several cases of COVID-19 have been confirmed in the [place] Public health officials are working to find the source. How the virus spreads is not yet fully known. It may be spread through droplets of fluid that a person coughs or sneezes into the air. It may be spread if you touch a surface with virus on it, such as a handle or object, and then touch your mouth. What are the symptoms of COVID-19? Some people have no symptoms or mild symptoms. Symptoms may appear 2 to 14 days after contact with the virus. Symptoms can include: Fever Coughing Trouble breathing What are possible complications from COVID-19? In many cases, this virus can cause infection (pneumonia) in both lungs. In some cases, this can cause . How is COVID-19 diagnosed? Your healthcare provider will ask about your symptoms. He or she will also ask about your recent travel and contact with sick people. Testing for the virus is only done through the CDC. If yourhealthcare provider thinks you may have COVID- 19, he or she will work with your local health department and the CDC on testing. Follow all instructions from your healthcare provider. COVID-19 is diagnosed by: Nasal and throat swab. A cotton-tipped swab is wiped inside your nose or throat. This is done to check for viruses in your nasal mucus. Sputum culture. A small sample of mucus coughed from your lungs (sputum) is collected if you have a cough. It is checked for the virus. How is COVID-19 treated? There is currently no medicine to treat the virus. Treatment is done to help your body while it fights the virus. This is known as supportive care. Supportive care may include: Pain medicine. These include acetaminophen and ibuprofen. They are used to help ease pain and reduce fever. Bed rest. This helps your body fight the illness. For severe illness, you may need to stay in the hospital. Care during severe illness may include: IV (intravenous) fluids.These are given through a vein to help keep your body hydrated. Oxygen. Supplemental oxygen or ventilation with a breathing machine (ventilator) may be given. This is done to keep enough oxygen in your body. Are you at risk for COVID-19? If youve been to a place where people have been sick with this virus, you are at risk for infection. You are at risk if you: Recently traveled to an affected area Had contact with a sick person who recently traveled to this area Had contact with a person who was diagnosed with COVID-19 How can COVID-19 be prevented? There is no vaccine yet. The best prevention is to not have contact with the virus. The CDC advises that people should not travel to areas where there are COVID-19 outbreaks right now for any reason that is not urgent. To help prevent spreading the infection, wash your hands often, or use an alcohol-basedhand network account manager. If you are in an area with COVID-19: Wash your hands often. Or use an alcohol-based hand network account manager often. Only touch your eyes, nose, or mouth with clean hands. Dont have contact with people who are sick. Follow local instructions about being in public. For example, you may be told to not use public transport for a period of time. Stay away from markets that have live or animals. Wash your hands after touching any animals. Don't touch animals that may be sick. Dont share eating or drinking tools with sick people. Dont kiss someone who is sick. Clean surfaces often with disinfectant. If you were in an area with COVID-19 in the last 14 days: Call your healthcare provider. He or she can talk with local health staff to see what action may be needed. Follow all instructions from your provider. Take your temperature every morning and evening for at least 14 days. This is to check for fever. Keep a record of the readings. Keep watch for symptoms of the virus. Tell your provider right away if you have symptoms. If you were in an area with COVID-19 and have a fever or other symptoms: Dont panic. Keep in mind that other illnesses can cause similar symptoms. Stay away from work, school, and public places. Limit physical contact with family members. Don't kiss anyone or share eating or drinking utensils. Clean surfaces you touch with disinfectant. This is to help prevent the virus from spreading. Call your healthcare provider. Explain that you have been exposed to COVID-19 and have symptoms. Do this before going to any hospital. Wait for instructions. Keep in mind that healthcare staff may wear protective equipment such as masks, gowns, gloves, and eye protection. You may be put in a separate room. This is to prevent the possible virus from spreading. Tell the healthcare staff about recent travel. This includes local travel on public transport. Staff may need to find other people you have been in contact with. Follow all instructions the healthcare staff give you. If you have been diagnosed with COVID-19 Follow all instructions from your healthcare provider. Dont leave your home, except to get medical care. Call your healthcare providers office before going. They can prepare and give you instructions. This will help prevent the virus from spreading. Dont go to work, school, or public areas. Dont use public transport or taxis. Stay away from other people in your home. Have them wear face masks around you. Dont share household items or food. Wear a face mask if you can. This includes at home or in a medical facility. Cover your face with a tissue when you cough or sneeze. Throw the tissue away. Wash your hands. Wash your hands often. Caregivers should: Follow all instructions from healthcare staff. Wear a face mask and protective clothing as advised. Wash hands often. Keep track of the sick persons symptoms. Clean surfaces, fabrics, and laundry thoroughly. Keep other people away from the sick person. When to call your healthcare provider Call your healthcare provider: If youve recently traveled and have symptoms If you have been diagnosed with COVID-19 and your symptoms are worse To learn more To find out more about COVID-19, visit the CDC website at www.cdc.gov/coronavirus/2019-ncov/index.html. [employer]. [address] [place] [address]. All rights reserved. This information is not intended as a substitute for professional medical care. Always follow your healthcare professional's instructions. This information has been adapted from [employer] Pending Studies at Discharge: No Stand-Alone Forms: My [employer], Smoking Cessation Medications and DC Order Prescriptions: New sodium chloride 1 gram tablet 1,000 mg PO BID Qty: 60 RF: 0 Continued triamcinolone acetonide 0.1 % paste 1 appln DT BID PRN (Reason: mouth irritation) RF: 0 atorvastatin [Lipitor] 40 mg tablet 40 mg PO HS Qty: 90 RF: 3 furosemide 20 mg tablet 0 mg PO DAILY RF: 0 Hold Instructions: Home Medication placed on hold at Doctor's office levothyroxine [Synthroid] 150 mcg tablet 150 mcg PO QAM Qty: 30 RF: 5 Multaq 400 mg tablet 400 mg PO BID Qty: 180 RF: 3 zolpidem [Ambien] 10 mg Tablet 10 mg PO HS RF: 0 Restasis 0.05 % Dropperette 1 drp OPB Q12H RF: 0 dhdynscppr-heebbzhfzwvcu-uosu [Fioricet] 50-300-40 mg capsule 1 cap PO TID PRN (Reason: Headache) RF: 0 ondansetron HCl 8 mg tablet 8 mg PO Q8 PRN (Reason: Nausea) RF: 0 multivitamin Tablet 1 tab PO DAILY RF: 0 nitroglycerin 0.4 mg tablet, sublingual 0.4 mg sublingual Q5M PRN (Reason: chest pain) Qty: 10 RF: 0 gabapentin 100 mg capsule 200 mg PO TID RF: 0 diltiazem HCl [Cartia XT] 240 mg capsule,extended release 24hr 240 mg PO QAM RF: 0 hydrocodone-acetaminophen [[place]] 5-325 mg tablet 1 - 2 tab PO Q6H PRN (Reason: pain) Qty: 10 RF: 0 potassium chloride 10 mEq capsule, extended release 40 meq PO BID RF: 0 Discharge Orders: Discharge Order (Routine); Ordered 06/26/19 Ordered By: Justin Estes Admission Data Admit Date/Time: 06/23/19 14:48 Attending Provider: Justin Estes Admit Provider: Juancarlos Rios Primary Care Provider: Isaac Way Other Providers: Onur Sanchez ; Luis Richard ; Ryley Loera ; Bere Post ; Isaac Rose Other Interventions: Discharge Summary Assessment (RN) Last Done: 06/26/19 08:42 DC Date/Time DO NOT enter until pt leaves facility: 06/26/19 11:35 Coding Level of Care Code D/C Day Management >30 mins Diagnoses Primary malignant neoplasm of breast with metastasis C50.919 Pleural effusion, malignant J91.0 CAD (coronary artery disease) I25.10 AVNRT (AV sal re-entry tachycardia) I47.1 Hyponatremia E87.1 Severe protein-calorie malnutrition E43 Malignant cachexia R64 Anemia associated with chemotherapy D64.81; T45.1X5A Hypothyroidism, postablative E89.0 DVT prophylaxis Z29.9 Leukocytosis D72.829
== END 2019-06-26 11:35 | disposition home or self-care (01) | DRG 180 ==
LOC: ED 11:03 → 2W 14:48 → SUATTDRO 14:48 → 2W 15:24